=== PATIENT | female | born 2000 | race Caucasian/White ===

== ENCOUNTER 2019-03-31 12:03 | Emergency (ER) | payer OTHER ==
[2019-03-31] MEDS ORDERED: ONDANSETRON ODT 4 MG TABLET TL STA (12:26)
[2019-03-31 12:42] LABS: BASOPHILS # (AUTO) 0.1 10^3/uL (0.0-0.1); BASOPHILS % (AUTO) 0.3 %; EOSINOPHILS # (AUTO) 0.1 10^3/uL (0.0-0.7); EOSINOPHILS % (AUTO) 0.3 %; HGB - HEMOGLOBIN 12.7 g/dL (12.0-16.0); LYMPHOCYTES # (AUTO) 0.6 10^3/uL (1.5-3.5); LYMPHOCYTES % (AUTO) 2.4 %; MEAN CORPUSCULAR HEMOGLOBIN 26.7 pg (27.0-31.0); MEAN CORPUSCULAR HGB CONC 33.2 g/dL (32.0-36.0); MEAN CORPUSCULAR VOLUME 80.3 fL (81.0-99.0); MEAN PLATELET VOLUME 9.7 fL (7.9-10.8); MONOCYTES # (AUTO) 1.3 10^3/uL (0.0-1.0); MONOCYTES % (AUTO) 5.4 %; NEUTROPHILS # (AUTO) 21.5 10^3/uL (1.5-6.6); PLT - PLATELET COUNT 281 10^3/uL (130-450); RED BLOOD COUNT 4.76 10^6/uL (4.20-5.40); RED CELL DISTRIBUTION WIDTH 13.3 % (12.0-15.0); WHITE BLOOD COUNT 23.9 x10^3/uL (4.8-10.8)
[2019-03-31 12:56] LABS: ALBUMIN 3.3 g/dL (3.2-5.5); ALBUMIN/GLOBULIN RATIO 0.9 (1.0-2.2); BILIRUBIN,TOTAL 1.5 mg/dL (0.2-1.0); CALCIUM 8.4 mg/dL (8.5-10.3); CREATININE 0.9 mg/dL (0.4-1.0); TOTAL PROTEIN 6.8 g/dL (6.7-8.2)
[2019-03-31 13:01] LABS: RBC MORPHOLOGY (MULTIPLE) 1+ ANISOCYTOSIS (NORMAL)
[2019-03-31] MEDS ORDERED: SODIUM CHLORIDE 0.9% 1,000 ML IV ONE ×3 (13:25→13:40)
[2019-03-31] MEDS ORDERED: KETOROLAC 30 MG/ML VIAL IVP STA (13:35)
[2019-03-31] MEDS ORDERED: MORPHINE 2 MG/ML CARPUJECT IVP STA (13:35)
--- NOTE | 2019-03-31 13:39 | ED Physician Documentation ---
History of Present Illness - Stated complaint Stated Complaint: VOMITING - Chief complaint Chief Complaint: Abd Pain - History obtained from History obtained from: Patient - History of Present Illness Timing: How many days ago (2) Pain level max: 6 Pain level now: 6 - Additonal information Additional information: 18-year-old female presents to the emergency department with vomiting for the past 2 days. She states she has had fevers as well. Has left lower quadrant abdominal pain. She has a gastric tube that she uses to help flush for bowel movements secondary to anal stenosis. She states she has had constipation as well. Nothing makes it better. Worse with thinning and drinking. Denies any possibility of . Review of Systems Constitutional: reports: Fever. denies: Chills Nose: denies: Rhinorrhea / runny nose, Congestion Throat: denies: Sore throat Cardiac: denies: Chest pain / pressure Respiratory: denies: Cough, Wheezing GI: reports: Vomiting, Constipation. denies: Hematemesis, Bloody / black stool : denies: Dysuria, Frequency, Hesitancy, Now EGA Skin: denies: Rash Musculoskeletal: denies: Neck pain, Back pain PD PAST MEDICAL HISTORY - Past Medical History Past Medical History: Yes Other Past Medical History: anal stenosis - Present Medications Home Medications: Ambulatory Orders Medication Instructions Recorded Confirmed Cefdinir 300 mg PO BID #20 capsule 03/31/19 Ondansetron Odt [Zofran] 4 mg TL Q6H PRN #10 tablet 03/31/19 - Allergies Allergies/Adverse Reactions: Allergies Allergy/AdvReac Type Severity Reaction Status Date / Time Iodinated Contrast Media Allergy Anaphylaxis Verified 03/31/19 13:37 - Living Situation Living Arrangement: reports: At home - Family History Family history: reports: Non contributory PD ED PE NORMAL - Vitals Vital signs reviewed: Yes - General General: Alert and oriented X 3, No acute distress, Well developed/nourished - HEENT HEENT: Moist mucous membranes - Neck Neck: Supple, no meningeal sign - Cardiac Cardiac: RRR, Strong equal pulses - Respiratory Respiratory: No respiratory distress, Clear bilaterally - Abdomen Abdomen: Normal bowel sounds, Soft, Non distended, Other (Mild tenderness to palpation left lower quadrant without peritoneal signs.) - Back Back: No CVA TTP, No spinal TTP - Derm Derm: Warm and dry - Extremities Extremities: No edema - Neuro Neuro: Alert and oriented X 3 - Psych Psych: Normal mood, Normal affect Results - Vitals Vitals: Vital Signs - 24 hr 03/31/19 03/31/19 03/31/19 12:18 15:48 16:55 Temperature 39.4 C H Heart Rate 130 H 119 H 111 H Respiratory 16 16 18 Rate Blood Pressure 101/60 92/55 L 112/78 O2 Saturation 99 99 99 Oxygen O2 Source Room air - Labs Labs: Laboratory Tests 03/31/19 03/31/19 03/31/19 12:36 12:36 13:43 WBC 23.9 H RBC 4.76 Hgb 12.7 Hct 38.2 MCV 80.3 L MCH 26.7 L MCHC 33.2 RDW 13.3 Plt Count 281 MPV 9.7 Neut # (Auto) 21.5 H Lymph # (Auto) 0.6 L [place] # (Auto) 1.3 H Eos # (Auto) 0.1 Baso # (Auto) 0.1 Absolute Nucleated RBC 0.00 Nucleated RBC % 0.0 Manual Slide Review Indicated RBC Morph Micro Appear 1+ ANISOCYTOSIS Sodium 131 L Potassium 3.6 Chloride 98 L Carbon Dioxide 22 Anion Gap 11.0 BUN 9 Creatinine 0.9 Estimated GFR (MDRD) 81 L Glucose 123 H Lactic Acid Calcium 8.4 L Total Bilirubin 1.5 H AST 23 ALT 38 Alkaline Phosphatase 52 Total Protein 6.8 Albumin 3.3 Globulin 3.5 Albumin/Globulin Ratio 0.9 L Lipase 24 Urine Color Urine Clarity Urine pH Ur Specific [place] Urine Protein Urine Glucose (UA) Urine Ketones Urine Occult Blood Urine Nitrite Urine Bilirubin Urine Urobilinogen Ur Leukocyte Esterase Urine RBC Urine WBC Ur Squamous Epith Cells Urine Bacteria Ur Microscopic Review Urine Culture Comments Urine HCG, Qual Influenza A (Rapid) Negative Influenza B (Rapid) Negative 03/31/19 03/31/19 03/31/19 14:54 15:45 15:45 WBC RBC Hgb Hct MCV MCH MCHC RDW Plt Count MPV Neut # (Auto) Lymph # (Auto) [place] # (Auto) Eos # (Auto) Baso # (Auto) Absolute Nucleated RBC Nucleated RBC % Manual Slide Review RBC Morph Micro Appear Sodium Potassium Chloride Carbon Dioxide Anion Gap BUN Creatinine Estimated GFR (MDRD) Glucose Lactic Acid 1.5 Calcium Total Bilirubin AST ALT Alkaline Phosphatase Total Protein Albumin Globulin Albumin/Globulin Ratio Lipase Urine Color YELLOW Urine Clarity HAZY Urine pH 6.0 Ur Specific [place] 1.010 1.010 Urine Protein TRACE Urine Glucose (UA) NEGATIVE Urine Ketones 15 H Urine Occult Blood TRACE-LYSE Urine Nitrite NEGATIVE Urine Bilirubin NEGATIVE Urine Urobilinogen 0.2 (NORMAL) Ur Leukocyte Esterase LARGE H Urine RBC 0-5 Urine WBC >25 H Ur Squamous Epith Cells MANY Squamous H Urine Bacteria Many H Ur Microscopic Review INDICATED Urine Culture Comments NOT INDICATED Urine HCG, Qual NEGATIVE Influenza A (Rapid) Influenza B (Rapid) - Rads (name of study) CT abd/pelvis Radiology: Prelim report reviewed, EMP read contemporaneously, See rad report (A 5 mm obstructive calculus in left UVJ with upstream hydroureteronephrosis. Left renal features are consistent with acute obstructive uropathy. ) PD MEDICAL DECISION MAKING - ED course Complexity details: reviewed results, re-evaluated patient, considered differential, d/w patient ED course: 18-year-old female presents to the emergency department with fever and what appears to be like pyelonephritis. Has a 5 mm obstructive calculus in the left UVJ. Immediately after the CT was taken, she urinated and passed to the 5 mm stone into the urine cup. No other stones are visible on CT scan. Her pain resolved. We will treat her as pyelonephritis at this time. No evidence of infected stone. Tolerating p.o. without difficulty. Will place on antibiotics for home and follow-up closely with her doctor. Patient counseled regarding signs and symptoms for which I believe and urgent re-evaluation would be necessary. Patient with good understanding of and agreement to plan and is comfortable going home at this time This document was made in part using voice recognition software. While efforts are made to proofread this document, sound alike and grammatical errors may occur. Departure - Departure Disposition: Home, Self Care Clinical Impression: Pyelonephritis, Ureteral calculus, left Fever Qualifiers: Fever type: unspecified Qualified Code(s): R50.9 - Fever, unspecified Condition: Good Instructions: ED Kidney Infec Female Follow-Up: Jurgen Laird ARNP [Primary Care Provider] - Within 3 Days Prescriptions: Cefdinir 300 mg PO BID #20 capsule Ondansetron Odt [Zofran] 4 mg TL Q6H PRN #10 tablet PRN Reason: Nausea / Vomiting Comments: Take all antibiotics until gone. Return if you worsen. You appear to have passed the kidney stone today. You should start to feel better soon. Discharge Date/Time: 03/31/19 17:19
--- NOTE | 2019-03-31 14:22 | CT Report ---
Reason: abd pain, fever Procedure Date: 03/31/2019 Accession Number: [id number] / [id number] Procedure: CT - Abdomen/Pelvis WO CPT Code: Final Report FULL RESULT: EXAM: CT ABDOMEN AND PELVIS (CT KUB) EXAM DATE: 03/31/2019 02:09 PM. CLINICAL HISTORY: Abd pain, fever. COMPARISONS: None. TECHNIQUE: Routine axial helical CT imaging was performed through the abdomen and pelvis without IV contrast. Reconstructions: Coronal and sagittal. In accordance with CT protocol optimization, one or more of the following dose reduction techniques were utilized for this exam: automated exposure control, adjustment of mA and/or KV based on patient size, or use of iterative reconstructive technique. FINDINGS: Lung Bases: Unremarkable. Right Kidney/Ureter: No stones, hydronephrosis, or hydroureter. No perinephric fat stranding. Left Kidney/Ureter: A 5 mm calculus in distal UVJ with upstream hydroureteronephrosis. Mild enlargement of left kidney with perinephric fat stranding is consistent with acute obstructive uropathy. No stones, hydronephrosis, or hydroureter. No perinephric fat stranding. Other Solid Organs: Diffuse hepatic steatosis. Noncontrast images of rest of the solid organs are grossly unremarkable. Gallbladder/Bile Ducts: Contracted. Peritoneal Cavity: No free fluid, free air or kunal adenopathy. Bowel is grossly unremarkable. Normal appendix and right lower quadrant. Left-sided percutaneous colostomy in left lower quadrant noted. Pelvic Organs: No bladder stones or wall thickening. Noncontrast images of the visualized pelvic organs are unremarkable. Vasculature: Unremarkable. Other: None. IMPRESSION: A 5 mm obstructive calculus in left UVJ with upstream hydroureteronephrosis. Left renal features are consistent with acute obstructive uropathy. RADIA
[2019-03-31] MEDS ORDERED: cefTRIAXone 1 GM VIAL IVP STA (14:57)
[2019-03-31 16:02] LABS: BILIRUBIN,URINE NEGATIVE (NEGATIVE); GLUCOSE, URINE (UA) NEGATIVE (NEGATIVE); KETONES,URINE (UA) 15 mg/dL (NEGATIVE); LEUKOCYTE ESTERASE, URINE LARGE (NEGATIVE); NITRITE,URINE NEGATIVE (NEGATIVE); OCCULT BLOOD,URINE TRACE-LYSE (NEGATIVE); PROTEIN,URINE TRACE mg/dL (NEGATIVE); UROBILINOGEN,URINE 0.2 (NORMAL) E.U./dL (NORMAL)
[2019-03-31 16:10] LABS: HCG UR QUAL NEGATIVE
[2019-03-31 16:15] LABS: CLARITY,URINE HAZY (CLEAR)
[2019-03-31 16:17] LABS: BACTERIA,URINE Many /HPF (None Seen); RBC,URINE 0-5 /HPF (0-5); SQUAMOUS EPITHELIAL CELL,UR MANY Squamous (<= Few)
[2019-03-31] MEDS ORDERED: ACETAMINOPHEN 325 MG TABLET PO STA (16:44)
[2019-03-31 16:56] VITALS: BP 112/78
[2019-03-31] MEDS ORDERED: BUTALB/ACETAM/CAFF 50/325/40MG TABLET PO STA (17:07)
== END 2019-03-31 17:19 | disposition home or self-care (01) ==
LOC: ED 12:03
DX: N12 Tubulo-interstitial nephritis, not specified as acute or chronic (principal); N20.1 Calculus of ureter
CPT/HCPCS: 36415; 74176; 80053; 81001; 81025; 83605; 83690; 85025; 87040; 87275; 87276; 96361; 96374; 96375; 99284; A9270; Q0162; 81003; 87086

== ENCOUNTER 2019-04-01 12:22 | Observation (INO) | payer OTHER ==
[2019-04-01] MEDS ORDERED: cefTRIAXone 1 GM VIAL IVP STA (12:49)
[2019-04-01] MEDS ORDERED: SODIUM CHLORIDE 0.9% 2,000 ML IV ONE (12:49)
[2019-04-01] MEDS ORDERED: ONDANSETRON 4 MG/2 ML VIAL IVP STA (12:49)
[2019-04-01 12:51] LABS: BASOPHILS # (AUTO) 0.1 10^3/uL (0.0-0.1); BASOPHILS % (AUTO) 0.4 %; EOSINOPHILS # (AUTO) 0.1 10^3/uL (0.0-0.7); EOSINOPHILS % (AUTO) 0.6 %; HGB - HEMOGLOBIN 11.8 g/dL (12.0-16.0); LYMPHOCYTES # (AUTO) 0.7 10^3/uL (1.5-3.5); LYMPHOCYTES % (AUTO) 2.9 %; MEAN CORPUSCULAR HGB CONC 33.1 g/dL (32.0-36.0); MEAN CORPUSCULAR VOLUME 78.4 fL (81.0-99.0); MONOCYTES # (AUTO) 1.3 10^3/uL (0.0-1.0); MONOCYTES % (AUTO) 5.7 %; NEUTROPHILS # (AUTO) 20.5 10^3/uL (1.5-6.6); NEUTROPHILS % (AUTO) 88.2 %; PLT - PLATELET COUNT 242 10^3/uL (130-450); RED BLOOD COUNT 4.54 10^6/uL (4.20-5.40); RED CELL DISTRIBUTION WIDTH 13.3 % (12.0-15.0); WHITE BLOOD COUNT 23.3 x10^3/uL (4.8-10.8)
[2019-04-01 13:04] LABS: ALBUMIN 3.1 g/dL (3.2-5.5); ALBUMIN/GLOBULIN RATIO 0.9 (1.0-2.2); BILIRUBIN,TOTAL 1.3 mg/dL (0.2-1.0); CALCIUM 8.4 mg/dL (8.5-10.3); CREATININE 0.7 mg/dL (0.4-1.0); TOTAL PROTEIN 6.7 g/dL (6.7-8.2)
[2019-04-01] MEDS ORDERED: ACETAMINOPHEN 1,000 MG/100 ML 100 ML IV STA (13:05)
[2019-04-01] MEDS ORDERED: MORPHINE 2 MG/ML CARPUJECT IVP STA (13:06)
[2019-04-01 13:09] LABS: BILIRUBIN,URINE NEGATIVE (NEGATIVE); GLUCOSE, URINE (UA) NEGATIVE (NEGATIVE); KETONES,URINE (UA) 40 mg/dL (NEGATIVE); LEUKOCYTE ESTERASE, URINE TRACE (NEGATIVE); NITRITE,URINE NEGATIVE (NEGATIVE); OCCULT BLOOD,URINE TRACE-INTA (NEGATIVE); PROTEIN,URINE 100 mg/dL (NEGATIVE); UROBILINOGEN,URINE 4 E.U./dL (NORMAL)
--- NOTE | 2019-04-01 13:11 | ED Physician Documentation ---
History of Present Illness - Stated complaint Stated Complaint: N/V - Chief complaint Chief Complaint: Abd Pain - History obtained from History obtained from: Patient - History of Present Illness Timing: How many days ago (3) Pain level max: 8 Pain level now: 8 - Additonal information Additional information: 18-year-old female presents to the emergency department with a headache and fever. Seen here yesterday and diagnosed with pyelonephritis and a ureteral stone. She passed the stone in the emergency department. Did not fill her prescriptions and is having vomiting again today. Came back for evaluation. Review of Systems Ten Systems: 10 systems reviewed and negative Constitutional: reports: Fever, Chills Respiratory: reports: Cough GI: reports: Nausea, Vomiting. denies: Abdominal Pain, Diarrhea Skin: denies: Rash Musculoskeletal: denies: Neck pain, Back pain Neurologic: denies: Headache PD PAST MEDICAL HISTORY - Past Medical History Past Medical History: Yes Musculoskeletal: Fibromyalgia - Past Surgical History Past Surgical History: Yes - Present Medications Home Medications: Ambulatory Orders Medication Instructions Recorded Confirmed Cefdinir 300 mg PO BID #20 capsule 03/31/19 Ondansetron Odt [Zofran] 4 mg TL Q6H PRN #10 tablet 03/31/19 - Allergies Allergies/Adverse Reactions: Allergies Allergy/AdvReac Type Severity Reaction Status Date / Time Iodinated Contrast Media Allergy Anaphylaxis Verified 04/01/19 12:41 - Social History Does the pt smoke?: No Smoking Status: Never smoker PD ED PE NORMAL - Vitals Vital signs reviewed: Yes - General General: Alert and oriented X 3, No acute distress, Well developed/nourished - HEENT HEENT: PERRL, Ears normal, Moist mucous membranes, Pharynx benign - Neck Neck: Supple, no meningeal sign - Cardiac Cardiac: Other (Tachycardic) - Respiratory Respiratory: No respiratory distress, Clear bilaterally - Abdomen Abdomen: Soft, Non tender, Non distended - Back Back: Other (Left CVA tenderness) - Derm Derm: Warm and dry - Extremities Extremities: No edema - Neuro Neuro: Alert and oriented X 3 - Psych Psych: Normal mood, Normal affect Results - Vitals Vitals: Vital Signs - 24 hr 04/01/19 04/01/19 04/01/19 12:40 13:15 14:30 Temperature 37.9 C H 38.5 C H 37.3 C Heart Rate 139 H 116 H 88 Respiratory 18 20 16 Rate Blood Pressure 101/56 L 105/66 100/65 O2 Saturation 99 97 97 04/01/19 15:25 Temperature 36.9 C Heart Rate 92 Respiratory 18 Rate Blood Pressure 105/67 O2 Saturation 97 Oxygen O2 Source Room air - Labs Labs: Laboratory Tests 04/01/19 04/01/19 04/01/19 12:46 12:46 12:57 WBC 23.3 H RBC 4.54 Hgb 11.8 L Hct 35.6 L MCV 78.4 L MCH 26.0 L MCHC 33.1 RDW 13.3 Plt Count 242 MPV 10.0 Neut # (Auto) 20.5 H Lymph # (Auto) 0.7 L [place] # (Auto) 1.3 H Eos # (Auto) 0.1 Baso # (Auto) 0.1 Absolute Nucleated RBC 0.00 Nucleated RBC % 0.0 Manual Slide Review Indicated Sodium 134 L Potassium 3.4 L Chloride 101 Carbon Dioxide 22 Anion Gap 11.0 BUN 9 Creatinine 0.7 Estimated GFR (MDRD) 108 Glucose 107 H Lactic Acid 1.2 Calcium 8.4 L Total Bilirubin 1.3 H AST 25 ALT 39 Alkaline Phosphatase 52 Total Protein 6.7 Albumin 3.1 L Globulin 3.6 Albumin/Globulin Ratio 0.9 L Lipase 35 Urine Color Urine Clarity Urine pH Ur Specific [place] Urine Protein Urine Glucose (UA) Urine Ketones Urine Occult Blood Urine Nitrite Urine Bilirubin Urine Urobilinogen Ur Leukocyte Esterase Urine RBC Urine WBC Ur Squamous Epith Cells Urine Bacteria Ur Microscopic Review Urine Culture Comments 04/01/19 13:00 WBC RBC Hgb Hct MCV MCH MCHC RDW Plt Count MPV Neut # (Auto) Lymph # (Auto) [place] # (Auto) Eos # (Auto) Baso # (Auto) Absolute Nucleated RBC Nucleated RBC % Manual Slide Review Sodium Potassium Chloride Carbon Dioxide Anion Gap BUN Creatinine Estimated GFR (MDRD) Glucose Lactic Acid Calcium Total Bilirubin AST ALT Alkaline Phosphatase Total Protein Albumin Globulin Albumin/Globulin Ratio Lipase Urine Color YELLOW Urine Clarity HAZY Urine pH 6.0 Ur Specific [place] 1.025 Urine Protein 100 H Urine Glucose (UA) NEGATIVE Urine Ketones 40 H Urine Occult Blood TRACE-INTA Urine Nitrite NEGATIVE Urine Bilirubin NEGATIVE Urine Urobilinogen 4 H Ur Leukocyte Esterase TRACE H Urine RBC 0-5 Urine WBC 11-25 H Ur Squamous Epith Cells MANY Squamous H Urine Bacteria Few Ur Microscopic Review INDICATED Urine Culture Comments NOT INDICATED PD MEDICAL DECISION MAKING - ED course Complexity details: reviewed results, re-evaluated patient, considered differential, d/w patient ED course: Patient presents to the emergency department with continued pyelonephritis. S till has a significant leukocytosis and tachycardia upon arrival. Feels better after pain medication, IV fluids and Rocephin. Also given Zofran and Phenergan. Still having significant nausea and not able to tolerate p.o. well. Therefore we will place her in observation. Discussed the case with Dr. Poole, hospitalist who accepts. This document was made in part using voice recognition software. While efforts are made to proofread this document, sound alike and grammatical errors may occur. Departure - Departure Disposition: ED Place in Observation Clinical Impression: Pyelonephritis Vomiting Qualifiers: Vomiting type: unspecified Vomiting Intractability: intractable Nausea presence: with nausea Qualified Code(s): R11.2 - Nausea with vomiting, unspecified Fever Qualifiers: Fever type: unspecified Qualified Code(s): R50.9 - Fever, unspecified Headache Qualifiers: Headache type: unspecified Headache chronicity pattern: acute headache Intractability: not intractable Qualified Code(s): R51 - Headache Leukocytosis Qualifiers: Leukocytosis type: bandemia Qualified Code(s): D72.825 - Bandemia Condition: Stable Discharge Date/Time: 04/01/19 17:40
[2019-04-01 13:15] LABS: BACTERIA,URINE Few /HPF (None Seen); CLARITY,URINE HAZY (CLEAR); RBC,URINE 0-5 /HPF (0-5); SQUAMOUS EPITHELIAL CELL,UR MANY Squamous (<= Few)
[2019-04-01] MEDS ORDERED: KETOROLAC 30 MG/ML VIAL IVP STA (14:39)
[2019-04-01] MEDS ORDERED: HYDROmorphone 1 MG/ML CARPUJECT IVP STA (15:38)
[2019-04-01] MEDS ORDERED: SODIUM CHLORIDE 0.9% 1,000 ML IV ONE ×2 (16:16)
[2019-04-01] MEDS ORDERED: PROMETHAZINE INJ 25 MG in SODIUM CHLORIDE 0.9% 50 ML IV STA (16:17)
[2019-04-01] MEDS ORDERED: ONDANSETRON 4 MG/2 ML VIAL IVP PRN (16:46)
[2019-04-01] MEDS ORDERED: PROCHLORPERAZINE 10 MG/2 ML VIAL IVP PRN (16:46)
--- NOTE | 2019-04-01 17:22 | HISTORY & PHYSICAL EXAMINATION ---
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 She presents today in our ED with a headache, abdominal pain, and fever. She was seen here yesterday and diagnosed with pyelonephritis and a ureteral stone. She passed the stone while still in the emergency department. She admits that she was not able to take her antibio tic prescribed due to her ongoing intractable nausea with vomiting. Imaging from yesterday showed a 5 mm obstructive calculus in left UVJ with upstream hydroureteronephrosis, left renal features are consistent with acute obstructive uropathy. Labs reveal an elevated WBC count of 23.3, Hgb 11.8, Hct 35.6, MCV 78.4, Neut # 20.5, mono # 1.3, sodium 134, potassium 3.4, chloride 101, BUN 9, creatinine 0.7, GFR 108, glucose 107, calcium 8.4, total bilirubin 1.3, normal lactic acid of 1.2 with no other abnormalities. A urinalysis shows acute infection with + urine proteins of 100, + urine ketones of 40, elevated urine WBC of 11-25, and few bacteria. She will be admitted to observation for symptom management and treatment of this acute infection. 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 Thinks one of her brothers has heart disease. Living arrangement: At home Living Situation: With spouse/s.o. 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 She denies ilicit drug use, tobacco use or alcohol use. She wishes to be a FULL code. - Substance History Use: Uses substance without health or social issues: NONE Abuse: Recurrent use of substance despite neg consequences: NONE Dependence: Experiences withdrawal or developed tolerances: NONE - POLST Patient has POLST: No POLST Status: Full Code Meds/Allgy - Home Medications Home Medications: Ambulatory Orders Medication Instructions Recorded Confirmed Cefdinir 300 mg PO BID #20 capsule 03/31/19 Ondansetron Odt [Zofran] 4 mg TL Q6H PRN #10 tablet 03/31/19 - Allergies Allergies/Adverse Reactions: Allergies Allergy/AdvReac Type Severity Reaction Status Date / Time Iodinated Contrast Media Allergy Anaphylaxis Verified 04/01/19 12:41 Review of Systems - Constitutional Constitutional: reports: Fatigue, Fever, Chills, Weakness, Poor appetite, Diaphoresis - Ears, Nose & Throat Ears, Nose & Throat: reports: Vertigo - Cardiovascular Cariovascular: reports: Edema, Lightheadedness - Gastrointestinal Gastrointestinal: reports: Abdominal pain, Abdominal distention, Constipation, Diarrhea, Nausea, Vomiting, Bile emesis, Reflux/heartburn, Bloating, Poor appetite - Genitourinary Genitourinary: reports: Frequency, Flank pain - Musculoskeletal Musculoskeletal: reports: Back pain - Neurological Neurological: reports: General weakness, Dizziness - Hematologic/Lymphatic Hematologic/Lymphatic: reports: Anemia - All Other Systems All Other Systems: reports: Reviewed and negative Prior Level of Functionality: Does not drive a car, 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 No recent falls. Functions independently. Exam - Vital Signs Reviewed Vital Signs: Yes Vital Signs: Vital Signs x48h Temp Pulse Resp BP Pulse Ox 04/01/19 15:25 36.9 C 92 18 105/67 97 04/01/19 14:30 37.3 C 88 16 100/65 97 04/01/19 13:15 38.5 C H 116 H 20 105/66 97 04/01/19 12:40 37.9 C H 139 H 18 101/56 L 99 - Physical Exam General Appearance: positive: Moderate distress, Lethargic Eyes Bilateral: positive: PERRL, No lid inflammation ENT: positive: Pharynx nml, Dry mucous membranes Neck: positive: Thyroid nml, No JVD Respiratory: positive: Chest non-tender, No respiratory distress, Other (scattered crackles to bilateral low bases) Cardiovascular: positive: Regular rate & rhythm, No murmur, No gallop, Tachycardia Peripheral Pulses: positive: 2+ Abdomen: positive: Guarding, Rebound, Hepatomegaly, Abnml bowel sounds, Other (rounded, soft, LLQ Guzman tube) Back: positive: Nml inspection, CVA tenderness (L) Skin: positive: No rash, Warm, Diaphoresis, Pallor Extremities: positive: Non-tender, Full ROM, Nml appearance, Pedal edema Neurologic/Psychiatric: positive: Oriented x3, CN's nml (2-12), Motor nml, Sensation nml, Depressed mood/affect Reflexes: Bicep (R): 3+, Bicep (L): 3+ Sepsis Event Note (H) - Evaluation Current Stage of Sepsis: Ruled out Conclusion/Plan - Problem List (1) Pyelonephritis Conclusion/Plan: -Initially started having symptoms on March 23, which has become progressively worse - Left flank pain has improved since yesterdays ED visit - Attempted to control symptoms by purchasing anti-emetics at [facility] on -Was seen in our ED yesterday, diagnosed with a left kidney stone which was witnessed as passing -No dysuria, no hematuria, no retention or incontinence per patient -IV Rocephin was given, continued again today -Prescribed Cefdinir for home use, but patient did not get any doses due to ongoing N/V -Admit to inpatient for treatment of this illness Ureteral calculus, left: -Noted on CT from yesterday - ED physician reports that it was witnessed to pass while in the ED - Continues to have mild left flank pain, improved - Urinalysis was noted to appear infected - Continue to monitor Intractable nausea and vomiting: -Started shortly after first symptoms as early as March 23 - Primary reason for returning to the ED today, since not tolerating PO intake - Continue anti-emetics, monitor for improvement, continue to treat acute infection Fever: -Low grade, temp max of 37.9 C since arriving in the ED -Diaphoretic on exam -Continue to monitor, give Tylenol as needed Headache: -Likely a result of this acute illness, dehydration - Rates it as a 10 out of 10, on frontal region, wrapping around to her posterior scalp and travels down her spine, unchanged from prior - IV dilaudid seemed to work better than morphine, so continuing IV dilaudid, PO Tylenol -Monitor for improvement Leukocytosis: -WBC count elevated at 23.3, Neut # 20.5, mono # 1.3 -Likely due to acute pyelonephritis, UA + - Continue treatment of acute infection - Routine labs 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, take down, now with a Guzman tube - Takes daily go-lytely when at home - No constipation or diarrhea noted on exam Fibromyalgia: -Previously belonged to a pain clinic to get muscle relaxers - Still has not established a pain clinic [place] - States that her pain is generalized, also with peripheral neuropathy, BLE pain - Continue to treat acute illness Congenital anomaly of GI tract: -Patient states that she was born with 2 sets of bowels - Status post colostomy, colostomy take down, and remains with a Guzman tube device located in the LLQ - Go-lyetly daily at home, can continue Miralax while here Peripheral neuropathy: -Chronic, due to fibromyalgia -Monitor, treat acute illness - Lab Results Lab results reviewed: Yes Fish Bones: 04/01/19 12:46 04/01/19 12:46 - Diagnostic Imaging Results Diagnostic Imaging Results: positive: Final report reviewed Diagnostic Imaging Results Comments: EXAM: CT ABDOMEN AND PELVIS (CT KUB) EXAM DATE: 03/31/2019 02:09 PM IMPRESSION: A 5 mm obstructive calculus in left UVJ with upstream hydroureteronephrosis. Left renal features are consistent with acute obstructive uropathy. Core Measures - Anticipated LOS I expect patient to be DC'd or transferred within 96 hours.: Yes - DVT/VTE - Prophylaxis VTE/DVT Device ordered at admit?: Yes VTE/DVT Prophylaxis med ordered at admit?: Yes - Stroke - Rehab Assessment Rehab services assessment to be ordered?: No Not Ordered - Medical Reason: Contraindicated - AMI - Statin at Admit Aspirin Prescribed on Admit: No Not Ordered - Medical Reason: Contraindicated
[2019-04-01] MEDS: SODIUM CHLORIDE FLUSH 0.9% 10 ML SYRINGE IVP SCH ×2 (17:45→23:48)
[2019-04-01] MEDS: LACTATED RINGERS 1,000 ML IV SCH (18:34)
[2019-04-01] MEDS ORDERED: ACETAMINOPHEN 325 MG TABLET PO PRN (18:53)
[2019-04-01] MEDS: HYDROmorphone 1 MG/ML CARPUJECT IVP PRN ×2 (19:26→23:48)
[2019-04-01] MEDS: polyethylene glycoL 3350 17 GM PACKET PO SCH (21:17)
[2019-04-01] MEDS: KETOROLAC 15 MG/ML VIAL IVP PRN (21:17)
[2019-04-02] MEDS: LACTATED RINGERS 1,000 ML IV SCH (04:16)
[2019-04-02] MEDS: HYDROmorphone 1 MG/ML CARPUJECT IVP PRN ×5 (04:16→19:54)
[2019-04-02] MEDS ORDERED: ACETAMINOPHEN 1,000 MG/100 ML 100 ML IV ONE (04:36)
[2019-04-02 05:11] LABS: BASOPHILS # (AUTO) 0.1 10^3/uL (0.0-0.1); BASOPHILS % (AUTO) 0.3 %; EOSINOPHILS # (AUTO) 0.1 10^3/uL (0.0-0.7); EOSINOPHILS % (AUTO) 0.4 %; LYMPHOCYTES # (AUTO) 0.9 10^3/uL (1.5-3.5); LYMPHOCYTES % (AUTO) 5.4 %; MEAN CORPUSCULAR HEMOGLOBIN 25.9 pg (27.0-31.0); MEAN CORPUSCULAR HGB CONC 32.1 g/dL (32.0-36.0); MEAN CORPUSCULAR VOLUME 80.7 fL (81.0-99.0); MEAN PLATELET VOLUME 10.5 fL (7.9-10.8); MONOCYTES # (AUTO) 1.2 10^3/uL (0.0-1.0); MONOCYTES % (AUTO) 7.2 %; NEUTROPHILS # (AUTO) 14.3 10^3/uL (1.5-6.6); NEUTROPHILS % (AUTO) 85.9 %; PLT - PLATELET COUNT 232 10^3/uL (130-450); RED BLOOD COUNT 4.25 10^6/uL (4.20-5.40); RED CELL DISTRIBUTION WIDTH 13.8 % (12.0-15.0); WHITE BLOOD COUNT 16.6 x10^3/uL (4.8-10.8)
[2019-04-02 05:20] LABS: CALCIUM 7.9 mg/dL (8.5-10.3); CREATININE 0.5 mg/dL (0.4-1.0)
[2019-04-02] MEDS: PANTOPRAZOLE 40 MG VIAL IVP SCH (05:24)
[2019-04-02] MEDS ORDERED: BUTALB/ACETAM/CAFF 50/325/40MG TABLET PO STA (06:53)
[2019-04-02] MEDS: POTASSIUM CHLOR 10 MEQ/100 ML 10 MEQ/100 ML BAG IV SCH ×3 (08:09→14:43)
[2019-04-02] MEDS: polyethylene glycoL 3350 17 GM PACKET PO SCH (08:17)
[2019-04-02] MEDS ORDERED: cefTRIAXone 1 GM in SODIUM CHLORIDE 0.9% MINIBAG 100 ML IV SCH (09:00)
[2019-04-02] MEDS: OXYMETAZOLINE HCL 100 SPRAYS BOTTLE NAS SCH ×2 (10:16→21:28)
--- NOTE | 2019-04-02 10:21 | Discharge Plan ---
Discharge Plan Problem Reviewed?: Yes Disposition: Home, Self Care Condition: Good Prescriptions: Cefdinir 300 mg PO BID #28 capsule Fluticasone [Flonase] 2 sprays KYM DAILY #1 bottle Lactobacillus Acidophilus [Digestive Probiotic] 1 each PO BID #60 capsule Ondansetron Odt [Zofran Odt] 4 mg TL Q6H PRN #10 tablet PRN Reason: Nausea / Vomiting Oxymetazoline HCl [Afrin] 2 sprays KYM BID #1 bottle Diet: Regular Activity Restrictions: No Restrictions Shower Restrictions: No Health Concerns: Resolved kidney stone Headaches most likely caused by sinusitis Fevers Plan of Treatment: Continue the antibiotics previously prescribed by the ED physician for an extended period another 14-days since this is considered a complicated infection involving the kidneys. Continue the Afrin spray for 6 doses (twice daily) not to exceed 3 days, then start Flonase or Nasonex to keep your sinuses clear. If your problems persist, you may need to see a ear, nose and throat specialist. See your primary provider within 1 week for a follow up. Care Goals: Stay well by taking all of your prescribed medication. Treat symptoms. Assessment: You were admitted for one night of stay to treat your kidney infection, fevers, nausea, and headaches. After getting a few more doses of antibiotics, your symptoms improved, but your headache remained. After examination of your ears, it appears that your have clogged eustachian tubes (tubes that lead from your ears to the back of your throat). The treatment for this is Afrin spray for 3 days followed by nasonex or flonase (steroid spray) daily. You may also try sudafed (the type that requires your ID) or ibuprofen as an anti-inflammatory. No Smoking: If you smoke, Please STOP! Call for help. Follow-up with: Jurgen Laird ARNP [Primary Care Provider] -
--- NOTE | 2019-04-02 10:25 | PHARMACY PROGRESS NOTE ---
- Best Possible Medication History Admit Date and Time: 04/01/19 1646 Processed by: Pharmacy Medication History completed: In progress Patient Interview: Completed (PT DOES NOT KNOW MED STRENGTHS; NO SECONDARY SOURCE AVAILABLE 04/02/19) As the person ultimately responsible for medication therapy, providers are able to order a medication from an existing home medication list in [facility] via the "Reconcile Routine" prior to Confirmation of that medication by clinical support tech. Such practice is discouraged except when the physician, in their clinical judgment, deems that a medical need exists for a medication without regard to previous use.
[2019-04-02] MEDS ORDERED: POTASSIUM CHLORIDE 20 MEQ TABLET PO ONE (11:02)
[2019-04-02] MEDS: SODIUM CHLORIDE FLUSH 0.9% 10 ML SYRINGE IVP SCH ×3 (11:14→17:38)
[2019-04-02] MEDS ORDERED: CYCLOBENZAPRINE 10 MG TABLET PO PRN (18:08)
--- NOTE | 2019-04-02 18:09 | PROVIDER PROGRESS NOTE ---
Subjective - Prog Note Date Prog Note Date: 04/02/19 Prog Note Time: 18:09 - Subjective Pt reports feeling: No change Subjective: Vicenta complains of ongoing headache symptoms despite starting the nasal spray and is nauseated, so is still not eating. Current Medications - Current Medications Current Medications: Active Medications: Acetaminophen (Tylenol) 650 mg PO Q4HR PRN PRN Reason: Pain or Fever > 38C (100.4F) Cyclobenzaprine HCl (Flexeril) 10 mg PO BID PRN PRN Reason: Spasms Hydromorphone HCl (Dilaudid Inj Carp) 1 mg IVP Q2HR PRN PRN Reason: PAIN Last Admin: 04/02/19 17:38 Dose: 1 mg Ceftriaxone Sodium 1 gm/ (Sodium Chloride) 100 mls @ 200 mls/hr IV DAILY [facility] Last Infusion: 04/02/19 11:05 Dose: Infused Potassium Chloride/Sodium Chloride (Normal Saline 0.9% W/20 Meq Kcl) 1,000 mls @ 83.333 mls/hr IV .Q12H [facility] Ketorolac Tromethamine (Toradol Inj (15mg)) 15 mg IVP Q6HR PRN PRN Reason: PAIN Stop: 04/06/19 19:33 Last Admin: 04/01/19 21:17 Dose: 15 mg Ondansetron HCl (Zofran Inj) 4 mg IVP Q6HR PRN PRN Reason: Nausea / Vomiting Last Admin: 04/02/19 11:14 Dose: 4 mg Oxymetazoline HCl (Afrin) 2 sprays KYM BID [facility] Stop: 04/04/19 21:01 Last Admin: 04/02/19 10:16 Dose: 2 sprays Pantoprazole Sodium (Protonix) 40 mg IVP QDAC [facility] Last Admin: 04/02/19 05:24 Dose: 40 mg Polyethylene Glycol (Miralax) 17 gm PO DAILY [facility] Last Admin: 04/02/19 08:17 Dose: Not Given Prochlorperazine Edisylate (Compazine Inj) 10 mg IVP Q6HR PRN PRN Reason: Nausea / Vomiting Sodium Chloride (Normal Saline Flush 0.9%) 10 ml IVP PRN PRN PRN Reason: NEEDED PER PROVIDER ORDERS Sodium Chloride (Normal Saline Flush 0.9%) 10 ml IVP 0100,0900,1700 ALEXUS Last Admin: 04/02/19 17:38 Dose: 10 ml Cyclobenzaprine [Flexeril] 10 mg PO BID PRN 04/02/19 Pantoprazole [Protonix] 40 mg PO DAILY 04/02/19 rOPINIRole [Requip] 0.25 mg PO QPM PRN 04/02/19 Objective - Vital Signs/Intake & Output Reviewed Vital Signs: Yes Vital Signs: Vital Signs x48h Temp Pulse Resp BP Pulse Ox 04/02/19 16:53 37.4 C 121 H 16 113/70 96 Intake & Output: Intake & Output 03/30/19 03/31/19 04/01/19 04/02/19 23:59 23:59 23:59 23:59 Intake Total 3542.667 2735.333 Output Total 1850 Balance 3542.667 885.333 - Objective General Appearance: positive: Alert, Severe distress, Anxious Eyes Bilateral: positive: PERRL, No lid inflammation Eyes: OU Conjunctivae pale ENT: positive: Pharynx nml, No signs of dehydration Neck: positive: Thyroid nml, No JVD Respiratory: positive: Chest non-tender, No respiratory distress, Breath sounds nml Cardiovascular: positive: Regular rate & rhythm, No murmur, No gallop Peripheral Pulses: 2+ Radial (R), 2+ Radial (L) Abdomen: positive: Non-tender, Guarding, Hepatomegaly, Abnml bowel sounds Back: positive: Nml inspection Skin: positive: No rash, Warm, Dry Extremities: positive: Non-tender, Full ROM, No pedal edema Neurologic/Psychiatric: positive: Oriented x3, CN's nml (2-12), Motor nml, Sensation nml, Depressed mood/affect Reflexes: Bicep (R): 3+, Bicep (L): 3+ - Lab Results Fish Bones: 04/02/19 04:45 04/02/19 04:45 Other Labs: Lab Results x24hrs 04/02/19 04/02/19 04/02/19 Range/Units 04:45 04:45 04:45 WBC 16.6 H (4.8-10.8) x10^3/uL RBC 4.25 (4.20-5.40) 10^6/uL Hgb 11.0 L (12.0-16.0) g/dL Hct 34.3 L (37.0-47.0) % MCV 80.7 L (81.0-99.0) fL MCH 25.9 L (27.0-31.0) pg MCHC 32.1 (32.0-36.0) g/dL RDW 13.8 (12.0-15.0) % Plt Count 232 (130-450) 10^3/uL MPV 10.5 (7.9-10.8) fL Neut # (Auto) 14.3 H (1.5-6.6) 10^3/uL Lymph # (Auto) 0.9 L (1.5-3.5) 10^3/uL [place] # (Auto) 1.2 H (0.0-1.0) 10^3/uL Eos # (Auto) 0.1 (0.0-0.7) 10^3/uL Baso # (Auto) 0.1 (0.0-0.1) 10^3/uL Absolute Nucleated RBC 0.00 x10^3/uL Nucleated RBC % 0.0 /100WBC Sodium 137 (135-145) mmol/L Potassium 3.2 L (3.5-5.0) mmol/L Chloride 106 (101-111) mmol/L Carbon Dioxide 24 (21-32) mmol/L Anion Gap 7.0 (6-13) BUN 6 (6-20) mg/dL Creatinine 0.5 (0.4-1.0) mg/dL Estimated GFR (MDRD) 159 (>89) Glucose 105 H (70-100) mg/dL Calcium 7.9 L (8.5-10.3) mg/dL Magnesium 1.8 (1.7-2.8) mg/dL ABX Reporting Has patient been on IV antibiotics over the past 48 hours?: Yes Sepsis Event Note (H) - Evaluation Current Stage of Sepsis: Ruled out Assessment/Plan - Problem List (1) Pyelonephritis Impression: -Initially started having symptoms on March 23, which has become pr ogressively worse - Left flank pain has improved since yesterdays ED visit - Attempted to control symptoms by purchasing anti-emetics at [facility] on -Was seen in our ED yesterday, diagnosed with a left kidney stone which was witnessed as passing -No dysuria, no hematuria, no retention or incontinence per patient -IV Rocephin was given, continued here -Prescribed Cefdinir for home use, but patient did not get any doses due to ongoing N/V -Admit to inpatient for treatment of this illness Ureteral calculus, left: -Noted on CT upon admission - ED physician reports that it was witnessed to pass while in the ED - Continues to have mild left flank pain, improved - Urinalysis was noted to appear infected - Continue to monitor Intractable migraines: -Patient states that when she goes to stand up or turn on the light, her headache becomes very intense -This is considered uncontrolled, making another night of stay medically appropriate -Continue IV dilaudid, consider low dose oral lorazepam if still uncontrolled Nausea: -Started shortly after first symptoms as early as March 23 -Poor appetite continues today -Continue anti-emetics, monitor for improvement, continue to treat acute infe ction Fever: -Low grade, temp max of 37.9 C since arriving in the ED -Diaphoretic on exam -Continue to monitor, give Tylenol as needed Leukocytosis: -WBC count elevated at 23.3, Neut # 20.5, mono # 1.3 -WBC now down to 16 -Likely due to acute pyelonephritis, UA + - Continue treatment of acute infection - Routine labs 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, take down, now with a Reji tube - Takes daily go-lytely when at home - No constipation or diarrhea noted on exam Fibromyalgia: -Previously belonged to a pain clinic to get muscle relaxers - [place] States that her pain is generalized, also with peripheral neuropathy, BLE pain - Continue to treat acute illness 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
[2019-04-02] MEDS: NS W/20 MEQ KCL 1,000 ML IV SCH (18:47)
[2019-04-02] MEDS: SODIUM CHLORIDE FLUSH 0.9% 10 ML SYRINGE IVP PRN (18:47)
[2019-04-02] MEDS: KETOROLAC 15 MG/ML VIAL IVP PRN (22:58)
[2019-04-03] MEDS: SODIUM CHLORIDE FLUSH 0.9% 10 ML SYRINGE IVP SCH ×3 (00:46→16:09)
[2019-04-03] MEDS: HYDROmorphone 1 MG/ML CARPUJECT IVP PRN ×5 (00:46→19:31)
[2019-04-03] MEDS: PANTOPRAZOLE 40 MG VIAL IVP SCH (06:33)
[2019-04-03] MEDS: NS W/20 MEQ KCL 1,000 ML IV SCH (06:40)
[2019-04-03] MEDS: polyethylene glycoL 3350 17 GM PACKET PO SCH (08:04)
[2019-04-03 08:33] LABS: ABSOLUTE RETICS # AUTO 0.048 10^6/uL (0.020-0.110); BASOPHILS # (AUTO) 0.1 10^3/uL (0.0-0.1); BASOPHILS % (AUTO) 0.4 %; EOSINOPHILS # (AUTO) 0.2 10^3/uL (0.0-0.7); EOSINOPHILS % (AUTO) 1.4 %; HGB - HEMOGLOBIN 11.7 g/dL (12.0-16.0); LYMPHOCYTES # (AUTO) 1.9 10^3/uL (1.5-3.5); LYMPHOCYTES % (AUTO) 13.6 %; MEAN CORPUSCULAR HEMOGLOBIN 26.7 pg (27.0-31.0); MEAN CORPUSCULAR HGB CONC 32.9 g/dL (32.0-36.0); MEAN CORPUSCULAR VOLUME 81.1 fL (81.0-99.0); MEAN PLATELET VOLUME 10.2 fL (7.9-10.8); MONOCYTES # (AUTO) 0.8 10^3/uL (0.0-1.0); MONOCYTES % (AUTO) 5.6 %; NEUTROPHILS % (AUTO) 77.4 %; PLT - PLATELET COUNT 299 10^3/uL (130-450); RED BLOOD COUNT 4.39 10^6/uL (4.20-5.40); RED BLOOD COUNT 4.44 10^6/uL (4.20-5.40); RED CELL DISTRIBUTION WIDTH 14.1 % (12.0-15.0); WHITE BLOOD COUNT 14.3 x10^3/uL (4.8-10.8)
[2019-04-03 08:43] LABS: ALBUMIN 2.6 g/dL (3.2-5.5); ALBUMIN/GLOBULIN RATIO 0.7 (1.0-2.2); BILIRUBIN,TOTAL 0.7 mg/dL (0.2-1.0); CALCIUM 8.5 mg/dL (8.5-10.3); CREATININE 0.6 mg/dL (0.4-1.0); TOTAL PROTEIN 6.2 g/dL (6.7-8.2)
[2019-04-03 08:56] LABS: % IRON SATURATION 8 % (20-50); IRON 18 ug/dL (28-170); TOTAL IRON BINDING CAPACITY 221 ug/dL (250-450); TRANSFERRIN 158 mg/dL (192-382)
[2019-04-03] MEDS: cefTRIAXone 2 GM in SODIUM CHLORIDE 0.9% MINIBAG 100 ML IV SCH ×2 (09:09→09:13)
[2019-04-03] MEDS: OXYMETAZOLINE HCL 100 SPRAYS BOTTLE NAS SCH ×2 (09:10→22:22)
--- NOTE | 2019-04-03 09:14 | Ultrasound Report ---
Reason: if kidney stone resolved, abdominal pain Procedure Date: 04/03/2019 Accession Number: [id number] / [id number] Procedure: US - Retroperitoneal CPT Code: Final Report FULL RESULT: EXAM: RENAL ULTRASOUND EXAM DATE: 04/03/2019 08:55 AM. CLINICAL HISTORY: Abdominal pain, further evaluation of renal stone. COMPARISON: Abdominal pelvic CT 03/31/2019. TECHNIQUE: Real-time scanning was performed with static images obtained. FINDINGS: Right Kidney: 13.0 x 5.2 x 4.7 cm. Normal echotexture with no stones, contour-deforming masses, or hydronephrosis. Left Kidney: 14.0 x 7.3 x 5.7 cm. Normal echotexture with no stones, contour-deforming masses, or hydronephrosis. Bladder: Bilateral jets seen. The prevoid bladder volume was 806 cc. The postvoid bladder volume was 22 cc. Other: The liver is moderately echogenic diffusely. Small left pleural effusion is visualized. IMPRESSION: 1. Interval resolution of left hydronephrosis. Left UVJ stone not visualized on ultrasound and may have passed. 2. Moderately fatty infiltrated liver. 3. Small left pleural effusion noted new since prior CT. RADIA
[2019-04-03 09:42] LABS: FERRITIN 139.7 ng/mL (11.0-306.8)
[2019-04-03] MEDS ORDERED: NS W/20 MEQ KCL 1,000 ML IV SCH (11:03)
--- NOTE | 2019-04-03 15:42 | PROVIDER PROGRESS NOTE ---
Assessment/Plan - Problem List (1) Pyelonephritis Assessment/Plan: 04/03 pt still has temperature at 37.7/37.6 and elevated WBC at 14, although pt's blood culture is negative. pt still report she feel nausea but no vomiting, feel poor appetite today. pt's rocephine is increased 2 gram daily continue IVF of NS daily lab and vital monitor (2)Ureteral calculus, left: 04/03 order the new US which reveals calculus is resolved, hydronephrosis is resolved now (3)Intractable migraines: -pt report she feel headache when room is lights on. nurse will try reduction of lights and keep quiet for pt continue Tylenol and pain control (4)Nausea: -pt still complain of some nausea but better, continue anti-emsis PRN (5)Fever: temperature is reduced now, continue antibiotics (6)Leukocytosis: -WBC count reduced to 14 now, continue antibiotics, continue lab monitor (7)Fibromyalgia: stable, continue pain control (8)Congenital anomaly of GI tract: stable, Status post colostomy, colostomy take down, and remains with a Reji tube device located in the [facility] continue Miralax while here - Current Meds Current Meds: Current Medications Generic Name Dose Route Start Last Admin Trade Name Freq PRN Reason Stop Dose Admin Hydromorphone HCl 1 mg 04/01/19 18:53 04/03/19 09:18 Dilaudid Inj Carp IVP 1 mg Q2HR PRN Administration PAIN Ceftriaxone Sodium 2 gm/ 100 mls @ 200 mls/hr 04/03/19 08:00 04/03/19 10:29 Sodium Chloride IV Infused DAILY ALEXUS Infusion Potassium Chloride/Sodium Chloride 1,000 mls @ 100 mls/hr 04/03/19 11:03 04/03/19 11:18 Normal Saline 0.9% W/20 Meq Kcl IV 04/03/19 21:02 100 mls/hr .Q10H ALEXUS Administration Ketorolac Tromethamine 15 mg 04/01/19 19:34 04/02/19 22:58 Toradol Inj (15mg) IVP 04/06/19 19:33 15 mg Q6HR PRN Administration PAIN Ondansetron HCl 4 mg 04/01/19 16:46 04/02/19 11:14 Zofran Inj IVP 4 mg Q6HR PRN Administration Nausea / Vomiting Oxymetazoline HCl 2 sprays 04/02/19 10:00 04/03/19 09:10 Afrin KYM 04/04/19 21:01 2 sprays BID ALEXUS Administration Pantoprazole Sodium 40 mg 04/02/19 05:15 04/03/19 06:33 Protonix IVP 40 mg QDAC ALEXUS Administration Polyethylene Glycol 17 gm 04/01/19 19:19 04/03/19 08:04 Miralax PO Not Given DAILY ALEXUS Sodium Chloride 10 ml 04/01/19 16:46 04/02/19 18:47 Normal Saline Flush 0.9% IVP 10 ml PRN PRN Administration NEEDED PER PROVIDER ORDERS Sodium Chloride 10 ml 04/01/19 17:00 04/03/19 08:04 Normal Saline Flush 0.9% IVP Not Given 0100,0900,1700 ALEXUS - Lab Result Fish Bone Diagrams: 04/03/19 08:21 04/03/19 08:21 - Additional Planning My Orders: My Active Orders 04/05/19 05:00 CBC - COMP BLD CT W/AUTO DIFF [HEME] DAILYLAB CMP, RFLX TO IONIZED CA IF [CHEM] DAILYLAB 04/06/19 05:00 CBC - COMP BLD CT W/AUTO DIFF [HEME] DAILYLAB CMP, RFLX TO IONIZED CA IF [CHEM] DAILYLAB 04/07/19 05:00 CBC - COMP BLD CT W/AUTO DIFF [HEME] DAILYLAB CMP, RFLX TO IONIZED CA IF [CHEM] DAILYLAB 04/03/19 08:00 cefTRIAXone [Rocephin] 2 gm Sodium Chloride 0.9% Minibag [Normal Saline 0.9% Minibag] 100 ml IV DAILY 04/03/19 10:16 Orthostatic [Vital Signs - Orthostatic] [RC] DAILY 04/03/19 11:03 Ns W/20 Meq KCl [Normal Saline 0.9% W/20 Meq KCl] 1,000 ml IV 100 mls/hr 04/03/19 17:00 Saccharomyces Boulardii [Florastor] 250 mg PO BIDWM 04/04/19 05:00 CBC - COMP BLD CT W/AUTO DIFF [HEME] DAILYLAB CMP, RFLX TO IONIZED CA IF [CHEM] DAILYLAB Subjective - Subjective Patient Reports: Resting Comfortably (pt report she did not like food, and room lights make her headache.) Objective Vital Signs: Vital Signs - 24 hr 04/02/19 04/02/19 04/02/19 16:53 19:58 20:13 Temperature 37.4 C 37.7 C H Heart Rate [ 121 H 108 H 117 H Brachial] Heart Rate [ Sitting (After 1 Minute)] Heart Rate [ Standing (After 1 Minute)] Heart Rate [ Supine] Respiratory 16 20 Rate Blood Pressure 113/70 117/68 [Left Brachial artery] Blood Pressure [Sitting (After 1 Minute)] Blood Pressure [Standing ( After 1 Minute) ] Blood Pressure [Supine] O2 Saturation 96 95 04/02/19 04/03/19 04/03/19 22:37 00:00 06:18 Temperature 37 C 36.9 C 37.6 C H Heart Rate [ 85 106 H Brachial] Heart Rate [ Sitting (After 1 Minute)] Heart Rate [ Standing (After 1 Minute)] Heart Rate [ Supine] Respiratory 20 18 Rate Blood Pressure 109/71 117/73 [Left Brachial artery] Blood Pressure [Sitting (After 1 Minute)] Blood Pressure [Standing ( After 1 Minute) ] Blood Pressure [Supine] O2 Saturation 97 98 04/03/19 04/03/19 04/03/19 08:00 10:50 12:00 Temperature 37.3 C 37.1 C Heart Rate [ 115 H 100 Brachial] Heart Rate [ 108 H Sitting (After 1 Minute)] Heart Rate [ 120 H Standing (After 1 Minute)] Heart Rate [ 95 Supine] Respiratory 16 18 Rate Blood Pressure 114/73 128/87 H [Left Brachial artery] Blood Pressure 122/77 [Sitting (After 1 Minute)] Blood Pressure 108/77 [Standing ( After 1 Minute) ] Blood Pressure 123/80 [Supine] O2 Saturation 95 98 Oxygen O2 Source Room air I&O (Last 24 Hrs): Intake and Output Totals x24h 04/01/19 04/02/19 04/03/19 23:59 23:59 23:59 Intake Total 3542.667 3985.333 2371.274 Output Total 3250 2975 Balance 3542.667 735.333 -603.726 General: Alert, Oriented x3, No acute distress HEENT: Atraumatic, PERRLA, EOMI Neck: Supple, No JVD Lymphatic: no adenopathy Neuro: Alert, Non Focal, Oriented Times 3 Cardiovascular: Regular rate, Normal S1, Normal S2 Respiratory: Chest non-tender, No respiratory distress, Breath sounds nml Abdomen: Normal bowel sounds, Soft, No tenderness Extremities: No edema, Normal pulses - Results Results: Laboratory Results WBC 14.3 x10^3/uL (4.8-10.8) H 04/03/19 08:21 RBC 4.44 10^6/uL (4.20-5.40) 04/03/19 08:21 Hgb 11.7 g/dL (12.0-16.0) L 04/03/19 08:21 Hct 35.6 % (37.0-47.0) L 04/03/19 08:21 MCV 81.1 fL (81.0-99.0) 04/03/19 08:21 MCH 26.7 pg (27.0-31.0) L 04/03/19 08:21 MCHC 32.9 g/dL (32.0-36.0) 04/03/19 08:21 RDW 14.1 % (12.0-15.0) 04/03/19 08:21 Plt Count 299 10^3/uL (130-450) 04/03/19 08:21 MPV 10.2 fL (7.9-10.8) 04/03/19 08:21 Reticulocyte % (Auto) 1.08 % (0.5-2.3) 04/03/19 08:21 Neut # (Auto) 11.0 10^3/uL (1.5-6.6) H 04/03/19 08:21 Lymph # (Auto) 1.9 10^3/uL (1.5-3.5) 04/03/19 08:21 [place] # (Auto) 0.8 10^3/uL (0.0-1.0) 04/03/19 08:21 Eos # (Auto) 0.2 10^3/uL (0.0-0.7) 04/03/19 08:21 Baso # (Auto) 0.1 10^3/uL (0.0-0.1) 04/03/19 08:21 Absolute Nucleated RBC 0.00 x10^3/uL 04/03/19 08:21 Nucleated RBC % 0.0 /100WBC 04/03/19 08:21 Manual Slide Review Indicated 04/01/19 12:46 Absolute Retic 0.048 10^6/uL (0.020-0.110) 04/03/19 08:21 Sodium 140 mmol/L (135-145) 04/03/19 08:21 Potassium 3.6 mmol/L (3.5-5.0) 04/03/19 08:21 Chloride 105 mmol/L (101-111) 04/03/19 08:21 Carbon Dioxide 25 mmol/L (21-32) 04/03/19 08:21 Anion Gap 10.0 (6-13) 04/03/19 08:21 BUN 6 mg/dL (6-20) 04/03/19 08:21 Creatinine 0.6 mg/dL (0.4-1.0) 04/03/19 08:21 Estimated GFR (MDRD) 129 (>89) 04/03/19 08:21 Glucose 87 mg/dL (70-100) 04/03/19 08:21 Lactic Acid 1.2 mmol/L (0.5-2.2) 04/01/19 12:57 Calcium 8.5 mg/dL (8.5-10.3) 04/03/19 08:21 Magnesium 1.8 mg/dL (1.7-2.8) 04/02/19 04:45 Iron 18 ug/dL (28-170) L 04/03/19 08:21 TIBC 221 ug/dL (250-450) L 04/03/19 08:21 % Saturation 8 % (20-50) L 04/03/19 08:21 Transferrin 158 mg/dL (192-382) L 04/03/19 08:21 Ferritin 139.7 ng/mL (11.0-306.8) 04/03/19 08:21 Total Bilirubin 0.7 mg/dL (0.2-1.0) 04/03/19 08:21 AST 26 IU/L (10-42) 04/03/19 08:21 ALT 36 IU/L (10-60) 04/03/19 08:21 Alkaline Phosphatase 84 IU/L (42-121) 04/03/19 08:21 Lactate Dehydrogenase 208 IU/L (91-225) 04/03/19 08:21 Total Protein 6.2 g/dL (6.7-8.2) L 04/03/19 08:21 Albumin 2.6 g/dL (3.2-5.5) L 04/03/19 08:21 Globulin 3.6 g/dL (2.1-4.2) 04/03/19 08:21 Albumin/Globulin Ratio 0.7 (1.0-2.2) L 04/03/19 08:21 Lipase 35 U/L (22-51) 04/01/19 12:46 Vitamin B12 582 pg/mL (180-914) 04/03/19 08:21 Urine Color YELLOW 04/01/19 13:00 Urine Clarity HAZY (CLEAR) 04/01/19 13:00 Urine pH 6.0 PH (5.0-7.5) 04/01/19 13:00 Ur Specific [place] 1.025 (1.002-1.030) 04/01/19 13:00 Urine Protein 100 mg/dL (NEGATIVE) H 04/01/19 13:00 Urine Glucose (UA) NEGATIVE mg/dL (NEGATIVE) 04/01/19 13:00 Urine Ketones 40 mg/dL (NEGATIVE) H 04/01/19 13:00 Urine Occult Blood TRACE-INTA (NEGATIVE) 04/01/19 13:00 Urine Nitrite NEGATIVE (NEGATIVE) 04/01/19 13:00 Urine Bilirubin NEGATIVE (NEGATIVE) 04/01/19 13:00 Urine Urobilinogen 4 E.U./dL (NORMAL) H 04/01/19 13:00 Ur Leukocyte Esterase TRACE (NEGATIVE) H 04/01/19 13:00 Urine RBC 0-5 /HPF (0-5) 04/01/19 13:00 Urine WBC 11-25 /HPF (0-5) H 04/01/19 13:00 Ur Squamous Epith Cells MANY Squamous (<= Few) H 04/01/19 13:00 Urine Bacteria Few /HPF (None Seen) 04/01/19 13:00 Ur Microscopic Review INDICATED 04/01/19 13:00 Urine Culture Comments NOT INDICATED 04/01/19 13:00 Sepsis Event Note (H) - Evaluation Current Stage of Sepsis: Ruled out ABX Reporting Has patient been on IV antibiotics over the past 48 hours?: Yes Current Medications - Current Medications Current Medications: Active Medications Acetaminophen (Tylenol) 650 mg PO Q4HR PRN PRN Reason: Pain or Fever > 38C (100.4F) Cyclobenzaprine HCl (Flexeril) 10 mg PO BID PRN PRN Reason: Spasms Hydromorphone HCl (Dilaudid Inj Carp) 1 mg IVP Q2HR PRN PRN Reason: PAIN Last Admin: 04/03/19 09:18 Dose: 1 mg Ceftriaxone Sodium 2 gm/ (Sodium Chloride) 100 mls @ 200 mls/hr IV DAILY [facility] Last Infusion: 04/03/19 10:29 Dose: Infused Potassium Chloride/Sodium Chloride (Normal Saline 0.9% W/20 Meq Kcl) 1,000 mls @ 100 mls/hr IV .Q10H [facility] Stop: 04/03/19 21:02 Last Admin: 04/03/19 11:18 Dose: 100 mls/hr Ketorolac Tromethamine (Toradol Inj (15mg)) 15 mg IVP Q6HR PRN PRN Reason: PAIN Stop: 04/06/19 19:33 Last Admin: 04/02/19 22:58 Dose: 15 mg Ondansetron HCl (Zofran Inj) 4 mg IVP Q6HR PRN PRN Reason: Nausea / Vomiting Last Admin: 04/02/19 11:14 Dose: 4 mg Oxymetazoline HCl (Afrin) 2 sprays KYM BID [facility] Stop: 04/04/19 21:01 Last Admin: 04/03/19 09:10 Dose: 2 sprays Pantoprazole Sodium (Protonix) 40 mg IVP QDAC [facility] Last Admin: 04/03/19 06:33 Dose: 40 mg Polyethylene Glycol (Miralax) 17 gm PO DAILY [facility] Last Admin: 04/03/19 08:04 Dose: Not Given Prochlorperazine Edisylate (Compazine Inj) 10 mg IVP Q6HR PRN PRN Reason: Nausea / Vomiting Saccharomyces Boulardii (Florastor) 250 mg PO BIDWM [facility] Sodium Chloride (Normal Saline Flush 0.9%) 10 ml IVP PRN PRN PRN Reason: NEEDED PER PROVIDER ORDERS Last Admin: 04/02/19 18:47 Dose: 10 ml Sodium Chloride (Normal Saline Flush 0.9%) 10 ml IVP 0100,0900,1700 [facility] Last Admin: 04/03/19 08:04 Dose: Not Given Cyclobenzaprine [Flexeril] 10 mg PO BID PRN 04/02/19 Pantoprazole [Protonix] 40 mg PO DAILY 04/02/19 rOPINIRole [Requip] 0.25 mg PO QPM PRN 04/02/19
[2019-04-03] MEDS: SACCHAROMYCES BOULARDII 250 MG CAPSULE PO SCH (19:20)
[2019-04-03] MEDS: FERROUS SULFATE 325 MG TABLET PO SCH (19:20)
[2019-04-03] MEDS: SODIUM CHLORIDE FLUSH 0.9% 10 ML SYRINGE IVP PRN ×2 (19:31→22:23)
[2019-04-03] MEDS: KETOROLAC 15 MG/ML VIAL IVP PRN (22:22)
[2019-04-04] MEDS: HYDROmorphone 1 MG/ML CARPUJECT IVP PRN ×4 (00:12→11:58)
[2019-04-04] MEDS: SODIUM CHLORIDE FLUSH 0.9% 10 ML SYRINGE IVP PRN ×5 (00:12→11:58)
[2019-04-04] MEDS: SODIUM CHLORIDE FLUSH 0.9% 10 ML SYRINGE IVP SCH ×2 (00:12→08:31)
[2019-04-04 05:45] LABS: BASOPHILS # (AUTO) 0.1 10^3/uL (0.0-0.1); BASOPHILS % (AUTO) 0.6 %; EOSINOPHILS # (AUTO) 0.3 10^3/uL (0.0-0.7); EOSINOPHILS % (AUTO) 2.7 %; HGB - HEMOGLOBIN 11.3 g/dL (12.0-16.0); LYMPHOCYTES # (AUTO) 2.1 10^3/uL (1.5-3.5); LYMPHOCYTES % (AUTO) 19.7 %; MEAN CORPUSCULAR HEMOGLOBIN 26.1 pg (27.0-31.0); MEAN CORPUSCULAR HGB CONC 32.4 g/dL (32.0-36.0); MEAN CORPUSCULAR VOLUME 80.6 fL (81.0-99.0); MEAN PLATELET VOLUME 9.9 fL (7.9-10.8); MONOCYTES # (AUTO) 0.8 10^3/uL (0.0-1.0); MONOCYTES % (AUTO) 7.6 %; PLT - PLATELET COUNT 318 10^3/uL (130-450); RED BLOOD COUNT 4.33 10^6/uL (4.20-5.40); WHITE BLOOD COUNT 10.6 x10^3/uL (4.8-10.8)
[2019-04-04 06:03] LABS: ALBUMIN 2.6 g/dL (3.2-5.5); ALBUMIN/GLOBULIN RATIO 0.7 (1.0-2.2); ALKALINE PHOSPHATASE 53 IU/L (42-121); ALT ALANINE AMINOTRANSFERASE 44 IU/L (10-60); AST ASPARTATE AMINOTRANSFERASE 38 IU/L (10-42); BILIRUBIN,TOTAL 0.6 mg/dL (0.2-1.0); BUN - BLOOD UREA NITROGEN 7 mg/dL (6-20); CALCIUM 8.2 mg/dL (8.5-10.3); CARBON DIOXIDE - CO2 25 mmol/L (21-32); CHLORIDE 104 mmol/L (101-111); CREATININE 0.6 mg/dL (0.4-1.0); GFR - MDRD 129 (>89); GLUCOSE 100 mg/dL (70-100); SODIUM 137 mmol/L (135-145); TOTAL PROTEIN 6.2 g/dL (6.7-8.2)
[2019-04-04 06:04] LABS: VBG PH 7.462 (7.31-7.41)
[2019-04-04] MEDS: PANTOPRAZOLE 40 MG VIAL IVP SCH (06:52)
[2019-04-04] MEDS: KETOROLAC 15 MG/ML VIAL IVP PRN (06:59)
[2019-04-04] MEDS: FERROUS SULFATE 325 MG TABLET PO SCH (08:32)
[2019-04-04] MEDS: cefTRIAXone 2 GM in SODIUM CHLORIDE 0.9% MINIBAG 100 ML IV SCH (08:32)
[2019-04-04] MEDS: SACCHAROMYCES BOULARDII 250 MG CAPSULE PO SCH (08:32)
[2019-04-04] MEDS ORDERED: POTASSIUM CHLORIDE 20 MEQ TABLET PO ONE (08:33)
[2019-04-04] MEDS: OXYMETAZOLINE HCL 100 SPRAYS BOTTLE NAS SCH (08:33)
[2019-04-04] MEDS: polyethylene glycoL 3350 17 GM PACKET PO SCH (08:33)
--- NOTE | 2019-04-04 10:51 | Discharge Plan ---
Discharge Plan Problem Reviewed?: Yes Disposition: Home, Self Care Condition: Stable Prescriptions: Cefdinir 300 mg PO BID #28 capsule Fluticasone [Flonase] 2 sprays KYM DAILY #1 bottle Lactobacillus Acidophilus [Digestive Probiotic] 1 each PO BID #60 capsule Ondansetron Odt [Zofran Odt] 4 mg TL Q6H PRN #10 tablet PRN Reason: Nausea / Vomiting oxyCODONE [Roxicodone] 5 mg PO Q4-6H PRN #15 tablet PRN Reason: Pain Oxymetazoline HCl [Afrin] 2 sprays KYM BID #1 bottle Diet: Regular Activity Restrictions: Activity as Tolerated Shower Restrictions: No (fall precaution) Instruction Topics: Fluticasone nasal spray, Oxymetazoline nasal spray, Cefdinir capsules, Oxycodone tablets or capsules, Pyelonephritis Dc Health Concerns: Resolved kidney stone Headaches most likely caused by sinusitis Fever resolved Plan of Treatment: Continue the antibiotics previously prescribed by the ED physician for an extended period another 14-days since this is considered a complicated infection involving the kidneys. Continue the Afrin spray for 6 doses (twice daily) not to exceed 3 days, then start Flonase or Nasonex to keep your sinuses clear. If your problems persist, you may need to see a ear, nose and throat specialist. See your primary provider within 1 week for a follow up. Care Goals: Stay well by taking all of your prescribed medication. Treat symptoms. Assessment: discussed with you about the care plan, you understood the plan Additional Instructions or Follow Up instructions: you may followup your PCP in one week. Should your symptoms return or worsen, you may present ER or call 911 for help. No Smoking: If you smoke, Please STOP! Call for help. Follow-up with: Jurgen Laird ARNP [Primary Care Provider] -
--- NOTE | 2019-04-04 11:28 | DISCHARGE SUMMARY ---
Discharge Summary Admit Date: 04/01/19 Discharge Date: 04/04/19 Discharging Provider: Cesar Cisneros Primary Care Provider: Dr. Laird Condition at Discharge: Stable Discharge Disposition: 01 Home, Self Care Discharge Facility Name: home - DIAGNOSES Admission Diagnoses: (1) Pyelonephritis Ureteral calculus, left: Intractable nausea and vomiting: Fever: Headache: Leukocytosis: Slow transit constipation: Fibromyalgia: Congenital anomaly of GI tract: Peripheral neuropathy: Discharge Diagnoses with Status of Each Condition: (1) Pyelonephritis stable. pt has no fever, nausea or vomiting, pt tolerate the regular diet. blood culture is negative for bacteremia. pt is prescribed antibiotics to finish the treatment course Ureteral calculus, left: resolved. US of abdomen reveals resolved calculus. pt denies kunal or abdominal pain Intractable nausea and vomiting: resolved and stable Fever: resolved. blood culture is negative for bacteremia. Headache: chronic and stable Leukocytosis: resolved Slow transit constipation: resolved Fibromyalgia: stable, pt is prescribed short term of pain meds Congenital anomaly of GI tract: stable Peripheral neuropathy: stable - HPI History of Present Illness: refer from Ms. 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 She presents today in our ED with a headache, abdominal pain, and fever. She was seen here yesterday and diagnosed with pyelonephritis and a ureteral stone. She passed the stone while still in the emergency department. She admits that she was not able to take her antibiotic prescribed due to her ongoing intractable nausea with vomiting. Imaging from yesterday showed a 5 mm obstructive calculus in left UVJ with upstream hydroureteronephrosis, left renal features are consistent with acute obstructive uropathy. Labs reveal an elevated WBC count of 23.3, Hgb 11.8, Hct 35.6, MCV 78.4, Neut # 20.5, mono # 1.3, sodium 134, potassium 3.4, chloride 101, BUN 9, creatinine 0.7, GFR 108, glucose 107, calcium 8.4, total bilirubin 1.3, normal lactic acid of 1.2 with no other abnormalities. A urinalysis shows acute infection with + urine proteins of 100, + urine ketones of 40, elevated urine WBC of 11-25, and few bacteria. She will be admitted to observation for symptom management and treatment of this acute infection. - HOSPITAL COURSE Hospital Course: pt was admitted for fever. pt was found to have pyelonephritis. after treated with antibiotics, pt's fever, nausea, vomiting were resolved. pt tolerated the diet. pt was prescribed antibiotics to finish the treatment course. (1) Pyelonephritis stable. pt has no fever, nausea or vomiting, pt tolerate the regular diet. blood culture is negative for bacteremia. pt is prescribed antibiotics to finish the treatment course Ureteral calculus, left: resolved. US of abdomen reveals resolved calculus. pt denies kunal or abdominal pain Intractable nausea and vomiting: resolved and stable Fever: resolved. blood culture is negative for bacteremia. Headache: chronic and stable Leukocytosis: resolved Slow transit constipation: resolved Fibromyalgia: stable. pt is prescribed short term of pain meds Congenital anomaly of GI tract: stable Peripheral neuropathy: stable - ALLERGIES Allergies/Adverse Reactions: Allergies Allergy/AdvReac Type Severity Reaction Status Date / Time Iodinated Contrast Media Allergy Anaphylaxis Verified 04/01/19 12:41 - MEDICATIONS Home Medications: Ambulatory Orders Medication Instructions Recorded Confirmed Acetaminophen [Tylenol] 650 mg PO Q4HR PRN tablet 04/02/19 Cefdinir 300 mg PO BID #28 capsule 04/02/19 Cyclobenzaprine [Flexeril] 10 mg PO BID PRN 04/02/19 04/02/19 Fluticasone [Flonase] 2 sprays KYM DAILY #1 bottle 04/02/19 Lactobacillus Acidophilus 1 each PO BID #60 capsule 04/02/19 [Digestive Probiotic] Ondansetron Odt [Zofran Odt] 4 mg TL Q6H PRN #10 tablet 04/02/19 Oxymetazoline HCl [Afrin] 2 sprays KYM BID #1 bottle 04/02/19 Pantoprazole [Protonix] 40 mg PO DAILY 04/02/19 rOPINIRole [Requip] 0.25 mg PO QPM PRN 04/02/19 oxyCODONE [Roxicodone] 5 mg PO Q4-6H PRN #15 tablet 04/04/19 - PHYSICAL EXAM AT DISCHARGE General Appearance: positive: No acute distress, Alert. negative: Lethargic Eyes Bilateral: positive: Normal inspection, PERRL, EOMI, No lid inflammation ENT: positive: ENT inspection nml, Pharynx nml, No signs of dehydration. negative: Purulent nasal drainage Neck: positive: Nml inspection, Thyroid nml, No JVD, Trachea midline. negative: Thyromegaly, Lymphadenopathy (R), Lymphadenopathy (L), Stiff neck, Tracheal deviation Respiratory: positive: Chest non-tender, No respiratory distress, Breath sounds nml. negative: Wheezes, Rales, Rhonchi Cardiovascular: positive: Regular rate & rhythm, No murmur, No gallop. negative: Irregularly irregular, Extrasystoles, Tachycardia, Bradycardia, JVD present, Systolic murmur, Diastolic murmur Peripheral Pulses: positive: 2+ Abdomen: positive: Non-tender, No organomegaly, Nml bowel sounds, No distention. negative: Tenderness, Guarding, Rebound Back: positive: Nml inspection. negative: CVA tenderness (R), CVA tenderness (L) Skin: positive: Color nml, No rash, Warm, Dry. negative: Cyanosis, Diaphoresis, Pallor Extremities: positive: Non-tender, Full ROM, Nml appearance. negative: Calf tenderness, Rolando's sign/cords Neurologic/Psychiatric: positive: Oriented x3, Motor nml, Sensation nml, Mood/affect nml. negative: Weakness, Sensory loss, Facial droop, Slurred/abnml speech, Depressed mood/affect - LABS Result Diagrams: 04/04/19 05:35 04/04/19 05:35 - SEPSIS Current Stage of Sepsis: Ruled out - FOLLOW UP Follow Up: Continue the antibiotics previously prescribed by the ED physician for an extended period another 14-days since this is considered a complicated infection involving the kidneys. Continue the Afrin spray for 6 doses (twice daily) not to exceed 3 days, then start Flonase or Nasonex to keep your sinuses clear. If your problems persist, you may need to see a ear, nose and throat specialist. See your primary provider within 1 week for a follow up. - TIME SPENT Time Spent in Discharge (Minutes): 40
[2019-04-04 12:21] VITALS: BP 105/70
== END 2019-04-04 14:15 | disposition home or self-care (01) ==
LOC: ED 12:22 → MS2 16:46
PROVIDERS: ADMIT Nurse Practitioner; ATTEND Nurse Practitioner Gerontology
DX: N10 Acute pyelonephritis (principal); R11.2 Nausea with vomiting, unspecified; G43.919 Migraine, unspecified, intractable, without status migrainosus; K59.01 Slow transit constipation; G89.4 Chronic pain syndrome; M79.7 Fibromyalgia; Q45.9 Congenital malformation of digestive system, unspecified; G62.9 Polyneuropathy, unspecified; K21.9 Gastro-esophageal reflux disease without esophagitis; Z93.1 Gastrostomy status; Z87.442 Personal history of urinary calculi; Z87.01 Personal history of pneumonia (recurrent)
CPT/HCPCS: 36415; 76770; 80048; 80053; 81001; 82330; 82607; 82728; 83540; 83605; 83615; 83690; 83735; 84466; 85025; 85045; 87040; 96361; 96365; 96366; 96367; 96368; 96375; 96376; 99285; A9270; G0378; J0131; J1170; J7040; J7120; 81003; 87086

== ENCOUNTER 2019-06-09 12:21 | Emergency (ER) | payer OTHER ==
--- NOTE | 2019-06-09 12:50 | ED Physician Documentation ---
PD HPI ABD PAIN - Stated complaint Stated Complaint: ABDOMIN PAIN - Chief complaint Chief Complaint: Abd Pain - History obtained from History obtained from: Patient - History of Present Illness Timing - onset: How many days ago (2-3 days currently), How many months ago (few months intermittently) Timing - duration: Days Timing - details: Abrupt onset, Still present, Intermittant Quality: Cramping, Aching, Pain Location: RUQ, Epigastric Radiation: No: Lower back, Right flank Improved by: No: Eating, Position Worsened by: Eating, Palpation. No: Breathing Associated symptoms: Nausea, Vomiting (few times). No: Fever, Diarrhea, Constipation, Dysuria Similar symptoms before: Diagnosis (states had been seen for this in another [place] prior to [place] here couple months ago and told it was her gallbladder and needed to have her gallbladder removed. Has tried to eat low fat foods. Moved here about 1 1/2 months ago.) Recently seen: Not recently seen Review of Systems Constitutional: denies: Fever, Chills Nose: denies: Rhinorrhea / runny nose, Congestion Throat: denies: Sore throat Respiratory: denies: Cough GI: reports: Abdominal Pain, Nausea. denies: Constipation, Diarrhea : denies: Dysuria, Frequency Skin: denies: Rash, Lesions PD PAST MEDICAL HISTORY - Past Medical History Cardiovascular: None Respiratory: Pneumonia Neuro: Migraines, Peripheral neuropathy, Tremors Endocrine/Autoimmune: None GI: GERD, Other (congenital anomaly of the GI tract, status post colostomy, Reji tube) SHEAR SCRAPMAN: None : Kidney stones (left, now has passed per ED reports) HEENT: None Psych: None Musculoskeletal: Fibromyalgia, Other (chronic pain syndrome) Derm: None - Past Surgical History Past Surgical History: Yes General: Bowel surgery, Gastric surgery /SHEAR SCRAPMAN: section - Present Medications Home Medications: Ambulatory Orders Medication Instructions Recorded Confirmed Acetaminophen [Tylenol] 650 mg PO Q4HR PRN tablet 04/02/19 Cefdinir 300 mg PO BID #28 capsule 04/02/19 Cyclobenzaprine [Flexeril] 10 mg PO BID PRN 04/02/19 04/02/19 Fluticasone [Flonase] 2 sprays KYM DAILY #1 bottle 04/02/19 Lactobacillus Acidophilus 1 each PO BID #60 capsule 04/02/19 [Digestive Probiotic] Ondansetron Odt [Zofran Odt] 4 mg TL Q6H PRN #10 tablet 04/02/19 Oxymetazoline HCl [Afrin] 2 sprays KYM BID #1 bottle 04/02/19 Pantoprazole [Protonix] 40 mg PO DAILY 04/02/19 rOPINIRole [Requip] 0.25 mg PO QPM PRN 04/02/19 oxyCODONE [Roxicodone] 5 mg PO Q4-6H PRN #15 tablet 04/04/19 Famotidine 20 mg PO DAILY #30 tablet 06/09/19 Hydrocodone/Acetaminophen [[place] 1 each PO Q6H PRN #15 tablet 06/09/19 5-325 Tablet] Lidocaine Viscous 2% [Xylocaine 5 ml PO Q4H PRN #100 ml 06/09/19 Viscous 2%] Ondansetron Odt [Zofran] 4 mg TL Q6H PRN #20 tablet 06/09/19 Sucralfate [Carafate] 1 gm PO ACHS #40 tablet 06/09/19 - Allergies Allergies/Adverse Reactions: Allergies Allergy/AdvReac Type Severity Reaction Status Date / Time Iodinated Contrast Media Allergy Anaphylaxis Verified 06/09/19 12:31 - Social History Does the pt smoke?: No Smoking Status: Never smoker Does the pt drink ETOH?: No Does the pt have substance abuse?: No - Immunizations Immunizations are current?: No - POLST Patient has POLST: No POLST Status: Full Code PD ED PE NORMAL - Vitals Vital signs reviewed: Yes - General General: Alert and oriented X 3, No acute distress - HEENT HEENT: Pharynx benign - Neck Neck: Supple, no meningeal sign, No adenopathy - Cardiac Cardiac: RRR, No murmur - Respiratory Respiratory: Clear bilaterally - Abdomen Abdomen: Normal bowel sounds, Soft, Non distended, No organomegaly, Other (tender in epigastric and RUQ area without percussion nor rebound tenderness. Some local guarding. ) - Female Female : Deferred - Rectal Rectal: Deferred - Back Back: No CVA TTP - Derm Derm: Normal color, Warm and dry Results - Vitals Vitals: Vital Signs - 24 hr 06/09/19 06/09/19 06/09/19 12:26 14:44 15:54 Temperature 36.8 C 36.8 C Heart Rate 104 H 99 93 Respiratory 16 19 12 Rate Blood Pressure 124/91 H 112/86 H O2 Saturation 100 100 100 06/09/19 16:42 Temperature Heart Rate 82 Respiratory 16 Rate Blood Pressure 108/63 O2 Saturation 100 Oxygen O2 Source Room air - Labs Labs: Laboratory Tests 06/09/19 06/09/19 06/09/19 12:39 12:39 12:57 WBC 11.7 H RBC 5.34 Hgb 14.4 Hct 43.4 MCV 81.3 MCH 27.0 MCHC 33.2 RDW 13.9 Plt Count 354 MPV 10.3 Neut # (Auto) 8.1 H Lymph # (Auto) 2.6 Miffl[place] # (Auto) 0.6 Eos # (Auto) 0.3 Baso # (Auto) 0.1 Absolute Nucleated RBC 0.00 Nucleated RBC % 0.0 Sodium Potassium Chloride Carbon Dioxide Anion Gap BUN Creatinine Estimated GFR (MDRD) Glucose Calcium Total Bilirubin AST ALT Alkaline Phosphatase Total Protein Albumin Globulin Albumin/Globulin Ratio Lipase Urine Color YELLOW Urine Clarity HAZY Urine pH 5.5 Ur Specific [place] 1.025 1.025 Urine Protein NEGATIVE Urine Glucose (UA) NEGATIVE Urine Ketones NEGATIVE Urine Occult Blood NEGATIVE Urine Nitrite NEGATIVE Urine Bilirubin NEGATIVE Urine Urobilinogen 0.2 (NORMAL) Ur Leukocyte Esterase NEGATIVE Urine RBC 0-5 Urine WBC 0-3 Ur Squamous Epith Cells MANY Squamous H Urine Bacteria Rare Ur Microscopic Review INDICATED Urine Culture Comments NOT INDICATED Urine HCG, Qual NEGATIVE 06/09/19 12:57 WBC RBC Hgb Hct MCV MCH MCHC RDW Plt Count MPV Neut # (Auto) Lymph # (Auto) [place]fl[place] # (Auto) Eos # (Auto) Baso # (Auto) Absolute Nucleated RBC Nucleated RBC % Sodium 137 Potassium 3.8 Chloride 103 Carbon Dioxide 24 Anion Gap 10.0 BUN 10 Creatinine 0.7 Estimated GFR (MDRD) 108 Glucose 94 Calcium 10.0 Total Bilirubin 0.5 AST 44 H ALT 83 H Alkaline Phosphatase 81 Total Protein 8.7 H Albumin 5.0 Globulin 3.7 Albumin/Globulin Ratio 1.4 Lipase 41 Urine Color Urine Clarity Urine pH Ur Specific [place] Urine Protein Urine Glucose (UA) Urine Ketones Urine Occult Blood Urine Nitrite Urine Bilirubin Urine Urobilinogen Ur Leukocyte Esterase Urine RBC Urine WBC Ur Squamous Epith Cells Urine Bacteria Ur Microscopic Review Urine Culture Comments Urine HCG, Qual - Rads (name of study) RUQ abd U/S Radiology: Prelim report reviewed (gallstone in wall, nonmobile. No wall thickness nor surrounding edema. 2 right liver lobe masses, suggest CT in followup. ), See rad report PD MEDICAL DECISION MAKING - ED course Complexity details: reviewed results (not appearing to be gallbladder process right now. Consider gastritis instead. Could have PCP order HIDA. ), re- evaluated patient (feeling better with meds, and did have improvement with GI cocktail. ), considered differential, d/w patient Departure - Departure Disposition: 01 Home, Self Care Clinical Impression: Upper abdominal pain Condition: Stable Record reviewed to determine appropriate education?: Yes Instructions: ED Abdominal Pain Unkn Cause, ED PUD Vs Gastritis Follow-Up: Jurgen Laird ARNP [Primary Care Provider] - Prescriptions: Famotidine 20 mg PO DAILY #30 tablet Hydrocodone/Acetaminophen [[place] 5-325 Tablet] 1 each PO Q6H PRN #15 tablet PRN Reason: Pain Lidocaine Viscous 2% [Xylocaine Viscous 2%] 5 ml PO Q4H PRN #100 ml PRN Reason: Pain Ondansetron Odt [Zofran] 4 mg TL Q6H PRN #20 tablet PRN Reason: Nausea / Vomiting Sucralfate [Carafate] 1 gm PO ACHS #40 tablet Comments: There is a possible small gallstone in the gallbladder but no signs of it being mobile or any inflammation of the wall or swelling of the gallbladder. Your pain may be coming instead from gastritis or ulcer of the stomach or the first part of the intestine. I would have you take acid reducing medicine famotidine daily. Also coating the stomach with sacral fate 4 times a day. To that add the antacids such as Maalox or Mylanta with some lidocaine if needed for discomfort. Ondansetron if needed for nausea. Pain medicine as needed. Follow-up with your primary care regarding any further potential testing of the gallbladder as if still could be some pain coming from that. They may need to do an outpatient study called a HIDA scan to better evaluate if there is spasming of that. Discharge Date/Time: 06/09/19 16:50
[2019-06-09 13:02] LABS: BASOPHILS # (AUTO) 0.1 10^3/uL (0.0-0.1); BASOPHILS % (AUTO) 0.5 %; EOSINOPHILS # (AUTO) 0.3 10^3/uL (0.0-0.7); EOSINOPHILS % (AUTO) 2.8 %; HGB - HEMOGLOBIN 14.4 g/dL (12.0-16.0); LYMPHOCYTES # (AUTO) 2.6 10^3/uL (1.5-3.5); LYMPHOCYTES % (AUTO) 22.2 %; MEAN CORPUSCULAR HGB CONC 33.2 g/dL (32.0-36.0); MEAN CORPUSCULAR VOLUME 81.3 fL (81.0-99.0); MEAN PLATELET VOLUME 10.3 fL (7.9-10.8); MONOCYTES # (AUTO) 0.6 10^3/uL (0.0-1.0); NEUTROPHILS # (AUTO) 8.1 10^3/uL (1.5-6.6); PLT - PLATELET COUNT 354 10^3/uL (130-450); RED BLOOD COUNT 5.34 10^6/uL (4.20-5.40); RED CELL DISTRIBUTION WIDTH 13.9 % (12.0-15.0); WHITE BLOOD COUNT 11.7 x10^3/uL (4.8-10.8)
[2019-06-09 13:06] LABS: BILIRUBIN,URINE NEGATIVE (NEGATIVE); CLARITY,URINE HAZY (CLEAR); GLUCOSE, URINE (UA) NEGATIVE (NEGATIVE); KETONES,URINE (UA) NEGATIVE (NEGATIVE); LEUKOCYTE ESTERASE, URINE NEGATIVE (NEGATIVE); NITRITE,URINE NEGATIVE (NEGATIVE); OCCULT BLOOD,URINE NEGATIVE (NEGATIVE); PH,URINE 5.5 PH (5.0-7.5); PROTEIN,URINE NEGATIVE (NEGATIVE); UROBILINOGEN,URINE 0.2 (NORMAL) E.U./dL (NORMAL)
[2019-06-09 13:11] LABS: BACTERIA,URINE Rare /HPF (None Seen); RBC,URINE 0-5 /HPF (0-5); SQUAMOUS EPITHELIAL CELL,UR MANY Squamous (<= Few)
[2019-06-09 13:12] LABS: HCG UR QUAL NEGATIVE
[2019-06-09 13:15] LABS: ALBUMIN/GLOBULIN RATIO 1.4 (1.0-2.2); BILIRUBIN,TOTAL 0.5 mg/dL (0.2-1.0); CREATININE 0.7 mg/dL (0.4-1.0); TOTAL PROTEIN 8.7 g/dL (6.7-8.2)
[2019-06-09] MEDS ORDERED: HYDROmorphone 1 MG/ML SYRINGE IVP STA ×2 (13:24→15:40)
[2019-06-09] MEDS ORDERED: ONDANSETRON 4 MG/2 ML VIAL IVP STA (13:24)
[2019-06-09] MEDS ORDERED: SODIUM CHLORIDE 0.9% 1,000 ML IV ONE ×2 (13:24→15:44)
[2019-06-09] MEDS ORDERED: FAMOTIDINE 20 MG/2 ML VIAL IVP STA (13:27)
[2019-06-09] MEDS ORDERED: LIDOCAINE VISCOUS 2% 15 ML UDC MM STA (13:27)
[2019-06-09] MEDS ORDERED: MAG HYDROX/AL HYDROX/SIMETH 30 ML UDC PO STA (13:27)
--- NOTE | 2019-06-09 15:19 | Ultrasound Report ---
Reason: upper abd pain intermittent; worse past couple day Procedure Date: 06/09/2019 Accession Number: [id number] / [id number] Procedure: US - Abdomen Limited CPT Code: Final Report FULL RESULT: EXAM: ABDOMEN ULTRASOUND LIMITED, RUQ EXAM DATE: 06/09/2019 01:49 PM. CLINICAL HISTORY: Upper abd pain intermittent; worse past couple day. COMPARISON: ABDOMEN/PELVIS W/O 03/31/2019 2:04 PM. TECHNIQUE: Real-time scanning was performed with static images obtained. FINDINGS: Liver: Normal in size and echotexture. 13.6 cm. 2 right lobe liver indeterminate adjacent hypoechoic masses inferior 2.0 X1.9 x 2.2 cm and inferior lateral 2.1 x 2.2 x 2.7 cm 0 Main portal vein flow: Hepatopetal. Gallbladder: Gallbladder wall adenomyomatosis. Possible 1.3 cm non-mobile gallstone in the gallbladder neck. No ultrasonographic Donovan sign the patient is on pain medications. No gallbladder wall thickening Biliary System: CBD measures 4.6 mm. No ductal dilatation Pancreas: Not well seen. Right kidney: There was renal pelviectasis that resolved postvoid IMPRESSION: 1. 2 indeterminate right lobe liver masses. Further evaluation could be with liver CT or MRI. 2. Possible gallstone. Gallbladder wall adenomyomatosis. RADIA
[2019-06-09] MEDS ORDERED: SUCRALFATE 1 GM/10 ML UDC PO STA (15:40)
[2019-06-09 16:43] VITALS: BP 108/63
== END 2019-06-09 16:50 | disposition home or self-care (01) ==
LOC: ED 12:21
DX: R10.11 Right upper quadrant pain (principal); R10.13 Epigastric pain; R11.2 Nausea with vomiting, unspecified; D13.5 Benign neoplasm of extrahepatic bile ducts; R16.0 Hepatomegaly, not elsewhere classified; K21.9 Gastro-esophageal reflux disease without esophagitis
CPT/HCPCS: 36415; 76705; 80053; 81001; 81025; 83690; 85025; 96361; 96374; 96376; 99284; A9270; J1170; 81003; 87086

== ENCOUNTER 2019-06-10 19:52 | Emergency (ER) | payer OTHER ==
--- NOTE | 2019-06-10 20:19 | ED Physician Documentation ---
PD HPI NVD - Stated complaint Stated Complaint: VOMITING - Chief complaint Chief Complaint: Abd Pain - History obtained from History obtained from: Patient - History of Present Illness Timing - onset: How many days ago (2) Timing - details: Gradual onset, Waxing and waning Pain level now: 8 Associated symptoms: Loss of appetite. No: Fever Improved by: Other (no ameliorating factors) Worsened by: Eating, Palpation Similar symptoms before: No diagnosis Recently seen: Emergency Dept - Additonal information Additional information: T+R from this ED yesterday for nausea, vomiting, and abdominal pain. She felt better at time of discharge but says that "as soon as they took out the IV", she resumed vomiting. She says since discharge, and all day today, she has had nausea, vomiting, and abdominal pain and not able to tolerate any PO intake including sips of fluids and including the TL zofran that was prescribed. She c/o epigastric pain and a generalized headache, as well. Review of Systems Constitutional: denies: Fever, Chills, Sweats Cardiac: reports: Reviewed and negative Respiratory: reports: Reviewed and negative GI: reports: Abdominal Pain, Nausea, Vomiting. denies: Abdominal Swelling, Constipation, Diarrhea : denies: Dysuria, Frequency, Now EGA Skin: reports: Reviewed and negative Musculoskeletal: reports: Reviewed and negative Neurologic: reports: Generalized weakness, Headache. denies: Focal weakness, Numbness PD PAST MEDICAL HISTORY - Past Medical History Cardiovascular: None Respiratory: Pneumonia Neuro: Migraines, Peripheral neuropathy, Tremors Endocrine/Autoimmune: None GI: GERD, Other (congenital anomaly of the GI tract, status post colostomy, Erji tube) PELT DROPPER: None : Kidney stones (left, now has passed per ED reports) HEENT: None Psych: None Musculoskeletal: Fibromyalgia, Other (chronic pain syndrome) Derm: None - Past Surgical History Past Surgical History: Yes General: Bowel surgery, Gastric surgery /PELT DROPPER: section - Present Medications Home Medications: Ambulatory Orders Medication Instructions Recorded Confirmed Acetaminophen [Tylenol] 650 mg PO Q4HR PRN tablet 04/02/19 Cefdinir 300 mg PO BID #28 capsule 04/02/19 Cyclobenzaprine [Flexeril] 10 mg PO BID PRN 04/02/19 04/02/19 Fluticasone [Flonase] 2 sprays KYM DAILY #1 bottle 04/02/19 Lactobacillus Acidophilus 1 each PO BID #60 capsule 04/02/19 [Digestive Probiotic] Ondansetron Odt [Zofran Odt] 4 mg TL Q6H PRN #10 tablet 04/02/19 Oxymetazoline HCl [Afrin] 2 sprays KYM BID #1 bottle 04/02/19 Pantoprazole [Protonix] 40 mg PO DAILY 04/02/19 rOPINIRole [Requip] 0.25 mg PO QPM PRN 04/02/19 oxyCODONE [Roxicodone] 5 mg PO Q4-6H PRN #15 tablet 04/04/19 Famotidine 20 mg PO DAILY #30 tablet 06/09/19 Hydrocodone/Acetaminophen [[place] 1 each PO Q6H PRN #15 tablet 06/09/19 5-325 Tablet] Lidocaine Viscous 2% [Xylocaine 5 ml PO Q4H PRN #100 ml 06/09/19 Viscous 2%] Ondansetron Odt [Zofran] 4 mg TL Q6H PRN #20 tablet 06/09/19 Sucralfate [Carafate] 1 gm PO ACHS #40 tablet 06/09/19 Oxycodone HCl/Acetaminophen 1 - 2 each PO Q6H PRN #14 tablet 06/11/19 [Percocet 5-325 mg Tablet] Promethazine [Phenergan] 25 mg PO Q6H PRN #10 tab 06/11/19 - Allergies Allergies/Adverse Reactions: Allergies Allergy/AdvReac Type Severity Reaction Status Date / Time Iodinated Contrast Media Allergy Anaphylaxis Verified 06/09/19 12:31 - Social History Does the pt smoke?: No Smoking Status: Never smoker Does the pt drink ETOH?: No Does the pt have substance abuse?: No - Immunizations Immunizations are current?: No - POLST Patient has POLST: No POLST Status: Full Code PD ED PE NORMAL - Vitals Vital signs reviewed: Yes - General General: Alert and oriented X 3, No acute distress, Well developed/nourished - HEENT HEENT: Other (dry mucous membranes) - Neck Neck: Supple, no meningeal sign - Cardiac Cardiac: RRR, No murmur - Respiratory Respiratory: No respiratory distress, Clear bilaterally - Abdomen Abdomen: Soft, Non distended, Other (TTP across upper abdomen, predominantly epigastrium; LLQ Reji tube in place) - Back Back: No CVA TTP - Derm Derm: Normal color, Warm and dry, No rash - Extremities Extremities: No edema Results - Vitals Vitals: Vital Signs - 24 hr 06/10/19 06/10/19 06/11/19 19:56 23:06 01:15 Temperature 36.3 C L 36.7 C 36.9 C Heart Rate 95 99 88 Respiratory 16 18 16 Rate Blood Pressure 126/91 H 123/88 H 133/76 H O2 Saturation 100 100 100 Oxygen O2 Source Room air - Labs Labs: Laboratory Tests 06/10/19 06/10/19 06/10/19 20:40 20:40 21:55 WBC 9.4 RBC 4.83 Hgb 12.9 Hct 40.2 MCV 83.2 MCH 26.7 L MCHC 32.1 RDW 14.1 Plt Count 323 MPV 10.7 Neut # (Auto) 6.0 Lymph # (Auto) 2.7 [place] # (Auto) 0.5 Eos # (Auto) 0.2 Baso # (Auto) 0.1 Absolute Nucleated RBC 0.00 Nucleated RBC % 0.0 Sodium Potassium Chloride Carbon Dioxide Anion Gap BUN Creatinine Estimated GFR (MDRD) Glucose Calcium Total Bilirubin AST ALT Alkaline Phosphatase Total Protein Albumin Globulin Albumin/Globulin Ratio Lipase Urine Color YELLOW Urine Clarity CLEAR Urine pH 6.0 Ur Specific [place] 1.020 Urine Protein NEGATIVE Urine Glucose (UA) NEGATIVE Urine Ketones NEGATIVE Urine Occult Blood NEGATIVE Urine Nitrite NEGATIVE Urine Bilirubin NEGATIVE Urine Urobilinogen 0.2 (NORMAL) Ur Leukocyte Esterase NEGATIVE Ur Microscopic Review NOT INDICATED Urine Culture Comments NOT INDICATED Urine HCG, Qual NEGATIVE Urine Opiates Screen POSITIVE H Ur Oxycodone Screen NEGATIVE Urine Methadone Screen NEGATIVE Ur Propoxyphene Screen NEGATIVE Ur Barbiturates Screen NEGATIVE Ur Tricyclics Screen NEGATIVE Ur Phencyclidine Scrn NEGATIVE Ur Amphetamine Screen NEGATIVE U Methamphetamines Scrn NEGATIVE U Benzodiazepines Scrn NEGATIVE Urine Cocaine Screen NEGATIVE U Cannabinoids Screen POSITIVE H 06/10/19 21:55 WBC RBC Hgb Hct MCV MCH MCHC RDW Plt Count MPV Neut # (Auto) Lymph # (Auto) [place] # (Auto) Eos # (Auto) Baso # (Auto) Absolute Nucleated RBC Nucleated RBC % Sodium 138 Potassium 3.5 Chloride 105 Carbon Dioxide 24 Anion Gap 9.0 BUN 6 Creatinine 0.6 Estimated GFR (MDRD) 129 Glucose 87 Calcium 9.0 Total Bilirubin 0.8 AST 40 ALT 66 H Alkaline Phosphatase 65 Total Protein 7.6 Albumin 4.4 Globulin 3.2 Albumin/Globulin Ratio 1.4 Lipase 31 Urine Color Urine Clarity Urine pH Ur Specific [place] Urine Protein Urine Glucose (UA) Urine Ketones Urine Occult Blood Urine Nitrite Urine Bilirubin Urine Urobilinogen Ur Leukocyte Esterase Ur Microscopic Review Urine Culture Comments Urine HCG, Qual Urine Opiates Screen Ur Oxycodone Screen Urine Methadone Screen Ur Propoxyphene Screen Ur Barbiturates Screen Ur Tricyclics Screen Ur Phencyclidine Scrn Ur Amphetamine Screen U Methamphetamines Scrn U Benzodiazepines Scrn Urine Cocaine Screen U Cannabinoids Screen - Rads (name of study) CT A/P Radiology: Prelim report reviewed, See rad report PD MEDICAL DECISION MAKING - ED course Complexity details: reviewed old records, reviewed results, re-evaluated patient, considered differential, d/w patient ED course: On multiple reevaluations, patient was not in any obvious or apparent distress. She reported ongoing nausea without vomiting, and recurrent abdominal pain. Given second liter IV fluid, IV dilaudid, IV zofran (initial treatment was IV NS, IV morphine, IV phenergan). CT A/P does not reveal etiology of her symptoms nor emergently concerning findings. She was reluctant to be discharged due to concern that symptoms would return but also expressed frustration that she was not given food to eat (specifically wants a sandwich). She was also asking for rx for her nausea and pain, says the hydrocodone provided yesterday was ineffective in treating her pain. Will d/c with rx phenergan and percocet Departure - Departure Disposition: 01 Home, Self Care Clinical Impression: Abdominal pain Qualifiers: Abdominal location: upper abdomen, unspecified Qualified Code(s): R10.10 - Upper abdominal pain, unspecified Vomiting Qualifiers: Vomiting type: unspecified Vomiting Intractability: non-intractable Nausea presence: with nausea Qualified Code(s): R11.2 - Nausea with vomiting, unspecified Condition: Good Instructions: ED Abdominal Pain Unkn Cause, ED Nausea Vomiting Follow-Up: Jurgen Laird ARNP [Primary Care Provider] - (Next available appointment) Prescriptions: Oxycodone HCl/Acetaminophen [Percocet 5-325 mg Tablet] 1 - 2 each PO Q6H PRN #14 tablet PRN Reason: pain Promethazine [Phenergan] 25 mg PO Q6H PRN #10 tab PRN Reason: Nausea / Vomiting Discharge Date/Time: 06/11/19 01:17
[2019-06-10 20:45] LABS: MUDS CUTOFF CONCENTRATIONS CUTOFF CONC BELOW:
[2019-06-10 20:48] LABS: BILIRUBIN,URINE NEGATIVE (NEGATIVE); GLUCOSE, URINE (UA) NEGATIVE (NEGATIVE); KETONES,URINE (UA) NEGATIVE (NEGATIVE); LEUKOCYTE ESTERASE, URINE NEGATIVE (NEGATIVE); NITRITE,URINE NEGATIVE (NEGATIVE); OCCULT BLOOD,URINE NEGATIVE (NEGATIVE); PROTEIN,URINE NEGATIVE (NEGATIVE); UROBILINOGEN,URINE 0.2 (NORMAL) E.U./dL (NORMAL)
[2019-06-10 20:52] LABS: CLARITY,URINE CLEAR (CLEAR); HCG UR QUAL NEGATIVE
[2019-06-10 20:58] LABS: AMPHETAMINE SCREEN,URINE NEGATIVE (NEGATIVE); BENZODIAZEPINES SCREEN, URINE NEGATIVE (NEGATIVE); COCAINE SCREEN URINE NEGATIVE (NEGATIVE); METHADONE SCREEN, URINE NEGATIVE (NEGATIVE); METHAMPHETAMINES SCREEN, URINE NEGATIVE (NEGATIVE); OPIATE SCREEN, URINE POSITIVE (NEGATIVE); OXYCODONE SCREEN, URINE NEGATIVE (NEGATIVE); PROPOXYPHENE SCREEN, URINE NEGATIVE (NEGATIVE); TRICYCLIC ANTIDEPRESSANT,URINE NEGATIVE (NEGATIVE)
[2019-06-10] MEDS ORDERED: SODIUM CHLORIDE 0.9% 1,000 ML IV STA ×2 (21:08→23:51)
[2019-06-10] MEDS ORDERED: PROMETHAZINE INJ 25 MG in SODIUM CHLORIDE 0.9% 50 ML IV STA (21:08)
[2019-06-10] MEDS ORDERED: MORPHINE 2 MG/ML CARPUJECT IVP STA (21:09)
[2019-06-10 22:02] LABS: BASOPHILS # (AUTO) 0.1 10^3/uL (0.0-0.1); BASOPHILS % (AUTO) 0.5 %; EOSINOPHILS # (AUTO) 0.2 10^3/uL (0.0-0.7); EOSINOPHILS % (AUTO) 2.4 %; HGB - HEMOGLOBIN 12.9 g/dL (12.0-16.0); LYMPHOCYTES # (AUTO) 2.7 10^3/uL (1.5-3.5); LYMPHOCYTES % (AUTO) 28.2 %; MEAN CORPUSCULAR HEMOGLOBIN 26.7 pg (27.0-31.0); MEAN CORPUSCULAR HGB CONC 32.1 g/dL (32.0-36.0); MEAN CORPUSCULAR VOLUME 83.2 fL (81.0-99.0); MEAN PLATELET VOLUME 10.7 fL (7.9-10.8); MONOCYTES # (AUTO) 0.5 10^3/uL (0.0-1.0); MONOCYTES % (AUTO) 5.3 %; NEUTROPHILS % (AUTO) 63.3 %; PLT - PLATELET COUNT 323 10^3/uL (130-450); RED BLOOD COUNT 4.83 10^6/uL (4.20-5.40); RED CELL DISTRIBUTION WIDTH 14.1 % (12.0-15.0); WHITE BLOOD COUNT 9.4 x10^3/uL (4.8-10.8)
[2019-06-10 22:16] LABS: ALBUMIN 4.4 g/dL (3.2-5.5); ALBUMIN/GLOBULIN RATIO 1.4 (1.0-2.2); BILIRUBIN,TOTAL 0.8 mg/dL (0.2-1.0); CREATININE 0.6 mg/dL (0.4-1.0); TOTAL PROTEIN 7.6 g/dL (6.7-8.2)
[2019-06-10] MEDS ORDERED: MORPHINE 10 MG/ML VIAL IVP STA (22:39)
--- NOTE | 2019-06-10 22:51 | CT Report ---
Reason: abd. pain Procedure Date: 06/10/2019 Accession Number: [id number] / [id number] Procedure: CT - Abdomen/Pelvis WO CPT Code: Final Report FULL RESULT: EXAM: CT ABDOMEN AND PELVIS (CT KUB) EXAM DATE: 06/10/2019 10:36 PM. CLINICAL HISTORY: Abd. pain. COMPARISONS: ABDOMEN/PELVIS W/O 03/31/2019 2:04 PM. TECHNIQUE: Routine axial helical CT imaging was performed through the abdomen and pelvis without IV contrast. Reconstructions: Coronal and sagittal. In accordance with CT protocol optimization, one or more of the following dose reduction techniques were utilized for this exam: automated exposure control, adjustment of mA and/or KV based on patient size, or use of iterative reconstructive technique. FINDINGS: Lung Bases: Unremarkable. Right Kidney/Ureter: No stones, hydronephrosis, or hydroureter. No perinephric fat stranding. Left Kidney/Ureter: No stones, hydronephrosis, or hydroureter. No perinephric fat stranding. Other Solid Organs: Fatty liver. Spleen, pancreas, and adrenal glands are normal. Gallbladder/Bile Ducts: Unremarkable. Peritoneal Cavity: Anastomosis at the distal rectum, with outpouching in the left pelvis measuring 14.5 x 7.8 cm. Similar appearance as on the prior exam. A left lower quadrant colostomy tube is present, balloon is inflated. No bowel dilatation that would suggest obstruction. No free air or free fluid. Appendix is normal. Pelvic Organs: Urinary bladder is mild to moderately distended. Uterus and adnexa are unremarkable. Vasculature: Unremarkable. Other: None. IMPRESSION: 1. No CT evidence of urolithiasis. 2. Fatty liver. 3. Otherwise no change compared to the prior exam. RADIA
[2019-06-10] MEDS ORDERED: HYDROmorphone 1 MG/ML SYRINGE IVP STA (23:52)
[2019-06-10] MEDS ORDERED: ONDANSETRON 4 MG/2 ML VIAL IVP STA (23:52)
[2019-06-11 01:17] VITALS: BP 133/76
== END 2019-06-11 01:17 | disposition home or self-care (01) ==
LOC: ED 19:52
DX: R10.10 Upper abdominal pain, unspecified (principal); R11.2 Nausea with vomiting, unspecified
CPT/HCPCS: 36415; 74176; 80053; 81003; 81025; 83690; 85025; 96361; 96365; 96375; 96376; 99284; J1170; J7040; 80306; 81001; 87086

== ENCOUNTER 2019-06-28 18:32 | Emergency (ER) | payer OTHER ==
--- NOTE | 2019-06-28 19:00 | ED Physician Documentation ---
History of Present Illness - Stated complaint Stated Complaint: ABD PX - Chief complaint Chief Complaint: Abd Pain - Additonal information Additional information: This is a 18-year-old female with complicated surgical history who presents with bleeding from here colostomy tube and abdominal discomfort. 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 These surgeries were performed at [facility] in [place]. She then had a reanastomosis, reportedly at [facility], reportedly with a Dr. Lopez. She has had a total of 17 surgeries. She recently moved to [place] and established with a transfer driver Dr. Sosa at [facility], it sounds like she has not established with a surgeon. She has been seen here several times with abdominal pain, has had CT scans and work-ups which have been largely unremarkable. Today she has had discomfort in her left lower abdomen as well as her right abdomen. She also feels nauseated. She denies fever. No vomiting. Review of Systems Constitutional: denies: Fever Nose: denies: Rhinorrhea / runny nose Cardiac: denies: Chest pain / pressure Respiratory: denies: Dyspnea GI: reports: Abdominal Pain, Nausea : denies: Frequency Skin: denies: Rash Musculoskeletal: denies: Extremity pain Neurologic: denies: Generalized weakness Immunocompromised: denies: Immunocompromised PD PAST MEDICAL HISTORY - Past Medical History Past Medical History: Yes Cardiovascular: None Respiratory: Pneumonia Neuro: Migraines, Peripheral neuropathy, Tremors Endocrine/Autoimmune: None GI: GERD, Other ADJUNCT PSYCHOLOGY PROFESSOR: None : Kidney stones HEENT: None Psych: None Musculoskeletal: Fibromyalgia, Other Derm: None - Past Surgical History Past Surgical History: Yes General: Bowel surgery, Gastric surgery /ADJUNCT PSYCHOLOGY PROFESSOR: section - Present Medications Home Medications: Ambulatory Orders Medication Instructions Recorded Confirmed Acetaminophen [Tylenol] 650 mg PO Q4HR PRN tablet 04/02/19 Cefdinir 300 mg PO BID #28 capsule 04/02/19 Cyclobenzaprine [Flexeril] 10 mg PO BID PRN 04/02/19 04/02/19 Fluticasone [Flonase] 2 sprays KYM DAILY #1 bottle 04/02/19 Lactobacillus Acidophilus 1 each PO BID #60 capsule 04/02/19 [Digestive Probiotic] Ondansetron Odt [Zofran Odt] 4 mg TL Q6H PRN #10 tablet 04/02/19 Oxymetazoline HCl [Afrin] 2 sprays KYM BID #1 bottle 04/02/19 Pantoprazole [Protonix] 40 mg PO DAILY 04/02/19 rOPINIRole [Requip] 0.25 mg PO QPM PRN 04/02/19 oxyCODONE [Roxicodone] 5 mg PO Q4-6H PRN #15 tablet 04/04/19 Famotidine 20 mg PO DAILY #30 tablet 06/09/19 Hydrocodone/Acetaminophen [[place] 1 each PO Q6H PRN #15 tablet 06/09/19 5-325 Tablet] Lidocaine Viscous 2% [Xylocaine 5 ml PO Q4H PRN #100 ml 06/09/19 Viscous 2%] Ondansetron Odt [Zofran] 4 mg TL Q6H PRN #20 tablet 06/09/19 Sucralfate [Carafate] 1 gm PO ACHS #40 tablet 06/09/19 Oxycodone HCl/Acetaminophen 1 - 2 each PO Q6H PRN #14 tablet 06/11/19 [Percocet 5-325 mg Tablet] Promethazine [Phenergan] 25 mg PO Q6H PRN #10 tab 06/11/19 Nitrofurantoin Monohyd/M-Cryst 100 mg PO BID #10 capsule 06/28/19 [Macrobid 100 mg Capsule] Ondansetron Odt [Zofran] 4 mg TL Q6H PRN #10 tablet 06/28/19 - Allergies Allergies/Adverse Reactions: Allergies Allergy/AdvReac Type Severity Reaction Status Date / Time Iodinated Contrast Media Allergy Anaphylaxis Verified 06/28/19 18:39 - Social History Does the pt smoke?: No Smoking Status: Never smoker Does the pt drink ETOH?: No Does the pt have substance abuse?: No - Immunizations Immunizations are current?: No - POLST Patient has POLST: No POLST Status: Full Code PD ED PE NORMAL - Vitals Vital signs reviewed: Yes - General General: Alert and oriented X 3, No acute distress - HEENT HEENT: PERRL - Neck Neck: Supple, no meningeal sign - Cardiac Cardiac: RRR, No murmur - Respiratory Respiratory: Clear bilaterally - Abdomen Abdomen: Other (Soft, nondistended, rotund. There is a G-tube present in her left lower quadrant, there is a very small amount of dried blood around the insertion site of the G-tube. On deep palpation patient does have tenderness in the left lower quadrant, remainder of her abdomen is non-tender.) - Derm Derm: Warm and dry - Extremities Extremities: No deformity - Neuro Neuro: Alert and oriented X 3 Results - Vitals Vitals: Vital Signs - 24 hr 06/28/19 06/28/19 06/28/19 18:39 19:46 20:40 Temperature 36.7 C Heart Rate 107 H 103 H 99 Respiratory 18 16 16 Rate Blood Pressure 120/72 125/83 H 129/89 H O2 Saturation 98 99 99 06/28/19 21:30 Temperature Heart Rate 93 Respiratory 16 Rate Blood Pressure 137/84 H O2 Saturation 98 Oxygen O2 Source Room air - Labs Labs: Laboratory Tests 06/28/19 06/28/19 06/28/19 19:10 19:27 19:27 WBC 10.8 RBC 5.14 Hgb 13.7 Hct 41.6 MCV 80.9 L MCH 26.7 L MCHC 32.9 RDW 13.6 Plt Count 364 MPV 10.9 H Neut # (Auto) 7.6 H Lymph # (Auto) 2.5 [place] # (Auto) 0.5 Eos # (Auto) 0.2 Baso # (Auto) 0.1 Absolute Nucleated RBC 0.00 Nucleated RBC % 0.0 PT 12.6 INR 1.1 Sodium 135 Potassium 3.3 L Chloride 104 Carbon Dioxide 22 Anion Gap 9.0 BUN 7 Creatinine 0.5 Estimated GFR (MDRD) 159 Glucose 107 H Calcium 9.0 Total Bilirubin 0.9 AST 50 H ALT 79 H Alkaline Phosphatase 69 Total Protein 7.5 Albumin 4.3 Globulin 3.2 Albumin/Globulin Ratio 1.3 Lipase 24 Serum HCG, Qual Urine Color Urine Clarity Urine pH Ur Specific [place] Urine Protein Urine Glucose (UA) Urine Ketones Urine Occult Blood Urine Nitrite Urine Bilirubin Urine Urobilinogen Ur Leukocyte Esterase Urine RBC Urine WBC Ur Squamous Epith Cells Urine Bacteria Ur Microscopic Review Urine Culture Comments Urine HCG, Qual 06/28/19 06/28/19 19:30 20:00 WBC RBC Hgb Hct MCV MCH MCHC RDW Plt Count MPV Neut # (Auto) Lymph # (Auto) [place] # (Auto) Eos # (Auto) Baso # (Auto) Absolute Nucleated RBC Nucleated RBC % PT INR Sodium Potassium Chloride Carbon Dioxide Anion Gap BUN Creatinine Estimated GFR (MDRD) Glucose Calcium Total Bilirubin AST ALT Alkaline Phosphatase Total Protein Albumin Globulin Albumin/Globulin Ratio Lipase Serum HCG, Qual NEGATIVE Urine Color YELLOW Urine Clarity CLEAR Urine pH 6.0 Ur Specific [place] 1.010 Urine Protein NEGATIVE Urine Glucose (UA) NEGATIVE Urine Ketones NEGATIVE Urine Occult Blood NEGATIVE Urine Nitrite POSITIVE H Urine Bilirubin NEGATIVE Urine Urobilinogen 0.2 (NORMAL) Ur Leukocyte Esterase NEGATIVE Urine RBC None Seen Urine WBC 0-3 Ur Squamous Epith Cells MANY Squamous H Urine Bacteria Moderate H Ur Microscopic Review INDICATED Urine Culture Comments NOT INDICATED Urine HCG, Qual NEGATIVE - Rads (name of study) CT abd/pelvis W Radiology: Other (Normal appendix, she has a colostomy tube in the descending colon and sigmoid colon junction, there is no free fluid or free air, no acute bowel findings. Fatty liver seen) PD MEDICAL DECISION MAKING - ED course Complexity details: considered differential (Enteritis/colitis, colostomy tube complication, bowel obstruction, anastomotic leak, ulceration,Diverticulitis, appendicitis, urinary tract infection) ED course: On arrival patient is overall well-appearing, she does have some tenderness in her left lower quadrant, and she is mildly tachycardic. She is afebrile. IV was inserted, labs are drawn, and patient was given morphine and Zofran for her symptoms as well as a liter of fluids. Labs showed no leukocytosis, no anemia, her CMP is notable for some very mild AST andALT elevations, similar to past values and likely due to fatty liver. She has no right upper quadrant tenderness and I have a very low suspicion for gallbladder or other biliary pathology. Her hCG is negative. Her urinalysis is positive for nitrites and bacteria, consistent with a UTI. She was treated with nitrofurantoin here and a prescription for nitrofurantoin written. Patient states that she has a history of an allergic reaction to iodinated contrast, but states she doesn't get the allergic reaction if "I am asleep." It sounds like it was a mild reaction so she was pretreated with Benadryl and Solu-Medrol here and actually got the contrasted CT without any issues whatsoever. CT of her abdomen and pelvis showed no acute bowel findings, did show chronic changes to her gastrointestinal tract secondary to the surgery. She does not have any signs of active bleeding, and I have a high suspicion that the small amount of dried blood around the insertion point of her colostomy tube is from irritation of the tube itself. I did speak with her gastroenterology group (Dr. Caba) at [facility], It sounds like she was seen in clinic with them one time and they are not highly familiar with her, they feel that she probably needs to establish with colorectal surgery for outpatient follow- up. On repeat examination patient is sleeping, resting comfortably, her abdomen is benign, and she is well-appearing. I discussed the results of our studies, and the fact that I do not see signs of an acute abdominal emergency but I think is very important that she establish with a colorectal surgeon as soon as possible. I also reviewed return precautions with the patient, and prescribed nausea medication. Patient's questions were answered and she was discharged home in Departure - Departure Disposition: 01 Home, Self Care Clinical Impression: UTI (urinary tract infection) Qualifiers: Urinary tract infection type: acute cystitis Hematuria presence: without hematuria Qualified Code(s): N30.00 - Acute cystitis without hematuria Abdominal pain Qualifiers: Abdominal location: unspecified location Qualified Code(s): R10.9 - Unspecified abdominal pain Condition: Good Instructions: ED Abdominal Pain Unkn Cause Follow-Up: Jurgen Laird ARNP [Primary Care Provider] - Within 1 week (Make an appt to discuss symptoms and referral to colorectal surgery (probably at )) Prescriptions: Nitrofurantoin Monohyd/M-Cryst [Macrobid 100 mg Capsule] 100 mg PO BID #10 capsule Ondansetron Odt [Zofran] 4 mg TL Q6H PRN #10 tablet PRN Reason: Nausea / Vomiting Comments: Your CT scan and labs did not show an obvious cause of your discomfort other than you do have a urinary tract infection. I think it is very important that you establish care with a colorectal surgeon given the complexity of your medical history. If you have any worsening symptoms such as repeated episodes of vomiting, increasing pain, fever, return to the emergency department. Discharge Date/Time: 06/28/19 22:09
[2019-06-28] MEDS ORDERED: MORPHINE 2 MG/ML CARPUJECT IVP STA ×2 (19:17→21:56)
[2019-06-28] MEDS ORDERED: ONDANSETRON 4 MG/2 ML VIAL IVP STA ×2 (19:17→21:56)
[2019-06-28] MEDS ORDERED: SODIUM CHLORIDE 0.9% 1,000 ML IV ONE (19:18)
[2019-06-28] MEDS ORDERED: diphenhydrAMINE INJ 50 MG/ML VIAL IVP STA ×2 (19:19→19:35)
[2019-06-28 19:20] LABS: BASOPHILS # (AUTO) 0.1 10^3/uL (0.0-0.1); BASOPHILS % (AUTO) 0.6 %; EOSINOPHILS # (AUTO) 0.2 10^3/uL (0.0-0.7); EOSINOPHILS % (AUTO) 1.5 %; HGB - HEMOGLOBIN 13.7 g/dL (12.0-16.0); LYMPHOCYTES # (AUTO) 2.5 10^3/uL (1.5-3.5); LYMPHOCYTES % (AUTO) 22.7 %; MEAN CORPUSCULAR HEMOGLOBIN 26.7 pg (27.0-31.0); MEAN CORPUSCULAR HGB CONC 32.9 g/dL (32.0-36.0); MEAN CORPUSCULAR VOLUME 80.9 fL (81.0-99.0); MEAN PLATELET VOLUME 10.9 fL (7.9-10.8); MONOCYTES # (AUTO) 0.5 10^3/uL (0.0-1.0); MONOCYTES % (AUTO) 4.6 %; NEUTROPHILS # (AUTO) 7.6 10^3/uL (1.5-6.6); NEUTROPHILS % (AUTO) 70.1 %; PLT - PLATELET COUNT 364 10^3/uL (130-450); RED BLOOD COUNT 5.14 10^6/uL (4.20-5.40); RED CELL DISTRIBUTION WIDTH 13.6 % (12.0-15.0); WHITE BLOOD COUNT 10.8 x10^3/uL (4.8-10.8)
[2019-06-28] MEDS ORDERED: methylPREDNISolone SUCCINATE 125 MG/2 ML VIAL IVP STA (19:35)
[2019-06-28 19:39] LABS: INR 1.1 (0.8-1.2); PT - PROTHROMBIN TIME 12.6 secs (9.9-12.6)
[2019-06-28] MEDS ORDERED: IOVERSOL 320 100 ML VIAL IVP ONE ×2 (19:43→20:44)
[2019-06-28 19:45] LABS: ALBUMIN 4.3 g/dL (3.2-5.5); ALBUMIN/GLOBULIN RATIO 1.3 (1.0-2.2); BILIRUBIN,TOTAL 0.9 mg/dL (0.2-1.0); CREATININE 0.5 mg/dL (0.4-1.0); TOTAL PROTEIN 7.5 g/dL (6.7-8.2)
[2019-06-28] MEDS ORDERED: METOCLOPRAMIDE 10 MG/2 ML VIAL IVP STA (20:11)
[2019-06-28 20:12] LABS: BILIRUBIN,URINE NEGATIVE (NEGATIVE); GLUCOSE, URINE (UA) NEGATIVE (NEGATIVE); KETONES,URINE (UA) NEGATIVE (NEGATIVE); LEUKOCYTE ESTERASE, URINE NEGATIVE (NEGATIVE); NITRITE,URINE POSITIVE (NEGATIVE); OCCULT BLOOD,URINE NEGATIVE (NEGATIVE); PROTEIN,URINE NEGATIVE (NEGATIVE); UROBILINOGEN,URINE 0.2 (NORMAL) E.U./dL (NORMAL)
[2019-06-28 20:14] LABS: CLARITY,URINE CLEAR (CLEAR); HCG UR QUAL NEGATIVE
[2019-06-28] MEDS ORDERED: EPINEPHrine 1 MG/ML AMP ONE (20:21)
[2019-06-28 20:28] LABS: BACTERIA,URINE Moderate /HPF (None Seen); RBC,URINE None Seen /HPF (0-5); SQUAMOUS EPITHELIAL CELL,UR MANY Squamous (<= Few)
[2019-06-28 20:57] LABS: HCG,QUALITATIVE BLOOD NEGATIVE
--- NOTE | 2019-06-28 21:28 | CT Report ---
Reason: Abd pain, blood from colostomy tube Procedure Date: 06/28/2019 Accession Number: [id number] / [id number] Procedure: CT - Abdomen/Pelvis W CPT Code: Final Report FULL RESULT: EXAM: CT ABDOMEN AND PELVIS EXAM DATE: 06/28/2019 08:39 PM. CLINICAL HISTORY: Abdomen pain, blood from colostomy tube. COMPARISONS: ABDOMEN/PELVIS W/O 06/10/2019 10:29 PM ABDOMEN/PELVIS W/O 03/31/2019 2:04 PM. TECHNIQUE: Routine helical CT imaging was performed through the abdomen and pelvis. IV contrast: Optiray 320. Enteric contrast: No. Reconstructions: Coronal and sagittal. In accordance with CT protocol optimization, one or more of the following dose reduction techniques were utilized for this exam: automated exposure control, adjustment of mA and/or KV based on patient size, or use of iterative reconstructive technique. FINDINGS: Lung bases: No acute findings are seen. Liver: Superior aspect of the liver dome is not imaged. Diffuse fatty liver. Gallbladder: Contracted. Bile ducts: Unremarkable. Pancreas: Unremarkable. Spleen: Unremarkable. Adrenals: Unremarkable. Kidneys: Unremarkable. Bowel: Normal appendix. The left lower quadrant percutaneous small colostomy tube with inflated balloon at the tip in the descending colon and sigmoid colon junction is again noted. Distal rectum anastomosis is again noted with large left-sided rectal outpouching measuring 12.5 cm containing a calcification is again noted. No free fluid or free air. No acute bowel findings are seen. Pelvis: Elongated distended bladder again noted. Uterus appears unremarkable. Vasculature: No acute findings. Bones: No acute bone findings. IMPRESSION: 1. Normal appendix. The left lower quadrant percutaneous small colostomy tube with inflated balloon at the tip in the descending colon and sigmoid colon junction is again noted. Distal rectum anastomosis is again noted with large left-sided rectal outpouching measuring 12.5 cm containing a calcification is again noted. No free fluid or free air. No acute bowel findings are seen. 2. Fatty liver. 3. See above. RADIA The call report notification system was initiated by Dr. Sheila Samuels at 09:20 PM on 06/28/2019. The above call report findings were discussed with Hussein Rizzo by Dr. Sheila Samuels at 09:22 PM on 06/28/2019.
[2019-06-28 21:43] VITALS: BP 137/84
[2019-06-28] MEDS ORDERED: NITROFURANTOIN MACRO 100 MG CAPSULE PO STA (21:56)
== END 2019-06-28 22:09 | disposition home or self-care (01) ==
LOC: ED 18:32
DX: N30.00 Acute cystitis without hematuria (principal); R10.32 Left lower quadrant pain; R11.0 Nausea
CPT/HCPCS: 36415; 74177; 80053; 81001; 81025; 83690; 84703; 85025; 85610; 96361; 96374; 96375; 96376; 99284; 99285; A9270; J1200; J2765; Q9967; 81003; 87086

== ENCOUNTER 2019-06-29 19:20 | Emergency (ER) | payer OTHER ==
--- NOTE | 2019-06-29 19:44 | ED Physician Documentation ---
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 Patient states she was walking downstairs and tripped, she feels like she twisted her ankle. She denies hitting her head, she denies head or neck pain. No weakness, she does have some tingling over her right foot. She states she been unable to bear weight on her foot. Her reportedly had to held her into the car because she could not bear weight on it. She also has mild discomfort in her right knee but is much less than her foot and ankle. 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: section - Present Medications Home Medications: Ambulatory Orders Medication Instructions Recorded Confirmed Acetaminophen [Tylenol] 650 mg PO Q4HR PRN tablet 04/02/19 Cefdinir 300 mg PO BID #28 capsule 04/02/19 Cyclobenzaprine [Flexeril] 10 mg PO BID PRN 04/02/19 04/02/19 Fluticasone [Flonase] 2 sprays KYM DAILY #1 bottle 04/02/19 Lactobacillus Acidophilus 1 each PO BID #60 capsule 04/02/19 [Digestive Probiotic] Ondansetron Odt [Zofran Odt] 4 mg TL Q6H PRN #10 tablet 04/02/19 Oxymetazoline HCl [Afrin] 2 sprays KYM BID #1 bottle 04/02/19 Pantoprazole [Protonix] 40 mg PO DAILY 04/02/19 rOPINIRole [Requip] 0.25 mg PO QPM PRN 04/02/19 oxyCODONE [Roxicodone] 5 mg PO Q4-6H PRN #15 tablet 04/04/19 Famotidine 20 mg PO DAILY #30 tablet 06/09/19 Hydrocodone/Acetaminophen [[place] 1 each PO Q6H PRN #15 tablet 06/09/19 5-325 Tablet] Lidocaine Viscous 2% [Xylocaine 5 ml PO Q4H PRN #100 ml 06/09/19 Viscous 2%] Ondansetron Odt [Zofran] 4 mg TL Q6H PRN #20 tablet 06/09/19 Sucralfate [Carafate] 1 gm PO ACHS #40 tablet 06/09/19 Oxycodone HCl/Acetaminophen 1 - 2 each PO Q6H PRN #14 tablet 06/11/19 [Percocet 5-325 mg Tablet] Promethazine [Phenergan] 25 mg PO Q6H PRN #10 tab 06/11/19 Nitrofurantoin Monohyd/M-Cryst 100 mg PO BID #10 capsule 06/28/19 [Macrobid 100 mg Capsule] Ondansetron Odt [Zofran] 4 mg TL Q6H PRN #10 tablet 06/28/19 - Allergies Allergies/Adverse Reactions: Allergies Allergy/AdvReac Type Severity Reaction Status Date / Time Iodinated Contrast Media Allergy Anaphylaxis Verified 06/29/19 19:27 - Social History Does the pt smoke?: No Smoking Status: Never smoker Does the pt drink ETOH?: No Does the pt have substance abuse?: No - Immunizations Immunizations are current?: No - POLST Patient has POLST: No POLST Status: Full Code PD ED PE NORMAL - Vitals Vital signs reviewed: Yes - General General: Alert and oriented X 3 - HEENT HEENT: Atraumatic, PERRL - Neck Neck: Supple, no meningeal sign - Cardiac Cardiac: RRR, No murmur - Respiratory Respiratory: No respiratory distress, Clear bilaterally - Abdomen Abdomen: Normal bowel sounds, Soft, Non distended, Other (Colostomy to present the left lower quadrant. No significant tenderness or guarding with palpation.) - Derm Derm: Warm and dry - Extremities Extremities: Other (No deformity, feet and ankles appear symmetric. Patient has tenderness with palpation of the medial and lateral malleolus and the forefoot. She does not have any tenderness palpation of the proximal or mid tibia or fibula. She has no deformity of her right knee, no swelling or skin changes. She is able to flex the hip, has good range of motion of her knee. 2+ DP and PT pulses. Sensation intact over the entire foot. Able to wiggle all toes.) - Neuro Neuro: Alert and oriented X 3 - Psych Psych: Normal mood, Normal affect Results - Vitals Vitals: Vital Signs - 24 hr 06/29/19 06/29/19 19:24 20:58 Temperature 36.7 C 36.7 C Heart Rate 94 99 Respiratory 16 18 Rate Blood Pressure 129/76 122/72 O2 Saturation 98 100 Oxygen O2 Source Room air - Rads (name of study) XR ankle Radiology: Other (No acute osseous abnormality) XR foot R Radiology: Other (No acute osseous abnormality) PD MEDICAL DECISION MAKING - ED course Complexity details: considered differential (Fracture, dislocation, strain, sprain) ED course: Patient presents with ankle pain after what sounds like an inversion injury. Her ankle actually appears normal, she does have tenderness but there is no ecchymosis or edema/asymmetric swelling. She is neurovascularly intact. No signs of trauma to her head, she has a normal neurologic exam She had a sensation of mild tingling of her foot however she is able to localize touch and her motor function is intact. X-ray of the ankle and foot are unremarkable with no acute osseous abnormalities. She is able to range her knee and I do not see any deformity, swelling, ecchymosis, and she does not have specific point tenderness in the knee, do not see indication for imaging of the knee at this time. I do have concern that patient may over endorse some symptoms, for example when I lightly brushed against her dorsal forefoot with my hand during exam she endorsed severe pain, however she tolerated an Seth wrap being placed around her foot immediately afterwards with more pressure and this did not seem to cause any discomfort. We provided her with an Seth wrap, and I discussed supportive care with rest, ice, compression, elevation for what appears to be a mild ankle sprain. I also discussed pain control with Tylenol and ibuprofen. She states she cannot take Tylenol or ibuprofen because her chronic pain specialist and [facility] in [place] prescribed these medications for her for a long time and now she feels nauseated when she takes them. She states that she can take these medications if they are combined with something else. She was given 1 dose of Fioricet here. After reviewing return precautions and PCP follow-up patient was discharged, at discharge she requested crutches, which we provided to her. Departure - Departure Disposition: 01 Home, Self Care Clinical Impression: Ankle pain, right Qualifiers: Chronicity: acute Qualified Code(s): M25.571 - Pain in right ankle and joints of right foot Condition: Good Instructions: ED Sprain Ankle Follow-Up: Jurgen Laird ARNP [Primary Care Provider] - Comments: Follow-up with your primary care provider if you are not having improvement in your ankle pain within 1 week. Rest, ice, elevate the extremity. I recommend Tylenol and ibuprofen for mild pain. Discharge Date/Time: 06/29/19 21:10
--- NOTE | 2019-06-29 20:43 | XRAY Report ---
Reason: foot pain Procedure Date: 06/29/2019 Accession Number: [id number] / [id number] Procedure: XR - Foot 3 View RT CPT Code: Final Report FULL RESULT: EXAM: RIGHT FOOT RADIOGRAPHY EXAM DATE: 06/29/2019 08:07 PM. CLINICAL HISTORY: Foot pain. COMPARISON: None. TECHNIQUE: 3 views. FINDINGS: Bones: No acute fractures. Joints: No subluxations. Soft Tissues: Unremarkable. IMPRESSION: No acute radiographic abnormalities. RADIA
--- NOTE | 2019-06-29 20:47 | XRAY Report ---
Reason: Pain on R ankle Procedure Date: 06/29/2019 Accession Number: [id number] / [id number] Procedure: XR - Ankle 3 View RT CPT Code: Final Report FULL RESULT: EXAM: RIGHT ANKLE RADIOGRAPHY EXAM DATE: 06/29/2019 08:09 PM. CLINICAL HISTORY: Pain on R ankle. COMPARISON: None. TECHNIQUE: 3 views. FINDINGS: Bones: Acute fractures. Corticated ossicle inferior to the lateral malleolus is likely an old avulsion fracture versus accessory ossicle. Joints: No subluxations. Ankle mortise is preserved. Soft Tissues: Lateral soft tissue swelling. IMPRESSION: Lateral soft tissue swelling. No acute fractures. RADIA
[2019-06-29] MEDS ORDERED: BUTALB/ACETAM/CAFF 50/325/40MG TABLET PO STA (20:55)
[2019-06-29 20:59] VITALS: BP 122/72
== END 2019-06-29 21:10 | disposition home or self-care (01) ==
LOC: ED 19:20
DX: M25.571 Pain in right ankle and joints of right foot (principal)
CPT/HCPCS: 73610; 73630; 99283; 99284; A9270

== ENCOUNTER 2019-07-24 20:09 | Outpatient (CLI) | payer OTHER | END 2019-07-24 20:10 | disposition critical access hospital (66) | LOC: EMS 20:09 | PROVIDERS: ATTEND Surgery | DX: O99.89 Other specified diseases and conditions complicating pregnancy, childbirth and the puerperium (principal); N93.9 Abnormal uterine and vaginal bleeding, unspecified | CPT/HCPCS: A0425; A0429 ==

== ENCOUNTER 2019-07-24 20:35 | Emergency (ER) | payer OTHER ==
[2019-07-24] MEDS ORDERED: cefTRIAXone 1 GM in SODIUM CHLORIDE 0.9% MINIBAG 100 ML IV STA (20:50)
--- NOTE | 2019-07-24 20:50 | ED Physician Documentation ---
PD HPI ABD PAIN - Stated complaint Stated Complaint: FEM - Chief complaint Chief Complaint: Abd Pain - History obtained from History obtained from: Patient - History of Present Illness Timing - onset: Today (This is a G3, P1 with 1 history of miscarriage who is at 5 weeks 1 day gestation. She went to [facility] last night per her complaining of upper abdominal pain and everything was okay with the fetus, she was diagnosed with UTI but has not filled the antibiotics. Today at 735 now has profuse vaginal bleeding and lower abdominal cramping. Bleeding is much heavier than a menses. Blood type is unknown.) Review of Systems Ten Systems: 10 systems reviewed and negative Constitutional: denies: Fever, Chills GI: reports: Abdominal Pain. 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 - Present Medications Home Medications: Ambulatory Orders Medication Instructions Recorded Confirmed Acetaminophen [Tylenol] 650 mg PO Q4HR PRN tablet 04/02/19 Cefdinir 300 mg PO BID #28 capsule 04/02/19 Cyclobenzaprine [Flexeril] 10 mg PO BID PRN 04/02/19 04/02/19 Fluticasone [Flonase] 2 sprays KYM DAILY #1 bottle 04/02/19 Lactobacillus Acidophilus 1 each PO BID #60 capsule 04/02/19 [Digestive Probiotic] Ondansetron Odt [Zofran Odt] 4 mg TL Q6H PRN #10 tablet 04/02/19 Oxymetazoline HCl [Afrin] 2 sprays KYM BID #1 bottle 04/02/19 Pantoprazole [Protonix] 40 mg PO DAILY 04/02/19 rOPINIRole [Requip] 0.25 mg PO QPM PRN 04/02/19 oxyCODONE [Roxicodone] 5 mg PO Q4-6H PRN #15 tablet 04/04/19 Famotidine 20 mg PO DAILY #30 tablet 06/09/19 Hydrocodone/Acetaminophen [[place] 1 each PO Q6H PRN #15 tablet 06/09/19 5-325 Tablet] Lidocaine Viscous 2% [Xylocaine 5 ml PO Q4H PRN #100 ml 06/09/19 Viscous 2%] Ondansetron Odt [Zofran] 4 mg TL Q6H PRN #20 tablet 06/09/19 Sucralfate [Carafate] 1 gm PO ACHS #40 tablet 06/09/19 Oxycodone HCl/Acetaminophen 1 - 2 each PO Q6H PRN #14 tablet 06/11/19 [Percocet 5-325 mg Tablet] Promethazine [Phenergan] 25 mg PO Q6H PRN #10 tab 06/11/19 Nitrofurantoin Monohyd/M-Cryst 100 mg PO BID #10 capsule 06/28/19 [Macrobid 100 mg Capsule] Ondansetron Odt [Zofran] 4 mg TL Q6H PRN #10 tablet 06/28/19 - Allergies Allergies/Adverse Reactions: Allergies Allergy/AdvReac Type Severity Reaction Status Date / Time Iodinated Contrast Media Allergy Anaphylaxis Verified 07/24/19 20:41 - Social History Does the pt smoke?: No Smoking Status: Never smoker Does the pt drink ETOH?: No Does the pt have substance abuse?: No - Immunizations Immunizations are current?: No - POLST Patient has POLST: No POLST Status: Full Code PD ED PE NORMAL - Vitals Vital signs reviewed: Yes - General General: Alert and oriented X 3, Other (Tearful and anxious) - Abdomen Abdomen: Soft, Non tender - Back Back: No CVA TTP - Derm Derm: Normal color, Warm and dry - Extremities Extremities: No edema, No calf tenderness / cord - Neuro Neuro: Alert and oriented X 3, Normal speech Results - Vitals Vitals: Vital Signs - 24 hr 07/24/19 07/24/19 07/24/19 20:41 20:45 21:39 Temperature 36.7 C Heart Rate 92 90 85 Respiratory 16 16 16 Rate Blood Pressure 133/85 H 128/78 132/75 H O2 Saturation 100 100 100 Oxygen O2 Source Room air - Labs Labs: Laboratory Tests 07/24/19 07/24/19 07/24/19 20:45 20:45 20:45 WBC 10.2 RBC 4.91 Hgb 12.7 Hct 39.5 MCV 80.4 L MCH 25.9 L MCHC 32.2 RDW 14.1 Plt Count 326 MPV 9.9 Neut # (Auto) 7.0 H Lymph # (Auto) 2.3 [place] # (Auto) 0.5 Eos # (Auto) 0.3 Baso # (Auto) 0.0 Absolute Nucleated RBC 0.00 Nucleated RBC % 0.0 Sodium 135 Potassium 3.5 Chloride 104 Carbon Dioxide 23 Anion Gap 8.0 BUN 5 L Creatinine 0.5 Estimated GFR (MDRD) 159 Glucose 94 Calcium 9.5 HCG, Quant 49079.00 Blood Type Antibody Screen 07/24/19 21:30 WBC RBC Hgb Hct MCV MCH MCHC RDW Plt Count MPV Neut # (Auto) Lymph # (Auto) [place] # (Auto) Eos # (Auto) Baso # (Auto) Absolute Nucleated RBC Nucleated RBC % Sodium Potassium Chloride Carbon Dioxide Anion Gap BUN Creatinine Estimated GFR (MDRD) Glucose Calcium HCG, Quant Blood Type B POSITIVE Antibody Screen NEGATIVE - Rads (name of study) OB ultrasound Radiology: EMP read contemporaneously (Intrauterine gestational sac, 5 weeks and 5 days based on size, yolk sac is present but pole are not identified. Bicornuate uterus.) PD MEDICAL DECISION MAKING - ED course ED course: 18-year-old woman, G3, P1 presents with threatened with bleeding. No evidence of ectopic. Blood counts and vital signs are reassuring. Close watchful waiting and follow-up ultrasonography was advised. Departure - Departure Disposition: 01 Home, Self Care Clinical Impression: Threatened Condition: Good Record reviewed to determine appropriate education?: Yes Instructions: ED Miscarriage Poss Comments: Your ultrasound is reassuring tonight. There is no evidence of an ectopic . Your blood type is B+. You do need a repeat ultrasound [place] . Return if worsening.
[2019-07-24] MEDS ORDERED: HYDROmorphone 1 MG/ML CARPUJECT IVP STA (20:51)
[2019-07-24 20:52] LABS: BASOPHILS % (AUTO) 0.4 %; EOSINOPHILS # (AUTO) 0.3 10^3/uL (0.0-0.7); HGB - HEMOGLOBIN 12.7 g/dL (12.0-16.0); LYMPHOCYTES # (AUTO) 2.3 10^3/uL (1.5-3.5); LYMPHOCYTES % (AUTO) 22.3 %; MEAN CORPUSCULAR HEMOGLOBIN 25.9 pg (27.0-31.0); MEAN CORPUSCULAR HGB CONC 32.2 g/dL (32.0-36.0); MEAN CORPUSCULAR VOLUME 80.4 fL (81.0-99.0); MEAN PLATELET VOLUME 9.9 fL (7.9-10.8); MONOCYTES # (AUTO) 0.5 10^3/uL (0.0-1.0); MONOCYTES % (AUTO) 4.9 %; NEUTROPHILS % (AUTO) 68.9 %; PLT - PLATELET COUNT 326 10^3/uL (130-450); RED BLOOD COUNT 4.91 10^6/uL (4.20-5.40); RED CELL DISTRIBUTION WIDTH 14.1 % (12.0-15.0); WHITE BLOOD COUNT 10.2 x10^3/uL (4.8-10.8)
[2019-07-24 21:02] LABS: CALCIUM 9.5 mg/dL (8.5-10.3); CREATININE 0.5 mg/dL (0.4-1.0)
[2019-07-24] MEDS ORDERED: MORPHINE 2 MG/ML CARPUJECT IVP STA (22:21)
[2019-07-24] MEDS ORDERED: METOCLOPRAMIDE 10 MG/2 ML VIAL IVP STA (22:21)
--- NOTE | 2019-07-24 22:30 | Ultrasound Report ---
Reason: vb 5w Procedure Date: 07/24/2019 Accession Number: [id number] / [id number] Procedure: US - OB First Trimester CPT Code: Final Report FULL RESULT: EXAM: FIRST TRIMESTER OBSTETRIC ULTRASOUND (Less than 11 weeks) EXAM DATE: 07/24/2019 09:08 PM. CLINICAL HISTORY: Vaginal bleeding. LMP: 06/17/2019. COMPARISONS: CT ABDOMEN/PELVIS W/ 06/28/2019 8:30 PM. TECHNIQUE: Transabdominal and transvaginal ultrasound examination with static image documentation. CLINICAL DATES: EGA 5 weeks 2 days with TESFAYE 03/23/2020 based on LMP. ASSESSMENT: Gestational Sac: Single intrauterine, in the lower uterine segment. Mean gestational sac diameter: 9.6 mm = 5 weeks 5 days. Embryo: Not seen. Cardiac activity: Not applicable. Yolk sac: 3 mm. Amniotic fluid: Not accurately assessed at this gestational age. Early placenta: Not visible at this gestational age. Other: No perigestational fluid collection demonstrated. MATERNAL STRUCTURES: Uterus: Anteverted/Retroverted. Bicornuate uterus. Normal echogenicity. Cervix: Closed. Right Ovary/Adnexa: The ovary measures 1.8 x 1.8 x 3.3 cm, volume 5.9 cc. Unremarkable. Left Ovary/Adnexa: Not seen. Free Fluid: None. Other: None. IMPRESSION: 1. Single intrauterine gestational sac at the junction of the upper and lower uterine segments at EGA 5 weeks 5 days with TESFAYE 03/20/2020 based on mean gestational sac diameter. 2. Yolk sac is present, but a pole is not identified. Close interval imaging follow-up is recommended. 3. Assigned dating is TESFAYE 03/23/2020 based on LMP. 4. Bicornuate uterus. 5. The left ovary is obscured secondary to overlying bowel gas. RADIA
[2019-07-24 23:11] VITALS: BP 116/78
== END 2019-07-24 23:30 | disposition home or self-care (01) ==
LOC: EDBD → EDUNIT# → ED 20:35
DX: O20.0 Threatened abortion (principal); Z3A.01 Less than 8 weeks gestation of pregnancy
CPT/HCPCS: 36415; 76801; 76817; 80048; 84702; 85025; 86850; 86900; 86901; 96365; 96366; 96375; 99284; J1170; J2765

== ENCOUNTER 2019-07-25 21:37 | Emergency (ER) | payer OTHER ==
[2019-07-25] MEDS ORDERED: ONDANSETRON 4 MG/2 ML VIAL IVP STA (22:02)
--- NOTE | 2019-07-25 22:03 | ED Physician Documentation ---
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 She was seen at [facility] 2 nights ago and had a ultrasound which reportedly showed a viable IUP, she began having vaginal bleeding last night, was seen here and had a ultrasound which showed a yolk sac and gestational sac, but no pole. Her blood type is B+. She was discharged home with supportive care/expectant management, and reports that she has had continued bleeding today, though has slowed down somewhat. She is having abdominal cramping and feels achey all over her body. She states that she has been nauseated and vomited multiple times. She denies fever, dysuria. Review of Systems Constitutional: denies: Fever Cardiac: denies: Chest pain / pressure Respiratory: denies: Dyspnea GI: reports: Abdominal Pain, Nausea, Vomiting : denies: Dysuria Skin: denies: Rash Neurologic: denies: Generalized weakness Immunocompromised: denies: Immunocompromised PD PAST MEDICAL HISTORY - Past Medical History Cardiovascular: None Respiratory: Pneumonia Neuro: Migraines, Peripheral neuropathy, Tremors Endocrine/Autoimmune: None GI: GERD, Other CHEMICAL INSTRUMENTATION OFFICER: None : Kidney stones HEENT: None Psych: None Musculoskeletal: Fibromyalgia, Other Derm: None - Past Surgical History Past Surgical History: Yes General: Bowel surgery, Gastric surgery /CHEMICAL INSTRUMENTATION OFFICER: section - Present Medications Home Medications: Ambulatory Orders Medication Instructions Recorded Confirmed Acetaminophen [Tylenol] 650 mg PO Q4HR PRN tablet 04/02/19 Cefdinir 300 mg PO BID #28 capsule 04/02/19 Cyclobenzaprine [Flexeril] 10 mg PO BID PRN 04/02/19 04/02/19 Fluticasone [Flonase] 2 sprays KYM DAILY #1 bottle 04/02/19 Lactobacillus Acidophilus 1 each PO BID #60 capsule 04/02/19 [Digestive Probiotic] Ondansetron Odt [Zofran Odt] 4 mg TL Q6H PRN #10 tablet 04/02/19 Oxymetazoline HCl [Afrin] 2 sprays KYM BID #1 bottle 04/02/19 Pantoprazole [Protonix] 40 mg PO DAILY 04/02/19 rOPINIRole [Requip] 0.25 mg PO QPM PRN 04/02/19 oxyCODONE [Roxicodone] 5 mg PO Q4-6H PRN #15 tablet 04/04/19 Famotidine 20 mg PO DAILY #30 tablet 06/09/19 Hydrocodone/Acetaminophen [[place] 1 each PO Q6H PRN #15 tablet 06/09/19 5-325 Tablet] Lidocaine Viscous 2% [Xylocaine 5 ml PO Q4H PRN #100 ml 06/09/19 Viscous 2%] Ondansetron Odt [Zofran] 4 mg TL Q6H PRN #20 tablet 06/09/19 Sucralfate [Carafate] 1 gm PO ACHS #40 tablet 06/09/19 Oxycodone HCl/Acetaminophen 1 - 2 each PO Q6H PRN #14 tablet 06/11/19 [Percocet 5-325 mg Tablet] Promethazine [Phenergan] 25 mg PO Q6H PRN #10 tab 06/11/19 Nitrofurantoin Monohyd/M-Cryst 100 mg PO BID #10 capsule 06/28/19 [Macrobid 100 mg Capsule] Ondansetron Odt [Zofran] 4 mg TL Q6H PRN #10 tablet 06/28/19 Cefdinir 300 mg PO BID #14 capsule 07/26/19 - Allergies Allergies/Adverse Reactions: Allergies Allergy/AdvReac Type Severity Reaction Status Date / Time Iodinated Contrast Media Allergy Anaphylaxis Verified 07/25/19 21:53 - Social History Does the pt smoke?: No Smoking Status: Never smoker Does the pt drink ETOH?: No Does the pt have substance abuse?: No - Immunizations Immunizations are current?: No - POLST Patient has POLST: No POLST Status: Full Code PD ED PE NORMAL - Vitals Vital signs reviewed: Yes - General General: Alert and oriented X 3, No acute distress - HEENT HEENT: PERRL - Neck Neck: Supple, no meningeal sign - Cardiac Cardiac: Other (Tachycardic, regular rhythm.) - Respiratory Respiratory: No respiratory distress, Clear bilaterally - Abdomen Abdomen: Other (Multiple well-healed incisional scars, G-tube in place, diffuse mild abdominal tenderness, no guarding.) - Derm Derm: Warm and dry - Extremities Extremities: No deformity - Neuro Neuro: Alert and oriented X 3 Results - Vitals Vitals: Vital Signs - 24 hr 07/25/19 07/26/19 07/26/19 21:48 00:40 01:06 Temperature 36.7 C 37.1 C Heart Rate 134 H 115 H 111 H Respiratory 16 18 22 Rate Blood Pressure 134/85 H 120/87 H 113/78 O2 Saturation 100 99 100 07/26/19 01:18 Temperature Heart Rate 116 H Respiratory Rate Blood Pressure O2 Saturation Oxygen O2 Source Room air - Labs Labs: Laboratory Tests 07/25/19 07/25/19 07/25/19 22:10 22:10 22:10 WBC 14.3 H RBC 4.77 Hgb 12.2 Hct 38.5 MCV 80.7 L MCH 25.6 L MCHC 31.7 L RDW 14.1 Plt Count 303 MPV 10.1 Neut # (Auto) 12.1 H Lymph # (Auto) 1.1 L [place] # (Auto) 0.8 Eos # (Auto) 0.2 Baso # (Auto) 0.0 Absolute Nucleated RBC 0.00 Nucleated RBC % 0.0 Sodium 135 Potassium 3.1 L Chloride 103 Carbon Dioxide 24 Anion Gap 8.0 BUN 5 L Creatinine 0.6 Estimated GFR (MDRD) 129 Glucose 110 H Calcium 8.6 Total Bilirubin 1.4 H AST 33 ALT 65 H Alkaline Phosphatase 74 Total Protein 7.3 Albumin 4.0 Globulin 3.3 Albumin/Globulin Ratio 1.2 Lipase 26 HCG, Quant 58347.00 Urine Color Urine Clarity Urine pH Ur Specific [place] Urine Protein Urine Glucose (UA) Urine Ketones Urine Occult Blood Urine Nitrite Urine Bilirubin Urine Urobilinogen Ur Leukocyte Esterase Urine RBC Urine WBC Ur Squamous Epith Cells Urine Bacteria Ur Microscopic Review Urine Culture Comments 07/26/19 00:32 WBC RBC Hgb Hct MCV MCH MCHC RDW Plt Count MPV Neut # (Auto) Lymph # (Auto) [place] # (Auto) Eos # (Auto) Baso # (Auto) Absolute Nucleated RBC Nucleated RBC % Sodium Potassium Chloride Carbon Dioxide Anion Gap BUN Creatinine Estimated GFR (MDRD) Glucose Calcium Total Bilirubin AST ALT Alkaline Phosphatase Total Protein Albumin Globulin Albumin/Globulin Ratio Lipase HCG, Quant Urine Color YELLOW Urine Clarity HAZY Urine pH 6.0 Ur Specific [place] 1.015 Urine Protein NEGATIVE Urine Glucose (UA) NEGATIVE Urine Ketones >=80 H Urine Occult Blood LARGE H Urine Nitrite NEGATIVE Urine Bilirubin NEGATIVE Urine Urobilinogen 0.2 (NORMAL) Ur Leukocyte Esterase LARGE H Urine RBC 6-10 H Urine WBC >25 H Ur Squamous Epith Cells FEW Squamous Urine Bacteria Few Ur Microscopic Review INDICATED Urine Culture Comments INDICATED PD MEDICAL DECISION MAKING - ED course Complexity details: considered differential (Threatened miscarriage, inevitable miscarriage, Colitis, bowel obstruction, UTI, pyelonephritis,Dehydration, electrolyte abnormality) ED course: On initial examination patient is tachycardic, nontoxic-appearing. She has a benign abdominal examination. Patient was given IV fluids, as well as Reglan for her nausea. Labs are notable for leukocytosis of 14.3, normal hemoglobin. Her potassium is slightly low at 3.1. ALT is slightly elevated 65, though this is in line with past values. Her bilirubin is also slightly elevated at 1.4, consistent with a possible starvation hyperbilirubinemia. Her hCG is up trending from 14,000 yesterday to 19,000 today, though this is a bit less than expected in a normal . On repeat evaluation patient states that she wants to go home. She declines a pelvic exam, states that she wants pain medications. She has a confirmed intrauterine , and sounds like her right of bleeding has been decreasing, and her hemoglobin is normal today. I did offer her pain medications while we perform further work up, but she states that she just wants to leave. I explained that we have not completed work-up, would like to perform a pelvic exam to assess the amount of bleeding she was having and to assess for pelvic pathology. The pelvic exam was delayed as the pelvic cart was being used in another room for an urgent D&C procedure. I explained this to the patient and apologized for the delay, but she is not willing to wait for the pelvic exam and she wants to leave immediately. We did receive her urinalysis which showed greater than 25 white blood cells concerning for UTI and potentially pyelonephritis given her achiness. I was able to convince her to stay for ceftriaxone, but she did not want to stay for further fluids and monitoring. She did remain tachycardic and technically meets sepsis criteria, though she is nontoxic-appearing and her blood pressure looks good at this time, she is afebrile. She understands that I would like to monitor her longer and perform further work-up, but she refuses this. I explained the risks of worsening infection, sepsis, and other complications, she understands but continued to decline further care and left AGAINST MEDICAL ADVICE after receiving the ceftriaxone. She does have capacity to make this decision. I did prescribe her a course of cefdinir and reviewed return precautions and let her know that she is welcome back in the emergency department for re-evaluation anytime. Pt verbalized understanding prior to leaving. Departure - Departure Disposition: Against Medical Advice Clinical Impression: Pyelonephritis, Threatened miscarriage Instructions: Pyelonephritis Dc Follow-Up: Jurgen Laird ARNP [Primary Care Provider] - Prescriptions: Cefdinir 300 mg PO BID #14 capsule Comments: You appear to have a urinary tract infection, which may be a kidney infection given your body aches. You also have a threatened/possible miscarriage. You have declined a pelvic exam and further workup today, but know that you are welcome back to the emergency department for further evaluation anytime. I highly recommend you return to the emergency department if you are having increasing pain, heavy bleeding, fever, persistent vomiting, or any other non- improving or worsening symptoms. Take the entire course of antibiotics as prescribed. It is safe to take Tylenol during for pain/discomfort. Discharge Date/Time: 07/26/19 01:48
[2019-07-25 22:18] LABS: BASOPHILS % (AUTO) 0.2 %; EOSINOPHILS # (AUTO) 0.2 10^3/uL (0.0-0.7); EOSINOPHILS % (AUTO) 1.3 %; HGB - HEMOGLOBIN 12.2 g/dL (12.0-16.0); LYMPHOCYTES # (AUTO) 1.1 10^3/uL (1.5-3.5); LYMPHOCYTES % (AUTO) 7.8 %; MEAN CORPUSCULAR HEMOGLOBIN 25.6 pg (27.0-31.0); MEAN CORPUSCULAR HGB CONC 31.7 g/dL (32.0-36.0); MEAN CORPUSCULAR VOLUME 80.7 fL (81.0-99.0); MEAN PLATELET VOLUME 10.1 fL (7.9-10.8); MONOCYTES # (AUTO) 0.8 10^3/uL (0.0-1.0); MONOCYTES % (AUTO) 5.3 %; NEUTROPHILS # (AUTO) 12.1 10^3/uL (1.5-6.6); NEUTROPHILS % (AUTO) 84.9 %; PLT - PLATELET COUNT 303 10^3/uL (130-450); RED BLOOD COUNT 4.77 10^6/uL (4.20-5.40); RED CELL DISTRIBUTION WIDTH 14.1 % (12.0-15.0); WHITE BLOOD COUNT 14.3 x10^3/uL (4.8-10.8)
[2019-07-25 22:36] LABS: ALBUMIN/GLOBULIN RATIO 1.2 (1.0-2.2); BILIRUBIN,TOTAL 1.4 mg/dL (0.2-1.0); CALCIUM 8.6 mg/dL (8.5-10.3); CREATININE 0.6 mg/dL (0.4-1.0); TOTAL PROTEIN 7.3 g/dL (6.7-8.2)
[2019-07-26] MEDS ORDERED: METOCLOPRAMIDE 10 MG/2 ML VIAL IVP STA (00:10)
[2019-07-26] MEDS ORDERED: LACTATED RINGERS 1,000 ML IV STA (00:10)
[2019-07-26 00:48] LABS: BILIRUBIN,URINE NEGATIVE (NEGATIVE); GLUCOSE, URINE (UA) NEGATIVE (NEGATIVE); KETONES,URINE (UA) >=80 mg/dL (NEGATIVE); LEUKOCYTE ESTERASE, URINE LARGE (NEGATIVE); NITRITE,URINE NEGATIVE (NEGATIVE); OCCULT BLOOD,URINE LARGE (NEGATIVE); PROTEIN,URINE NEGATIVE (NEGATIVE); UROBILINOGEN,URINE 0.2 (NORMAL) E.U./dL (NORMAL)
[2019-07-26 00:49] LABS: CLARITY,URINE HAZY (CLEAR)
[2019-07-26 00:54] LABS: BACTERIA,URINE Few /HPF (None Seen); SQUAMOUS EPITHELIAL CELL,UR FEW Squamous (<= Few)
[2019-07-26] MEDS ORDERED: cefTRIAXone 1 GM VIAL IVP STA (01:05)
[2019-07-26 01:06] VITALS: BP 113/78
== END 2019-07-26 01:48 | disposition left against medical advice (07) ==
LOC: ED 21:37
DX: O23.01 Infections of kidney in pregnancy, first trimester (principal); O20.0 Threatened abortion; O21.9 Vomiting of pregnancy, unspecified; Z3A.01 Less than 8 weeks gestation of pregnancy; Z93.1 Gastrostomy status; Z53.20 Procedure and treatment not carried out because of patient's decision for unspecified reasons
CPT/HCPCS: 36415; 80053; 81001; 83690; 84702; 85025; 87086; 96361; 96374; 96375; 99283; 99284; J2765; J7120; 81003; 84703

== ENCOUNTER 2019-07-26 19:11 | Inpatient (IN) | payer OTHER ==
[2019-07-26] MEDS ORDERED: ONDANSETRON 4 MG/2 ML VIAL IVP STA (19:29)
[2019-07-26] MEDS ORDERED: SODIUM CHLORIDE 0.9% 1,000 ML IV STA (19:29)
[2019-07-26] MEDS ORDERED: MORPHINE 10 MG/ML VIAL IVP STA (19:29)
--- NOTE | 2019-07-26 19:29 | ED Physician Documentation ---
History of Present Illness - Stated complaint Stated Complaint: ABD PX/SOA - Chief complaint Chief Complaint: Abd Pain - Additonal information Additional information: This is a 18-year-old female with a medical history including anal atresia status post multiple abdominal surgeries, she is a A1 currently at 5 weeks and 3 days who was recently diagnosed with a threatened miscarriage with a confirmed intrauterine , and presents to the emergency department with flank pain, achiness, malaise. She was seen here yesterday, and was found to have likely pyelonephritis as she had greater than 25 white blood cells in her urine and she had some flank discomfort and a leukocytosis. She left AGAINST MEDICAL ADVICE after receiving ceftriaxone, she states that her bilateral flank pain is worsened since yesterday. She has had nausea and vomiting as well. She continues to have some light vaginal bleeding, states that she passed some clots yesterday, but overall this has lessened and improved. She denies anterior abdominal discomfort other than some mild suprapubic discomfort. She has not had a measured fever. She was not able to take her cefdinir antibiotic as she vomited after trying to take it. She denies chest pain or shortness of breath. She endorses dysuria. Review of Systems Constitutional: denies: Fever Nose: denies: Rhinorrhea / runny nose Cardiac: denies: Chest pain / pressure GI: reports: Nausea : reports: Dysuria Skin: denies: Rash Neurologic: denies: Confused Immunocompromised: denies: Immunocompromised PD PAST MEDICAL HISTORY - Past Medical History Past Medical History: Yes Cardiovascular: None Respiratory: Pneumonia Neuro: Migraines, Peripheral neuropathy, Tremors Endocrine/Autoimmune: None GI: GERD, Other GROUP INSURANCE SPECIAL AGENT: None : Kidney stones HEENT: None Psych: None Musculoskeletal: Fibromyalgia, Other Derm: None - Past Surgical History Past Surgical History: Yes General: Bowel surgery, Gastric surgery /GROUP INSURANCE SPECIAL AGENT: section - Present Medications Home Medications: Ambulatory Orders Medication Instructions Recorded Confirmed Acetaminophen [Tylenol] 650 mg PO Q4HR PRN tablet 04/02/19 Cefdinir 300 mg PO BID #28 capsule 04/02/19 Cyclobenzaprine [Flexeril] 10 mg PO BID PRN 04/02/19 04/02/19 Fluticasone [Flonase] 2 sprays KYM DAILY #1 bottle 04/02/19 Lactobacillus Acidophilus 1 each PO BID #60 capsule 04/02/19 [Digestive Probiotic] Ondansetron Odt [Zofran Odt] 4 mg TL Q6H PRN #10 tablet 04/02/19 Oxymetazoline HCl [Afrin] 2 sprays KYM BID #1 bottle 04/02/19 Pantoprazole [Protonix] 40 mg PO DAILY 04/02/19 rOPINIRole [Requip] 0.25 mg PO QPM PRN 04/02/19 oxyCODONE [Roxicodone] 5 mg PO Q4-6H PRN #15 tablet 04/04/19 Famotidine 20 mg PO DAILY #30 tablet 06/09/19 Hydrocodone/Acetaminophen [[place] 1 each PO Q6H PRN #15 tablet 06/09/19 5-325 Tablet] Lidocaine Viscous 2% [Xylocaine 5 ml PO Q4H PRN #100 ml 06/09/19 Viscous 2%] Ondansetron Odt [Zofran] 4 mg TL Q6H PRN #20 tablet 06/09/19 Sucralfate [Carafate] 1 gm PO ACHS #40 tablet 06/09/19 Oxycodone HCl/Acetaminophen 1 - 2 each PO Q6H PRN #14 tablet 06/11/19 [Percocet 5-325 mg Tablet] Promethazine [Phenergan] 25 mg PO Q6H PRN #10 tab 06/11/19 Nitrofurantoin Monohyd/M-Cryst 100 mg PO BID #10 capsule 06/28/19 [Macrobid 100 mg Capsule] Ondansetron Odt [Zofran] 4 mg TL Q6H PRN #10 tablet 06/28/19 Cefdinir 300 mg PO BID #14 capsule 07/26/19 - Allergies Allergies/Adverse Reactions: Allergies Allergy/AdvReac Type Severity Reaction Status Date / Time Iodinated Contrast Media Allergy Anaphylaxis Verified 07/26/19 19:26 - Social History Does the pt smoke?: No Smoking Status: Never smoker Does the pt drink ETOH?: No Does the pt have substance abuse?: No - Immunizations Immunizations are current?: No - POLST Patient has POLST: No POLST Status: Full Code PD ED PE NORMAL - Vitals Vital signs reviewed: Yes - General General: Alert and oriented X 3 - HEENT HEENT: PERRL - Neck Neck: Supple, no meningeal sign - Cardiac Cardiac: No murmur, Other (Tachycardic, regular rhythm) - Respiratory Respiratory: No respiratory distress, Clear bilaterally - Abdomen Abdomen: Normal bowel sounds, Soft, Non distended, Other (Slight suprapubic discomfort with deep palpation. Colostomy tube is present in the left lower quadrant.) - Female Female : Other (Small amount of blood in the vaginal vault, no brisk bleeding, no products in the os. No cervical motion tenderness.) - Derm Derm: Warm and dry - Extremities Extremities: No deformity - Neuro Neuro: Alert and oriented X 3 - Psych Psych: Normal mood, Normal affect Results - Vitals Vitals: Vital Signs - 24 hr 07/26/19 07/26/19 19:22 21:52 Temperature 37.2 C Heart Rate 130 H 116 H Respiratory 18 20 Rate Blood Pressure 131/83 H 121/69 O2 Saturation 100 97 Oxygen O2 Source Room air - Labs Labs: Laboratory Tests 07/26/19 07/26/19 07/26/19 20:00 20:00 20:00 WBC 17.4 H RBC 4.07 L Hgb 10.9 L Hct 33.0 L MCV 81.1 MCH 26.8 L MCHC 33.0 RDW 14.1 Plt Count 271 MPV 10.4 Neut # (Auto) 14.8 H Lymph # (Auto) 1.1 L [place] # (Auto) 1.1 H Eos # (Auto) 0.3 Baso # (Auto) 0.1 Absolute Nucleated RBC 0.00 Nucleated RBC % 0.0 Sodium 136 Potassium 2.9 L Chloride 103 Carbon Dioxide 23 Anion Gap 10.0 BUN 6 Creatinine 0.8 Estimated GFR (MDRD) 92 Glucose 114 H Lactic Acid Calcium 8.9 Total Bilirubin 1.1 H AST 20 ALT 51 Alkaline Phosphatase 85 Total Protein 7.5 Albumin 3.8 Globulin 3.7 Albumin/Globulin Ratio 1.0 Lipase 25 HCG, Quant 32868.00 Urine Color Urine Clarity Urine pH Ur Specific [place] Urine Protein Urine Glucose (UA) Urine Ketones Urine Occult Blood Urine Nitrite Urine Bilirubin Urine Urobilinogen Ur Leukocyte Esterase Urine RBC Urine WBC Ur Squamous Epith Cells Urine Bacteria Ur Microscopic Review Urine Culture Comments 07/26/19 07/27/19 20:18 00:09 WBC RBC Hgb Hct MCV MCH MCHC RDW Plt Count MPV Neut # (Auto) Lymph # (Auto) [place] # (Auto) Eos # (Auto) Baso # (Auto) Absolute Nucleated RBC Nucleated RBC % Sodium Potassium Chloride Carbon Dioxide Anion Gap BUN Creatinine Estimated GFR (MDRD) Glucose Lactic Acid 0.8 Calcium Total Bilirubin AST ALT Alkaline Phosphatase Total Protein Albumin Globulin Albumin/Globulin Ratio Lipase HCG, Quant Urine Color YELLOW Urine Clarity HAZY Urine pH 7.0 Ur Specific [place] 1.010 Urine Protein NEGATIVE Urine Glucose (UA) NEGATIVE Urine Ketones 15 H Urine Occult Blood LARGE H Urine Nitrite NEGATIVE Urine Bilirubin NEGATIVE Urine Urobilinogen 0.2 (NORMAL) Ur Leukocyte Esterase MODERATE H Urine RBC 6-10 H Urine WBC 6-10 H Ur Squamous Epith Cells MANY Squamous H Urine Bacteria Few Ur Microscopic Review INDICATED Urine Culture Comments NOT INDICATED - Rads (name of study) Retroperitoneal US Radiology: Other (Mild left Pelviectasis, otherwise no acute abnormality) US OB Radiology: Other (Bicornate uterus, gestational sac and yolk sac are present, potential small pole with no detectable cardiac activity. There Heterogeneous contents within the uterus likely of resenting hemorrhage) PD MEDICAL DECISION MAKING - ED course Complexity details: considered differential (Pyelonephritis, UTI, sepsis, PID, carriage, incomplete miscarriage) ED course: On arrival patient is tachycardic, her abdomen is benign, she does have some very mild suprapubic tenderness, and she has CVA tenderness to percussion. IV was inserted she was given nausea medications, pain medications, and IV fluids. She required further doses of antiemetics and pain medications for her symptoms. On pelvic exam she had just a very small amount of dark red blood in the vaginal vault, no active bleeding. There were no products in the cervical os. Her labs are notable for a leukocytosis, hypokalemia. Her urine today is somewhat improved from yesterday, continues to show white blood cells, but less than seen yesterday. Her hCG is essentially stable over the last 24 hours, it is not rising appropriately, raising concern for miscarriage. Ultrasound was obtained and showed hemorrhage within her uterus, however there is a yolk sac and potentially a small pole as well. Retroperitoneal ultrasound shows mild pelviectasis on the left, no abscess or other acute abnormalities. She has a benign anterior abdomen I have low suspicion for acute abdominal pathology. Overall she appears to have pyelonephritis with sepsis, as well as a threatened miscarriage. She was given 2 g of ceftriaxone IV. I do not see any signs of pelvic inflammatory disease, she is not having heavy bleeding or indication for gynecologic intervention at this time. She does appear to have sepsis from UTI, But no signs of septic shock, her lactic acid is normal. We will admit her to the hospitalist service, though she is she is only around 5 weeks , and does not appear to need any active OB or gynecologic management. I did speak with Dr. Sampson of [facility] about the patient, and she is happy to see the patient or consult if any issues or management questions arise. Departure - Departure Disposition: ED Place in Observation Clinical Impression: Pyelonephritis, Threatened miscarriage Sepsis Qualifiers: Sepsis type: sepsis due to unspecified organism Sepsis acute organ dysfunction status: unspecified Qualified Code(s): A41.9 - Sepsis, unspecified organism Discharge Date/Time: 07/27/19 02:01
[2019-07-26 20:12] LABS: BASOPHILS # (AUTO) 0.1 10^3/uL (0.0-0.1); BASOPHILS % (AUTO) 0.3 %; EOSINOPHILS # (AUTO) 0.3 10^3/uL (0.0-0.7); EOSINOPHILS % (AUTO) 1.5 %; HGB - HEMOGLOBIN 10.9 g/dL (12.0-16.0); LYMPHOCYTES # (AUTO) 1.1 10^3/uL (1.5-3.5); MEAN CORPUSCULAR HEMOGLOBIN 26.8 pg (27.0-31.0); MEAN CORPUSCULAR VOLUME 81.1 fL (81.0-99.0); MEAN PLATELET VOLUME 10.4 fL (7.9-10.8); MONOCYTES # (AUTO) 1.1 10^3/uL (0.0-1.0); NEUTROPHILS # (AUTO) 14.8 10^3/uL (1.5-6.6); NEUTROPHILS % (AUTO) 85.3 %; PLT - PLATELET COUNT 271 10^3/uL (130-450); RED BLOOD COUNT 4.07 10^6/uL (4.20-5.40); RED CELL DISTRIBUTION WIDTH 14.1 % (12.0-15.0); WHITE BLOOD COUNT 17.4 x10^3/uL (4.8-10.8)
[2019-07-26 20:25] LABS: ALBUMIN 3.8 g/dL (3.2-5.5); BILIRUBIN,TOTAL 1.1 mg/dL (0.2-1.0); CALCIUM 8.9 mg/dL (8.5-10.3); CREATININE 0.8 mg/dL (0.4-1.0); TOTAL PROTEIN 7.5 g/dL (6.7-8.2)
[2019-07-26] MEDS ORDERED: HYDROmorphone 2 MG/ML VIAL IVP STA ×3 (21:01→23:31)
[2019-07-26] MEDS ORDERED: cefTRIAXone 2 GM in SODIUM CHLORIDE 0.9% MINIBAG 100 ML IV STA (21:01)
[2019-07-26] MEDS ORDERED: LACTATED RINGERS 1,000 ML IV STA (21:48)
[2019-07-26] MEDS ORDERED: PROMETHAZINE INJ 25 MG in SODIUM CHLORIDE 0.9% 50 ML IV STA (22:16)
[2019-07-27] MEDS ORDERED: FAMOTIDINE 20 MG TABLET PO STA (00:05)
[2019-07-27 00:18] LABS: BILIRUBIN,URINE NEGATIVE (NEGATIVE); GLUCOSE, URINE (UA) NEGATIVE (NEGATIVE); KETONES,URINE (UA) 15 mg/dL (NEGATIVE); LEUKOCYTE ESTERASE, URINE MODERATE (NEGATIVE); NITRITE,URINE NEGATIVE (NEGATIVE); OCCULT BLOOD,URINE LARGE (NEGATIVE); PROTEIN,URINE NEGATIVE (NEGATIVE); UROBILINOGEN,URINE 0.2 (NORMAL) E.U./dL (NORMAL)
[2019-07-27 00:19] LABS: CLARITY,URINE HAZY (CLEAR)
[2019-07-27 00:24] LABS: BACTERIA,URINE Few /HPF (None Seen); SQUAMOUS EPITHELIAL CELL,UR MANY Squamous (<= Few)
[2019-07-27] MEDS ORDERED: LACTATED RINGERS 1,000 ML IV STA (00:26)
--- NOTE | 2019-07-27 01:04 | Ultrasound Report ---
Reason: Bilateral flank pain, sepsis, Procedure Date: 07/26/2019 Accession Number: [id number] / [id number] Procedure: US - Retroperitoneal CPT Code: Final Report FULL RESULT: EXAM: RENAL ULTRASOUND EXAM DATE: 07/26/2019 11:00 PM. CLINICAL HISTORY: Bilateral flank pain, sepsis, . COMPARISON: RETROPERITONEAL 04/03/2019 8:19 AM. TECHNIQUE: Real-time scanning was performed with static images obtained. FINDINGS: Right Kidney: 13.7 x 4.4 x 4.6 cm. Normal echotexture with no stones, contour-deforming masses, or hydronephrosis. There is an extrarenal pelvis. Left Kidney: 14.6 x 5.9 x 5.7 cm. Normal echotexture with no stones were contour-deforming masses. There is mild pelviectasis in the lower pole of the left kidney. A prominent column of [place] is seen in the interpolar region. Bladder: Bilateral jets seen. The prevoid bladder volume was 631 cc. The postvoid bladder volume was 37 cc. Other: The liver appears echogenic. IMPRESSION: Mild pelviectasis in the lower pole of the left kidney. Otherwise, normal kidneys. Hepatic steatosis. RADIA
--- NOTE | 2019-07-27 01:11 | Ultrasound Report ---
Reason: Vaginal bleeding, possible miscarriage Procedure Date: 07/26/2019 Accession Number: [id number] / [id number] Procedure: US - OB First Trimester CPT Code: Final Report FULL RESULT: EXAM: FIRST TRIMESTER OBSTETRIC ULTRASOUND (Less than 11 weeks) EXAM DATE: 07/26/2019 11:50 PM. CLINICAL HISTORY: Vaginal bleeding, possible miscarriage. LMP: 06/17/2019. COMPARISONS: OB FIRST TRIMESTER 07/24/2019 9:08 PM. TECHNIQUE: Transabdominal and transvaginal ultrasound examination with static image documentation. CLINICAL DATES: EGA 5 weeks 4 days with TESFAYE 03/23/2020 based on LMP. ASSESSMENT: Gestational Sac: Single intrauterine. The gestational sac is in the lower uterine segment possibly in the area of section scar. Mean gestational sac diameter: 9.3 mm = 5 weeks 5 days. Embryo: Uncertain. Possible CRL (crown-rump length) 2.6 mm. Cardiac activity: Not seen. Yolk sac: 2.9 mm. Amniotic fluid: Not accurately assessed at this gestational age. Early placenta: Not visible at this gestational age. 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 There is complex material in the endometrial cavity of both cornua superior to the gestational sac suspected to represent hemorrhage.. MATERNAL STRUCTURES: Uterus: Retroflexed. Bicornuate. Cervix: Closed. Right Ovary/Adnexa: The ovary measures 3.5 x 2.1 x 1.6 cm, volume 6.2 cc. Small cystic area measuring 1.6 x 1.4 x 1.2 cm. Left Ovary/Adnexa: The ovary measures 2.4 x 2.1 x 1.4 cm, volume 3.7 cc. Echogenic areas measuring up to 0.9 x 0.8 cm. Free Fluid: None. Other: None. IMPRESSION: 1. Intrauterine gestational sac in the lower uterine segment measuring 5 weeks 5 days with yolk sac measuring 2.9 mm. This is essentially unchanged compared with the prior ultrasound. The sac appears to be in the area of section scar. 2. Equivocal for 2.6 mm embryonic pole. No cardiac activity seen. 3. Bicornuate uterus. The endometrial cavity of both cornua contains complex heterogeneous material probably representing hemorrhage. RADIA
--- NOTE | 2019-07-27 01:11 | Ultrasound Report ---
Reason: 5 w 3 d preg, vaginal bleeding Procedure Date: 07/26/2019 Accession Number: [id number] / [id number] Procedure: US - OB Transvaginal CPT Code: Final Report FULL RESULT: EXAM: FIRST TRIMESTER OBSTETRIC ULTRASOUND (Less than 11 weeks) EXAM DATE: 07/26/2019 11:50 PM. CLINICAL HISTORY: Vaginal bleeding, possible miscarriage. LMP: 06/17/2019. COMPARISONS: OB FIRST TRIMESTER 07/24/2019 9:08 PM. TECHNIQUE: Transabdominal and transvaginal ultrasound examination with static image documentation. CLINICAL DATES: EGA 5 weeks 4 days with TESFAYE 03/23/2020 based on LMP. ASSESSMENT: Gestational Sac: Single intrauterine. The gestational sac is in the lower uterine segment possibly in the area of section scar. Mean gestational sac diameter: 9.3 mm = 5 weeks 5 days. Embryo: Uncertain. Possible CRL (crown-rump length) 2.6 mm. Cardiac activity: Not seen. Yolk sac: 2.9 mm. Amniotic fluid: Not accurately assessed at this gestational age. Early placenta: Not visible at this gestational age. 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 There is complex material in the endometrial cavity of both cornua superior to the gestational sac suspected to represent hemorrhage.. MATERNAL STRUCTURES: Uterus: Retroflexed. Bicornuate. Cervix: Closed. Right Ovary/Adnexa: The ovary measures 3.5 x 2.1 x 1.6 cm, volume 6.2 cc. Small cystic area measuring 1.6 x 1.4 x 1.2 cm. Left Ovary/Adnexa: The ovary measures 2.4 x 2.1 x 1.4 cm, volume 3.7 cc. Echogenic areas measuring up to 0.9 x 0.8 cm. Free Fluid: None. Other: None. IMPRESSION: 1. Intrauterine gestational sac in the lower uterine segment measuring 5 weeks 5 days with yolk sac measuring 2.9 mm. This is essentially unchanged compared with the prior ultrasound. The sac appears to be in the area of section scar. 2. Equivocal for 2.6 mm embryonic pole. No cardiac activity seen. 3. Bicornuate uterus. The endometrial cavity of both cornua contains complex heterogeneous material probably representing hemorrhage. RADIA
[2019-07-27] MEDS ORDERED: POTASSIUM CHLOR 10 MEQ/100 ML 10 MEQ/100 ML BAG IV ONE ×2 (01:22→01:56)
[2019-07-27] MEDS ORDERED: PROMETHAZINE INJ 12.5 MG in SODIUM CHLORIDE 0.9% 50 ML IV STA (01:29)
--- NOTE | 2019-07-27 01:47 | HISTORY & PHYSICAL EXAMINATION ---
Chief Complaint - Chief Complaint Chief Complaint: Abdominal pain, bilateral flank pain Abdominal Pain HPI - Admitted From Admitted from: ED - History Obtained From Records Reviewed: RN notes reviewed, Old records reviewed History obtained from: Patient Exam limitations: Other (Patient refused much of the history, complaining of nausea, did not want to talk very much. 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 She presents to the emergency room with chief complaint of abdominal pain in the periumbilical region, as well as bilateral flank pain. She was in the emergency room yesterday with the same complaints and diagnosed with UTI, and was also diagnosed with a spontaneous along with a elevated leukocytosis and patient left AMA prior to further investigative work-up and treatment.He was given a dose of IV Rocephin in emergency department yesterday before going home. She returns today because she has been unable to tolerate p.o. and pain is getting worse.She is also had some vaginal bleeding since this time, but has been relatively light. In the emergency department, another pelvic exam was performed demonstrating scant vaginal vault blood, but otherwise no significant abnormalities. Because of the concern for the intrauterine , conversation was had with Dr. Moreno regarding the risk and benefit of a CT scan to evaluate for further urological pathology. After consultation with WARDROBE CUSTODIAN on-call, decision was made to proceed with ultrasound of retroperitoneum as well as OB ultrasound to confirm or rule out before proceeding with a CT scan. Results of the ultrasound demonstrate persistence of a intrauterine without heart tones, suggestive of a probable imminent spontaneous . Because of the persistent nausea vomiting, leukocytosis, along with tachycardia associated with her presenting pyelonephritis, hospital admission was requested. PMH/PSH - Past Medical History Cardiovascular: positive: None Respiratory: positive: Pneumonia Neuro: positive: Migraines, Peripheral neuropathy, Tremors Endocrine/Autoimmune: positive: None GI: positive: GERD, Other DIRECTOR OF RETAIL ANALYTICS: positive: None : positive: Kidney stones HEENT: positive: None Psych: positive: None Musculoskeletal: positive: Fibromyalgia, Other Derm: positive: None MRSA Hx?: No - Past Surgical History General: positive: Bowel surgery, Gastric surgery /DIRECTOR OF RETAIL ANALYTICS: positive: section Social & Family Hx - Social History Does the pt smoke?: No Smoking Status: Never smoker Does the pt drink ETOH?: No Does the pt have substance abuse?: No - POLST Patient has POLST: No POLST Status: Full Code Meds/Allgy - Home Medications Home Medications: Ambulatory Orders Medication Instructions Recorded Confirmed Acetaminophen [Tylenol] 650 mg PO Q4HR PRN tablet 04/02/19 Cefdinir 300 mg PO BID #28 capsule 04/02/19 Cyclobenzaprine [Flexeril] 10 mg PO BID PRN 04/02/19 04/02/19 Fluticasone [Flonase] 2 sprays KYM DAILY #1 bottle 04/02/19 Lactobacillus Acidophilus 1 each PO BID #60 capsule 04/02/19 [Digestive Probiotic] Ondansetron Odt [Zofran Odt] 4 mg TL Q6H PRN #10 tablet 04/02/19 Oxymetazoline HCl [Afrin] 2 sprays KYM BID #1 bottle 04/02/19 Pantoprazole [Protonix] 40 mg PO DAILY 04/02/19 rOPINIRole [Requip] 0.25 mg PO QPM PRN 04/02/19 oxyCODONE [Roxicodone] 5 mg PO Q4-6H PRN #15 tablet 04/04/19 Famotidine 20 mg PO DAILY #30 tablet 06/09/19 Hydrocodone/Acetaminophen [[place] 1 each PO Q6H PRN #15 tablet 06/09/19 5-325 Tablet] Lidocaine Viscous 2% [Xylocaine 5 ml PO Q4H PRN #100 ml 06/09/19 Viscous 2%] Ondansetron Odt [Zofran] 4 mg TL Q6H PRN #20 tablet 06/09/19 Sucralfate [Carafate] 1 gm PO ACHS #40 tablet 06/09/19 Oxycodone HCl/Acetaminophen 1 - 2 each PO Q6H PRN #14 tablet 06/11/19 [Percocet 5-325 mg Tablet] Promethazine [Phenergan] 25 mg PO Q6H PRN #10 tab 06/11/19 Nitrofurantoin Monohyd/M-Cryst 100 mg PO BID #10 capsule 06/28/19 [Macrobid 100 mg Capsule] Ondansetron Odt [Zofran] 4 mg TL Q6H PRN #10 tablet 06/28/19 Cefdinir 300 mg PO BID #14 capsule 07/26/19 - Allergies Allergies/Adverse Reactions: Allergies Allergy/AdvReac Type Severity Reaction Status Date / Time Iodinated Contrast Media Allergy Anaphylaxis Verified 07/26/19 19:26 Review of Systems - Constitutional Constitutional: reports: Fatigue, Malaise - Cardiovascular Cariovascular: denies: Chest pain - Respiratory Respiratory: reports: SOB with exertion. denies: SOB at rest - Gastrointestinal Gastrointestinal: reports: Abdominal pain, Nausea, Vomiting - Genitourinary Genitourinary: reports: Dysuria, Other (Vaginal bleeding) Prior Level of Functionality: Ambulates without assistance and is independent Exam - Vital Signs Vital Signs: Vital Signs x48h Temp Pulse Resp BP Pulse Ox 07/26/19 21:52 116 H 20 121/69 97 07/26/19 19:22 37.2 C 130 H 18 131/83 H 100 - Physical Exam General Appearance: positive: No acute distress, Lethargic Eyes Bilateral: positive: Normal inspection ENT: positive: ENT inspection nml Neck: positive: Nml inspection, Thyroid nml Respiratory: positive: Chest non-tender, No respiratory distress, Breath sounds nml Cardiovascular: positive: Regular rate & rhythm, No murmur, No gallop Abdomen: positive: No distention, Other (Significant tenderness even with very light palpation on exam, inconsistent with other aspects of clinical picture. Bilateral flank pain with same descriptive features.) Back: positive: Nml inspection Skin: positive: Color nml, No rash Extremities: positive: Non-tender, Full ROM, Nml appearance. negative: Pedal edema Neurologic/Psychiatric: positive: Oriented x3, CN's nml (2-12), Motor nml Results - Lab Results Fish Bones: 07/26/19 20:00 07/26/19 20:00 Other Lab Results: Lab Results x24hrs 07/27/19 07/26/19 07/26/19 Range/Units 00:09 20:18 20:00 WBC (4.8-10.8) x10^3/uL RBC (4.20-5.40) 10^6/uL Hgb (12.0-16.0) g/dL Hct (37.0-47.0) % MCV (81.0-99.0) fL MCH (27.0-31.0) pg MCHC (32.0-36.0) g/dL RDW (12.0-15.0) % Plt Count (130-450) 10^3/uL MPV (7.9-10.8) fL Neut # (Auto) (1.5-6.6) 10^3/uL Lymph # (Auto) (1.5-3.5) 10^3/uL [place] # (Auto) (0.0-1.0) 10^3/uL Eos # (Auto) (0.0-0.7) 10^3/uL Baso # (Auto) (0.0-0.1) 10^3/uL Absolute Nucleated RBC x10^3/uL Nucleated RBC % /100WBC Sodium (135-145) mmol/L Potassium (3.5-5.0) mmol/L Chloride (101-111) mmol/L Carbon Dioxide (21-32) mmol/L Anion Gap (6-13) BUN (6-20) mg/dL Creatinine (0.4-1.0) mg/dL Estimated GFR (MDRD) (>89) Glucose (70-100) mg/dL Lactic Acid 0.8 (0.5-2.2) mmol/L Calcium (8.5-10.3) mg/dL Total Bilirubin (0.2-1.0) mg/dL AST (10-42) IU/L ALT (10-60) IU/L Alkaline Phosphatase (42-121) IU/L Total Protein (6.7-8.2) g/dL Albumin (3.2-5.5) g/dL Globulin (2.1-4.2) g/dL Albumin/Globulin Ratio (1.0-2.2) Lipase (22-51) U/L HCG, Quant 90212.00 mIU/mL Urine Color YELLOW Urine Clarity HAZY (CLEAR) Urine pH 7.0 (5.0-7.5) PH Ur Specific [place] 1.010 (1.002-1.030) Urine Protein NEGATIVE (NEGATIVE) mg/dL Urine Glucose (UA) NEGATIVE (NEGATIVE) mg/dL Urine Ketones 15 H (NEGATIVE) mg/dL Urine Occult Blood LARGE H (NEGATIVE) Urine Nitrite NEGATIVE (NEGATIVE) Urine Bilirubin NEGATIVE (NEGATIVE) Urine Urobilinogen 0.2 (NORMAL) (NORMAL) E.U./dL Ur Leukocyte Esterase MODERATE H (NEGATIVE) Urine RBC 6-10 H (0-5) /HPF Urine WBC 6-10 H (0-5) /HPF Ur Squamous Epith Cells MANY Squamous H (<= Few) Urine Bacteria Few (None Seen) /HPF Ur Microscopic Review INDICATED Urine Culture Comments NOT INDICATED 07/26/19 07/26/19 Range/Units 20:00 20:00 WBC 17.4 H (4.8-10.8) x10^3/uL RBC 4.07 L (4.20-5.40) 10^6/uL Hgb 10.9 L (12.0-16.0) g/dL Hct 33.0 L (37.0-47.0) % MCV 81.1 (81.0-99.0) fL MCH 26.8 L (27.0-31.0) pg MCHC 33.0 (32.0-36.0) g/dL RDW 14.1 (12.0-15.0) % Plt Count 271 (130-450) 10^3/uL MPV 10.4 (7.9-10.8) fL Neut # (Auto) 14.8 H (1.5-6.6) 10^3/uL Lymph # (Auto) 1.1 L (1.5-3.5) 10^3/uL [place] # (Auto) 1.1 H (0.0-1.0) 10^3/uL Eos # (Auto) 0.3 (0.0-0.7) 10^3/uL Baso # (Auto) 0.1 (0.0-0.1) 10^3/uL Absolute Nucleated RBC 0.00 x10^3/uL Nucleated RBC % 0.0 /100WBC Sodium 136 (135-145) mmol/L Potassium 2.9 L (3.5-5.0) mmol/L Chloride 103 (101-111) mmol/L Carbon Dioxide 23 (21-32) mmol/L Anion Gap 10.0 (6-13) BUN 6 (6-20) mg/dL Creatinine 0.8 (0.4-1.0) mg/dL Estimated GFR (MDRD) 92 (>89) Glucose 114 H (70-100) mg/dL Lactic Acid (0.5-2.2) mmol/L Calcium 8.9 (8.5-10.3) mg/dL Total Bilirubin 1.1 H (0.2-1.0) mg/dL AST 20 (10-42) IU/L ALT 51 (10-60) IU/L Alkaline Phosphatase 85 (42-121) IU/L Total Protein 7.5 (6.7-8.2) g/dL Albumin 3.8 (3.2-5.5) g/dL Globulin 3.7 (2.1-4.2) g/dL Albumin/Globulin Ratio 1.0 (1.0-2.2) Lipase 25 (22-51) U/L HCG, Quant mIU/mL Urine Color Urine Clarity (CLEAR) Urine pH (5.0-7.5) PH Ur Specific [place] (1.002-1.030) Urine Protein (NEGATIVE) mg/dL Urine Glucose (UA) (NEGATIVE) mg/dL Urine Ketones (NEGATIVE) mg/dL Urine Occult Blood (NEGATIVE) Urine Nitrite (NEGATIVE) Urine Bilirubin (NEGATIVE) Urine Urobilinogen (NORMAL) E.U./dL Ur Leukocyte Esterase (NEGATIVE) Urine RBC (0-5) /HPF Urine WBC (0-5) /HPF Ur Squamous Epith Cells (<= Few) Urine Bacteria (None Seen) /HPF Ur Microscopic Review Urine Culture Comments - Diagnostic Imaging Results Diagnostic Imaging Results: positive: Final report reviewed (Reviewed results of OB ultrasound and retroperitoneal ultrasound) Sepsis Event Note (H) - Evaluation Current Stage of Sepsis: Sepsis Possible source of Sepsis: positive: Genitourinary Sepsis Associated Organ Dysfunction: Probable acute pyelonephritis - Sepsis Criteria Sepsis Criteria: Recorded Heart Rate greater than 90 bpm, WBC count greater than 12,000 or less than 4000 Impression/Plan - Problem List Problem List: 1. Acute pyelonephritis Unclear if this is related to the impending or threatened spontaneous , but is suggested on retroperitoneal ultrasound Associated with sepsis without septic shock given tachycardia and leukocytosis Patient failed outpatient management, will place on observation initially starting with IV ceftriaxone and following blood cultures and urine culture microbiology, narrow antibiotics when available 2. Threatened Consider DIRECTOR OF RETAIL ANALYTICS consult in the a.m., at this point based on phone conversation between ED physician and DIRECTOR OF RETAIL ANALYTICS consult no active management needed at this time. Unlikely to require a D&C However, given uncertainty of viability of the intrauterine , will continue to proceed withmedications and interventions, such as CT scan, which would otherwise be contraindicated in until either strongly indicated or until viability is no longer a concern 3. Tachycardia Likely secondary to acute pyelonephritis, sepsis Continue IV fluid resuscitation, initiated in the ED 4. Hyponatremia Likely secondary to persistent emesis prior to admission, GI loss Continue IV potassium replacement until can tolerate p.o. 5. 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 Anemia Hemoglobin and hematocrit only slightly below patient's baseline at 10.9 and 33.0, likely delusional, continue to monitor 7. Fibromyalgia Stable Continue continue current home medications Core Measures - Anticipated LOS I expect patient to be DC'd or transferred within 96 hours.: Yes - DVT/VTE - Prophylaxis VTE/DVT Device ordered at admit?: Yes
[2019-07-27] MEDS ORDERED: LIDOCAINE VISCOUS 2% 100 ML BOTTLE MM PRN (01:56)
[2019-07-27] MEDS ORDERED: CYCLOBENZAPRINE 10 MG TABLET PO PRN (01:56)
[2019-07-27] MEDS ORDERED: rOPINIRole 0.25 MG TABLET PO PRN (01:56)
[2019-07-27] MEDS ORDERED: SODIUM CHLORIDE 0.9% 1,000 ML IV SCH (02:00)
[2019-07-27] MEDS: HYDROmorphone 0.5 MG/0.5 ML SYRINGE IVP PRN ×3 (02:50→08:13)
[2019-07-27 05:57] LABS: HGB - HEMOGLOBIN 10.5 g/dL (12.0-16.0); MEAN CORPUSCULAR HEMOGLOBIN 27.1 pg (27.0-31.0); MEAN CORPUSCULAR HGB CONC 32.8 g/dL (32.0-36.0); MEAN CORPUSCULAR VOLUME 82.5 fL (81.0-99.0); MEAN PLATELET VOLUME 10.2 fL (7.9-10.8); RED BLOOD COUNT 3.88 10^6/uL (4.20-5.40); RED CELL DISTRIBUTION WIDTH 14.3 % (12.0-15.0); WHITE BLOOD COUNT 16.3 x10^3/uL (4.8-10.8)
[2019-07-27 06:03] LABS: CALCIUM 8.3 mg/dL (8.5-10.3); CREATININE 0.8 mg/dL (0.4-1.0)
[2019-07-27] MEDS: SUCRALFATE 1 GM/10 ML UDC PO SCH ×4 (07:33→21:11)
[2019-07-27] MEDS: LACTOBACILLUS RHAMNOSUS GG CAPSULE PO SCH ×2 (08:04→17:56)
[2019-07-27] MEDS: SODIUM CHLORIDE FLUSH 0.9% 10 ML SYRINGE IVP SCH ×2 (08:15→17:09)
--- NOTE | 2019-07-27 08:16 | PHARMACY PROGRESS NOTE ---
- Best Possible Medication History Admit Date and Time: 07/27/19 0131 Processed by: Pharmacy Medication History completed: Yes Patient Interview: Completed Secondary Source(s): Pharmacy records, Insurance records As the person ultimately responsible for medication therapy, providers are able to order a medication from an existing home medication list in [facility] via the "Reconcile Routine" prior to Confirmation of that medication by academic support specialist. Such practice is discouraged except when the physician, in their clinical judgment, deems that a medical need exists for a medication without regard to previous use.
[2019-07-27] MEDS ORDERED: POTASSIUM CHLORIDE 20 MEQ TABLET PO SCH (08:34)
[2019-07-27] MEDS ORDERED: FAMOTIDINE 20 MG TABLET PO SCH (09:00)
[2019-07-27] MEDS ORDERED: PANTOPRAZOLE 40 MG TABLET PO SCH (09:00)
[2019-07-27] MEDS ORDERED: cefTRIAXone 1 GM in SODIUM CHLORIDE 0.9% MINIBAG 100 ML IV SCH (09:00)
[2019-07-27] MEDS ORDERED: DIPHENOX/ATROPINE 2.5/0.025 MG TABLET PO PRN (09:59)
[2019-07-27] MEDS ORDERED: NS W/40 MEQ KCL 1,000 ML IV SCH (10:00)
[2019-07-27] MEDS: FAMOTIDINE 20 MG TABLET PO SCH ×2 (10:16→21:10)
[2019-07-27] MEDS: cefTRIAXone 2 GM in SODIUM CHLORIDE 0.9% MINIBAG 100 ML IV SCH (10:17)
[2019-07-27] MEDS: PANTOPRAZOLE 40 MG VIAL IVP SCH (10:17)
--- NOTE | 2019-07-27 10:25 | HISTORY & PHYSICAL EXAMINATION ---
Chief Complaint - Chief Complaint Chief Complaint: 18yo at 5 3/7 weeks by stated LMP and US w inevitable SAB History of Present Illness - History of Present Illness HPI Comment/Other: 18yo at 5 3/7 weeks by LMP and US admitted w urosepsis and threatened SAB. Was asked to see this patient as her vaginal bleeding has increased overnight. Pt has been seen with suspected non-viable , UTI, pyelo twice prior to this admission at [facility] and here on the night prior to admission when she left AMA. She has noted intermittent abdominal cramping w vaginal bleeding and clots but no tissue. Pt is notably hostile and a poor hi storian. She appears generally well and has a very angry affect. She reports nausea/vomiting for which she is frequently seen. Also notes bilateral flank pain and dysuria for several days. States she left the ED despite this because she wasn't seen fast enough. Quants not rising appropriately. US shows sac in lower uterine segment with no FH, no clear pole. It also shows bicornuate uterus and abnormal right renal pelvis. She was admitted w pyelo and a stone 03/2019. History - Past Medical History Cardiovascular: reports: None Respiratory: reports: Pneumonia, Other (Denies) Neuro: reports: Migraines, Peripheral neuropathy, Tremors, Other (Neuropathies, fibromyalgia) Endocrine/Autoimmune: reports: None, Other (Currently hyperglycemic; neg h/o DM) GI: reports: GERD, Other. denies: Esophageal varices (Recurrent nausea/ vomiting. H/O anal atresia) ATMOSPHERIC SCIENCES PROFESSOR: reports: None, Miscarriage(s), Other (H/O 2016, SAB 6 mo ago. 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 Thinks one of her brothers has heart disease. 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 [place] She denies ilicit drug use, tobacco use or alcohol use. She wishes to be a FULL code. - Substance History Use: Uses substance without health or social issues: NONE Abuse: Recurrent use of substance despite neg consequences: Opioid (Frequent ED visits at multiple hospitals w rx for opioids) - POLST Patient has POLST: No POLST Status: Full Code Meds/Allgy - Home Medications Home Medications: Ambulatory Orders Medication Instructions Recorded Confirmed Famotidine 20 mg PO BID 07/27/19 07/27/19 Lidocaine [Lidoderm] 1 patch TOP PRN PRN 07/27/19 07/27/19 Pantoprazole Sodium 40 mg PO BID 07/27/19 07/27/19 No.137/Iron/Folic Acd 1 tab PO DAILY 07/27/19 07/27/19 [ Vitamin Tablet] - Allergies Allergies/Adverse Reactions: Allergies Allergy/AdvReac Type Severity Reaction Status Date / Time Iodinated Contrast Media Allergy Anaphylaxis Verified 07/26/19 19:26 cyclobenzaprine AdvReac Emesis Verified 07/27/19 02:29 Review of Systems - Constitutional Constitutional: reports: Fever, Chills - Cardiovascular Cariovascular: reports: Exertional dyspnea. denies: Palpitations, Chest pain - Respiratory Respiratory: reports: SOB with exertion. denies: Cough, Wheezing - Gastrointestinal Gastrointestinal: reports: Abdominal pain, Nausea, Vomiting, Reflux/heartburn - Genitourinary Genitourinary: reports: Dysuria, Frequency, Flank pain - Musculoskeletal Musculoskeletal: reports: Muscle pain (Chronic secondary to fibromyalgia) - Neurological Neurological: denies: Headache, Dizziness - Psychiatric Psychiatric: reports: Other (Hostile affect, aggressive demeanor) Exam - Vital Signs Vital Signs: Vital Signs x48h Temp Pulse Pulse Resp BP Pulse Ox 07/27/19 07:15 98.8 F 112 H 16 103/71 100 07/27/19 05:39 98.6 F 137 H 18 100 07/27/19 02:29 98.6 F 137 H 18 130/84 H 100 - Physical Exam General Appearance: positive: No acute distress, Alert Respiratory: positive: Chest non-tender, No respiratory distress, Wheezes (Basilar wheezes on left, otherwise clear. Poor effort, non-cooperative) Cardiovascular: positive: Regular rate & rhythm, Tachycardia (3/6 systolic murmur along sternal border. No radiation to apex) Abdomen: positive: Other (Mildly distended, diffusely tender to palpation although, pt does not respond when stethoscope used to press. Very active, normal bowel sounds. Bilateral flank tenderness. Vag exam declined however pad completely clean (on for several hours)) Skin: positive: Color nml, No rash, Warm, Dry Neurologic/Psychiatric: positive: Oriented x3, Motor nml Sepsis Event Note (H) - Evaluation Current Stage of Sepsis: Sepsis Possible source of Sepsis: positive: Genitourinary - Sepsis Criteria Sepsis Criteria: Recorded Heart Rate greater than 90 bpm, WBC count greater than 12,000 or less than 4000 Conclusion/Plan - Lab Results Fish Bones: 07/27/19 05:50 07/27/19 05:50 - Other Other Results/Comments: 18yo at 5 3/7 weeks with inevitable SAB, pyelonehritis, hyperglygemia, wheezing. -Recommend misoprostol to complete SAB; would avoid instrumenting uterus if at all possible. Blood type B+, rhogam not indicated. Bicornuate uterus noted; recurrent pyelo and stones may be related to renal anomaly nearly always present when there is a uterine anomaly. Pt declines contraceptive at this time. Once SAB complete would recommend continuation of her PN vits. Consider suppression such as macrobid 100mg daily to prevent another UTI/pyelo -Recurrent pyelo; see above. Consider more detailed imaging not in the setting of infection to determine structural anomalies. Consider referral to urology for further care. Additionally, consider suppression as noted above. -Hyperglycemia may be secondary to urosepsis, however, her FBS today was 148 and she has a +FH of Type 2 DM. Consider further testing. Recommend treating the hypoglycemia now in an acute setting as it impairs immune function. UA w +ketones not likely career services representative of significant ketosis, however, dehydration secondary to vomiting and uro sepsis will contribute to continued nausea/vomiting. Repeat UA ordered; will continue aggressive hydration until this is cleared and tachycardia resolved. -Wheezing noted; would recommend albuterol nebs/inhaler for now. Consider formal evaluation on outpatient basis. -Tachycardia continues likely secondary to inadequate initial rescucitation. Additional fluid to correct this and electrolyte derangements ordered. Mild a nemia noted. Will order IV iron once she is otherwise stable to compensate for her blood loss secondary to the SAB.
[2019-07-27] MEDS: HYDROmorphone 1 MG/ML CARPUJECT IVP PRN ×4 (10:29→22:50)
[2019-07-27] MEDS: SODIUM CHLORIDE 0.9% 1,000 ML IV SCH ×2 (11:07→14:08)
[2019-07-27] MEDS: miSOPROStoL 200 MCG TABLET BC SCH ×2 (11:14→21:12)
[2019-07-27] MEDS ORDERED: IRON DEXTRAN 1,000 MG in SODIUM CHLORIDE 0.9% 250 ML IV ONE (12:00)
[2019-07-27 12:03] LABS: BILIRUBIN,URINE NEGATIVE (NEGATIVE); GLUCOSE, URINE (UA) NEGATIVE (NEGATIVE); KETONES,URINE (UA) NEGATIVE (NEGATIVE); LEUKOCYTE ESTERASE, URINE MODERATE (NEGATIVE); NITRITE,URINE NEGATIVE (NEGATIVE); OCCULT BLOOD,URINE MODERATE (NEGATIVE); PROTEIN,URINE NEGATIVE (NEGATIVE); UROBILINOGEN,URINE 0.2 (NORMAL) E.U./dL (NORMAL)
[2019-07-27 12:05] LABS: CLARITY,URINE HAZY (CLEAR)
[2019-07-27 12:59] LABS: CALCIUM 8.4 mg/dL (8.5-10.3); CREATININE 0.9 mg/dL (0.4-1.0)
[2019-07-27] MEDS: ONDANSETRON 4 MG/2 ML VIAL IVP PRN (14:48)
[2019-07-27] MEDS: oxyCODONE 5 MG TABLET PO PRN (15:37)
[2019-07-27] MEDS ORDERED: oxyCODONE 5 MG TABLET PO ONE (16:00)
[2019-07-27] MEDS: LORazepam 2 MG/ML VIAL IVP PRN (16:32)
--- NOTE | 2019-07-27 17:44 | PROVIDER PROGRESS NOTE ---
Subjective - Prog Note Date Prog Note Date: 07/27/19 Prog Note Time: 17:43 - Subjective Subjective: Continues to be angry, combative and abusive of staff. Having a little cramping, vag bleeding after first dose miso. Continues w mild tachycardia 110's Temp 100.2 Exam deferred. Labs improved; UA neg, lytes normalizing. BG decreased still elevated. A/P Continue present plan w regard to SAB and treatment of pyelo. Continue increased fluids. Pain meds as necessary; will add toredol. Objective - Vital Signs/Intake & Output Vital Signs: Vital Signs x48h Temp Pulse Resp BP Pulse Ox 07/27/19 16:00 100.2 F H 116 H 14 125/81 H 98 07/27/19 11:33 98.3 F 124 H 18 127/86 H 100 Intake & Output: Intake & Output 07/24/19 07/25/19 07/26/19 07/27/19 23:59 23:59 23:59 23:59 Intake Total 2151 3343.833 Output Total 2100 Balance 2151 1243.833 - Lab Results Fish Bones: 07/27/19 05:50 07/27/19 12:44 Other Labs: Lab Results x24hrs 07/27/19 07/27/19 07/27/19 Range/Units 12:44 11:09 05:50 WBC (4.8-10.8) x10^3/uL RBC (4.20-5.40) 10^6/uL Hgb (12.0-16.0) g/dL Hct (37.0-47.0) % MCV (81.0-99.0) fL MCH (27.0-31.0) pg MCHC (32.0-36.0) g/dL RDW (12.0-15.0) % Plt Count (130-450) 10^3/uL MPV (7.9-10.8) fL Neut # (Auto) (1.5-6.6) 10^3/uL Lymph # (Auto) (1.5-3.5) 10^3/uL [place] # (Auto) (0.0-1.0) 10^3/uL Eos # (Auto) (0.0-0.7) 10^3/uL Baso # (Auto) (0.0-0.1) 10^3/uL Absolute Nucleated RBC x10^3/uL Nucleated RBC % /100WBC Sodium 134 L 135 (135-145) mmol/L Potassium 3.9 3.4 L (3.5-5.0) mmol/L Chloride 106 105 (101-111) mmol/L Carbon Dioxide 21 23 (21-32) mmol/L Anion Gap 7.0 7.0 (6-13) BUN 6 5 L (6-20) mg/dL Creatinine 0.9 0.8 (0.4-1.0) mg/dL Estimated GFR (MDRD) 81 L 92 (>89) Glucose 116 H 148 H (70-100) mg/dL Lactic Acid (0.5-2.2) mmol/L Calcium 8.4 L 8.3 L (8.5-10.3) mg/dL Total Bilirubin (0.2-1.0) mg/dL AST (10-42) IU/L ALT (10-60) IU/L Alkaline Phosphatase (42-121) IU/L Total Protein (6.7-8.2) g/dL Albumin (3.2-5.5) g/dL Globulin (2.1-4.2) g/dL Albumin/Globulin Ratio (1.0-2.2) Lipase (22-51) U/L HCG, Quant mIU/mL Urine Color YELLOW Urine Clarity HAZY (CLEAR) Urine pH 7.0 (5.0-7.5) PH Ur Specific [place] <=1.005 (1.002-1.030) Urine Protein NEGATIVE (NEGATIVE) mg/dL Urine Glucose (UA) NEGATIVE (NEGATIVE) mg/dL Urine Ketones NEGATIVE (NEGATIVE) mg/dL Urine Occult Blood MODERATE H (NEGATIVE) Urine Nitrite NEGATIVE (NEGATIVE) Urine Bilirubin NEGATIVE (NEGATIVE) Urine Urobilinogen 0.2 (NORMAL) (NORMAL) E.U./dL Ur Leukocyte Esterase MODERATE H (NEGATIVE) Urine RBC (0-5) /HPF Urine WBC (0-5) /HPF Ur Squamous Epith Cells (<= Few) Urine Bacteria (None Seen) /HPF Ur Microscopic Review Urine Culture Comments 07/27/19 07/27/19 07/26/19 Range/Units 05:50 00:09 20:18 WBC 16.3 H (4.8-10.8) x10^3/uL RBC 3.88 L (4.20-5.40) 10^6/uL Hgb 10.5 L (12.0-16.0) g/dL Hct 32.0 L (37.0-47.0) % MCV 82.5 (81.0-99.0) fL MCH 27.1 (27.0-31.0) pg MCHC 32.8 (32.0-36.0) g/dL RDW 14.3 (12.0-15.0) % Plt Count 255 (130-450) 10^3/uL MPV 10.2 (7.9-10.8) fL Neut # (Auto) (1.5-6.6) 10^3/uL Lymph # (Auto) (1.5-3.5) 10^3/uL [place] # (Auto) (0.0-1.0) 10^3/uL Eos # (Auto) (0.0-0.7) 10^3/uL Baso # (Auto) (0.0-0.1) 10^3/uL Absolute Nucleated RBC x10^3/uL Nucleated RBC % /100WBC Sodium (135-145) mmol/L Potassium (3.5-5.0) mmol/L Chloride (101-111) mmol/L Carbon Dioxide (21-32) mmol/L Anion Gap (6-13) BUN (6-20) mg/dL Creatinine (0.4-1.0) mg/dL Estimated GFR (MDRD) (>89) Glucose (70-100) mg/dL Lactic Acid 0.8 (0.5-2.2) mmol/L Calcium (8.5-10.3) mg/dL Total Bilirubin (0.2-1.0) mg/dL AST (10-42) IU/L ALT (10-60) IU/L Alkaline Phosphatase (42-121) IU/L Total Protein (6.7-8.2) g/dL Albumin (3.2-5.5) g/dL Globulin (2.1-4.2) g/dL Albumin/Globulin Ratio (1.0-2.2) Lipase (22-51) U/L HCG, Quant mIU/mL Urine Color YELLOW Urine Clarity HAZY (CLEAR) Urine pH 7.0 (5.0-7.5) PH Ur Specific [place] 1.010 (1.002-1.030) Urine Protein NEGATIVE (NEGATIVE) mg/dL Urine Glucose (UA) NEGATIVE (NEGATIVE) mg/dL Urine Ketones 15 H (NEGATIVE) mg/dL Urine Occult Blood LARGE H (NEGATIVE) Urine Nitrite NEGATIVE (NEGATIVE) Urine Bilirubin NEGATIVE (NEGATIVE) Urine Urobilinogen 0.2 (NORMAL) (NORMAL) E.U./dL Ur Leukocyte Esterase MODERATE H (NEGATIVE) Urine RBC 6-10 H (0-5) /HPF Urine WBC 6-10 H (0-5) /HPF Ur Squamous Epith Cells MANY Squamous H (<= Few) Urine Bacteria Few (None Seen) /HPF Ur Microscopic Review INDICATED Urine Culture Comments NOT INDICATED 07/26/19 07/26/19 07/26/19 Range/Units 20:00 20:00 20:00 WBC 17.4 H (4.8-10.8) x10^3/uL RBC 4.07 L (4.20-5.40) 10^6/uL Hgb 10.9 L (12.0-16.0) g/dL Hct 33.0 L (37.0-47.0) % MCV 81.1 (81.0-99.0) fL MCH 26.8 L (27.0-31.0) pg MCHC 33.0 (32.0-36.0) g/dL RDW 14.1 (12.0-15.0) % Plt Count 271 (130-450) 10^3/uL MPV 10.4 (7.9-10.8) fL Neut # (Auto) 14.8 H (1.5-6.6) 10^3/uL Lymph # (Auto) 1.1 L (1.5-3.5) 10^3/uL [place] # (Auto) 1.1 H (0.0-1.0) 10^3/uL Eos # (Auto) 0.3 (0.0-0.7) 10^3/uL Baso # (Auto) 0.1 (0.0-0.1) 10^3/uL Absolute Nucleated RBC 0.00 x10^3/uL Nucleated RBC % 0.0 /100WBC Sodium 136 (135-145) mmol/L Potassium 2.9 L (3.5-5.0) mmol/L Chloride 103 (101-111) mmol/L Carbon Dioxide 23 (21-32) mmol/L Anion Gap 10.0 (6-13) BUN 6 (6-20) mg/dL Creatinine 0.8 (0.4-1.0) mg/dL Estimated GFR (MDRD) 92 (>89) Glucose 114 H (70-100) mg/dL Lactic Acid (0.5-2.2) mmol/L Calcium 8.9 (8.5-10.3) mg/dL Total Bilirubin 1.1 H (0.2-1.0) mg/dL AST 20 (10-42) IU/L ALT 51 (10-60) IU/L Alkaline Phosphatase 85 (42-121) IU/L Total Protein 7.5 (6.7-8.2) g/dL Albumin 3.8 (3.2-5.5) g/dL Globulin 3.7 (2.1-4.2) g/dL Albumin/Globulin Ratio 1.0 (1.0-2.2) Lipase 25 (22-51) U/L HCG, Quant 16484.00 mIU/mL Urine Color Urine Clarity (CLEAR) Urine pH (5.0-7.5) PH Ur Specific [place] (1.002-1.030) Urine Protein (NEGATIVE) mg/dL Urine Glucose (UA) (NEGATIVE) mg/dL Urine Ketones (NEGATIVE) mg/dL Urine Occult Blood (NEGATIVE) Urine Nitrite (NEGATIVE) Urine Bilirubin (NEGATIVE) Urine Urobilinogen (NORMAL) E.U./dL Ur Leukocyte Esterase (NEGATIVE) Urine RBC (0-5) /HPF Urine WBC (0-5) /HPF Ur Squamous Epith Cells (<= Few) Urine Bacteria (None Seen) /HPF Ur Microscopic Review Urine Culture Comments Sepsis Event Note (H) - Evaluation Current Stage of Sepsis: Sepsis Possible source of Sepsis: positive: Genitourinary - Sepsis Criteria Sepsis Criteria: Recorded Heart Rate greater than 90 bpm, WBC count greater than 12,000 or less than 4000
[2019-07-27] MEDS: LACTATED RINGERS 1,000 ML IV SCH ×2 (17:57→21:53)
[2019-07-27] MEDS: KETOROLAC 30 MG/ML VIAL IVP SCH (18:02)
[2019-07-27] MEDS: PROCHLORPERAZINE 10 MG/2 ML VIAL IVP PRN (18:53)
[2019-07-27 20:30] LABS: CALCIUM 8.1 mg/dL (8.5-10.3)
[2019-07-28] MEDS: SODIUM CHLORIDE FLUSH 0.9% 10 ML SYRINGE IVP SCH ×4 (00:53→06:55)
[2019-07-28] MEDS: KETOROLAC 30 MG/ML VIAL IVP SCH ×3 (00:53→12:01)
[2019-07-28] MEDS: HYDROmorphone 1 MG/ML CARPUJECT IVP PRN ×7 (01:01→22:23)
[2019-07-28] MEDS: LACTATED RINGERS 1,000 ML IV SCH ×6 (02:02→21:09)
[2019-07-28] MEDS: ONDANSETRON 4 MG/2 ML VIAL IVP PRN ×2 (04:41→16:14)
[2019-07-28 05:37] LABS: HGB - HEMOGLOBIN 8.8 g/dL (12.0-16.0); MEAN CORPUSCULAR HEMOGLOBIN 27.2 pg (27.0-31.0); MEAN CORPUSCULAR HGB CONC 32.8 g/dL (32.0-36.0); MEAN CORPUSCULAR VOLUME 82.7 fL (81.0-99.0); MEAN PLATELET VOLUME 10.2 fL (7.9-10.8); RED BLOOD COUNT 3.24 10^6/uL (4.20-5.40); RED CELL DISTRIBUTION WIDTH 14.1 % (12.0-15.0); WHITE BLOOD COUNT 15.9 x10^3/uL (4.8-10.8)
[2019-07-28 05:46] LABS: CALCIUM 8.2 mg/dL (8.5-10.3)
[2019-07-28 05:59] LABS: HB2 TOTAL 8.9 g/dL; HEMOGLOBIN A1C 0.3 g/dL; HEMOGLOBIN A1C % 5.2 % (4.6-6.2)
[2019-07-28] MEDS: SUCRALFATE 1 GM/10 ML UDC PO SCH ×4 (06:15→19:37)
[2019-07-28] MEDS: ACETAMINOPHEN 325 MG TABLET PO PRN (06:17)
[2019-07-28] MEDS: PANTOPRAZOLE 40 MG VIAL IVP SCH (06:20)
[2019-07-28] MEDS: SODIUM CHLORIDE FLUSH 0.9% 10 ML SYRINGE IVP PRN ×2 (06:20→15:25)
[2019-07-28] MEDS: LORazepam 2 MG/ML VIAL IVP PRN (06:55)
--- NOTE | 2019-07-28 06:56 | PROVIDER PROGRESS NOTE ---
Subjective - Prog Note Date Prog Note Date: 07/28/19 Prog Note Time: 06:54 - Subjective Subjective: Scant bleeding, clot passed last PM, but no obvious tissue. Continues mildly tachy BP stable. FBS 112 H&H 26.8/8.8 s/p IV iron Creat 1.0 Abd soft. TA US done at bedside; POC's still present in uterus. A/P Pt continues to be angry, displaying drug seeking behavior. Suspect is not actually taking the miso as directed. Will place the next dose vaginally. Continue to follow for [employer]. Objective - Vital Signs/Intake & Output Vital Signs: Vital Signs x48h Temp Pulse Resp BP Pulse Ox 07/28/19 05:00 97.9 F 115 H 20 111/63 100 07/28/19 00:00 99.4 F 126 H 20 125/70 100 Intake & Output: Intake & Output 07/25/19 07/26/19 07/27/19 07/28/19 23:59 23:59 23:59 23:59 Intake Total 2151 6327.166 2500 Output Total 3000 2000 Balance 2151 3327.166 500 - Lab Results Fish Bones: 07/28/19 05:20 07/28/19 05:20 Other Labs: Lab Results x24hrs 07/28/19 07/28/19 07/28/19 Range/Units 05:20 05:20 05:20 WBC 15.9 H (4.8-10.8) x10^3/uL RBC 3.24 L (4.20-5.40) 10^6/uL Hgb 8.8 L (12.0-16.0) g/dL Hct 26.8 L (37.0-47.0) % MCV 82.7 (81.0-99.0) fL MCH 27.2 (27.0-31.0) pg MCHC 32.8 (32.0-36.0) g/dL RDW 14.1 (12.0-15.0) % Plt Count 216 (130-450) 10^3/uL MPV 10.2 (7.9-10.8) fL Sodium 138 (135-145) mmol/L Potassium 3.7 (3.5-5.0) mmol/L Chloride 109 (101-111) mmol/L Carbon Dioxide 21 (21-32) mmol/L Anion Gap 8.0 (6-13) BUN 6 (6-20) mg/dL Creatinine 1.0 (0.4-1.0) mg/dL Estimated GFR (MDRD) 71 L (>89) Glucose 112 H (70-100) mg/dL Glycated Hemoglobin 5.2 (4.6-6.2) % Estim Average Glucose 103 H (70-100) Calcium 8.2 L (8.5-10.3) mg/dL Urine Color Urine Clarity (CLEAR) Urine pH (5.0-7.5) PH Ur Specific [place] (1.002-1.030) Urine Protein (NEGATIVE) mg/dL Urine Glucose (UA) (NEGATIVE) mg/dL Urine Ketones (NEGATIVE) mg/dL Urine Occult Blood (NEGATIVE) Urine Nitrite (NEGATIVE) Urine Bilirubin (NEGATIVE) Urine Urobilinogen (NORMAL) E.U./dL Ur Leukocyte Esterase (NEGATIVE) 07/27/19 07/27/19 07/27/19 Range/Units 20:10 12:44 11:09 WBC (4.8-10.8) x10^3/uL RBC (4.20-5.40) 10^6/uL Hgb (12.0-16.0) g/dL Hct (37.0-47.0) % MCV (81.0-99.0) fL MCH (27.0-31.0) pg MCHC (32.0-36.0) g/dL RDW (12.0-15.0) % Plt Count (130-450) 10^3/uL MPV (7.9-10.8) fL Sodium 133 L 134 L (135-145) mmol/L Potassium 3.5 3.9 (3.5-5.0) mmol/L Chloride 106 106 (101-111) mmol/L Carbon Dioxide 19 L 21 (21-32) mmol/L Anion Gap 8.0 7.0 (6-13) BUN 6 6 (6-20) mg/dL Creatinine 1.0 0.9 (0.4-1.0) mg/dL Estimated GFR (MDRD) 71 L 81 L (>89) Glucose 169 H 116 H (70-100) mg/dL Glycated Hemoglobin (4.6-6.2) % Estim Average Glucose (70-100) Calcium 8.1 L 8.4 L (8.5-10.3) mg/dL Urine Color YELLOW Urine Clarity HAZY (CLEAR) Urine pH 7.0 (5.0-7.5) PH Ur Specific [place] <=1.005 (1.002-1.030) Urine Protein NEGATIVE (NEGATIVE) mg/dL Urine Glucose (UA) NEGATIVE (NEGATIVE) mg/dL Urine Ketones NEGATIVE (NEGATIVE) mg/dL Urine Occult Blood MODERATE H (NEGATIVE) Urine Nitrite NEGATIVE (NEGATIVE) Urine Bilirubin NEGATIVE (NEGATIVE) Urine Urobilinogen 0.2 (NORMAL) (NORMAL) E.U./dL Ur Leukocyte Esterase MODERATE H (NEGATIVE) Sepsis Event Note (H) - Evaluation Current Stage of Sepsis: Sepsis Possible source of Sepsis: positive: Genitourinary - Sepsis Criteria Sepsis Criteria: Recorded Heart Rate greater than 90 bpm, WBC count greater than 12,000 or less than 4000
[2019-07-28] MEDS: miSOPROStoL 200 MCG TABLET BC SCH (07:02)
[2019-07-28] MEDS ORDERED: miSOPROStoL 200 MCG TABLET VG SCH (07:30)
[2019-07-28 08:27] LABS: ABSOLUTE RETICS # AUTO 0.062 10^6/uL (0.020-0.110); RED BLOOD COUNT 3.33 10^6/uL (4.20-5.40)
[2019-07-28] MEDS: LACTOBACILLUS RHAMNOSUS GG CAPSULE PO SCH ×2 (08:56→16:17)
[2019-07-28] MEDS: oxyCODONE 5 MG TABLET PO PRN ×3 (08:56→18:15)
[2019-07-28] MEDS: FAMOTIDINE 20 MG TABLET PO SCH ×2 (08:56→19:37)
[2019-07-28 08:57] LABS: FERRITIN 202.7 ng/mL (11.0-306.8)
[2019-07-28] MEDS: cefTRIAXone 2 GM in SODIUM CHLORIDE 0.9% MINIBAG 100 ML IV SCH (08:57)
[2019-07-28 09:58] LABS: % IRON SATURATION 86 % (20-50); IRON 196 ug/dL (28-170); TOTAL IRON BINDING CAPACITY 227 ug/dL (250-450); TRANSFERRIN 162 mg/dL (192-382)
--- NOTE | 2019-07-28 11:06 | PROVIDER PROGRESS NOTE ---
Assessment/Plan - Problem List (1) Pyelonephritis Assessment/Plan: 1. sepsis associated with Acute pyelonephritis 07/27, improved. WBC is slight reduced, tachycardia HR is reduced. has No fever today, blood culture is negative for bacteremia. pt still present some kind of drug seek behaviour, consistent to look for pain meds continue antibiotics Rocephin continue IVF pain control. 2. Threatened 07/27 consulted with [employer]TING [employer], continue follouwp. pt already started on Misoprostol. pt's HGB is 8.8 today although pt has some hemodilation. monitor with H&H, order T&S. and pain control 3. Tachycardia 07/27 improved. HR is 106 today now. it is Likely secondary to acute pyelonephritis, sepsis Continue IV fluid resuscitation, antibiotics, and pain control 4. 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 Anemia 07/27 reduced Hemoglobin and hematocrit to HGB 8.8 today, it is likely acutely combination of misoprostol for and hemodilation. pt was given iron IV on yesterday. continue H&H monitor and type screen, prepare blood transfusion as needed 7. Fibromyalgia 07/27 pt persistent to seek pain meds, discussed with pt for pain control. - Current Meds Current Meds: Current Medications Generic Name Dose Route Start Last Admin Trade Name Freq PRN Reason Stop Dose Admin Acetaminophen 650 mg 07/27/19 01:31 07/28/19 06:17 Tylenol PO 650 mg Q4HR PRN Administration Pain 1 to 4 Famotidine 20 mg 07/27/19 10:00 07/28/19 08:56 Pepcid PO 20 mg BID ALEXUS Administration Hydromorphone HCl 1 mg 07/27/19 09:02 07/28/19 09:33 Dilaudid Inj Carp IVP 1 mg Q2H PRN Administration Pain 8 to 10 Ceftriaxone Sodium 2 gm/ 100 mls @ 200 mls/hr 07/27/19 10:00 07/28/19 08:57 Sodium Chloride IV 08/01/19 09:29 200 mls/hr DAILY ALEXUS Administration Lactated Ringer's 1,000 mls @ 250 mls/hr 07/27/19 18:00 07/28/19 10:50 Lr IV Not Given .Q4H ALEXUS Ketorolac Tromethamine 30 mg 07/27/19 18:00 07/28/19 06:20 Toradol Inj (30mg) IVP 07/28/19 12:01 30 mg Q6HR ALEXUS Administration Lactobacillus Rhamnosus 1 cap 07/27/19 08:00 07/28/19 08:56 Culturelle PO 1 cap BIDWM ALEXUS Administration Lorazepam 0.5 mg 07/27/19 15:57 07/28/19 06:55 Ativan Inj (Vial) IVP 0.5 mg Q6H PRN Administration Anxiety Ondansetron HCl 4 mg 07/27/19 01:31 07/28/19 04:41 Zofran Inj IVP 4 mg Q6HR PRN Administration Nausea / Vomiting Oxycodone HCl 5 mg 07/27/19 01:31 07/28/19 08:56 Roxicodone PO 5 mg Q4HR PRN Administration Pain 5 to 7 Pantoprazole Sodium 40 mg 07/27/19 10:00 07/28/19 06:20 Protonix IVP 40 mg QDAC ALEXUS Administration Prochlorperazine Edisylate 10 mg 07/27/19 01:31 07/27/19 18:53 Compazine Inj IVP 10 mg Q6HR PRN Administration Nausea / Vomiting Sodium Chloride 10 ml 07/27/19 01:31 07/28/19 06:20 Normal Saline Flush 0.9% IVP 10 ml PRN PRN Administration NEEDED PER PROVIDER ORDERS Sodium Chloride 10 ml 07/27/19 09:00 07/28/19 06:55 Normal Saline Flush 0.9% IVP 10 ml 0100,0900,1700 ALEXUS Administration Sucralfate 1 gm 07/27/19 07:00 07/28/19 06:15 Carafate PO 1 gm ACHS ALEXUS Administration - Lab Result Fish Bone Diagrams: 07/28/19 05:20 07/28/19 05:20 - Additional Planning My Orders: My Active Orders 07/27/19 15:57 LORazepam INJ [Ativan Inj (Vial)] 0.5 mg IVP Q6H PRN 07/28/19 14:00 H&H [HEMOGLOBIN AND HEMATOCRIT] [HEME] Q8H 07/28/19 22:00 H&H [HEMOGLOBIN AND HEMATOCRIT] [HEME] Q8H Subjective - Subjective Patient Reports: Feeling Better Objective Vital Signs: Vital Signs - 24 hr 07/27/19 07/27/19 07/27/19 11:33 16:00 18:53 Temperature 36.8 C 37.9 C H 36.8 C Heart Rate [ 124 H 116 H Brachial] Respiratory 18 14 Rate Blood Pressure 127/86 H 125/81 H [Right Brachial artery] O2 Saturation 100 98 07/28/19 07/28/19 07/28/19 00:00 05:00 08:00 Temperature 37.4 C 36.6 C 36.9 C Heart Rate [ 126 H 115 H 106 H Brachial] Respiratory 20 20 16 Rate Blood Pressure 125/70 111/63 114/64 [Right Brachial artery] O2 Saturation 100 100 98 Oxygen O2 Source Room air I&O (Last 24 Hrs): Intake and Output Totals x24h 07/26/19 07/27/19 07/28/19 23:59 23:59 23:59 Intake Total 2151 6327.166 2500 Output Total 3000 2000 Balance 2151 3327.166 500 General: Alert, No acute distress HEENT: Atraumatic Neck: Supple Lymphatic: no adenopathy Neuro: Alert, Non Focal, Oriented Times 3 Cardiovascular: Regular rate, Normal S1, Normal S2 Respiratory: Chest non-tender, No respiratory distress, Breath sounds nml Abdomen: Normal bowel sounds, Soft Extremities: Normal pulses - Results Results: Laboratory Results WBC 15.9 x10^3/uL (4.8-10.8) H 07/28/19 05:20 RBC 3.33 10^6/uL (4.20-5.40) L 07/28/19 05:25 Hgb 8.8 g/dL (12.0-16.0) L 07/28/19 05:20 Hct 26.8 % (37.0-47.0) L 07/28/19 05:20 MCV 82.7 fL (81.0-99.0) 07/28/19 05:20 MCH 27.2 pg (27.0-31.0) 07/28/19 05:20 MCHC 32.8 g/dL (32.0-36.0) 07/28/19 05:20 RDW 14.1 % (12.0-15.0) 07/28/19 05:20 Plt Count 216 10^3/uL (130-450) 07/28/19 05:20 MPV 10.2 fL (7.9-10.8) 07/28/19 05:20 Reticulocyte % (Auto) 1.85 % (0.5-2.3) 07/28/19 05:25 Neut # (Auto) 14.8 10^3/uL (1.5-6.6) H 07/26/19 20:00 Lymph # (Auto) 1.1 10^3/uL (1.5-3.5) L 07/26/19 20:00 [place] # (Auto) 1.1 10^3/uL (0.0-1.0) H 07/26/19 20:00 Eos # (Auto) 0.3 10^3/uL (0.0-0.7) 07/26/19 20:00 Baso # (Auto) 0.1 10^3/uL (0.0-0.1) 07/26/19 20:00 Absolute Nucleated RBC 0.00 x10^3/uL 07/26/19 20:00 Nucleated RBC % 0.0 /100WBC 07/26/19 20:00 Absolute Retic 0.062 10^6/uL (0.020-0.110) 07/28/19 05:25 Sodium 138 mmol/L (135-145) 07/28/19 05:20 Potassium 3.7 mmol/L (3.5-5.0) 07/28/19 05:20 Chloride 109 mmol/L (101-111) 07/28/19 05:20 Carbon Dioxide 21 mmol/L (21-32) 07/28/19 05:20 Anion Gap 8.0 (6-13) 07/28/19 05:20 BUN 6 mg/dL (6-20) 07/28/19 05:20 Creatinine 1.0 mg/dL (0.4-1.0) 07/28/19 05:20 Estimated GFR (MDRD) 71 (>89) L 07/28/19 05:20 Glucose 112 mg/dL (70-100) H 07/28/19 05:20 Glycated Hemoglobin 5.2 % (4.6-6.2) 07/28/19 05:20 Estim Average Glucose 103 (70-100) H 07/28/19 05:20 Lactic Acid 0.8 mmol/L (0.5-2.2) 07/26/19 20:18 Calcium 8.2 mg/dL (8.5-10.3) L 07/28/19 05:20 Iron 196 ug/dL (28-170) H 07/28/19 05:25 TIBC 227 ug/dL (250-450) L 07/28/19 05:25 % Saturation 86 % (20-50) H 07/28/19 05:25 Transferrin 162 mg/dL (192-382) L 07/28/19 05:25 Ferritin 202.7 ng/mL (11.0-306.8) 07/28/19 05:25 Total Bilirubin 1.1 mg/dL (0.2-1.0) H 07/26/19 20:00 AST 20 IU/L (10-42) 07/26/19 20:00 ALT 51 IU/L (10-60) 07/26/19 20:00 Alkaline Phosphatase 85 IU/L (42-121) 07/26/19 20:00 Lactate Dehydrogenase 126 IU/L (91-225) 07/28/19 05:25 Total Protein 7.5 g/dL (6.7-8.2) 07/26/19 20:00 Albumin 3.8 g/dL (3.2-5.5) 07/26/19 20:00 Globulin 3.7 g/dL (2.1-4.2) 07/26/19 20:00 Albumin/Globulin Ratio 1.0 (1.0-2.2) 07/26/19 20:00 Lipase 25 U/L (22-51) 07/26/19 20:00 Vitamin B12 562 pg/mL (180-914) 07/28/19 05:25 HCG, Quant 53356.00 mIU/mL 07/26/19 20:00 Urine Color YELLOW 07/27/19 11:09 Urine Clarity HAZY (CLEAR) 07/27/19 11:09 Urine pH 7.0 PH (5.0-7.5) 07/27/19 11:09 Ur Specific [place] <=1.005 (1.002-1.030) 07/27/19 11:09 Urine Protein NEGATIVE mg/dL (NEGATIVE) 07/27/19 11:09 Urine Glucose (UA) NEGATIVE mg/dL (NEGATIVE) 07/27/19 11:09 Urine Ketones NEGATIVE mg/dL (NEGATIVE) 07/27/19 11:09 Urine Occult Blood MODERATE (NEGATIVE) H 07/27/19 11:09 Urine Nitrite NEGATIVE (NEGATIVE) 07/27/19 11:09 Urine Bilirubin NEGATIVE (NEGATIVE) 07/27/19 11:09 Urine Urobilinogen 0.2 (NORMAL) E.U./dL (NORMAL) 07/27/19 11:09 Ur Leukocyte Esterase MODERATE (NEGATIVE) H 07/27/19 11:09 Urine RBC 6-10 /HPF (0-5) H 07/27/19 00:09 Urine WBC 6-10 /HPF (0-5) H 07/27/19 00:09 Ur Squamous Epith Cells MANY Squamous (<= Few) H 07/27/19 00:09 Urine Bacteria Few /HPF (None Seen) 07/27/19 00:09 Ur Microscopic Review INDICATED 07/27/19 00:09 Urine Culture Comments NOT INDICATED 07/27/19 00:09 Sepsis Event Note (H) - Evaluation Current Stage of Sepsis: Sepsis Possible source of Sepsis: positive: Genitourinary - Sepsis Criteria Sepsis Criteria: Recorded Heart Rate greater than 90 bpm, WBC count greater than 12,000 or less than 4000 ABX Reporting Has patient been on IV antibiotics over the past 48 hours?: Yes Current Medications - Current Medications Current Medications: Active Medications Acetaminophen (Tylenol) 650 mg PO Q4HR PRN PRN Reason: Pain 1 to 4 Last Admin: 07/28/19 06:17 Dose: 650 mg Diphenoxylate HCl/Atropine (Lomotil) 1 tab PO QID PRN PRN Reason: Diarrhea Famotidine (Pepcid) 20 mg PO BID ALEXUS Last Admin: 07/28/19 08:56 Dose: 20 mg Hydromorphone HCl (Dilaudid Inj Carp) 1 mg IVP Q2H PRN PRN Reason: Pain 8 to 10 Last Admin: 07/28/19 09:33 Dose: 1 mg Ceftriaxone Sodium 2 gm/ (Sodium Chloride) 100 mls @ 200 mls/hr IV DAILY ALEXUS Stop: 08/01/19 09:29 Last Admin: 07/28/19 08:57 Dose: 200 mls/hr Lactated Ringer's (Lr) 1,000 mls @ 250 mls/hr IV .Q4H [facility] Last Admin: 07/28/19 10:50 Dose: Not Given Ketorolac Tromethamine (Toradol Inj (30mg)) 30 mg IVP Q6HR [facility] Stop: 07/28/19 12:01 Last Admin: 07/28/19 06:20 Dose: 30 mg Lactobacillus Rhamnosus (Culturelle) 1 cap PO BIDWM [facility] Last Admin: 07/28/19 08:56 Dose: 1 cap Lidocaine HCl (Xylocaine Viscous 2%) 5 ml MM Q4H PRN PRN Reason: PAIN Lorazepam (Ativan Inj (Vial)) 0.5 mg IVP Q6H PRN PRN Reason: Anxiety Last Admin: 07/28/19 06:55 Dose: 0.5 mg Misoprostol (Cytotec) 800 mcg VG Q6HR [facility] Stop: 07/28/19 18:01 Ondansetron HCl (Zofran Inj) 4 mg IVP Q6HR PRN PRN Reason: Nausea / Vomiting Last Admin: 07/28/19 04:41 Dose: 4 mg Oxycodone HCl (Roxicodone) 5 mg PO Q4HR PRN PRN Reason: Pain 5 to 7 Last Admin: 07/28/19 08:56 Dose: 5 mg Pantoprazole Sodium (Protonix) 40 mg IVP QDAC [facility] Last Admin: 07/28/19 06:20 Dose: 40 mg Prochlorperazine Edisylate (Compazine Inj) 10 mg IVP Q6HR PRN PRN Reason: Nausea / Vomiting Last Admin: 07/27/19 18:53 Dose: 10 mg Ropinirole HCl (Requip) 0.25 mg PO QPM PRN PRN Reason: RESTLESS LEGS Sodium Chloride (Normal Saline Flush 0.9%) 10 ml IVP PRN PRN PRN Reason: NEEDED PER PROVIDER ORDERS Last Admin: 07/28/19 06:20 Dose: 10 ml Sodium Chloride (Normal Saline Flush 0.9%) 10 ml IVP 0100,0900,1700 [facility] Last Admin: 07/28/19 06:55 Dose: 10 ml Sucralfate (Carafate) 1 gm PO ACHS [facility] Last Admin: 07/28/19 11:14 Dose: 1 gm Famotidine 20 mg PO BID 07/27/19 Lidocaine [Lidoderm] 1 patch TOP PRN PRN 07/27/19 Pantoprazole Sodium 40 mg PO BID 07/27/19 No.137/Iron/Folic Acd [ Vitamin Tablet] 1 tab PO DAILY 07/27/19
[2019-07-28] MEDS: miSOPROStoL 200 MCG TABLET VG SCH ×2 (14:22→19:07)
[2019-07-28] MEDS ORDERED: FERROUS SULFATE 325 MG TABLET PO SCH (17:00)
[2019-07-28] MEDS: PROCHLORPERAZINE 10 MG/2 ML VIAL IVP PRN (18:24)
--- NOTE | 2019-07-28 19:04 | PROVIDER PROGRESS NOTE ---
Subjective - Subjective Subjective: Bedside scan repeated. Formal report pending. Unchanged from my scan this AM. P tachy Otherwise stable, afebrile since yesterday. Plan change to PO miso (still suspecting pt not actually leaving the pills in place) Will directly observe swallowing them. Reassess in AM. May need D&E. Objective - Vital Signs/Intake & Output Vital Signs: Vital Signs x48h Temp Pulse Resp BP Pulse Ox 07/28/19 16:00 98.4 F 111 H 20 131/83 H 100 07/28/19 12:08 208.6 F H 116 H 16 114/72 100 Intake & Output: Intake & Output 07/25/19 07/26/19 07/27/19 07/28/19 23:59 23:59 23:59 23:59 Intake Total 2151 6327.166 4591.67 Output Total 3000 5050 Balance 2151 3327.166 -458.33 - Lab Results Fish Bones: 07/28/19 05:20 07/28/19 05:20 Other Labs: Lab Results x24hrs 07/28/19 07/28/19 07/28/19 Range/Units 11:45 05:25 05:25 WBC (4.8-10.8) x10^3/uL RBC (4.20-5.40) 10^6/uL Hgb (12.0-16.0) g/dL Hct (37.0-47.0) % MCV (81.0-99.0) fL MCH (27.0-31.0) pg MCHC (32.0-36.0) g/dL RDW (12.0-15.0) % Plt Count (130-450) 10^3/uL MPV (7.9-10.8) fL Reticulocyte % (Auto) (0.5-2.3) % Absolute Retic (0.020-0.110) 10^6/uL Sodium (135-145) mmol/L Potassium (3.5-5.0) mmol/L Chloride (101-111) mmol/L Carbon Dioxide (21-32) mmol/L Anion Gap (6-13) BUN (6-20) mg/dL Creatinine (0.4-1.0) mg/dL Estimated GFR (MDRD) (>89) Glucose (70-100) mg/dL Glycated Hemoglobin (4.6-6.2) % Estim Average Glucose (70-100) Calcium (8.5-10.3) mg/dL Iron (28-170) ug/dL TIBC (250-450) ug/dL % Saturation (20-50) % Transferrin (192-382) mg/dL Ferritin 202.7 (11.0-306.8) ng/mL Lactate Dehydrogenase 126 (91-225) IU/L Vitamin B12 562 (180-914) pg/mL Blood Type B POSITIVE Antibody Screen NEGATIVE 07/28/19 07/28/19 07/28/19 Range/Units 05:25 05:25 05:20 WBC (4.8-10.8) x10^3/uL RBC 3.33 L (4.20-5.40) 10^6/uL Hgb (12.0-16.0) g/dL Hct (37.0-47.0) % MCV (81.0-99.0) fL MCH (27.0-31.0) pg MCHC (32.0-36.0) g/dL RDW (12.0-15.0) % Plt Count (130-450) 10^3/uL MPV (7.9-10.8) fL Reticulocyte % (Auto) 1.85 (0.5-2.3) % Absolute Retic 0.062 (0.020-0.110) 10^6/uL Sodium (135-145) mmol/L Potassium (3.5-5.0) mmol/L Chloride (101-111) mmol/L Carbon Dioxide (21-32) mmol/L Anion Gap (6-13) BUN (6-20) mg/dL Creatinine (0.4-1.0) mg/dL Estimated GFR (MDRD) (>89) Glucose (70-100) mg/dL Glycated Hemoglobin 5.2 (4.6-6.2) % Estim Average Glucose 103 H (70-100) Calcium (8.5-10.3) mg/dL Iron 196 H (28-170) ug/dL TIBC 227 L (250-450) ug/dL % Saturation 86 H (20-50) % Transferrin 162 L (192-382) mg/dL Ferritin (11.0-306.8) ng/mL Lactate Dehydrogenase (91-225) IU/L Vitamin B12 (180-914) pg/mL Blood Type Antibody Screen 07/28/19 07/28/19 07/27/19 Range/Units 05:20 05:20 20:10 WBC 15.9 H (4.8-10.8) x10^3/uL RBC 3.24 L (4.20-5.40) 10^6/uL Hgb 8.8 L (12.0-16.0) g/dL Hct 26.8 L (37.0-47.0) % MCV 82.7 (81.0-99.0) fL MCH 27.2 (27.0-31.0) pg MCHC 32.8 (32.0-36.0) g/dL RDW 14.1 (12.0-15.0) % Plt Count 216 (130-450) 10^3/uL MPV 10.2 (7.9-10.8) fL Reticulocyte % (Auto) (0.5-2.3) % Absolute Retic (0.020-0.110) 10^6/uL Sodium 138 133 L (135-145) mmol/L Potassium 3.7 3.5 (3.5-5.0) mmol/L Chloride 109 106 (101-111) mmol/L Carbon Dioxide 21 19 L (21-32) mmol/L Anion Gap 8.0 8.0 (6-13) BUN 6 6 (6-20) mg/dL Creatinine 1.0 1.0 (0.4-1.0) mg/dL Estimated GFR (MDRD) 71 L 71 L (>89) Glucose 112 H 169 H (70-100) mg/dL Glycated Hemoglobin (4.6-6.2) % Estim Average Glucose (70-100) Calcium 8.2 L 8.1 L (8.5-10.3) mg/dL Iron (28-170) ug/dL TIBC (250-450) ug/dL % Saturation (20-50) % Transferrin (192-382) mg/dL Ferritin (11.0-306.8) ng/mL Lactate Dehydrogenase (91-225) IU/L Vitamin B12 (180-914) pg/mL Blood Type Antibody Screen Sepsis Event Note (H) - Evaluation Current Stage of Sepsis: Sepsis Possible source of Sepsis: positive: Genitourinary - Sepsis Criteria Sepsis Criteria: Recorded Heart Rate greater than 90 bpm, WBC count greater than 12,000 or less than 4000
[2019-07-28] MEDS: miSOPROStoL 100 MCG TABLET PO SCH (21:07)
--- NOTE | 2019-07-28 21:32 | Ultrasound Report ---
Reason: miscarriage Procedure Date: 07/28/2019 Accession Number: [id number] Procedure: US - Pelvic w/Transvaginal CPT Code: Final Report FULL RESULT: EXAM: PELVIC ULTRASOUND EXAM DATE: 07/28/2019 07:36 PM. CLINICAL HISTORY: Miscarriage. COMPARISON: OB FIRST TRIMESTER 07/26/2019 11:34 PM. TECHNIQUE: Realtime transabdominal pelvic scan performed to identify the uterus and adnexa and as an overview of other pelvic structures, followed by transvaginal scan to provide greater detail of the uterus and adnexa, with static image documentation. FINDINGS: Uterus: 10.2 x 3.6 x 6.5 cm, volume 124.9 cc. Anteverted position. 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 Masses: No uterine wall mass. Endometrium: In the lower uterine segment of the uterus is a complex cystic structure consistent with a collapsed gestational sac, embryo and yolk sac. The crown-rump length was measured at 3.5 mm. No cardiac activity is identified. Cervix: Closed. Right Ovary: 3.3 x 1.7 x 2.1 cm, volume 6.1 cc. Characterization limited as patient did not want to continue exam. Left Ovary: Not visualized. Patient did not want to continue with the examination. Free Fluid: Small volume. Other: None. IMPRESSION: 1. Intrauterine products of conception within the lower uterine segment with structure measuring 2.7 x 2.3 x 3.2 cm. Partially collapsed gestational sac with pole. No cardiac activity identified. RADIA
[2019-07-29] MEDS: ONDANSETRON 4 MG/2 ML VIAL IVP PRN ×2 (00:52→06:54)
[2019-07-29] MEDS: HYDROmorphone 1 MG/ML CARPUJECT IVP PRN ×9 (00:52→22:30)
[2019-07-29 00:57] LABS: HGB - HEMOGLOBIN 9.5 g/dL (12.0-16.0)
[2019-07-29] MEDS: LACTATED RINGERS 1,000 ML IV SCH ×3 (01:00→08:47)
[2019-07-29] MEDS: ACETAMINOPHEN 325 MG TABLET PO PRN ×2 (03:25→16:57)
[2019-07-29] MEDS: PROCHLORPERAZINE 10 MG/2 ML VIAL IVP PRN (03:27)
[2019-07-29] MEDS: SODIUM CHLORIDE FLUSH 0.9% 10 ML SYRINGE IVP PRN ×2 (03:27→06:54)
[2019-07-29] MEDS: oxyCODONE 5 MG TABLET PO PRN ×3 (04:35→23:46)
[2019-07-29 05:14] LABS: HGB - HEMOGLOBIN 8.3 g/dL (12.0-16.0); MEAN CORPUSCULAR HGB CONC 31.1 g/dL (32.0-36.0); MEAN CORPUSCULAR VOLUME 83.7 fL (81.0-99.0); MEAN PLATELET VOLUME 10.4 fL (7.9-10.8); RED BLOOD COUNT 3.19 10^6/uL (4.20-5.40); RED CELL DISTRIBUTION WIDTH 14.2 % (12.0-15.0); WHITE BLOOD COUNT 15.6 x10^3/uL (4.8-10.8)
[2019-07-29 05:24] LABS: CALCIUM 8.1 mg/dL (8.5-10.3); CREATININE 1.5 mg/dL (0.4-1.0)
[2019-07-29] MEDS: SUCRALFATE 1 GM/10 ML UDC PO SCH ×4 (06:51→20:27)
[2019-07-29] MEDS: PANTOPRAZOLE 40 MG VIAL IVP SCH (06:54)
[2019-07-29] MEDS: LACTOBACILLUS RHAMNOSUS GG CAPSULE PO SCH ×2 (08:42→16:56)
[2019-07-29] MEDS: miSOPROStoL 100 MCG TABLET PO SCH (08:43)
[2019-07-29] MEDS: cefTRIAXone 2 GM in SODIUM CHLORIDE 0.9% MINIBAG 100 ML IV SCH (08:46)
[2019-07-29] MEDS: SODIUM CHLORIDE FLUSH 0.9% 10 ML SYRINGE IVP SCH ×3 (08:50→23:47)
[2019-07-29] MEDS: FAMOTIDINE 20 MG TABLET PO SCH ×2 (08:50→20:27)
--- NOTE | 2019-07-29 10:07 | PROVIDER PROGRESS NOTE ---
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 US reviewed, as previously noted, POC's noted in lower uterine segment. Continues w mild tachycardia. T max 100.4 after miso dose (directly observed dose) Pelvic exam deferred Abd stable, non-tender A/P With PO dosing directly observed, should result in completion of SAB in next 24 hours. Mild fever could be secondary to miso and not pyelo although WBC still elevated. Not following expected fever curve for pyelo. Otherwise afebrile. Will collect any POC's and reassess with US. Offered D&E which she absolutely declines at this time. Anemia; given IV iron as noted. Transfusion not indicated. Expect hgb will decline further small amount as she completes the SAB. Expect full recovery within 10-14 days after iron administration. Objective - Vital Signs/Intake & Output Vital Signs: Vital Signs x48h Temp Pulse Resp BP Pulse Ox 07/29/19 08:05 98.2 F 112 H 18 124/80 97 07/29/19 07:02 98.1 F 07/29/19 04:32 112 H 16 99 07/29/19 04:26 99.9 F H 129 H 113/65 07/29/19 03:05 100.2 F H 127 H 16 132/63 H 100 Intake & Output: Intake & Output 07/26/19 07/27/19 07/28/19 07/29/19 23:59 23:59 23:59 23:59 Intake Total 2151 6327.166 6091.67 2925 Output Total 3000 6850 3650 Balance 2151 3327.166 -758.33 -725 - Lab Results Fish Bones: 07/29/19 04:50 07/29/19 04:50 Other Labs: Lab Results x24hrs 07/29/19 07/29/19 07/29/19 Range/Units 08:28 04:50 04:50 WBC 15.6 H (4.8-10.8) x10^3/uL RBC 3.19 L (4.20-5.40) 10^6/uL Hgb 8.3 L (12.0-16.0) g/dL Hct 26.7 L (37.0-47.0) % MCV 83.7 (81.0-99.0) fL MCH 26.0 L (27.0-31.0) pg MCHC 31.1 L (32.0-36.0) g/dL RDW 14.2 (12.0-15.0) % Plt Count 261 (130-450) 10^3/uL MPV 10.4 (7.9-10.8) fL Sodium 135 (135-145) mmol/L Potassium 3.0 L (3.5-5.0) mmol/L Chloride 103 (101-111) mmol/L Carbon Dioxide 22 (21-32) mmol/L Anion Gap 10.0 (6-13) BUN 7 (6-20) mg/dL Creatinine 1.5 H (0.4-1.0) mg/dL Estimated GFR (MDRD) 45 L (>89) Glucose 103 H (70-100) mg/dL POC Whole Bld Glucose 74 (70 - 100) mg/dL Calcium 8.1 L (8.5-10.3) mg/dL Blood Type Antibody Screen 07/29/19 07/28/19 07/28/19 Range/Units 00:50 20:39 11:45 WBC (4.8-10.8) x10^3/uL RBC (4.20-5.40) 10^6/uL Hgb 9.5 L (12.0-16.0) g/dL Hct 29.0 L (37.0-47.0) % MCV (81.0-99.0) fL MCH (27.0-31.0) pg MCHC (32.0-36.0) g/dL RDW (12.0-15.0) % Plt Count (130-450) 10^3/uL MPV (7.9-10.8) fL Sodium (135-145) mmol/L Potassium (3.5-5.0) mmol/L Chloride (101-111) mmol/L Carbon Dioxide (21-32) mmol/L Anion Gap (6-13) BUN (6-20) mg/dL Creatinine (0.4-1.0) mg/dL Estimated GFR (MDRD) (>89) Glucose (70-100) mg/dL POC Whole Bld Glucose 120 H (70 - 100) mg/dL Calcium (8.5-10.3) mg/dL Blood Type B POSITIVE Antibody Screen NEGATIVE Sepsis Event Note (H) - Evaluation Current Stage of Sepsis: Sepsis Possible source of Sepsis: positive: Genitourinary - Sepsis Criteria Sepsis Criteria: Recorded Heart Rate greater than 90 bpm, WBC count greater than 12,000 or less than 4000
--- NOTE | 2019-07-29 10:30 | PROVIDER PROGRESS NOTE ---
Assessment/Plan - Problem List (1) Spontaneous Assessment/Plan: The ultrasound last night showed continued retained components of non-viable . The patient was seen by manager database and the patient does not want dilatation and evacuation. Misoprostle dosing continues, by OB. She has some bleeding, being managed by OB. (2) Sepsis Qualifiers: Sepsis type: sepsis due to unspecified organism Sepsis acute organ dysfunction status: unspecified Qualified Code(s): A41.9 - Sepsis, unspecified organism Assessment/Plan: She had a fever overnight with tachycardia. The sources possibly the UTI/pyelonephritis. Blood cultures remain negative today however. Continue with empiric IV ceftriaxone. (3) ROSY (acute kidney injury) Assessment/Plan: New elevated creat of 1.3 today. Will change LR to saline iv. Follow BMP daily. (4) Pyelonephritis Assessment/Plan: Unknown if there is a urine culture to expect results from. Blood cultures have been negative to date. Continue with empiric IV ceftriaxone (5) Anemia Assessment/Plan: Iron replacement was ordered by the manager database. Follow CBC daily. (6) Hypokalemia Assessment/Plan: Replace gingerly since she has new ROSY. 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 (9) Hyperglycemia Assessment/Plan: She presented with a serum glucose of 144. Today she does not want to eat in the fingerstick glucose is 74. We will change IV fluids from LR to have D5 with saline and potassium replacement. - Current Meds Current Meds: Current Medications Generic Name Dose Route Start Last Admin Trade Name Melissa PRN Reason Stop Dose Admin Acetaminophen 650 mg 07/27/19 01:31 07/29/19 03:25 Tylenol PO 650 mg Q4HR PRN Administration Pain 1 to 4 Famotidine 20 mg 07/27/19 10:00 07/29/19 08:50 Pepcid PO 20 mg BID ALEXUS Administration Hydromorphone HCl 1 mg 07/27/19 09:02 07/29/19 08:46 Dilaudid Inj Carp IVP 1 mg Q2H PRN Administration Pain 8 to 10 Ceftriaxone Sodium 2 gm/ 100 mls @ 200 mls/hr 07/27/19 10:00 07/29/19 10:01 Sodium Chloride IV 08/01/19 09:29 Infused DAILY ALEXUS Infusion Lactobacillus Rhamnosus 1 cap 07/27/19 08:00 07/29/19 08:42 Culturelle PO 1 cap BIDWM ALEXUS Administration Lorazepam 0.5 mg 07/27/19 15:57 07/28/19 06:55 Ativan Inj (Vial) IVP 0.5 mg Q6H PRN Administration Anxiety Ondansetron HCl 4 mg 07/27/19 01:31 07/29/19 06:54 Zofran Inj IVP 4 mg Q6HR PRN Administration Nausea / Vomiting Oxycodone HCl 5 mg 07/27/19 01:31 07/29/19 04:35 Roxicodone PO 5 mg Q4HR PRN Administration Pain 5 to 7 Pantoprazole Sodium 40 mg 07/27/19 10:00 07/29/19 06:54 Protonix IVP 40 mg QDAC ALEXUS Administration Prochlorperazine Edisylate 10 mg 07/27/19 01:31 07/29/19 03:27 Compazine Inj IVP 10 mg Q6HR PRN Administration Nausea / Vomiting Sodium Chloride 10 ml 07/27/19 01:31 07/29/19 06:54 Normal Saline Flush 0.9% IVP 10 ml PRN PRN Administration NEEDED PER PROVIDER ORDERS Sodium Chloride 10 ml 07/27/19 09:00 07/29/19 08:50 Normal Saline Flush 0.9% IVP 10 ml 0100,0900,1700 ALEXUS Administration Sucralfate 1 gm 07/27/19 07:00 07/29/19 06:51 Carafate PO 1 gm ACHS ALEXUS Administration - Lab Result Fish Bone Diagrams: 07/29/19 04:50 07/29/19 04:50 - Additional Planning My Orders: My Active Orders 07/29/19 11:00 D5ns W/20 Meq KCl 1,000 ml IV 125 mls/hr D5ns W/20 Meq KCl 1,000 ml IV 200 mls/hr Subjective - Subjective Patient Reports: Abdominal Pain (Denies nausea but has no appetite due to abd pain, but says it is not her uterine contractions) Nursing Reports: Other (Refused breakfast) Objective Vital Signs: Vital Signs - 24 hr 07/28/19 07/28/19 07/28/19 12:08 16:00 20:59 Temperature 98.1 C H 36.9 C 37.1 C Heart Rate [ 116 H 111 H 134 H Brachial] Respiratory 16 20 20 Rate Blood Pressure 114/72 131/83 H 130/84 H [Right Brachial artery] O2 Saturation 100 100 100 07/29/19 07/29/19 07/29/19 00:15 03:05 04:26 Temperature 38.0 C H 37.9 C H 37.7 C H Heart Rate [ 102 H 127 H 129 H Brachial] Respiratory 16 16 Rate Blood Pressure 138/82 H 132/63 H 113/65 [Right Brachial artery] O2 Saturation 98 100 07/29/19 07/29/19 07/29/19 04:32 07:02 08:05 Temperature 36.7 C 36.8 C Heart Rate [ 112 H 112 H Brachial] Respiratory 16 18 Rate Blood Pressure 124/80 [Right Brachial artery] O2 Saturation 99 97 Oxygen O2 Source Room air I&O (Last 24 Hrs): Intake and Output Totals x24h 07/27/19 07/28/19 07/29/19 23:59 23:59 23:59 Intake Total 6327.166 6091.67 3025 Output Total 3000 6850 3650 Balance 3327.166 -758.33 -625 General: Alert, Oriented x3 HEENT: Mucous membr. moist/pink Neck: Supple Neuro: Alert, Non Focal Cardiovascular: Regular rate Respiratory: No respiratory distress Abdomen: Soft, Other (Obese with pannus) Genitourinary: Other (deferred to OB doctor) Extremities: No edema - Results Results: Laboratory Results WBC 15.6 x10^3/uL (4.8-10.8) H 07/29/19 04:50 RBC 3.19 10^6/uL (4.20-5.40) L 07/29/19 04:50 Hgb 8.3 g/dL (12.0-16.0) L 07/29/19 04:50 Hct 26.7 % (37.0-47.0) L 07/29/19 04:50 MCV 83.7 fL (81.0-99.0) 07/29/19 04:50 MCH 26.0 pg (27.0-31.0) L 07/29/19 04:50 MCHC 31.1 g/dL (32.0-36.0) L 07/29/19 04:50 RDW 14.2 % (12.0-15.0) 07/29/19 04:50 Plt Count 261 10^3/uL (130-450) 07/29/19 04:50 MPV 10.4 fL (7.9-10.8) 07/29/19 04:50 Reticulocyte % (Auto) 1.85 % (0.5-2.3) 07/28/19 05:25 Neut # (Auto) 14.8 10^3/uL (1.5-6.6) H 07/26/19 20:00 Lymph # (Auto) 1.1 10^3/uL (1.5-3.5) L 07/26/19 20:00 [place] # (Auto) 1.1 10^3/uL (0.0-1.0) H 07/26/19 20:00 Eos # (Auto) 0.3 10^3/uL (0.0-0.7) 07/26/19 20:00 Baso # (Auto) 0.1 10^3/uL (0.0-0.1) 07/26/19 20:00 Absolute Nucleated RBC 0.00 x10^3/uL 07/26/19 20:00 Nucleated RBC % 0.0 /100WBC 07/26/19 20:00 Absolute Retic 0.062 10^6/uL (0.020-0.110) 07/28/19 05:25 Sodium 135 mmol/L (135-145) 07/29/19 04:50 Potassium 3.0 mmol/L (3.5-5.0) L 07/29/19 04:50 Chloride 103 mmol/L (101-111) 07/29/19 04:50 Carbon Dioxide 22 mmol/L (21-32) 07/29/19 04:50 Anion Gap 10.0 (6-13) 07/29/19 04:50 BUN 7 mg/dL (6-20) 07/29/19 04:50 Creatinine 1.5 mg/dL (0.4-1.0) H 07/29/19 04:50 Estimated GFR (MDRD) 45 (>89) L 07/29/19 04:50 Glucose 103 mg/dL (70-100) H 07/29/19 04:50 POC Whole Bld Glucose 74 mg/dL (70 - 100) 07/29/19 08:28 Glycated Hemoglobin 5.2 % (4.6-6.2) 07/28/19 05:20 Estim Average Glucose 103 (70-100) H 07/28/19 05:20 Lactic Acid 0.8 mmol/L (0.5-2.2) 07/26/19 20:18 Calcium 8.1 mg/dL (8.5-10.3) L 07/29/19 04:50 Iron 196 ug/dL (28-170) H 07/28/19 05:25 TIBC 227 ug/dL (250-450) L 07/28/19 05:25 % Saturation 86 % (20-50) H 07/28/19 05:25 Transferrin 162 mg/dL (192-382) L 07/28/19 05:25 Ferritin 202.7 ng/mL (11.0-306.8) 07/28/19 05:25 Total Bilirubin 1.1 mg/dL (0.2-1.0) H 07/26/19 20:00 AST 20 IU/L (10-42) 07/26/19 20:00 ALT 51 IU/L (10-60) 07/26/19 20:00 Alkaline Phosphatase 85 IU/L (42-121) 07/26/19 20:00 Lactate Dehydrogenase 126 IU/L (91-225) 07/28/19 05:25 Total Protein 7.5 g/dL (6.7-8.2) 07/26/19 20:00 Albumin 3.8 g/dL (3.2-5.5) 07/26/19 20:00 Globulin 3.7 g/dL (2.1-4.2) 07/26/19 20:00 Albumin/Globulin Ratio 1.0 (1.0-2.2) 07/26/19 20:00 Lipase 25 U/L (22-51) 07/26/19 20:00 Vitamin B12 562 pg/mL (180-914) 07/28/19 05:25 HCG, Quant 11305.00 mIU/mL 07/26/19 20:00 Urine Color YELLOW 07/27/19 11:09 Urine Clarity HAZY (CLEAR) 07/27/19 11:09 Urine pH 7.0 PH (5.0-7.5) 07/27/19 11:09 Ur Specific Rumely <=1.005 (1.002-1.030) 07/27/19 11:09 Urine Protein NEGATIVE mg/dL (NEGATIVE) 07/27/19 11:09 Urine Glucose (UA) NEGATIVE mg/dL (NEGATIVE) 07/27/19 11:09 Urine Ketones NEGATIVE mg/dL (NEGATIVE) 07/27/19 11:09 Urine Occult Blood MODERATE (NEGATIVE) H 07/27/19 11:09 Urine Nitrite NEGATIVE (NEGATIVE) 07/27/19 11:09 Urine Bilirubin NEGATIVE (NEGATIVE) 07/27/19 11:09 Urine Urobilinogen 0.2 (NORMAL) E.U./dL (NORMAL) 07/27/19 11:09 Ur Leukocyte Esterase MODERATE (NEGATIVE) H 07/27/19 11:09 Urine RBC 6-10 /HPF (0-5) H 07/27/19 00:09 Urine WBC 6-10 /HPF (0-5) H 07/27/19 00:09 Ur Squamous Epith Cells MANY Squamous (<= Few) H 07/27/19 00:09 Urine Bacteria Few /HPF (None Seen) 07/27/19 00:09 Ur Microscopic Review INDICATED 07/27/19 00:09 Urine Culture Comments NOT INDICATED 07/27/19 00:09 Blood Type B POSITIVE 07/28/19 11:45 Antibody Screen NEGATIVE 07/28/19 11:45 Sepsis Event Note (H) - Evaluation Current Stage of Sepsis: Sepsis Possible source of Sepsis: positive: Genitourinary - Sepsis Criteria Sepsis Criteria: Recorded Heart Rate greater than 90 bpm, WBC count greater than 12,000 or less than 4000
[2019-07-29] MEDS: D5NS W/20 MEQ KCL 1,000 ML IV SCH ×3 (10:37→20:41)
[2019-07-29] MEDS ORDERED: D5NS W/20 MEQ KCL 1,000 ML IV SCH (11:00)
[2019-07-29] MEDS: miSOPROStoL 200 MCG TABLET PO SCH ×3 (13:19→20:27)
--- NOTE | 2019-07-29 16:51 | PROVIDER PROGRESS NOTE ---
Subjective - Prog Note Date Prog Note Date: 07/29/19 Prog Note Time: 16:49 - Subjective Subjective: Some bits of tissue passed, c/w POC's although volume less than expected. No significant vaginal bleeding. Still declines D&E Bedside US done that shows smaller volume (1.73cm) than that measured yesterday, all just above the internal cervical os. Continue with observed dosing of miso PO. Expect SAB will be complete in next 24 hours. Objective - Vital Signs/Intake & Output Vital Signs: Vital Signs x48h Temp Pulse Resp BP Pulse Ox 07/29/19 15:59 99.7 F H 122 H 20 123/78 100 07/29/19 13:24 99.0 F Intake & Output: Intake & Output 07/26/19 07/27/19 07/28/19 07/29/19 23:59 23:59 23:59 23:59 Intake Total 2151 6327.166 6091.67 5273.33 Output Total 3000 6850 6600 Balance 2151 3327.166 -758.33 -1326.67 - Lab Results Fish Bones: 07/29/19 04:50 07/29/19 04:50 Other Labs: Lab Results x24hrs 07/29/19 07/29/19 07/29/19 Range/Units 10:55 08:28 04:50 WBC (4.8-10.8) x10^3/uL RBC (4.20-5.40) 10^6/uL Hgb (12.0-16.0) g/dL Hct (37.0-47.0) % MCV (81.0-99.0) fL MCH (27.0-31.0) pg MCHC (32.0-36.0) g/dL RDW (12.0-15.0) % Plt Count (130-450) 10^3/uL MPV (7.9-10.8) fL Sodium 135 (135-145) mmol/L Potassium 3.0 L (3.5-5.0) mmol/L Chloride 103 (101-111) mmol/L Carbon Dioxide 22 (21-32) mmol/L Anion Gap 10.0 (6-13) BUN 7 (6-20) mg/dL Creatinine 1.5 H (0.4-1.0) mg/dL Estimated GFR (MDRD) 45 L (>89) Glucose 103 H (70-100) mg/dL POC Whole Bld Glucose 123 H 74 (70 - 100) mg/dL Calcium 8.1 L (8.5-10.3) mg/dL 07/29/19 07/29/19 07/28/19 Range/Units 04:50 00:50 20:39 WBC 15.6 H (4.8-10.8) x10^3/uL RBC 3.19 L (4.20-5.40) 10^6/uL Hgb 8.3 L 9.5 L (12.0-16.0) g/dL Hct 26.7 L 29.0 L (37.0-47.0) % MCV 83.7 (81.0-99.0) fL MCH 26.0 L (27.0-31.0) pg MCHC 31.1 L (32.0-36.0) g/dL RDW 14.2 (12.0-15.0) % Plt Count 261 (130-450) 10^3/uL MPV 10.4 (7.9-10.8) fL Sodium (135-145) mmol/L Potassium (3.5-5.0) mmol/L Chloride (101-111) mmol/L Carbon Dioxide (21-32) mmol/L Anion Gap (6-13) BUN (6-20) mg/dL Creatinine (0.4-1.0) mg/dL Estimated GFR (MDRD) (>89) Glucose (70-100) mg/dL POC Whole Bld Glucose 120 H (70 - 100) mg/dL Calcium (8.5-10.3) mg/dL Sepsis Event Note (H) - Evaluation Current Stage of Sepsis: Sepsis Possible source of Sepsis: positive: Genitourinary - Sepsis Criteria Sepsis Criteria: Recorded Heart Rate greater than 90 bpm, WBC count greater than 12,000 or less than 4000
[2019-07-30] MEDS: HYDROmorphone 1 MG/ML CARPUJECT IVP PRN ×6 (00:55→21:28)
[2019-07-30] MEDS: D5NS W/20 MEQ KCL 1,000 ML IV SCH ×5 (01:15→22:53)
[2019-07-30] MEDS: oxyCODONE 5 MG TABLET PO PRN ×2 (03:52→22:36)
[2019-07-30] MEDS: SODIUM CHLORIDE FLUSH 0.9% 10 ML SYRINGE IVP PRN ×2 (06:00→21:29)
[2019-07-30] MEDS: PANTOPRAZOLE 40 MG VIAL IVP SCH (06:00)
[2019-07-30] MEDS: SUCRALFATE 1 GM/10 ML UDC PO SCH ×2 (06:04→10:58)
[2019-07-30] MEDS: ONDANSETRON 4 MG/2 ML VIAL IVP PRN (06:15)
--- NOTE | 2019-07-30 07:23 | PROVIDER PROGRESS NOTE ---
Subjective - Prog Note Date Prog Note Date: 07/30/19 Prog Note Time: 07:12 - Subjective Subjective: Passed a few very small pieces of necrotic tissue overnight. Continues to decline D&E Using large amount narcotics for "10/10" pain but continues to appear completely comfortable when alone in the room. Tachycardia and fasting hyperglycemia continue Afebrile Abd soft, non-tender. A/P SAB not yet resolved; declined D&E. Cannot account for narcotic need with SAB which should require only motrin and tylenol. Behavior here and prior to admission at multiple ER's should raise the suspicion of drug seeking. Certainly it is a problem now. The pyelo is essentially resolved and also at this stage shouldn't require this level of pain medication. Would consider addressing this. Also continues to be hyperglycemic; consider formal evaluation Relative hypokalemia. Tachycardia cannot be accounted for by the pyelo as she is afebrile w neg blood cultures. She is well hydrated and anemia which is not severe in a 18 yo who is cannot account for it. Additionally, creat yesterday was 1.5; consider urine tox screen. Objective - Vital Signs/Intake & Output Vital Signs: Vital Signs x48h Temp Pulse Resp BP Pulse Ox 07/29/19 23:53 99.1 F 120 H 18 121/73 100 Intake & Output: Intake & Output 07/27/19 07/28/19 07/29/19 07/30/19 23:59 23:59 23:59 23:59 Intake Total 6327.166 6091.67 6766.663 2583.333 Output Total 3000 6850 8200 3000 Balance 3327.166 -758.33 -1433.337 -416.667 - Lab Results Fish Bones: 07/29/19 04:50 07/29/19 04:50 Other Labs: Lab Results x24hrs 07/29/19 07/29/19 07/29/19 Range/Units 20:56 16:46 10:55 POC Whole Bld Glucose 109 H 120 H 123 H (70 - 100) mg/dL 07/29/19 Range/Units 08:28 POC Whole Bld Glucose 74 (70 - 100) mg/dL Sepsis Event Note (H) - Evaluation Current Stage of Sepsis: Sepsis Possible source of Sepsis: positive: Genitourinary - Sepsis Criteria Sepsis Criteria: Recorded Heart Rate greater than 90 bpm, WBC count greater than 12,000 or less than 4000
[2019-07-30 09:00] LABS: BASOPHILS # (AUTO) 0.1 10^3/uL (0.0-0.1); BASOPHILS % (AUTO) 0.3 %; EOSINOPHILS # (AUTO) 0.5 10^3/uL (0.0-0.7); EOSINOPHILS % (AUTO) 2.9 %; LYMPHOCYTES # (AUTO) 1.1 10^3/uL (1.5-3.5); LYMPHOCYTES % (AUTO) 6.3 %; MEAN CORPUSCULAR HEMOGLOBIN 26.6 pg (27.0-31.0); MEAN CORPUSCULAR HGB CONC 32.4 g/dL (32.0-36.0); MEAN CORPUSCULAR VOLUME 82.2 fL (81.0-99.0); MEAN PLATELET VOLUME 9.5 fL (7.9-10.8); MONOCYTES # (AUTO) 1.2 10^3/uL (0.0-1.0); NEUTROPHILS % (AUTO) 81.6 %; PLT - PLATELET COUNT 319 10^3/uL (130-450); RED BLOOD COUNT 3.38 10^6/uL (4.20-5.40); RED CELL DISTRIBUTION WIDTH 14.5 % (12.0-15.0); WHITE BLOOD COUNT 17.2 x10^3/uL (4.8-10.8)
[2019-07-30 09:10] LABS: CALCIUM 7.9 mg/dL (8.5-10.3); CREATININE 1.7 mg/dL (0.4-1.0); MAGNESIUM 2.1 mg/dL (1.7-2.8)
[2019-07-30] MEDS: PROCHLORPERAZINE 10 MG/2 ML VIAL IVP PRN (10:51)
[2019-07-30] MEDS: cefTRIAXone 2 GM in SODIUM CHLORIDE 0.9% MINIBAG 100 ML IV SCH (10:51)
[2019-07-30] MEDS: SODIUM CHLORIDE FLUSH 0.9% 10 ML SYRINGE IVP SCH ×2 (10:52→16:43)
[2019-07-30] MEDS: LACTOBACILLUS RHAMNOSUS GG CAPSULE PO SCH ×2 (10:52→17:57)
[2019-07-30] MEDS: FAMOTIDINE 20 MG TABLET PO SCH (10:52)
[2019-07-30] MEDS: miSOPROStoL 200 MCG TABLET PO SCH ×3 (11:07→17:57)
[2019-07-30 11:32] LABS: ALBUMIN 2.5 g/dL (3.2-5.5); BILIRUBIN,DIRECT 0.1 mg/dL (0.1-0.5); BILIRUBIN,TOTAL 0.6 mg/dL (0.2-1.0); TOTAL PROTEIN 5.8 g/dL (6.7-8.2)
[2019-07-30] MEDS: METOCLOPRAMIDE 10 MG/2 ML VIAL IVP SCH ×3 (13:41→21:26)
--- NOTE | 2019-07-30 14:24 | Ultrasound Report ---
Reason: ROSY and Pyelonephritis Procedure Date: 07/30/2019 Accession Number: [id number] / [id number] Procedure: US - Retroperitoneal CPT Code: Final Report FULL RESULT: EXAM: RENAL ULTRASOUND EXAM DATE: 07/30/2019 11:56 AM. CLINICAL HISTORY: Acute kidney injury. Pyelonephritis. Bilateral flank pain since 07/24/2019. COMPARISON: RETROPERITONEAL 07/26/2019 10:57 PM ABDOMEN/PELVIS W/ 06/28/2019 8:30 PM. TECHNIQUE: Real-time scanning was performed with static images obtained. FINDINGS: Right Kidney: 14.5 cm. Mild dilation of the calyces. Otherwise unremarkable. Left Kidney: 15.8 cm. Mild calyceal dilation. Otherwise unremarkable. Focally prominent cortex adjacent to the hilum is visible on the prior CT, and is most likely a normal variant. Bladder: Bilateral jets seen. The prevoid bladder volume was 268 cc. The postvoid bladder volume was 0.8 cc. Other: None. IMPRESSION: 1. Mild bilateral calyceal dilation. 2. No other significant abnormality. RADIA
[2019-07-30 15:12] LABS: BILIRUBIN,URINE NEGATIVE (NEGATIVE); GLUCOSE, URINE (UA) NEGATIVE (NEGATIVE); KETONES,URINE (UA) NEGATIVE (NEGATIVE); LEUKOCYTE ESTERASE, URINE TRACE (NEGATIVE); NITRITE,URINE NEGATIVE (NEGATIVE); OCCULT BLOOD,URINE LARGE (NEGATIVE); PROTEIN,URINE NEGATIVE (NEGATIVE); UROBILINOGEN,URINE 0.2 (NORMAL) E.U./dL (NORMAL)
[2019-07-30 15:20] LABS: CLARITY,URINE CLOUDY (CLEAR)
[2019-07-30 15:26] LABS: BACTERIA,URINE Rare /HPF (None Seen); RBC,URINE TNTC /HPF (0-5); SQUAMOUS EPITHELIAL CELL,UR FEW Squamous (<= Few); WBC CLUMPS,URINE PRESENT
--- NOTE | 2019-07-30 15:44 | PROVIDER PROGRESS NOTE ---
Assessment/Plan - Problem List (1) Spontaneous Assessment/Plan: She still has not passed significant intra-uterine tissue. The prolonged intrauterine puts her at risk for ROSY, which she started to develop yesterday. I advised the patient to have the D&E that Dr Sampson, the OB offered. The patient is agreeable to have the procedure. I called Dr Sampson and let her know. Continue pain meds prn. (2) Sepsis Qualifiers: Sepsis type: sepsis due to unspecified organism Sepsis acute organ dysfunction status: unspecified Qualified Code(s): A41.9 - Sepsis, unspecified organism Assessment/Plan: Her WBC otto today, along with a recurrence of (low grade) fever of 99.5F, and worse flan pain today. Peritoneal ultrasound imaging of the entire renal system was ordered to be repeated and it was done today and it does not show any obstruction or worsening hydronephrosis. A repeat UA will be ordered for urine culture since there may be bacteria that is resistant to this ceftriaxone antibiotic. Her blood cultures are all negative to date. I will likely change her antibiotic coverage later today, to include coverage for anaerobes plus gram-negatives (3) N&V (nausea and vomiting) Assessment/Plan: The patient has reported for 3 days that she has no appetite but denied nausea. Today she did have nausea and requested that her "pink liquid" be stopped. Will stop her Carafate. Will change her diet from regular solid food to an easily digestible soft diet with low fiber. Start antiemetics PRN (4) ROSY (acute kidney injury) Assessment/Plan: New creatinine of 1.7 yesterday and it has increased to 1.8 today. She also has more flank pain. The concern is that she is having obstructive uropathy related to the pyelo Also her prolonged intrauterine gives her increased risk for ROSY. Will continue with IV hydration. Antibiotics will be changed for her UTI with sepsis. I spoke to Dr. Benedict to have the intrauterine tissue removed surgically, to which the patient agrees to this afternoon (5) Pyelonephritis Assessment/Plan: The repeat UA done today showed worsened hematuria and white blood cells, slt bacteria and still slt Leukocyte Esterase. Will change Ceftriaxone to iv Flagyl and Cipro. Await the newly ordered urine culture. (6) Anemia Assessment/Plan: Related to hemodilution plus slight vaginal bleeding. He got a dose of iron, ordered by the envelope folding machine adjuster Follow CBC daily. (7) Hyperglycemia Assessment/Plan: Her serum glucose was 140 at admission. The A1c was checked and it is 5.2 therefore she is not a diabetic. I suspect the elevated glucose was from the stress of the infection. We will cancel fingerstick glucose checks. 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 (10) Hypokalemia Assessment/Plan: Resolved with iv replacement - Current Meds Current Meds: Current Medications Generic Name Dose Route Start Last Admin Trade Name Freq PRN Reason Stop Dose Admin Acetaminophen 650 mg 07/27/19 01:31 07/29/19 16:57 Tylenol PO 650 mg Q4HR PRN Administration Pain 1 to 4 Hydromorphone HCl 1 mg 07/27/19 09:02 07/30/19 13:42 Dilaudid Inj Carp IVP 1 mg Q2H PRN Administration Pain 8 to 10 Ceftriaxone Sodium 2 gm/ 100 mls @ 200 mls/hr 07/27/19 10:00 07/30/19 12:02 Sodium Chloride IV 08/01/19 09:29 Infused DAILY ALEXUS Infusion Potassium Chloride/Dextrose/Sod Cl 1,000 mls @ 200 mls/hr 07/29/19 11:00 0 07/30/19 11:00 IV 200 mls/hr .Q5H ALEXUS Administration Lactobacillus Rhamnosus 1 cap 07/27/19 08:00 07/30/19 10:52 Culturelle PO Not Given BIDWM ALEXUS Lorazepam 0.5 mg 07/27/19 15:57 07/28/19 06:55 Ativan Inj (Vial) IVP 0.5 mg Q6H PRN Administration Anxiety Metoclopramide HCl 5 mg 07/30/19 12:06 07/30/19 13:41 Reglan Inj IVP 5 mg ACHS ALEXUS Administration Misoprostol 600 mcg 07/29/19 13:00 07/30/19 13:47 Cytotec PO Not Given QID ALEXUS Ondansetron HCl 4 mg 07/27/19 01:31 07/30/19 06:15 Zofran Inj IVP 4 mg Q6HR PRN Administration Nausea / Vomiting Oxycodone HCl 5 mg 07/27/19 01:31 07/30/19 03:52 Roxicodone PO 5 mg Q4HR PRN Administration Pain 5 to 7 Pantoprazole Sodium 40 mg 07/27/19 10:00 07/30/19 06:00 Protonix IVP 40 mg QDAC ALEXUS Administration Prochlorperazine Edisylate 10 mg 07/27/19 01:31 07/30/19 10:51 Compazine Inj IVP 10 mg Q6HR PRN Administration Nausea / Vomiting Sodium Chloride 10 ml 07/27/19 01:31 07/30/19 06:00 Normal Saline Flush 0.9% IVP 10 ml PRN PRN Administration NEEDED PER PROVIDER ORDERS Sodium Chloride 10 ml 07/27/19 09:00 07/30/19 10:52 Normal Saline Flush 0.9% IVP 10 ml 0100,0900,1700 ALEXUS Administration - Lab Result Fish Bone Diagrams: 07/30/19 08:50 07/30/19 08:50 - Additional Planning My Orders: My Active Orders 07/30/19 12:06 Metoclopramide Inj [Reglan Inj] 5 mg IVP ACHS 07/30/19 14:55 CUL, URINE [RM] Urgent 07/30/19 Dinner DIET [Soft (Low Fiber) Diet] [DIET] 07/31/19 05:00 BMP - BASIC METABOLIC PANEL [CHEM] DAILYLAB CBC - COMP BLD CT W/AUTO DIFF [HEME] DAILYLAB 08/01/19 05:00 BMP - BASIC METABOLIC PANEL [CHEM] DAILYLAB CBC - COMP BLD CT W/AUTO DIFF [HEME] DAILYLAB 08/02/19 05:00 BMP - BASIC METABOLIC PANEL [CHEM] DAILYLAB CBC - COMP BLD CT W/AUTO DIFF [HEME] DAILYLAB 08/03/19 05:00 BMP - BASIC METABOLIC PANEL [CHEM] DAILYLAB CBC - COMP BLD CT W/AUTO DIFF [HEME] DAILYLAB Objective Vital Signs: Vital Signs - 24 hr 07/29/19 07/29/19 07/30/19 15:59 23:53 08:00 Temperature 37.6 C H 37.3 C 37.3 C Heart Rate [ 122 H 120 H 124 H Brachial] Respiratory 20 18 16 Rate Blood Pressure 123/78 121/73 127/89 H [Right Brachial artery] O2 Saturation 100 100 100 07/30/19 07/30/19 13:04 13:40 Temperature 37.5 C 37 C Heart Rate [ Brachial] Respiratory Rate Blood Pressure [Right Brachial artery] O2 Saturation Oxygen O2 Source Room air I&O (Last 24 Hrs): Intake and Output Totals x24h 07/28/19 07/29/19 07/30/19 23:59 23:59 23:59 Intake Total 6091.67 6766.663 3683.333 Output Total 6850 8200 4400 Balance -758.33 -1433.337 -716.667 - Results Results: Laboratory Results WBC 17.2 x10^3/uL (4.8-10.8) H 07/30/19 08:50 RBC 3.38 10^6/uL (4.20-5.40) L 07/30/19 08:50 Hgb 9.0 g/dL (12.0-16.0) L 07/30/19 08:50 Hct 27.8 % (37.0-47.0) L 07/30/19 08:50 MCV 82.2 fL (81.0-99.0) 07/30/19 08:50 MCH 26.6 pg (27.0-31.0) L 07/30/19 08:50 MCHC 32.4 g/dL (32.0-36.0) 07/30/19 08:50 RDW 14.5 % (12.0-15.0) 07/30/19 08:50 Plt Count 319 10^3/uL (130-450) 07/30/19 08:50 MPV 9.5 fL (7.9-10.8) 07/30/19 08:50 Reticulocyte % (Auto) 1.85 % (0.5-2.3) 07/28/19 05:25 Neut # (Auto) 14.0 10^3/uL (1.5-6.6) H 07/30/19 08:50 Lymph # (Auto) 1.1 10^3/uL (1.5-3.5) L 07/30/19 08:50 Sac # (Auto) 1.2 10^3/uL (0.0-1.0) H 07/30/19 08:50 Eos # (Auto) 0.5 10^3/uL (0.0-0.7) 07/30/19 08:50 Baso # (Auto) 0.1 10^3/uL (0.0-0.1) 07/30/19 08:50 Absolute Nucleated RBC 0.00 x10^3/uL 07/30/19 08:50 Nucleated RBC % 0.0 /100WBC 07/30/19 08:50 Absolute Retic 0.062 10^6/uL (0.020-0.110) 07/28/19 05:25 Sodium 138 mmol/L (135-145) 07/30/19 08:50 Potassium 3.5 mmol/L (3.5-5.0) 07/30/19 08:50 Chloride 110 mmol/L (101-111) 07/30/19 08:50 Carbon Dioxide 20 mmol/L (21-32) L 07/30/19 08:50 Anion Gap 8.0 (6-13) 07/30/19 08:50 BUN 7 mg/dL (6-20) 07/30/19 08:50 Creatinine 1.7 mg/dL (0.4-1.0) H 07/30/19 08:50 Estimated GFR (MDRD) 39 (>89) L 07/30/19 08:50 Glucose 155 mg/dL (70-100) H 07/30/19 08:50 POC Whole Bld Glucose 111 mg/dL (70 - 100) H 07/30/19 11:48 Glycated Hemoglobin 5.2 % (4.6-6.2) 07/28/19 05:20 Estim Average Glucose 103 (70-100) H 07/28/19 05:20 Lactic Acid 0.8 mmol/L (0.5-2.2) 07/26/19 20:18 Calcium 7.9 mg/dL (8.5-10.3) L 07/30/19 08:50 Magnesium 2.1 mg/dL (1.7-2.8) 07/30/19 08:50 Iron 196 ug/dL (28-170) H 07/28/19 05:25 TIBC 227 ug/dL (250-450) L 07/28/19 05:25 % Saturation 86 % (20-50) H 07/28/19 05:25 Transferrin 162 mg/dL (192-382) L 07/28/19 05:25 Ferritin 202.7 ng/mL (11.0-306.8) 07/28/19 05:25 Total Bilirubin 0.6 mg/dL (0.2-1.0) 07/30/19 08:50 Direct Bilirubin 0.1 mg/dL (0.1-0.5) 07/30/19 08:50 AST 28 IU/L (10-42) 07/30/19 08:50 ALT 35 IU/L (10-60) 07/30/19 08:50 Alkaline Phosphatase 76 IU/L (42-121) 07/30/19 08:50 Lactate Dehydrogenase 126 IU/L (91-225) 07/28/19 05:25 Total Protein 5.8 g/dL (6.7-8.2) L 07/30/19 08:50 Albumin 2.5 g/dL (3.2-5.5) L 07/30/19 08:50 Globulin 3.3 g/dL (2.1-4.2) 07/30/19 08:50 Albumin/Globulin Ratio 1.0 (1.0-2.2) 07/26/19 20:00 Lipase 25 U/L (22-51) 07/26/19 20:00 Vitamin B12 562 pg/mL (180-914) 07/28/19 05:25 HCG, Quant 02598.00 mIU/mL 07/26/19 20:00 Urine Color YELLOW 07/30/19 14:55 Urine Clarity CLOUDY (CLEAR) 07/30/19 14:55 Urine pH 7.0 PH (5.0-7.5) 07/30/19 14:55 Ur Specific [place] 1.015 (1.002-1.030) 07/30/19 14:55 Urine Protein NEGATIVE mg/dL (NEGATIVE) 07/30/19 14:55 Urine Glucose (UA) NEGATIVE mg/dL (NEGATIVE) 07/30/19 14:55 Urine Ketones NEGATIVE mg/dL (NEGATIVE) 07/30/19 14:55 Urine Occult Blood LARGE (NEGATIVE) H 07/30/19 14:55 Urine Nitrite NEGATIVE (NEGATIVE) 07/30/19 14:55 Urine Bilirubin NEGATIVE (NEGATIVE) 07/30/19 14:55 Urine Urobilinogen 0.2 (NORMAL) E.U./dL (NORMAL) 07/30/19 14:55 Ur Leukocyte Esterase TRACE (NEGATIVE) H 07/30/19 14:55 Urine RBC TNTC /HPF (0-5) H 07/30/19 14:55 Urine WBC 11-25 /HPF (0-5) H 07/30/19 14:55 Urine WBC Clumps PRESENT 07/30/19 14:55 Ur Squamous Epith Cells FEW Squamous (<= Few) 07/30/19 14:55 Urine Bacteria Rare /HPF (None Seen) 07/30/19 14:55 Ur Microscopic Review INDICATED 07/27/19 00:09 Urine Culture Comments INDICATED 07/30/19 14:55 U Random Total Protein 14 mg/dL 07/30/19 14:55 Urine Creatinine 18.0 mg/dL 07/30/19 14:55 Blood Type B POSITIVE 07/28/19 11:45 Antibody Screen NEGATIVE 07/28/19 11:45 Sepsis Event Note (H) - Evaluation Current Stage of Sepsis: Sepsis Possible source of Sepsis: positive: Genitourinary - Sepsis Criteria Sepsis Criteria: Recorded Heart Rate greater than 90 bpm, WBC count greater than 12,000 or less than 4000
--- NOTE | 2019-07-30 16:34 | PROVIDER PROGRESS NOTE ---
Subjective - Subjective Subjective: Patient now agrees to D&E. Has been NPO except clear liqs >2 hours so will proceed using local and conscious sedation. Objective - Vital Signs/Intake & Output Vital Signs: Vital Signs x48h Temp 07/30/19 13:40 98.6 F 07/30/19 13:04 99.5 F Intake & Output: Intake & Output 07/27/19 07/28/19 07/29/19 07/30/19 23:59 23:59 23:59 23:59 Intake Total 6327.166 6091.67 6766.663 3683.333 Output Total 3000 6850 8200 4400 Balance 3327.166 -758.33 -1433.337 -716.667 - Lab Results Fish Bones: 07/30/19 08:50 07/30/19 08:50 Other Labs: Lab Results x24hrs 07/30/19 07/30/19 07/30/19 Range/Units 14:55 14:55 11:48 WBC (4.8-10.8) x10^3/uL RBC (4.20-5.40) 10^6/uL Hgb (12.0-16.0) g/dL Hct (37.0-47.0) % MCV (81.0-99.0) fL MCH (27.0-31.0) pg MCHC (32.0-36.0) g/dL RDW (12.0-15.0) % Plt Count (130-450) 10^3/uL MPV (7.9-10.8) fL Neut # (Auto) (1.5-6.6) 10^3/uL Lymph # (Auto) (1.5-3.5) 10^3/uL [place] # (Auto) (0.0-1.0) 10^3/uL Eos # (Auto) (0.0-0.7) 10^3/uL Baso # (Auto) (0.0-0.1) 10^3/uL Absolute Nucleated RBC x10^3/uL Nucleated RBC % /100WBC Sodium (135-145) mmol/L Potassium (3.5-5.0) mmol/L Chloride (101-111) mmol/L Carbon Dioxide (21-32) mmol/L Anion Gap (6-13) BUN (6-20) mg/dL Creatinine (0.4-1.0) mg/dL Estimated GFR (MDRD) (>89) Glucose (70-100) mg/dL POC Whole Bld Glucose 111 H (70 - 100) mg/dL Calcium (8.5-10.3) mg/dL Magnesium (1.7-2.8) mg/dL Total Bilirubin (0.2-1.0) mg/dL Direct Bilirubin (0.1-0.5) mg/dL AST (10-42) IU/L ALT (10-60) IU/L Alkaline Phosphatase (42-121) IU/L Total Protein (6.7-8.2) g/dL Albumin (3.2-5.5) g/dL Globulin (2.1-4.2) g/dL Urine Color YELLOW Urine Clarity CLOUDY (CLEAR) Urine pH 7.0 (5.0-7.5) PH Ur Specific [place] 1.015 (1.002-1.030) Urine Protein NEGATIVE (NEGATIVE) mg/dL Urine Glucose (UA) NEGATIVE (NEGATIVE) mg/dL Urine Ketones NEGATIVE (NEGATIVE) mg/dL Urine Occult Blood LARGE H (NEGATIVE) Urine Nitrite NEGATIVE (NEGATIVE) Urine Bilirubin NEGATIVE (NEGATIVE) Urine Urobilinogen 0.2 (NORMAL) (NORMAL) E.U./dL Ur Leukocyte Esterase TRACE H (NEGATIVE) Urine RBC TNTC H (0-5) /HPF Urine WBC 11-25 H (0-5) /HPF Urine WBC Clumps PRESENT Ur Squamous Epith Cells FEW Squamous (<= Few) Urine Bacteria Rare (None Seen) /HPF Urine Culture Comments INDICATED U Random Total Protein 14 mg/dL Urine Creatinine 18.0 mg/dL 07/30/19 07/30/19 07/30/19 Range/Units 08:50 08:50 08:50 WBC 17.2 H (4.8-10.8) x10^3/uL RBC 3.38 L (4.20-5.40) 10^6/uL Hgb 9.0 L (12.0-16.0) g/dL Hct 27.8 L (37.0-47.0) % MCV 82.2 (81.0-99.0) fL MCH 26.6 L (27.0-31.0) pg MCHC 32.4 (32.0-36.0) g/dL RDW 14.5 (12.0-15.0) % Plt Count 319 (130-450) 10^3/uL MPV 9.5 (7.9-10.8) fL Neut # (Auto) 14.0 H (1.5-6.6) 10^3/uL Lymph # (Auto) 1.1 L (1.5-3.5) 10^3/uL [place] # (Auto) 1.2 H (0.0-1.0) 10^3/uL Eos # (Auto) 0.5 (0.0-0.7) 10^3/uL Baso # (Auto) 0.1 (0.0-0.1) 10^3/uL Absolute Nucleated RBC 0.00 x10^3/uL Nucleated RBC % 0.0 /100WBC Sodium 138 (135-145) mmol/L Potassium 3.5 (3.5-5.0) mmol/L Chloride 110 (101-111) mmol/L Carbon Dioxide 20 L (21-32) mmol/L Anion Gap 8.0 (6-13) BUN 7 (6-20) mg/dL Creatinine 1.7 H (0.4-1.0) mg/dL Estimated GFR (MDRD) 39 L (>89) Glucose 155 H (70-100) mg/dL POC Whole Bld Glucose (70 - 100) mg/dL Calcium 7.9 L (8.5-10.3) mg/dL Magnesium 2.1 (1.7-2.8) mg/dL Total Bilirubin 0.6 (0.2-1.0) mg/dL Direct Bilirubin 0.1 (0.1-0.5) mg/dL AST 28 (10-42) IU/L ALT 35 (10-60) IU/L Alkaline Phosphatase 76 (42-121) IU/L Total Protein 5.8 L (6.7-8.2) g/dL Albumin 2.5 L (3.2-5.5) g/dL Globulin 3.3 (2.1-4.2) g/dL Urine Color Urine Clarity (CLEAR) Urine pH (5.0-7.5) PH Ur Specific [place] (1.002-1.030) Urine Protein (NEGATIVE) mg/dL Urine Glucose (UA) (NEGATIVE) mg/dL Urine Ketones (NEGATIVE) mg/dL Urine Occult Blood (NEGATIVE) Urine Nitrite (NEGATIVE) Urine Bilirubin (NEGATIVE) Urine Urobilinogen (NORMAL) E.U./dL Ur Leukocyte Esterase (NEGATIVE) Urine RBC (0-5) /HPF Urine WBC (0-5) /HPF Urine WBC Clumps Ur Squamous Epith Cells (<= Few) Urine Bacteria (None Seen) /HPF Urine Culture Comments U Random Total Protein mg/dL Urine Creatinine mg/dL 07/30/19 07/29/19 07/29/19 Range/Units 08:04 20:56 16:46 WBC (4.8-10.8) x10^3/uL RBC (4.20-5.40) 10^6/uL Hgb (12.0-16.0) g/dL Hct (37.0-47.0) % MCV (81.0-99.0) fL MCH (27.0-31.0) pg MCHC (32.0-36.0) g/dL RDW (12.0-15.0) % Plt Count (130-450) 10^3/uL MPV (7.9-10.8) fL Neut # (Auto) (1.5-6.6) 10^3/uL Lymph # (Auto) (1.5-3.5) 10^3/uL [place] # (Auto) (0.0-1.0) 10^3/uL Eos # (Auto) (0.0-0.7) 10^3/uL Baso # (Auto) (0.0-0.1) 10^3/uL Absolute Nucleated RBC x10^3/uL Nucleated RBC % /100WBC Sodium (135-145) mmol/L Potassium (3.5-5.0) mmol/L Chloride (101-111) mmol/L Carbon Dioxide (21-32) mmol/L Anion Gap (6-13) BUN (6-20) mg/dL Creatinine (0.4-1.0) mg/dL Estimated GFR (MDRD) (>89) Glucose (70-100) mg/dL POC Whole Bld Glucose 159 H 109 H 120 H (70 - 100) mg/dL Calcium (8.5-10.3) mg/dL Magnesium (1.7-2.8) mg/dL Total Bilirubin (0.2-1.0) mg/dL Direct Bilirubin (0.1-0.5) mg/dL AST (10-42) IU/L ALT (10-60) IU/L Alkaline Phosphatase (42-121) IU/L Total Protein (6.7-8.2) g/dL Albumin (3.2-5.5) g/dL Globulin (2.1-4.2) g/dL Urine Color Urine Clarity (CLEAR) Urine pH (5.0-7.5) PH Ur Specific [place] (1.002-1.030) Urine Protein (NEGATIVE) mg/dL Urine Glucose (UA) (NEGATIVE) mg/dL Urine Ketones (NEGATIVE) mg/dL Urine Occult Blood (NEGATIVE) Urine Nitrite (NEGATIVE) Urine Bilirubin (NEGATIVE) Urine Urobilinogen (NORMAL) E.U./dL Ur Leukocyte Esterase (NEGATIVE) Urine RBC (0-5) /HPF Urine WBC (0-5) /HPF Urine WBC Clumps Ur Squamous Epith Cells (<= Few) Urine Bacteria (None Seen) /HPF Urine Culture Comments U Random Total Protein mg/dL Urine Creatinine mg/dL Sepsis Event Note (H) - Evaluation Current Stage of Sepsis: Sepsis Possible source of Sepsis: positive: Genitourinary - Sepsis Criteria Sepsis Criteria: Recorded Heart Rate greater than 90 bpm, WBC count greater than 12,000 or less than 4000
--- NOTE | 2019-07-30 17:20 | ANESTHESIA ---
Pre-Anesthesia VS, & Labs - Diagnosis missed AB - Procedure D & C Vital Signs: Temp Pulse Resp BP Pulse Ox 37.3 C 125 H 16 129/79 100 07/30/19 16:00 07/30/19 16:00 07/30/19 16:00 07/30/19 16:00 07/30/19 16:00 Height 5 ft 5 in Weight (kg) 71 kg Body Mass Index 26.0 - NPO >8 hours - Is Patient ?: Yes (missed AB), No - Lab Results Current Lab Results: Laboratory Tests 07/30/19 16:45: POC Whole Bld Glucose 119 H 07/30/19 11:48: POC Whole Bld Glucose 111 H 07/30/19 08:50: Total Bilirubin 0.6, Direct Bilirubin 0.1, AST 28, ALT 35, Alkaline Phosphatase 76, Total Protein 5.8 L, Albumin 2.5 L, Globulin 3.3 07/30/19 08:50: Sodium 138, Potassium 3.5, Chloride 110, Carbon Dioxide 20 L, Anion Gap 8.0, BUN 7, Creatinine 1.7 H, Estimated GFR (MDRD) 39 L, Glucose 155 H , Calcium 7.9 L, Magnesium 2.1 07/30/19 08:50: WBC 17.2 H, RBC 3.38 L, Hgb 9.0 L, Hct 27.8 L, MCV 82.2, MCH 26.6 L, MCHC 32.4, RDW 14.5, Plt Count 319, MPV 9.5, Neut # (Auto) 14.0 H, Lymph # (Auto) 1.1 L, [place] # (Auto) 1.2 H, Eos # (Auto) 0.5, Baso # (Auto) 0.1, Absolute Nucleated RBC 0.00, Nucleated RBC % 0.0 07/30/19 08:04: POC Whole Bld Glucose 159 H 07/29/19 20:56: POC Whole Bld Glucose 109 H 07/29/19 16:46: POC Whole Bld Glucose 120 H 07/29/19 10:55: POC Whole Bld Glucose 123 H 07/29/19 08:28: POC Whole Bld Glucose 74 07/29/19 04:50: Sodium 135, Potassium 3.0 L, Chloride 103, Carbon Dioxide 22, Anion Gap 10.0, BUN 7, Creatinine 1.5 H, Estimated GFR (MDRD) 45 L, Glucose 103 H, Calcium 8.1 L 07/29/19 04:50: WBC 15.6 H, RBC 3.19 L, Hgb 8.3 L, Hct 26.7 L, MCV 83.7, MCH 26.0 L, MCHC 31.1 L, RDW 14.2, Plt Count 261, MPV 10.4 07/29/19 00:50: Hgb 9.5 L, Hct 29.0 L 07/28/19 20:39: POC Whole Bld Glucose 120 H 07/28/19 11:45: Blood Type B POSITIVE, Antibody Screen NEGATIVE 07/28/19 05:25: Lactate Dehydrogenase 126 07/28/19 05:25: Ferritin 202.7, Vitamin B12 562 07/28/19 05:25: Iron 196 H, TIBC 227 L, % Saturation 86 H, Transferrin 162 L 07/28/19 05:25: RBC 3.33 L, Reticulocyte % (Auto) 1.85, Absolute Retic 0.062 07/28/19 05:20: Glycated Hemoglobin 5.2, Estim Average Glucose 103 H 07/28/19 05:20: Sodium 138, Potassium 3.7, Chloride 109, Carbon Dioxide 21, Anion Gap 8.0, BUN 6, Creatinine 1.0, Estimated GFR (MDRD) 71 L, Glucose 112 H, Calcium 8.2 L 07/28/19 05:20: WBC 15.9 H, RBC 3.24 L, Hgb 8.8 L, Hct 26.8 L, MCV 82.7, MCH 27.2, MCHC 32.8, RDW 14.1, Plt Count 216, MPV 10.2 07/27/19 20:10: Sodium 133 L, Potassium 3.5, Chloride 106, Carbon Dioxide 19 L, Anion Gap 8.0, BUN 6, Creatinine 1.0, Estimated GFR (MDRD) 71 L, Glucose 169 H, Calcium 8.1 L 07/27/19 12:44: Sodium 134 L, Potassium 3.9, Chloride 106, Carbon Dioxide 21, Anion Gap 7.0, BUN 6, Creatinine 0.9, Estimated GFR (MDRD) 81 L, Glucose 116 H, Calcium 8.4 L 07/27/19 05:50: Sodium 135, Potassium 3.4 L, Chloride 105, Carbon Dioxide 23, Anion Gap 7.0, BUN 5 L, Creatinine 0.8, Estimated GFR (MDRD) 92, Glucose 148 H, Calcium 8.3 L 07/27/19 05:50: WBC 16.3 H, RBC 3.88 L, Hgb 10.5 L, Hct 32.0 L, MCV 82.5, MCH 27.1, MCHC 32.8, RDW 14.3, Plt Count 255, MPV 10.2 07/26/19 20:18: Lactic Acid 0.8 07/26/19 20:00: HCG, Quant 09397.00 07/26/19 20:00: Sodium 136, Potassium 2.9 L, Chloride 103, Carbon Dioxide 23, Anion Gap 10.0, BUN 6, Creatinine 0.8, Estimated GFR (MDRD) 92, Glucose 114 H, Calcium 8.9, Total Bilirubin 1.1 H, AST 20, ALT 51, Alkaline Phosphatase 85, Total Protein 7.5, Albumin 3.8, Globulin 3.7, Albumin/Globulin Ratio 1.0, Lipase 25 07/26/19 20:00: WBC 17.4 H, RBC 4.07 L, Hgb 10.9 L, Hct 33.0 L, MCV 81.1, MCH 26.8 L, MCHC 33.0, RDW 14.1, Plt Count 271, MPV 10.4, Neut # (Auto) 14.8 H, Lymph # (Auto) 1.1 L, [place] # (Auto) 1.1 H, Eos # (Auto) 0.3, Baso # (Auto) 0.1, Absolute Nucleated RBC 0.00, Nucleated RBC % 0.0 Fish Bones: 07/30/19 08:50 07/30/19 08:50 Home Medications and Allergies Home Medications: Ambulatory Orders Famotidine 20 mg PO BID 07/27/19 Lidocaine [Lidoderm] 1 patch TOP PRN PRN 07/27/19 Pantoprazole Sodium 40 mg PO BID 07/27/19 No.137/Iron/Folic Acd [ Vitamin Tablet] 1 tab PO DAILY 07/27/19 Active Medications Acetaminophen (Tylenol) 650 mg PO Q4HR PRN PRN Reason: Pain 1 to 4 Last Admin: 07/29/19 16:57 Dose: 650 mg Diphenoxylate HCl/Atropine (Lomotil) 1 tab PO QID PRN PRN Reason: Diarrhea Hydromorphone HCl (Dilaudid Inj Carp) 1 mg IVP Q2H PRN PRN Reason: Pain 8 to 10 Last Admin: 07/30/19 13:42 Dose: 1 mg Ceftriaxone Sodium 2 gm/ (Sodium Chloride) 100 mls @ 200 mls/hr IV DAILY [facility] Stop: 08/01/19 09:29 Last Infusion: 07/30/19 12:02 Dose: Infused Potassium Chloride/Dextrose/Sod Cl () 1,000 mls @ 200 mls/hr IV .Q5H [facility] Last Admin: 07/30/19 16:43 Dose: 200 mls/hr Lactobacillus Rhamnosus (Culturelle) 1 cap PO BIDWM [facility] Last Admin: 07/30/19 10:52 Dose: Not Given Lidocaine HCl (Xylocaine Viscous 2%) 5 ml MM Q4H PRN PRN Reason: PAIN Lorazepam (Ativan Inj (Vial)) 0.5 mg IVP Q6H PRN PRN Reason: Anxiety Last Admin: 07/28/19 06:55 Dose: 0.5 mg Metoclopramide HCl (Reglan Inj) 5 mg IVP ACHS [facility] Last Admin: 07/30/19 16:35 Dose: 5 mg Misoprostol (Cytotec) 600 mcg PO QID [facility] Last Admin: 07/30/19 13:47 Dose: Not Given Ondansetron HCl (Zofran Inj) 4 mg IVP Q6HR PRN PRN Reason: Nausea / Vomiting Last Admin: 07/30/19 06:15 Dose: 4 mg Oxycodone HCl (Roxicodone) 5 mg PO Q4HR PRN PRN Reason: Pain 5 to 7 Last Admin: 07/30/19 03:52 Dose: 5 mg Pantoprazole Sodium (Protonix) 40 mg IVP QDAC [facility] Last Admin: 07/30/19 06:00 Dose: 40 mg Prochlorperazine Edisylate (Compazine Inj) 10 mg IVP Q6HR PRN PRN Reason: Nausea / Vomiting Last Admin: 07/30/19 10:51 Dose: 10 mg Ropinirole HCl (Requip) 0.25 mg PO QPM PRN PRN Reason: RESTLESS LEGS Sodium Chloride (Normal Saline Flush 0.9%) 10 ml IVP PRN PRN PRN Reason: NEEDED PER PROVIDER ORDERS Last Admin: 07/30/19 06:00 Dose: 10 ml Sodium Chloride (Normal Saline Flush 0.9%) 10 ml IVP 0100,0900,1700 [facility] Last Admin: 07/30/19 16:43 Dose: 10 ml Famotidine 20 mg PO BID 07/27/19 Lidocaine [Lidoderm] 1 patch TOP PRN PRN 07/27/19 Pantoprazole Sodium 40 mg PO BID 07/27/19 No.137/Iron/Folic Acd [ Vitamin Tablet] 1 tab PO DAILY 07/27/19 Allergies/Adverse Reactions: Allergies Allergy/AdvReac Type Severity Reaction Status Date / Time Iodinated Contrast Media Allergy Anaphylaxis Verified 07/26/19 19:26 cyclobenzaprine AdvReac Emesis Verified 07/27/19 02:29 Anes History & Medical History - Anesthetic History Anesthesia Complications: reports: No previous complications - Medical History Cardiovascular: reports: None Pulmonary: reports: Pneumonia, Other (Denies) Gastrointestinal: reports: GERD, Other. denies: Esophageal varices (Recurrent nausea/vomiting. 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
[2019-07-30] MEDS ORDERED: LIDOCAINE 2%-EPI 1:100000 20 ML MDV ONE (17:22)
[2019-07-30] MEDS ORDERED: LIDOCAINE 1%-EPI 1:100000 20 ML MDV ONE (17:30)
[2019-07-30] MEDS ORDERED: fentaNYL 100 MCG/2 ML VIAL IVP ONE (17:40)
[2019-07-30] MEDS ORDERED: ONDANSETRON 4 MG/2 ML VIAL IVP ONE (17:40)
[2019-07-30] MEDS ORDERED: PROPOFOL 200 MG/20 ML VIAL IVP ONE (17:40)
[2019-07-30] MEDS ORDERED: MIDAZOLAM 2 MG/2 ML VIAL IVP ONE (17:40)
[2019-07-30] MEDS ORDERED: LIDOCAINE 1%-EPI 1:100000 30 ML MDV SUBQ ONE (17:59)
[2019-07-30 18:47] LABS: MUDS CUTOFF CONCENTRATIONS CUTOFF CONC BELOW:
[2019-07-30 18:59] LABS: AMPHETAMINE SCREEN,URINE NEGATIVE (NEGATIVE); BENZODIAZEPINES SCREEN, URINE NEGATIVE (NEGATIVE); COCAINE SCREEN URINE NEGATIVE (NEGATIVE); METHADONE SCREEN, URINE NEGATIVE (NEGATIVE); METHAMPHETAMINES SCREEN, URINE NEGATIVE (NEGATIVE); OPIATE SCREEN, URINE POSITIVE (NEGATIVE); OXYCODONE SCREEN, URINE POSITIVE (NEGATIVE); PROPOXYPHENE SCREEN, URINE NEGATIVE (NEGATIVE); TRICYCLIC ANTIDEPRESSANT,URINE NEGATIVE (NEGATIVE)
--- NOTE | 2019-07-30 19:14 | OPERATIVE REPORT ---
Operative Report - General Admit Date: 07/29/19 Procedure Date: 07/30/19 Planned Procedure: Suction D&E Pre-Op Diagnosis: Incomplete SAB Procedure Performed: Suction D&E Post Op Diagnosis: Same - Procedure Note Primary Surgeon: Gertrude Sampson MD Secondary Surgeon: Andrea Anesthesia Provider: Taty Anesthesia Technique: MAC Pathology: Retained POC's IV Fluids (mL): 300 Estimated Blood Loss (mL): 5 Urine Output (mL): 200 Indications: Retained POC's Findings: Scant necrotic tissue, villi Complications: None - Other Other Information/Narrative: Patient was brought to the operating room where conscious sedation was administered. She was placed in dorsal lithotomy postition and prepped and draped in usual fashion. Her bladder was emptied of 200cc clear urine. A speculum was placed and the cervix grasped with a single tooted tenaculum. A paracervical block of 10cc 1% lidocaine with epi was placed. The cervix easily admitted a 7mm canula. The cavity was suctioned cleaned of retained products. A gentle curettage to ensure it was empty was done. Products were examined and villi were seen. The procedure was terminated. Counts were correct and there were no complications. I performed the entire procedure.
--- NOTE | 2019-07-30 19:48 | PROVIDER PROGRESS NOTE ---
Subjective - Subjective Subjective: PO check No complaints. Scant spotting. Stable. Specimen submitted to pathology Will sign off; return if other [facility] issues arise. Objective - Vital Signs/Intake & Output Vital Signs: Vital Signs x48h Temp Pulse Pulse Resp BP BP Pulse Ox 07/30/19 19:04 98.6 F 112 H 16 121/80 100 07/30/19 18:49 98.8 F 110 H 16 121/77 98 07/30/19 18:34 98.6 F 115 H 16 123/71 98 07/30/19 18:25 99.9 F H 113 H 23 117/78 96 07/30/19 18:20 100.2 F H 115 H 25 H 119/77 96 07/30/19 18:15 116 H 25 H 105/76 97 07/30/19 18:12 100.4 F H 117 H 13 113/68 100 07/30/19 16:00 99.1 F 125 H 16 129/79 100 07/30/19 13:40 98.6 F 07/30/19 13:04 99.5 F Intake & Output: Intake & Output 07/27/19 07/28/19 07/29/19 07/30/19 23:59 23:59 23:59 23:59 Intake Total 6327.166 6091.67 6766.663 4683.333 Output Total 3000 6850 8200 5200 Balance 3327.166 -758.33 -1433.337 -516.667 - Lab Results Fish Bones: 07/30/19 08:50 07/30/19 08:50 Other Labs: Lab Results x24hrs 07/30/19 07/30/19 07/30/19 Range/Units 18:46 16:45 14:55 WBC (4.8-10.8) x10^3/uL RBC (4.20-5.40) 10^6/uL Hgb (12.0-16.0) g/dL Hct (37.0-47.0) % MCV (81.0-99.0) fL MCH (27.0-31.0) pg MCHC (32.0-36.0) g/dL RDW (12.0-15.0) % Plt Count (130-450) 10^3/uL MPV (7.9-10.8) fL Neut # (Auto) (1.5-6.6) 10^3/uL Lymph # (Auto) (1.5-3.5) 10^3/uL [place] # (Auto) (0.0-1.0) 10^3/uL Eos # (Auto) (0.0-0.7) 10^3/uL Baso # (Auto) (0.0-0.1) 10^3/uL Absolute Nucleated RBC x10^3/uL Nucleated RBC % /100WBC Sodium (135-145) mmol/L Potassium (3.5-5.0) mmol/L Chloride (101-111) mmol/L Carbon Dioxide (21-32) mmol/L Anion Gap (6-13) BUN (6-20) mg/dL Creatinine (0.4-1.0) mg/dL Estimated GFR (MDRD) (>89) Glucose (70-100) mg/dL POC Whole Bld Glucose 119 H (70 - 100) mg/dL Calcium (8.5-10.3) mg/dL Magnesium (1.7-2.8) mg/dL Total Bilirubin (0.2-1.0) mg/dL Direct Bilirubin (0.1-0.5) mg/dL AST (10-42) IU/L ALT (10-60) IU/L Alkaline Phosphatase (42-121) IU/L Total Protein (6.7-8.2) g/dL Albumin (3.2-5.5) g/dL Globulin (2.1-4.2) g/dL Urine Color YELLOW Urine Clarity CLOUDY (CLEAR) Urine pH 7.0 (5.0-7.5) PH Ur Specific [place] 1.015 (1.002-1.030) Urine Protein NEGATIVE (NEGATIVE) mg/dL Urine Glucose (UA) NEGATIVE (NEGATIVE) mg/dL Urine Ketones NEGATIVE (NEGATIVE) mg/dL Urine Occult Blood LARGE H (NEGATIVE) Urine Nitrite NEGATIVE (NEGATIVE) Urine Bilirubin NEGATIVE (NEGATIVE) Urine Urobilinogen 0.2 (NORMAL) (NORMAL) E.U./dL Ur Leukocyte Esterase TRACE H (NEGATIVE) Urine RBC TNTC H (0-5) /HPF Urine WBC 11-25 H (0-5) /HPF Urine WBC Clumps PRESENT Ur Squamous Epith Cells FEW Squamous (<= Few) Urine Bacteria Rare (None Seen) /HPF Urine Culture Comments INDICATED U Random Total Protein mg/dL Urine Creatinine mg/dL Urine Opiates Screen POSITIVE H (NEGATIVE) Ur Oxycodone Screen POSITIVE H (NEGATIVE) Urine Methadone Screen NEGATIVE (NEGATIVE) Ur Propoxyphene Screen NEGATIVE (NEGATIVE) Ur Barbiturates Screen NEGATIVE (NEGATIVE) Ur Tricyclics Screen NEGATIVE (NEGATIVE) Ur Phencyclidine Scrn NEGATIVE (NEGATIVE) Ur Amphetamine Screen NEGATIVE (NEGATIVE) U Methamphetamines Scrn NEGATIVE (NEGATIVE) U Benzodiazepines Scrn NEGATIVE (NEGATIVE) Urine Cocaine Screen NEGATIVE (NEGATIVE) U Cannabinoids Screen NEGATIVE (NEGATIVE) 07/30/19 07/30/19 07/30/19 Range/Units 14:55 11:48 08:50 WBC (4.8-10.8) x10^3/uL RBC (4.20-5.40) 10^6/uL Hgb (12.0-16.0) g/dL Hct (37.0-47.0) % MCV (81.0-99.0) fL MCH (27.0-31.0) pg MCHC (32.0-36.0) g/dL RDW (12.0-15.0) % Plt Count (130-450) 10^3/uL MPV (7.9-10.8) fL Neut # (Auto) (1.5-6.6) 10^3/uL Lymph # (Auto) (1.5-3.5) 10^3/uL [place] # (Auto) (0.0-1.0) 10^3/uL Eos # (Auto) (0.0-0.7) 10^3/uL Baso # (Auto) (0.0-0.1) 10^3/uL Absolute Nucleated RBC x10^3/uL Nucleated RBC % /100WBC Sodium (135-145) mmol/L Potassium (3.5-5.0) mmol/L Chloride (101-111) mmol/L Carbon Dioxide (21-32) mmol/L Anion Gap (6-13) BUN (6-20) mg/dL Creatinine (0.4-1.0) mg/dL Estimated GFR (MDRD) (>89) Glucose (70-100) mg/dL POC Whole Bld Glucose 111 H (70 - 100) mg/dL Calcium (8.5-10.3) mg/dL Magnesium (1.7-2.8) mg/dL Total Bilirubin 0.6 (0.2-1.0) mg/dL Direct Bilirubin 0.1 (0.1-0.5) mg/dL AST 28 (10-42) IU/L ALT 35 (10-60) IU/L Alkaline Phosphatase 76 (42-121) IU/L Total Protein 5.8 L (6.7-8.2) g/dL Albumin 2.5 L (3.2-5.5) g/dL Globulin 3.3 (2.1-4.2) g/dL Urine Color Urine Clarity (CLEAR) Urine pH (5.0-7.5) PH Ur Specific [place] (1.002-1.030) Urine Protein (NEGATIVE) mg/dL Urine Glucose (UA) (NEGATIVE) mg/dL Urine Ketones (NEGATIVE) mg/dL Urine Occult Blood (NEGATIVE) Urine Nitrite (NEGATIVE) Urine Bilirubin (NEGATIVE) Urine Urobilinogen (NORMAL) E.U./dL Ur Leukocyte Esterase (NEGATIVE) Urine RBC (0-5) /HPF Urine WBC (0-5) /HPF Urine WBC Clumps Ur Squamous Epith Cells (<= Few) Urine Bacteria (None Seen) /HPF Urine Culture Comments U Random Total Protein 14 mg/dL Urine Creatinine 18.0 mg/dL Urine Opiates Screen (NEGATIVE) Ur Oxycodone Screen (NEGATIVE) Urine Methadone Screen (NEGATIVE) Ur Propoxyphene Screen (NEGATIVE) Ur Barbiturates Screen (NEGATIVE) Ur Tricyclics Screen (NEGATIVE) Ur Phencyclidine Scrn (NEGATIVE) Ur Amphetamine Screen (NEGATIVE) U Methamphetamines Scrn (NEGATIVE) U Benzodiazepines Scrn (NEGATIVE) Urine Cocaine Screen (NEGATIVE) U Cannabinoids Screen (NEGATIVE) 07/30/19 07/30/19 07/30/19 Range/Units 08:50 08:50 08:04 WBC 17.2 H (4.8-10.8) x10^3/uL RBC 3.38 L (4.20-5.40) 10^6/uL Hgb 9.0 L (12.0-16.0) g/dL Hct 27.8 L (37.0-47.0) % MCV 82.2 (81.0-99.0) fL MCH 26.6 L (27.0-31.0) pg MCHC 32.4 (32.0-36.0) g/dL RDW 14.5 (12.0-15.0) % Plt Count 319 (130-450) 10^3/uL MPV 9.5 (7.9-10.8) fL Neut # (Auto) 14.0 H (1.5-6.6) 10^3/uL Lymph # (Auto) 1.1 L (1.5-3.5) 10^3/uL [place] # (Auto) 1.2 H (0.0-1.0) 10^3/uL Eos # (Auto) 0.5 (0.0-0.7) 10^3/uL Baso # (Auto) 0.1 (0.0-0.1) 10^3/uL Absolute Nucleated RBC 0.00 x10^3/uL Nucleated RBC % 0.0 /100WBC Sodium 138 (135-145) mmol/L Potassium 3.5 (3.5-5.0) mmol/L Chloride 110 (101-111) mmol/L Carbon Dioxide 20 L (21-32) mmol/L Anion Gap 8.0 (6-13) BUN 7 (6-20) mg/dL Creatinine 1.7 H (0.4-1.0) mg/dL Estimated GFR (MDRD) 39 L (>89) Glucose 155 H (70-100) mg/dL POC Whole Bld Glucose 159 H (70 - 100) mg/dL Calcium 7.9 L (8.5-10.3) mg/dL Magnesium 2.1 (1.7-2.8) mg/dL Total Bilirubin (0.2-1.0) mg/dL Direct Bilirubin (0.1-0.5) mg/dL AST (10-42) IU/L ALT (10-60) IU/L Alkaline Phosphatase (42-121) IU/L Total Protein (6.7-8.2) g/dL Albumin (3.2-5.5) g/dL Globulin (2.1-4.2) g/dL Urine Color Urine Clarity (CLEAR) Urine pH (5.0-7.5) PH Ur Specific [place] (1.002-1.030) Urine Protein (NEGATIVE) mg/dL Urine Glucose (UA) (NEGATIVE) mg/dL Urine Ketones (NEGATIVE) mg/dL Urine Occult Blood (NEGATIVE) Urine Nitrite (NEGATIVE) Urine Bilirubin (NEGATIVE) Urine Urobilinogen (NORMAL) E.U./dL Ur Leukocyte Esterase (NEGATIVE) Urine RBC (0-5) /HPF Urine WBC (0-5) /HPF Urine WBC Clumps Ur Squamous Epith Cells (<= Few) Urine Bacteria (None Seen) /HPF Urine Culture Comments U Random Total Protein mg/dL Urine Creatinine mg/dL Urine Opiates Screen (NEGATIVE) Ur Oxycodone Screen (NEGATIVE) Urine Methadone Screen (NEGATIVE) Ur Propoxyphene Screen (NEGATIVE) Ur Barbiturates Screen (NEGATIVE) Ur Tricyclics Screen (NEGATIVE) Ur Phencyclidine Scrn (NEGATIVE) Ur Amphetamine Screen (NEGATIVE) U Methamphetamines Scrn (NEGATIVE) U Benzodiazepines Scrn (NEGATIVE) Urine Cocaine Screen (NEGATIVE) U Cannabinoids Screen (NEGATIVE) 07/29/19 Range/Units 20:56 WBC (4.8-10.8) x10^3/uL RBC (4.20-5.40) 10^6/uL Hgb (12.0-16.0) g/dL Hct (37.0-47.0) % MCV (81.0-99.0) fL MCH (27.0-31.0) pg MCHC (32.0-36.0) g/dL RDW (12.0-15.0) % Plt Count (130-450) 10^3/uL MPV (7.9-10.8) fL Neut # (Auto) (1.5-6.6) 10^3/uL Lymph # (Auto) (1.5-3.5) 10^3/uL [place] # (Auto) (0.0-1.0) 10^3/uL Eos # (Auto) (0.0-0.7) 10^3/uL Baso # (Auto) (0.0-0.1) 10^3/uL Absolute Nucleated RBC x10^3/uL Nucleated RBC % /100WBC Sodium (135-145) mmol/L Potassium (3.5-5.0) mmol/L Chloride (101-111) mmol/L Carbon Dioxide (21-32) mmol/L Anion Gap (6-13) BUN (6-20) mg/dL Creatinine (0.4-1.0) mg/dL Estimated GFR (MDRD) (>89) Glucose (70-100) mg/dL POC Whole Bld Glucose 109 H (70 - 100) mg/dL Calcium (8.5-10.3) mg/dL Magnesium (1.7-2.8) mg/dL Total Bilirubin (0.2-1.0) mg/dL Direct Bilirubin (0.1-0.5) mg/dL AST (10-42) IU/L ALT (10-60) IU/L Alkaline Phosphatase (42-121) IU/L Total Protein (6.7-8.2) g/dL Albumin (3.2-5.5) g/dL Globulin (2.1-4.2) g/dL Urine Color Urine Clarity (CLEAR) Urine pH (5.0-7.5) PH Ur Specific [place] (1.002-1.030) Urine Protein (NEGATIVE) mg/dL Urine Glucose (UA) (NEGATIVE) mg/dL Urine Ketones (NEGATIVE) mg/dL Urine Occult Blood (NEGATIVE) Urine Nitrite (NEGATIVE) Urine Bilirubin (NEGATIVE) Urine Urobilinogen (NORMAL) E.U./dL Ur Leukocyte Esterase (NEGATIVE) Urine RBC (0-5) /HPF Urine WBC (0-5) /HPF Urine WBC Clumps Ur Squamous Epith Cells (<= Few) Urine Bacteria (None Seen) /HPF Urine Culture Comments U Random Total Protein mg/dL Urine Creatinine mg/dL Urine Opiates Screen (NEGATIVE) Ur Oxycodone Screen (NEGATIVE) Urine Methadone Screen (NEGATIVE) Ur Propoxyphene Screen (NEGATIVE) Ur Barbiturates Screen (NEGATIVE) Ur Tricyclics Screen (NEGATIVE) Ur Phencyclidine Scrn (NEGATIVE) Ur Amphetamine Screen (NEGATIVE) U Methamphetamines Scrn (NEGATIVE) U Benzodiazepines Scrn (NEGATIVE) Urine Cocaine Screen (NEGATIVE) U Cannabinoids Screen (NEGATIVE) Sepsis Event Note (H) - Evaluation Current Stage of Sepsis: Sepsis Possible source of Sepsis: positive: Genitourinary - Sepsis Criteria Sepsis Criteria: Recorded Heart Rate greater than 90 bpm, WBC count greater than 12,000 or less than 4000
[2019-07-30] MEDS: ACETAMINOPHEN 325 MG TABLET PO PRN (22:37)
[2019-07-30] MEDS: LORazepam 2 MG/ML VIAL IVP PRN (22:53)
[2019-07-31] MEDS: SODIUM CHLORIDE FLUSH 0.9% 10 ML SYRINGE IVP SCH ×3 (00:42→16:23)
[2019-07-31] MEDS: HYDROmorphone 1 MG/ML CARPUJECT IVP PRN ×6 (00:55→21:25)
[2019-07-31] MEDS: D5NS W/20 MEQ KCL 1,000 ML IV SCH ×4 (03:32→19:25)
[2019-07-31] MEDS: oxyCODONE 5 MG TABLET PO PRN ×3 (04:41→19:24)
[2019-07-31] MEDS: ACETAMINOPHEN 325 MG TABLET PO PRN (04:41)
[2019-07-31 05:34] LABS: BASOPHILS # (AUTO) 0.1 10^3/uL (0.0-0.1); BASOPHILS % (AUTO) 0.3 %; EOSINOPHILS # (AUTO) 0.5 10^3/uL (0.0-0.7); EOSINOPHILS % (AUTO) 3.3 %; HGB - HEMOGLOBIN 8.8 g/dL (12.0-16.0); LYMPHOCYTES # (AUTO) 1.7 10^3/uL (1.5-3.5); LYMPHOCYTES % (AUTO) 10.6 %; MEAN CORPUSCULAR HEMOGLOBIN 25.9 pg (27.0-31.0); MEAN CORPUSCULAR VOLUME 83.5 fL (81.0-99.0); MEAN PLATELET VOLUME 9.3 fL (7.9-10.8); MONOCYTES # (AUTO) 0.9 10^3/uL (0.0-1.0); NEUTROPHILS % (AUTO) 77.1 %; PLT - PLATELET COUNT 303 10^3/uL (130-450); RED CELL DISTRIBUTION WIDTH 14.7 % (12.0-15.0); WHITE BLOOD COUNT 15.5 x10^3/uL (4.8-10.8)
[2019-07-31 05:43] LABS: CALCIUM 7.9 mg/dL (8.5-10.3); CREATININE 1.7 mg/dL (0.4-1.0)
[2019-07-31] MEDS: PANTOPRAZOLE 40 MG VIAL IVP SCH (06:22)
[2019-07-31] MEDS: METOCLOPRAMIDE 10 MG/2 ML VIAL IVP SCH ×4 (06:23→21:25)
[2019-07-31] MEDS: SODIUM CHLORIDE FLUSH 0.9% 10 ML SYRINGE IVP PRN (06:29)
[2019-07-31] MEDS: cefTRIAXone 2 GM in SODIUM CHLORIDE 0.9% MINIBAG 100 ML IV SCH (08:43)
[2019-07-31] MEDS: LACTOBACILLUS RHAMNOSUS GG CAPSULE PO SCH ×2 (08:46→16:23)
--- NOTE | 2019-07-31 12:21 | PROVIDER PROGRESS NOTE ---
Assessment/Plan - Problem List (1) Sepsis Qualifiers: Sepsis type: sepsis due to unspecified organism Sepsis acute organ dysfunction status: unspecified Qualified Code(s): A41.9 - Sepsis, unspecified organism Assessment/Plan: She had another fever spike at midnight. She is still tachycardic. Her white blood count has slightly improved. Continue with IV antibiotics for pyelonephritis. Awaiting repeat urine cultures. Blood cultures are negative to date. (2) N&V (nausea and vomiting) Assessment/Plan: This continues for the third day. Despite adjusting her diet, she still has intolerance. We will request a nutrition consult to help with the diet order. Continue with PRN antiemetics. Continue with scheduled Reglan iv ac and hs, will increase from 5mg dose to 10mg dose. (3) ROSY (acute kidney injury) Assessment/Plan: Continued elevated creat of 1.7 today, same as yesterday. Hopefully with removal of the prolonged intrauterine , this will correct. Continue with IV hydration while she is nauseated and vomiting. Follow BMP daily. (4) Pyelonephritis Assessment/Plan: The retroperitoneal ultrasound has been done twice, there are no signs of stones, hydronephrosis, dilatation, obstruction. Her urinalysis was repeated yesterday since there was no urine culture done at admission. Continue with empiric antibiotics, adjust if needed and eventual transition to oral when she is not nauseated. She is getting impatient with how long her flank pain is lasting. (5) Spontaneous Assessment/Plan: She agreed to and had a D&E with OB last evening. (6) Anemia Assessment/Plan: Hemodilutional and from vaginal bleeding. Nutrition did give her iron replacement therapy and she continues on a vitamin. 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 She apparently did not have final repair of some portion of the intestines, as per Dr. Sampson's (the OB) consult (8) Fibromyalgia Assessment/Plan: Pain meds continue (9) Hypokalemia Assessment/Plan: Resolved with replacement. - Current Meds Current Meds: Current Medications Generic Name Dose Route Start Last Admin Trade Name Freq PRN Reason Stop Dose Admin Acetaminophen 650 mg 07/27/19 01:31 07/31/19 04:41 Tylenol PO 650 mg Q4HR PRN Administration Pain 1 to 4 Hydromorphone HCl 1 mg 07/27/19 09:02 07/31/19 09:20 Dilaudid Inj Carp IVP 1 mg Q2H PRN Administration Pain 8 to 10 Ceftriaxone Sodium 2 gm/ 100 mls @ 200 mls/hr 07/27/19 10:00 07/31/19 09:19 Sodium Chloride IV 08/01/19 09:29 Infused DAILY ALEXUS Infusion Potassium Chloride/Dextrose/Sod Cl 1,000 mls @ 200 mls/hr 07/29/19 11:00 07/31/19 11:48 IV 200 mls/hr .Q5H ALEXUS Infusion Lactobacillus Rhamnosus 1 cap 07/27/19 08:00 07/31/19 08:46 Culturelle PO Not Given BIDWM ALEXUS Lorazepam 0.5 mg 07/27/19 15:57 07/30/19 22:53 Ativan Inj (Vial) IVP 0.5 mg Q6H PRN Administration Anxiety Metoclopramide HCl 5 mg 07/30/19 12:06 07/31/19 11:40 Reglan Inj IVP 5 mg ACHS ALEXUS Administration Ondansetron HCl 4 mg 07/27/19 01:31 07/30/19 06:15 Zofran Inj IVP 4 mg Q6HR PRN Administration Nausea / Vomiting Oxycodone HCl 5 mg 07/27/19 01:31 07/31/19 11:39 Roxicodone PO 5 mg Q4HR PRN Administration Pain 5 to 7 Pantoprazole Sodium 40 mg 07/27/19 10:00 07/31/19 06:22 Protonix IVP 40 mg QDAC ALEXUS Administration Prochlorperazine Edisylate 10 mg 07/27/19 01:31 07/30/19 10:51 Compazine Inj IVP 10 mg Q6HR PRN Administration Nausea / Vomiting Sodium Chloride 10 ml 07/27/19 01:31 07/31/19 06:29 Normal Saline Flush 0.9% IVP 10 ml PRN PRN Administration NEEDED PER PROVIDER ORDERS Sodium Chloride 10 ml 07/27/19 09:00 07/31/19 08:49 Normal Saline Flush 0.9% IVP 10 ml 0100,0900,1700 ALEXUS Administration - Lab Result Fish Bone Diagrams: 07/31/19 05:25 07/31/19 05:25 - Additional Planning My Orders: My Active Orders 07/30/19 12:06 Metoclopramide Inj [Reglan Inj] 5 mg IVP ACHS 07/30/19 14:55 CUL, URINE [RM] Urgent 07/31/19 12:17 Nutrition Consult [CONS] Routine 07/31/19 Dinner DIET [Dysphagia Puree Diet] [DIET] 08/01/19 05:00 BMP - BASIC METABOLIC PANEL [CHEM] DAILYLAB CBC - COMP BLD CT W/AUTO DIFF [HEME] DAILYLAB 08/02/19 05:00 BMP - BASIC METABOLIC PANEL [CHEM] DAILYLAB CBC - COMP BLD CT W/AUTO DIFF [HEME] DAILYLAB 08/03/19 05:00 BMP - BASIC METABOLIC PANEL [CHEM] DAILYLAB CBC - COMP BLD CT W/AUTO DIFF [HEME] DAILYLAB Subjective - Subjective Patient Reports: Back Pain (flanks hurt), Nausea (no appealing food) Nursing Reports: Pain (He is requiring IV antibiotics for pain but wants to be discharged home today) Objective Vital Signs: Vital Signs - 24 hr 07/30/19 07/30/19 07/30/19 13:04 13:40 16:00 Temperature 37.5 C 37 C 37.3 C Heart Rate Heart Rate [ 125 H Brachial] Respiratory 16 Rate Blood Pressure Blood Pressure 129/79 [Right Brachial artery] O2 Saturation 100 07/30/19 07/30/19 07/30/19 18:12 18:15 18:20 Temperature 38.0 C H 37.9 C H Heart Rate 117 H 116 H 115 H Heart Rate [ Brachial] Respiratory 13 25 H 25 H Rate Blood Pressure 113/68 105/76 119/77 Blood Pressure [Right Brachial artery] O2 Saturation 100 97 96 07/30/19 07/30/19 07/30/19 18:25 18:34 18:49 Temperature 37.7 C H 37.0 C 37.1 C Heart Rate 113 H Heart Rate [ 115 H 110 H Brachial] Respiratory 23 16 16 Rate Blood Pressure 117/78 Blood Pressure 123/71 121/77 [Right Brachial artery] O2 Saturation 96 98 98 07/30/19 07/30/19 07/30/19 19:04 19:34 20:04 Temperature 37.0 C 36.8 C 37.2 C Heart Rate Heart Rate [ 112 H 120 H 110 H Brachial] Respiratory 16 16 16 Rate Blood Pressure Blood Pressure 121/80 129/79 129/90 H [Right Brachial artery] O2 Saturation 100 100 100 07/30/19 07/31/19 07/31/19 21:04 01:00 08:00 Temperature 36.8 C 36.9 C 37.0 C Heart Rate Heart Rate [ 119 H 107 H 117 H Brachial] Respiratory 16 18 16 Rate Blood Pressure Blood Pressure 135/89 H 122/77 129/85 H [Right Brachial artery] O2 Saturation 100 100 99 Oxygen O2 Source Room air I&O (Last 24 Hrs): Intake and Output Totals x24h 07/29/19 07/30/19 07/31/19 23:59 23:59 23:59 Intake Total 6766.663 6183.333 2983.333 Output Total 8200 6400 3500 Balance -1433.337 -216.667 -516.667 General: Alert, Oriented x3 HEENT: Mucous membr. moist/pink Neck: Supple Neuro: Alert, Non Focal Cardiovascular: Regular rate Respiratory: No respiratory distress Abdomen: Normal bowel sounds, Soft, Other (Obese with pannus) Extremities: No edema - Results Results: Laboratory Results WBC 15.5 x10^3/uL (4.8-10.8) H 07/31/19 05:25 RBC 3.40 10^6/uL (4.20-5.40) L 07/31/19 05:25 Hgb 8.8 g/dL (12.0-16.0) L 07/31/19 05:25 Hct 28.4 % (37.0-47.0) L 07/31/19 05:25 MCV 83.5 fL (81.0-99.0) 07/31/19 05:25 MCH 25.9 pg (27.0-31.0) L 07/31/19 05:25 MCHC 31.0 g/dL (32.0-36.0) L 07/31/19 05:25 RDW 14.7 % (12.0-15.0) 07/31/19 05:25 Plt Count 303 10^3/uL (130-450) 07/31/19 05:25 MPV 9.3 fL (7.9-10.8) 07/31/19 05:25 Reticulocyte % (Auto) 1.85 % (0.5-2.3) 07/28/19 05:25 Neut # (Auto) 12.0 10^3/uL (1.5-6.6) H 07/31/19 05:25 Lymph # (Auto) 1.7 10^3/uL (1.5-3.5) 07/31/19 05:25 [place] # (Auto) 0.9 10^3/uL (0.0-1.0) 07/31/19 05:25 Eos # (Auto) 0.5 10^3/uL (0.0-0.7) 07/31/19 05:25 Baso # (Auto) 0.1 10^3/uL (0.0-0.1) 07/31/19 05:25 Absolute Nucleated RBC 0.00 x10^3/uL 07/31/19 05:25 Nucleated RBC % 0.0 /100WBC 07/31/19 05:25 Absolute Retic 0.062 10^6/uL (0.020-0.110) 07/28/19 05:25 Sodium 138 mmol/L (135-145) 07/31/19 05:25 Potassium 3.6 mmol/L (3.5-5.0) 07/31/19 05:25 Chloride 110 mmol/L (101-111) 07/31/19 05:25 Carbon Dioxide 18 mmol/L (21-32) L 07/31/19 05:25 Anion Gap 10.0 (6-13) 07/31/19 05:25 BUN 6 mg/dL (6-20) 07/31/19 05:25 Creatinine 1.7 mg/dL (0.4-1.0) H 07/31/19 05:25 Estimated GFR (MDRD) 39 (>89) L 07/31/19 05:25 Glucose 148 mg/dL (70-100) H 07/31/19 05:25 POC Whole Bld Glucose 119 mg/dL (70 - 100) H 07/30/19 16:45 Glycated Hemoglobin 5.2 % (4.6-6.2) 07/28/19 05:20 Estim Average Glucose 103 (70-100) H 07/28/19 05:20 Lactic Acid 0.8 mmol/L (0.5-2.2) 07/26/19 20:18 Calcium 7.9 mg/dL (8.5-10.3) L 07/31/19 05:25 Magnesium 2.1 mg/dL (1.7-2.8) 07/30/19 08:50 Iron 196 ug/dL (28-170) H 07/28/19 05:25 TIBC 227 ug/dL (250-450) L 07/28/19 05:25 % Saturation 86 % (20-50) H 07/28/19 05:25 Transferrin 162 mg/dL (192-382) L 07/28/19 05:25 Ferritin 202.7 ng/mL (11.0-306.8) 07/28/19 05:25 Total Bilirubin 0.6 mg/dL (0.2-1.0) 07/30/19 08:50 Direct Bilirubin 0.1 mg/dL (0.1-0.5) 07/30/19 08:50 AST 28 IU/L (10-42) 07/30/19 08:50 ALT 35 IU/L (10-60) 07/30/19 08:50 Alkaline Phosphatase 76 IU/L (42-121) 07/30/19 08:50 Lactate Dehydrogenase 126 IU/L (91-225) 07/28/19 05:25 Total Protein 5.8 g/dL (6.7-8.2) L 07/30/19 08:50 Albumin 2.5 g/dL (3.2-5.5) L 07/30/19 08:50 Globulin 3.3 g/dL (2.1-4.2) 07/30/19 08:50 Albumin/Globulin Ratio 1.0 (1.0-2.2) 07/26/19 20:00 Lipase 25 U/L (22-51) 07/26/19 20:00 Vitamin B12 562 pg/mL (180-914) 07/28/19 05:25 HCG, Quant 29119.00 mIU/mL 07/26/19 20:00 Urine Color YELLOW 07/30/19 14:55 Urine Clarity CLOUDY (CLEAR) 07/30/19 14:55 Urine pH 7.0 PH (5.0-7.5) 07/30/19 14:55 Ur Specific [place] 1.015 (1.002-1.030) 07/30/19 14:55 Urine Protein NEGATIVE mg/dL (NEGATIVE) 07/30/19 14:55 Urine Glucose (UA) NEGATIVE mg/dL (NEGATIVE) 07/30/19 14:55 Urine Ketones NEGATIVE mg/dL (NEGATIVE) 07/30/19 14:55 Urine Occult Blood LARGE (NEGATIVE) H 07/30/19 14:55 Urine Nitrite NEGATIVE (NEGATIVE) 07/30/19 14:55 Urine Bilirubin NEGATIVE (NEGATIVE) 07/30/19 14:55 Urine Urobilinogen 0.2 (NORMAL) E.U./dL (NORMAL) 07/30/19 14:55 Ur Leukocyte Esterase TRACE (NEGATIVE) H 07/30/19 14:55 Urine RBC TNTC /HPF (0-5) H 07/30/19 14:55 Urine WBC 11-25 /HPF (0-5) H 07/30/19 14:55 Urine WBC Clumps PRESENT 07/30/19 14:55 Ur Squamous Epith Cells FEW Squamous (<= Few) 07/30/19 14:55 Urine Bacteria Rare /HPF (None Seen) 07/30/19 14:55 Ur Microscopic Review INDICATED 07/27/19 00:09 Urine Culture Comments INDICATED 07/30/19 14:55 U Random Total Protein 14 mg/dL 07/30/19 14:55 Urine Creatinine 18.0 mg/dL 07/30/19 14:55 Urine Opiates Screen POSITIVE (NEGATIVE) H 07/30/19 18:46 Ur Oxycodone Screen POSITIVE (NEGATIVE) H 07/30/19 18:46 Urine Methadone Screen NEGATIVE (NEGATIVE) 07/30/19 18:46 Ur Propoxyphene Screen NEGATIVE (NEGATIVE) 07/30/19 18:46 Ur Barbiturates Screen NEGATIVE (NEGATIVE) 07/30/19 18:46 Ur Tricyclics Screen NEGATIVE (NEGATIVE) 07/30/19 18:46 Ur Phencyclidine Scrn NEGATIVE (NEGATIVE) 07/30/19 18:46 Ur Amphetamine Screen NEGATIVE (NEGATIVE) 07/30/19 18:46 U Methamphetamines Scrn NEGATIVE (NEGATIVE) 07/30/19 18:46 U Benzodiazepines Scrn NEGATIVE (NEGATIVE) 07/30/19 18:46 Urine Cocaine Screen NEGATIVE (NEGATIVE) 07/30/19 18:46 U Cannabinoids Screen NEGATIVE (NEGATIVE) 07/30/19 18:46 Blood Type B POSITIVE 07/28/19 11:45 Antibody Screen NEGATIVE 07/28/19 11:45 Sepsis Event Note (H) - Evaluation Current Stage of Sepsis: Sepsis Possible source of Sepsis: positive: Genitourinary - Sepsis Criteria Sepsis Criteria: Recorded Heart Rate greater than 90 bpm, WBC count greater than 12,000 or less than 4000
[2019-08-01] MEDS: D5NS W/20 MEQ KCL 1,000 ML IV SCH ×2 (00:29→05:15)
[2019-08-01] MEDS: ACETAMINOPHEN 325 MG TABLET PO PRN ×3 (00:33→20:48)
[2019-08-01] MEDS: oxyCODONE 5 MG TABLET PO PRN ×3 (00:33→20:48)
[2019-08-01] MEDS: SODIUM CHLORIDE FLUSH 0.9% 10 ML SYRINGE IVP SCH ×3 (00:35→16:14)
[2019-08-01] MEDS: ONDANSETRON 4 MG/2 ML VIAL IVP PRN (05:05)
[2019-08-01] MEDS: HYDROmorphone 1 MG/ML CARPUJECT IVP PRN ×2 (05:09→07:55)
[2019-08-01 05:56] LABS: BASOPHILS % (AUTO) 0.5 %; EOSINOPHILS % (AUTO) 3.7 %; HGB - HEMOGLOBIN 8.9 g/dL (12.0-16.0); LYMPHOCYTES % (AUTO) 12.5 %; MEAN CORPUSCULAR HEMOGLOBIN 26.7 pg (27.0-31.0); MEAN CORPUSCULAR HGB CONC 31.3 g/dL (32.0-36.0); MEAN CORPUSCULAR VOLUME 85.3 fL (81.0-99.0); MEAN PLATELET VOLUME 9.7 fL (7.9-10.8); MONOCYTES % (AUTO) 6.2 %; NEUTROPHILS % (AUTO) 72.1 %; PLT - PLATELET COUNT 380 10^3/uL (130-450); RED BLOOD COUNT 3.33 10^6/uL (4.20-5.40); RED CELL DISTRIBUTION WIDTH 15.2 % (12.0-15.0); WHITE BLOOD COUNT 14.9 x10^3/uL (4.8-10.8)
[2019-08-01 06:00] LABS: ABNORMAL LYMPHS % (MANUAL) 0 %
[2019-08-01 06:06] LABS: CALCIUM 8.2 mg/dL (8.5-10.3); CREATININE 1.6 mg/dL (0.4-1.0)
[2019-08-01 06:21] LABS: BAND NEUTROPHILS % (MANUAL) 4 %; EOSINOPHILS # (MANUAL) 0.1 10^3/uL (0-0.7); LYMPHOCYTES # (MANUAL) 2.5 10^3/uL (1.5-3.5); LYMPHOCYTES % (MANUAL) 17 %; MONOCYTES # (MANUAL) 0.6 10^3/uL (0.0-1.0); MYELOCYTES % (MANUAL) 3 %; PLATELET ESTIMATE, MANUAL NORMAL (130-450,000) (NORMAL); PLATELET MORPHOLOGY NORMAL APPEARANCE (NORMAL); RBC MORPHOLOGY (MULTIPLE) NORMAL APPEARANCE (NORMAL)
[2019-08-01] MEDS: METOCLOPRAMIDE 10 MG/2 ML VIAL IVP SCH ×4 (06:31→20:47)
[2019-08-01] MEDS: SODIUM CHLORIDE FLUSH 0.9% 10 ML SYRINGE IVP PRN (06:31)
[2019-08-01] MEDS: PANTOPRAZOLE 40 MG VIAL IVP SCH (06:31)
[2019-08-01 06:34] LABS: DIFFERENTIAL COMMENT MANUAL DIFFERENTIAL
--- NOTE | 2019-08-01 07:36 | PROVIDER PROGRESS NOTE ---
Subjective - Prog Note Date Prog Note Date: 08/01/19 - Subjective Subjective: Continues to complain of bilateral flank pain that is worse in the right side but this is improving. She is eager to go home as soon as possible. She is unhappy with the hospital food. Reports no abdominal pain and no evidence of bleeding. States her nausea and vomiting has resolved. Current Medications - Current Medications Current Medications: Active Medications Acetaminophen (Tylenol) 650 mg PO Q4HR PRN PRN Reason: Pain 1 to 4 Last Admin: 08/01/19 00:33 Dose: 650 mg Diphenoxylate HCl/Atropine (Lomotil) 1 tab PO QID PRN PRN Reason: Diarrhea Hydromorphone HCl (Dilaudid Inj Carp) 1 mg IVP Q2H PRN PRN Reason: Pain 8 to 10 Last Admin: 08/01/19 07:55 Dose: 1 mg Ceftriaxone Sodium 2 gm/ (Sodium Chloride) 100 mls @ 200 mls/hr IV DAILY [facility] Stop: 08/01/19 09:29 Last Infusion: 07/31/19 09:19 Dose: Infused Lactated Ringer's (Lr) 1,000 mls @ 125 mls/hr IV .Q8H ALEXUS Lactobacillus Rhamnosus (Culturelle) 1 cap PO BIDWM [facility] Last Admin: 07/31/19 16:23 Dose: Not Given Lidocaine HCl (Xylocaine Viscous 2%) 5 ml MM Q4H PRN PRN Reason: PAIN Lorazepam (Ativan Inj (Vial)) 0.5 mg IVP Q6H PRN PRN Reason: Anxiety Last Admin: 07/30/19 22:53 Dose: 0.5 mg Metoclopramide HCl (Reglan Inj) 10 mg IVP ACHS [facility] Last Admin: 08/01/19 06:31 Dose: 10 mg Ondansetron HCl (Zofran Inj) 4 mg IVP Q6HR PRN PRN Reason: Nausea / Vomiting Last Admin: 08/01/19 05:05 Dose: 4 mg Oxycodone HCl (Roxicodone) 5 mg PO Q4HR PRN PRN Reason: Pain 5 to 7 Last Admin: 08/01/19 00:33 Dose: 5 mg Pantoprazole Sodium (Protonix) 40 mg IVP QDAC [facility] Last Admin: 08/01/19 06:31 Dose: 40 mg Prochlorperazine Edisylate (Compazine Inj) 10 mg IVP Q6HR PRN PRN Reason: Nausea / Vomiting Last Admin: 08/01/19 07:54 Dose: 10 mg Ropinirole HCl (Requip) 0.25 mg PO QPM PRN PRN Reason: RESTLESS LEGS Sodium Chloride (Normal Saline Flush 0.9%) 10 ml IVP PRN PRN PRN Reason: NEEDED PER PROVIDER ORDERS Last Admin: 08/01/19 06:31 Dose: 10 ml Sodium Chloride (Normal Saline Flush 0.9%) 10 ml IVP 0100,0900,1700 ALEXUS Last Admin: 08/01/19 00:35 Dose: Not Given Famotidine 20 mg PO BID 07/27/19 Lidocaine [Lidoderm] 1 patch TOP PRN PRN 07/27/19 Pantoprazole Sodium 40 mg PO BID 07/27/19 No.137/Iron/Folic Acd [ Vitamin Tablet] 1 tab PO DAILY 07/27/19 Objective - Vital Signs/Intake & Output Reviewed Vital Signs: Yes Vital Signs: Vital Signs x48h Temp Pulse Resp BP Pulse Ox 08/01/19 00:06 36.7 C 118 H 18 127/81 H 100 Intake & Output: Intake & Output 07/29/19 07/30/19 07/31/19 08/01/19 23:59 23:59 23:59 23:59 Intake Total 6766.663 6183.333 5300.000 2253.333 Output Total 8200 6400 6900 2100 Balance -1433.337 -216.667 -1600.000 153.333 - Objective General Appearance: positive: No acute distress, Alert Eyes Bilateral: positive: Normal inspection ENT: positive: ENT inspection nml Neck: positive: Nml inspection Respiratory: positive: No respiratory distress. negative: Wheezes, Rales Cardiovascular: positive: No murmur, Tachycardia. negative: Irregularly irregular, Bradycardia, Systolic murmur Abdomen: positive: Non-tender, No distention. negative: Tenderness Back: positive: CVA tenderness (R), CVA tenderness (L) Skin: positive: Warm, Dry Extremities: positive: Full ROM, No pedal edema Neurologic/Psychiatric: positive: Oriented x3. negative: Disoriented to person, Disoriented to place, Disoriented to time - Lab Results Fish Bones: 08/01/19 05:05 08/01/19 05:05 Other Labs: Lab Results x24hrs 08/01/19 08/01/19 Range/Units 05:05 05:05 WBC 14.9 H (4.8-10.8) x10^3/uL RBC 3.33 L (4.20-5.40) 10^6/uL Hgb 8.9 L (12.0-16.0) g/dL Hct 28.4 L (37.0-47.0) % MCV 85.3 (81.0-99.0) fL MCH 26.7 L (27.0-31.0) pg MCHC 31.3 L (32.0-36.0) g/dL RDW 15.2 H (12.0-15.0) % Plt Count 380 (130-450) 10^3/uL MPV 9.7 (7.9-10.8) fL Neut # (Auto) VETERINARIAN EPIDEMIOLOGIST Lymph # (Auto) VETERINARIAN EPIDEMIOLOGIST Gaston # (Auto) VETERINARIAN EPIDEMIOLOGIST Eos # (Auto) VETERINARIAN EPIDEMIOLOGIST Baso # (Auto) VETERINARIAN EPIDEMIOLOGIST Absolute Nucleated RBC VETERINARIAN EPIDEMIOLOGIST Total Counted 100 Band Neuts % (Manual) 4 (0 - 10) % Abnorm Lymph % (Manual) 0 % Myelocytes % 3 H ( - 0) % Nucleated RBC % VETERINARIAN EPIDEMIOLOGIST Neutrophils # (Manual) 11.2 H (1.5-6.6) 10^3/uL Lymphocytes # (Manual) 2.5 (1.5-3.5) 10^3/uL Monocytes # (Manual) 0.6 (0.0-1.0) 10^3/uL Eosinophils # (Manual) 0.1 (0-0.7) 10^3/uL Basophils # (Manual) 0.0 (0-0.1) 10^3/uL Differential Comment MANUAL DIFFERENTIAL WBC Morphology NORMAL APPEARANCE (NORMAL) Platelet Estimate NORMAL (130-450,000) (NORMAL) Platelet Morphology NORMAL APPEARANCE (NORMAL) RBC Morph Micro Appear NORMAL APPEARANCE (NORMAL) Sodium 141 (135-145) mmol/L Potassium 3.8 (3.5-5.0) mmol/L Chloride 111 (101-111) mmol/L Carbon Dioxide 22 (21-32) mmol/L Anion Gap 8.0 (6-13) BUN 5 L (6-20) mg/dL Creatinine 1.6 H (0.4-1.0) mg/dL Estimated GFR (MDRD) 42 L (>89) Glucose 107 H (70-100) mg/dL Calcium 8.2 L (8.5-10.3) mg/dL ABX Reporting Has patient been on IV antibiotics over the past 48 hours?: Yes Sepsis Event Note (H) - Evaluation Current Stage of Sepsis: Sepsis Possible source of Sepsis: positive: Genitourinary - Sepsis Criteria Sepsis Criteria: Recorded Temperature greater than 38.3C or Less than 36C, Recorded Heart Rate greater than 90 bpm, WBC count greater than 12,000 or less than 4000 Assessment/Plan - Problem List (1) Sepsis Impression: This is secondary to her pyelonephritis. She has not been afebrile for 24 hours but she remains tachycardic. Her white count appears to be improving although she still has bands present. Given her tachycardia and leukocytosis, we will keep her on IV antibiotics for another day. Her blood cultures have been negative. Continue to trend her white count. Qualifiers: Sepsis type: sepsis due to unspecified organism Sepsis acute organ dysfunction status: unspecified Qualified Code(s): A41.9 - Sepsis, unspecified organism (2) Pyelonephritis Impression: This is suspected source of her sepsis. Her initial urinalysis not sent for culture as it was a dirty catch. Repeat urinalysis on showed WBCs and rare bacteria. Flank pain is improving. We will continue her on IV ceftriaxone. Discontinue her Dilaudid IV. We will transition to oral medications for pain control. (3) ROSY (acute kidney injury) Impression: Her creatinine had increased to 1.7 but is now slightly decreased and appears to be on the downtrend. The etiology of ROSY is not clear although suspect this may have potentially been prerenal given the sepsis as well as secondary to the retained products of conception prior to her D&C. I will discontinue her dextrose and saline IV fluids and transition her to lactated Ringer's. Recheck BMP in the morning. Avoid nephrotoxic medications. (4) Anemia Impression: Her hemoglobin has been slightly decreasing and is now stable at around 9. Suspect this is likely secondary to frequent blood draws as well as her sepsis. No evidence of bleeding. We will continue to monitor her hemoglobin (5) Spontaneous Impression: She is now status post D&C.
[2019-08-01] MEDS: PROCHLORPERAZINE 10 MG/2 ML VIAL IVP PRN (07:54)
[2019-08-01] MEDS: cefTRIAXone 2 GM in SODIUM CHLORIDE 0.9% MINIBAG 100 ML IV SCH (09:41)
[2019-08-01] MEDS: LACTOBACILLUS RHAMNOSUS GG CAPSULE PO SCH ×2 (09:42→16:14)
[2019-08-01] MEDS: LACTATED RINGERS 1,000 ML IV SCH ×2 (09:43→22:30)
[2019-08-02] MEDS: SODIUM CHLORIDE FLUSH 0.9% 10 ML SYRINGE IVP SCH ×2 (01:04→09:38)
[2019-08-02] MEDS: ONDANSETRON 4 MG/2 ML VIAL IVP PRN (03:01)
[2019-08-02] MEDS: oxyCODONE 5 MG TABLET PO PRN (03:08)
[2019-08-02] MEDS: ACETAMINOPHEN 325 MG TABLET PO PRN (03:08)
[2019-08-02] MEDS: PROCHLORPERAZINE 10 MG/2 ML VIAL IVP PRN (03:17)
[2019-08-02 05:01] LABS: BASOPHILS % (AUTO) 0.5 %; EOSINOPHILS % (AUTO) 2.3 %; HGB - HEMOGLOBIN 8.7 g/dL (12.0-16.0); LYMPHOCYTES % (AUTO) 8.5 %; MEAN CORPUSCULAR HEMOGLOBIN 26.9 pg (27.0-31.0); MEAN CORPUSCULAR HGB CONC 32.2 g/dL (32.0-36.0); MEAN CORPUSCULAR VOLUME 83.6 fL (81.0-99.0); MEAN PLATELET VOLUME 9.5 fL (7.9-10.8); MONOCYTES % (AUTO) 5.1 %; NEUTROPHILS % (AUTO) 79.5 %; PLT - PLATELET COUNT 395 10^3/uL (130-450); RED BLOOD COUNT 3.23 10^6/uL (4.20-5.40); RED CELL DISTRIBUTION WIDTH 14.9 % (12.0-15.0); WHITE BLOOD COUNT 16.7 x10^3/uL (4.8-10.8)
[2019-08-02 05:07] LABS: CALCIUM 8.4 mg/dL (8.5-10.3); CREATININE 1.5 mg/dL (0.4-1.0)
[2019-08-02 05:10] LABS: ABNORMAL LYMPHS % (MANUAL) 0 %
[2019-08-02 05:26] LABS: BAND NEUTROPHILS % (MANUAL) 14 %; DIFFERENTIAL COMMENT MANUAL DIFFERENTIAL; EOSINOPHILS # (MANUAL) 0.2 10^3/uL (0-0.7); LYMPHOCYTES % (MANUAL) 6 %; METAMYELOCYTES % (MANUAL) 1 %; MONOCYTES # (MANUAL) 0.3 10^3/uL (0.0-1.0); MYELOCYTES % (MANUAL) 1 %; PLATELET ESTIMATE, MANUAL NORMAL (130-450,000) (NORMAL); RBC MORPHOLOGY (MULTIPLE) NORMAL APPEARANCE (NORMAL)
[2019-08-02] MEDS: LACTATED RINGERS 1,000 ML IV SCH ×2 (06:16→09:37)
[2019-08-02] MEDS: PANTOPRAZOLE 40 MG VIAL IVP SCH (06:16)
[2019-08-02] MEDS: METOCLOPRAMIDE 10 MG/2 ML VIAL IVP SCH (06:16)
[2019-08-02 07:55] VITALS: BP 123/79
[2019-08-02] MEDS ORDERED: PIPERACILLIN/TAZOBACTAM 3.375 GM in SODIUM CHLORIDE 0.9% MINIBAG 100 ML IV SCH (08:00)
--- NOTE | 2019-08-02 08:49 | CT Report ---
Reason: FLANK PAIN, LEUKOCYTOSIS, ROSY Procedure Date: 08/02/2019 Accession Number: [id number] / [id number] Procedure: CT - Abdomen/Pelvis WO CPT Code: Final Report FULL RESULT: EXAM: CT ABDOMEN AND PELVIS EXAM DATE: 08/02/2019 08:09 AM. CLINICAL HISTORY: FLANK PAIN, LEUKOCYTOSIS, ROSY. COMPARISONS: ABDOMEN/PELVIS W/O 06/10/2019 10:29 PM. TECHNIQUE: Routine axial helical CT imaging was performed through the abdomen and pelvis without IV contrast. Reconstructions: Coronal and sagittal. In accordance with CT protocol optimization, one or more of the following dose reduction techniques were utilized for this exam: automated exposure control, adjustment of mA and/or KV based on patient size, or use of iterative reconstructive technique. FINDINGS: Lung Bases: Unremarkable. Abdominal Organs: There is hepatic steatosis. No focal hepatic lesions are seen. The spleen and pancreas demonstrate no acute abnormalities. The adrenal glands are normal. There is mild bilateral perinephric stranding. No evidence of significant hydronephrosis. Gallbladder/bile ducts: The gallbladder is contracted. No evidence of significant bile duct dilatation. Peritoneal Cavity: Patient has undergone prior rectosigmoid surgery. The rectum is distended with stool. Relatively stable appearance to this region. There is a percutaneous catheter in the left lower quadrant. There is no intraperitoneal free air or free fluid. There are no enlarged mesenteric or retroperitoneal lymph nodes. Pelvic Organs: No bladder stones or wall thickening. Noncontrast images of the visualized pelvic organs are unremarkable. Vasculature: Unremarkable. Other: None. IMPRESSION: 1. There is mild enlargement of the bilateral kidneys with perinephric stranding. Findings are suspicious for infection. No obstructing stones or hydronephrosis. 2. Status post rectosigmoid colon surgery. Relatively stable, large volume stool within the rectal region. 3. There is hepatic steatosis.
[2019-08-02] MEDS: LACTOBACILLUS RHAMNOSUS GG CAPSULE PO SCH (09:39)
--- NOTE | 2019-08-02 10:03 | Discharge Plan ---
Discharge Plan Problem Reviewed?: Yes Disposition: Against Medical Advice Condition: Serious Prescriptions: Ciprofloxacin HCl 500 mg PO BID 7 Days #28 tablet Activity Restrictions: Activity as Tolerated Instruction Topics: Sepsis Dc, Pyelonephritis Dc Health Concerns: You were admitted to the hospital because of a severe urinary tract infection that led to a kidney infection. It was also found that you had a nonviable . You underwent procedure for the non-viable . You were treated with IV antibiotics for the kidney infection. You did improve over the first few days but then your white count began to increase and your signs of infection worsened. We did a CT scan of your abdomen which showed that there was signs of inflammation around your kidney suggestive of infection. It is recommended that you stay in the hospital to receive further treatment with IV antibiotics. Plan of Treatment: Given you have decided to leave AGAINST MEDICAL ADVICE, we have prescribed you antibiotics to take. Please take ciprofloxacin 500 mg twice a day for 7 days. It is encouraged that you follow-up with your primary care physician as soon as possible and to have labs drawn to make sure your kidney function is stable as well as your blood counts. Care Goals: If you develop worsening signs of infection which may include fevers, chills, nausea, vomiting, lightheadedness, dizziness then please return to the emergency department as soon as possible No Smoking: If you smoke, Please STOP! Call for help. Follow-up with: Jurgen Laird ARNP [Primary Care Provider] -
--- NOTE | 2019-08-02 10:07 | DISCHARGE SUMMARY ---
"Discharge Summary Admit Date: 07/27/19 Discharge Date: 08/02/19 Discharging Provider: Ej Amaya Primary Care Provider: Jurgen Laird Code Status: Attempt Resuscitation Condition at Discharge: Serious Discharge Disposition: 07 Against Medical Advice - DIAGNOSES Admission Diagnoses: Acute pyelonephritis Threatened Tachycardia Hypokalemia Congenital anomaly of GI tract Anemia Fibromyalgia Discharge Diagnoses with Status of Each Condition: Sepsis - not improving. Pyelonephritis - not improving. Threatened - resolved. Congenital anomaly of GI tract - stable. Anemia - stable. Fibromyalgia - stable. - HPI History of Present Illness: H&P per Dr. 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 She presents to the emergency room with chief complaint of abdominal pain in the periumbilical region, as well as bilateral flank pain. She was in the emergency room yesterday with the same complaints and diagnosed with UTI, and was also diagnosed with a spontaneous along with a elevated leukocytosis and patient left AMA prior to further investigative work-up and treatment.He was given a dose of IV Rocephin in emergency department yesterday before going home. She returns today because she has been unable to tolerate p.o. and pain is getting worse.She is also had some vaginal bleeding since this time, but has been relatively light. In the emergency department, another pelvic exam was performed demonstrating scant vaginal vault blood, but otherwise no significant abnormalities. Because of the concern for the intrauterine , conversation was had with Dr. Moreno regarding the risk and benefit of a CT scan to evaluate for further urological pathology. After consultation with ASSISTANT PROFESSOR OF PSYCHOLOGY on-call, decision was made to proceed with ultrasound of retroperitoneum as well as OB ultrasound to confirm or rule out before proceeding with a CT scan. Results of the ultrasound demonstrate persistence of a intrauterine without heart tones, suggestive of a probable imminent spontaneous . Because of the persistent nausea vomiting, leukocytosis, along with tachycardia associated with her presenting pyelonephritis, hospital admission was requested. - CONSULTS | PROCEDURES Consultations: [facility] Procedures: D&C on 07/30/19 for incomplete SAB. - HOSPITAL COURSE Hospital Course: Admitted for sepsis secondary to pyelonephritis and threatened . She treated with IV fluids and IV ceftriaxone for pyelonephritis. Gynecology was consulted for threatened and she was administered misoprostol. There was concerned she was not taking the Misoprostol as directed and so it was administered vaginally. Repeat vaginal ultrasound showed retained products of conception. Dilatation evacuation was discussed with the patient but she continued to decline. Misoprostol was continued by OB. She continued to spike fevers and developed acute kidney injury the creatinine of 1.5. She is finally agreeable to a dilatation and evacuation this was performed on 29 July. She was monitored postoperatively and she continued to have low-grade fevers but her white count was improving. She remained on IV ceftriaxone for presumed pyelonephritis. Her blood cultures were negative. Her urine culture was for she never obtained as initial urine sample was a dirty catch. Repeat urine sample was obtained which continue to show WBCs and WBC clumps with rare bacteria. This was a clean-catch. Her renal function began to improve with IV fluids and she remained afebrile. Unfortunately her white count began to rise and she had 14% bands. She continued to complain of bilateral flank pain. The patient at this point was adamant on leaving AGAINST MEDICAL ADVICE as she felt that she was here for way too long as she can follow-up with her primary care physician on an outpatient basis. I discussed with her the importance of remaining in the hospital given the sepsis and concern for pyelonephritis as well as her worsening white count. She was agreeable to obtaining further imaging for evaluation. A CT of the abdomen pelvis was obtained which showed perinephric stranding consistent with infection but no other acute abnormalities. I broaden her antibiotics to Zosyn from ceftriaxone given her worsening white count. I recommend that she remain hospitalized for IV antibiotics but she was adamant on leaving AGAINST MEDICAL ADVICE. I told her only we will provide her with any prescriptions except for antibiotics. I did prescribe her ciprofloxacin 500 mg twice a day to take for 7 more days. She stated that she will follow-up with her primary care provider this afternoon. I asked her to return to emergency department if she develops worsening fevers, chills, dizziness, lightheadedness. - ALLERGIES Allergies/Adverse Reactions: Allergies Allergy/AdvReac Type Severity Reaction Status Date / Time Iodinated Contrast Media Allergy Anaphylaxis Verified 07/26/19 19:26 cyclobenzaprine AdvReac Emesis Verified 07/27/19 02:29 - MEDICATIONS Home Medications: Ambulatory Orders Medication Instructions Recorded Confirmed Famotidine 20 mg PO BID 07/27/19 07/27/19 Lidocaine [Lidoderm] 1 patch TOP PRN PRN 07/27/19 07/27/19 Pantoprazole Sodium 40 mg PO BID 07/27/19 07/27/19 No.137/Iron/Folic Acd 1 tab PO DAILY 07/27/19 07/27/19 [ Vitamin Tablet] Ciprofloxacin HCl 500 mg PO BID 7 Days #28 tablet 08/02/19 - PHYSICAL EXAM AT DISCHARGE General Appearance: positive: Alert Eyes Bilateral: positive: Normal inspection ENT: positive: ENT inspection nml Neck: positive: Nml inspection Respiratory: positive: No respiratory distress. negative: Wheezes, Rales Cardiovascular: positive: No murmur, Tachycardia. negative: Regular rate & rhythm, Irregularly irregular, Bradycardia, Diastolic murmur Abdomen: positive: Non-tender, No distention. negative: Tenderness Skin: positive: Warm, Dry Extremities: positive: Full ROM, No pedal edema Neurologic/Psychiatric: positive: Oriented x3, Other (Tearful.). negative: Disoriented to person, Disoriented to place, Disoriented to time - LABS Result Diagrams: 08/02/19 04:45 08/02/19 04:45 Other Lab Results: Microbiology Results 07/30/19 14:55 Urine,Clean Catch Urine Culture - Final Less Than 10,000 COLONIES/ML UROGENITAL LORIN 07/26/19 21:15 Blood - Left Iv Start Blood Culture - Final NO GROWTH AFTER 5 DAYS 07/26/19 21:14 Blood - Right Arm Blood Culture - Final NO GROWTH AFTER 5 DAYS Laboratory Results 08/02/19 04:45: Sodium 136, Potassium 3.6, Chloride 105, Carbon Dioxide 23, A nion Gap 8.0, BUN 7, Creatinine 1.5 H, Estimated GFR (MDRD) 45 L, Glucose 115 H, Calcium 8.4 L 08/02/19 04:45: WBC 16.7 H, RBC 3.23 L, Hgb 8.7 L, Hct 27.0 L, MCV 83.6, MCH 26. 9 L, MCHC 32.2, RDW 14.9, Plt Count 395, MPV 9.5, Neut # (Auto) Not Reportable, Lymph # (Auto) Not Reportable, Grant # (Auto) Not Reportable, Eos # (Auto) Not Reportable, Baso # (Auto) Not Reportable, Absolute Nucleated RBC Not Reportable, Total Counted 100, Band Neuts % (Manual) 14 H, Abnorm Lymph % (Manual) 0, Metamyelocytes % 1 H, Myelocytes % 1 H, Nucleated RBC % Not Reportable, Neutrophils # (Manual) 14.9 H, Lymphocytes # (Manual) 1.0 L, Monocytes # (Manual) 0.3, Eosinophils # (Manual) 0.2, Basophils # (Manual) 0.0, Differential Comment MANUAL DIFFERENTIAL, WBC Morphology 1+ TOXIC GRANULATION, Platelet Estimate NORMAL (130-450,000), RBC Morph Micro Appear NORMAL APPEARANCE 08/01/19 05:05: Sodium 141, Potassium 3.8, Chloride 111, Carbon Dioxide 22, Anion Gap 8.0, BUN 5 L, Creatinine 1.6 H, Estimated GFR (MDRD) 42 L, Glucose 107 H, Calcium 8.2 L 08/01/19 05:05: WBC 14.9 H, RBC 3.33 L, Hgb 8.9 L, Hct 28.4 L, MCV 85.3, MCH 26.7 L, MCHC 31.3 L, RDW 15.2 H, Plt Count 380, MPV 9.7, Neut # (Auto) COMBINATION WORKER, Lymph # (Auto) COMBINATION WORKER, Grant # (Auto) COMBINATION WORKER, Eos # (Auto) COMBINATION WORKER, Baso # (Auto) COMBINATION WORKER, Absolute Nucleated RBC COMBINATION WORKER, Total Counted 100, Band Neuts % (Manual) 4, Abnorm Lymph % (Manual) 0, Myelocytes % 3 H, Nucleated RBC % COMBINATION WORKER, Neutrophils # (Manual) 11.2 H, Lymphocytes # (Manual) 2.5, Monocytes # (Manual) 0.6, Eosinophils # (Manual) 0.1, Basophils # (Manual) 0.0, Differential Comment MANUAL DIFFERENTIAL, WBC Morphology NORMAL APPEARANCE, Platelet Estimate NORMAL (130-450,000), Platelet Morphology NORMAL APPEARANCE, RBC Morph Micro Appear NORMAL APPEARANCE - SEPSIS Current Stage of Sepsis: Sepsis Possible source of Sepsis: Genitourinary Sepsis Criteria: Recorded Temperature greater than 38.3C or Less than 36C, Recorded Heart Rate greater than 90 bpm, WBC count greater than 12,000 or less than 4000"
== END 2019-08-02 10:50 | disposition left against medical advice (07) | DRG 779 ==
LOC: ED 19:11 → MS2 07-27 01:31 → OBSVTOIN 07-29 07:55
PROVIDERS: ADMIT Family Medicine Sports Medicine; ATTEND Internal Medicine
PROC: 10D17Z9 Manual Extraction of Products of Conception, Retained, Via Natural or Artificial Opening (ICD-10-PCS; principal; 2019-07-30 17:30)
DX: O03.37 Sepsis following incomplete spontaneous abortion (principal); N10 Acute pyelonephritis; Q42.3 Congenital absence, atresia and stenosis of anus without fistula; N17.9 Acute kidney failure, unspecified; E87.6 Hypokalemia; O03.39 Incomplete spontaneous abortion with other complications; D50.0 Iron deficiency anemia secondary to blood loss (chronic); Q51.3 Bicornate uterus; M79.7 Fibromyalgia; R25.1 Tremor, unspecified; K21.9 Gastro-esophageal reflux disease without esophagitis; R73.9 Hyperglycemia, unspecified; F41.9 Anxiety disorder, unspecified; R11.2 Nausea with vomiting, unspecified; Z53.29 Procedure and treatment not carried out because of patient's decision for other reasons; Z93.1 Gastrostomy status; Z87.442 Personal history of urinary calculi; Z87.01 Personal history of pneumonia (recurrent); Z83.3 Family history of diabetes mellitus
CPT/HCPCS: 36415; 74176; 76770; 76801; 76817; 76830; 76856; 80048; 80053; 80076; 80306; 81001; 81003; 82570; 82607; 82728; 83036; 83540; 83605; 83615; 83690; 83735; 84156; 84466; 84702; 85014; 85018; 85025; 85027; 85045; 86850; 86900; 86901; 87040; 87086; 96361; 96365; 96366; 96367; 96368; 96375; 96376; 99284; 99285; A9270; G0378; J1170; J1750; J2060; J2765; J7040; J7120

== ENCOUNTER 2019-08-03 03:05 | Outpatient (CLI) | payer OTHER | END 2019-08-03 03:06 | disposition EMS.NT | LOC: EMS 03:05 | PROVIDERS: ATTEND Surgery | DX: R10.10 Upper abdominal pain, unspecified (principal) ==

== ENCOUNTER 2019-08-03 04:14 | Inpatient (IN) | payer OTHER ==
--- NOTE | 2019-08-03 04:05 | ED Physician Documentation ---
History of Present Illness - Stated complaint Stated Complaint: ABD PX - History obtained from History obtained from: Patient (Patient is a 18-year-old female who was recently admitted to the hospital for pyelonephritis she left AGAINST MEDICAL ADVICE about 12 hours ago and she returns to the emergency department wanting to be admitted and treated for pyelonephritis. 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 now with a chronic PEG tube.Patient reports that she left AGAINST MEDICAL ADVICE because she wanted to go home to see her 3-year-old child she spent time with her child now she returns wanting to complete treatment.) Review of Systems Constitutional: reports: Reviewed and negative Eyes: reports: Reviewed and negative Ears: reports: Reviewed and negative Nose: reports: Reviewed and negative Throat: reports: Reviewed and negative Cardiac: reports: Reviewed and negative Respiratory: reports: Reviewed and negative GI: reports: Reviewed and negative : reports: Other (Bilateral flank pain) Skin: reports: Reviewed and negative Musculoskeletal: reports: Reviewed and negative Neurologic: reports: Reviewed and negative Psychiatric: reports: Reviewed and negative Endocrine: reports: Reviewed and negative Immunocompromised: reports: Reviewed and negative PD PAST MEDICAL HISTORY - Present Medications Home Medications: Ambulatory Orders Medication Instructions Recorded Confirmed Famotidine 20 mg PO BID 07/27/19 08/03/19 Lidocaine [Lidoderm] 1 patch TOP PRN PRN 07/27/19 08/03/19 Ciprofloxacin HCl 500 mg PO BID 7 Days #28 tablet 08/02/19 08/03/19 - Allergies Allergies/Adverse Reactions: Allergies Allergy/AdvReac Type Severity Reaction Status Date / Time Iodinated Contrast Media Allergy Anaphylaxis Verified 08/03/19 04:32 cyclobenzaprine AdvReac Emesis Verified 08/03/19 04:32 PD ED PE NORMAL - Vitals Vital signs reviewed: Yes - General General: Alert and oriented X 3, No acute distress, Well developed/nourished - HEENT HEENT: Atraumatic, PERRL, Moist mucous membranes - Neck Neck: Supple, no meningeal sign - Cardiac Cardiac: RRR, No murmur, Strong equal pulses - Respiratory Respiratory: No respiratory distress, Clear bilaterally - Abdomen Abdomen: Normal bowel sounds, Soft, Non tender, Non distended, Other (PEG tube in place without signs of infection, Positive for bilateral CVA tenderness to palpation) - Derm Derm: Warm and dry - Extremities Extremities: No deformity - Neuro Neuro: Alert and oriented X 3, aviation safety officer 2-12 intact, No motor deficit, No sensory deficit, Normal speech - Psych Psych: Normal mood, Normal affect Results - Vitals Vitals: Vital Signs - 24 hr 08/03/19 08/03/19 08/03/19 04:20 04:32 04:55 Temperature 36.9 C Heart Rate 99 92 90 Respiratory 17 17 16 Rate Blood Pressure 129/79 113/76 115/76 O2 Saturation 100 99 100 Oxygen O2 Source Room air - Labs Labs: Laboratory Tests 08/03/19 08/03/19 08/03/19 04:55 04:55 04:55 WBC 19.5 H RBC 3.54 L Hgb 9.6 L Hct 30.2 L MCV 85.3 MCH 27.1 MCHC 31.8 L RDW 15.2 H Plt Count 488 H MPV 9.7 Sodium 138 Potassium 3.2 L Chloride 102 Carbon Dioxide 23 Anion Gap 13.0 BUN 7 Creatinine 1.6 H Estimated GFR (MDRD) 42 L Glucose 107 H Calcium 8.3 L Total Bilirubin 0.5 AST 27 ALT 39 Alkaline Phosphatase 95 Total Protein 7.2 Albumin 2.9 L Globulin 4.3 H Albumin/Globulin Ratio 0.7 L Lipase 32 Urine Color YELLOW Urine Clarity HAZY Urine pH 6.0 Ur Specific [place] 1.010 Urine Protein 30 H Urine Glucose (UA) NEGATIVE Urine Ketones NEGATIVE Urine Occult Blood LARGE H Urine Nitrite NEGATIVE Urine Bilirubin NEGATIVE Urine Urobilinogen 0.2 (NORMAL) Ur Leukocyte Esterase LARGE H Urine RBC TNTC H Urine WBC 11-25 H Ur Squamous Epith Cells FEW Squamous Urine Bacteria Few Ur Microscopic Review INDICATED Urine Culture Comments INDICATED PD MEDICAL DECISION MAKING - ED course Complexity details: reviewed old records, reviewed results, re-evaluated patient, considered differential, d/w patient, other (Reviewed patient's records had a lengthy discussion with the patient regarding her recent admission and leaving AGAINST MEDICAL ADVICE patient would like to be readmitted I did speak with the hospitalist on-call who agreed to admit this patient.) - Consults Consults: Discussed case with (05:[address] Farnsworth, Will admit patient for pyelonephritis.) Departure - Departure Disposition: 66 [facility] DC/Xfer Clinical Impression: Pyelonephritis Leukocytosis Qualifiers: Leukocytosis type: unspecified Qualified Code(s): D72.829 - Elevated white blood cell count, unspecified Condition: Stable
[2019-08-03] MEDS ORDERED: PIPERACILLIN/TAZOBACTAM 3.375 GM in SODIUM CHLORIDE 0.9% MINIBAG 100 ML IV STA (04:29)
[2019-08-03 05:12] LABS: BILIRUBIN,URINE NEGATIVE (NEGATIVE); GLUCOSE, URINE (UA) NEGATIVE (NEGATIVE); KETONES,URINE (UA) NEGATIVE (NEGATIVE); LEUKOCYTE ESTERASE, URINE LARGE (NEGATIVE); NITRITE,URINE NEGATIVE (NEGATIVE); OCCULT BLOOD,URINE LARGE (NEGATIVE); PROTEIN,URINE 30 mg/dL (NEGATIVE); UROBILINOGEN,URINE 0.2 (NORMAL) E.U./dL (NORMAL)
[2019-08-03 05:13] LABS: CLARITY,URINE HAZY (CLEAR)
[2019-08-03 05:14] LABS: BASOPHILS % (AUTO) 0.4 %; EOSINOPHILS % (AUTO) 2.4 %; HGB - HEMOGLOBIN 9.6 g/dL (12.0-16.0); LYMPHOCYTES % (AUTO) 11.9 %; MEAN CORPUSCULAR HEMOGLOBIN 27.1 pg (27.0-31.0); MEAN CORPUSCULAR HGB CONC 31.8 g/dL (32.0-36.0); MEAN CORPUSCULAR VOLUME 85.3 fL (81.0-99.0); MEAN PLATELET VOLUME 9.7 fL (7.9-10.8); MONOCYTES % (AUTO) 4.3 %; NEUTROPHILS % (AUTO) 76.6 %; PLT - PLATELET COUNT 488 10^3/uL (130-450); RED BLOOD COUNT 3.54 10^6/uL (4.20-5.40); RED CELL DISTRIBUTION WIDTH 15.2 % (12.0-15.0); WHITE BLOOD COUNT 19.5 x10^3/uL (4.8-10.8)
[2019-08-03 05:15] LABS: ABNORMAL LYMPHS % (MANUAL) 0 %
[2019-08-03 05:20] LABS: BACTERIA,URINE Few /HPF (None Seen); RBC,URINE TNTC /HPF (0-5); SQUAMOUS EPITHELIAL CELL,UR FEW Squamous (<= Few)
[2019-08-03 05:27] LABS: ALBUMIN 2.9 g/dL (3.2-5.5); ALBUMIN/GLOBULIN RATIO 0.7 (1.0-2.2); BILIRUBIN,TOTAL 0.5 mg/dL (0.2-1.0); CALCIUM 8.3 mg/dL (8.5-10.3); CREATININE 1.6 mg/dL (0.4-1.0); TOTAL PROTEIN 7.2 g/dL (6.7-8.2)
[2019-08-03 05:36] LABS: BAND NEUTROPHILS % (MANUAL) 3 %; DIFFERENTIAL COMMENT MANUAL DIFFERENTIAL; EOSINOPHILS # (MANUAL) 0.4 10^3/uL (0-0.7); LYMPHOCYTES # (MANUAL) 2.1 10^3/uL (1.5-3.5); LYMPHOCYTES % (MANUAL) 11 %; MONOCYTES # (MANUAL) 0.8 10^3/uL (0.0-1.0); PLATELET ESTIMATE, MANUAL INCREASED (>450,000) (NORMAL); RBC MORPHOLOGY (MULTIPLE) NORMAL APPEARANCE (NORMAL)
[2019-08-03] MEDS ORDERED: SODIUM CHLORIDE FLUSH 0.9% 10 ML SYRINGE IVP PRN (05:43)
[2019-08-03] MEDS ORDERED: oxyCODONE 5 MG TABLET PO PRN (05:43)
[2019-08-03] MEDS ORDERED: ACETAMINOPHEN 325 MG TABLET PO PRN (05:43)
--- NOTE | 2019-08-03 06:00 | HISTORY & PHYSICAL EXAMINATION ---
Chief Complaint - Chief Complaint Chief Complaint: Flank pain History of Present Illness - Admitted From Admitted From:: Home - History Obtained From Records Reviewed: Yes History obtained from: Patient and medical records Exam Limitations: None - History of Present Illness HPI Comment/Other: Patient is a 18-year-old female G3, P1, A1, with a complicated past medical history including anal atresia at , requiring initial colostomy status post ileostomy 5 years ago, now with a PEG tube who was admitted to [facility] from 07/27/2019 till 08/02/2019 after she initially presented with abdominal pain in the periumbilical region as well as bilateral flank pain. The patient initially presented to the ER on 07/26/2019 at which time she was diagnosed with a urinary tract infection and a spontaneous along with leukocytosis. She left AMA from the emergency department prior to further investigation, work-up or treatment. She was given a dose of IV Rocephin in the emergency department before she returned home. The patient returned to the emergency department the following day as she was unable to tolerate any p.o. intake and was having worsening abdominal pain with vaginal bleeding. The patient was admitted to the hospital secondary to sepsis from pyelonephritis with a spontaneous . The patient was initially started on IV fluids and IV ceftriaxone. Gynecology was consulted and she was given misoprostol. There was concern that the patient was not taking the medication orally therefore it was administered vaginally. Repeat vaginal ultrasound showed retained products of conception. Initially gynecology recommended a dilatation and evacuation but the patient declined. She was monitored and began developing fever and worsening acute kidney injury. Finally the patient agreed to a dilatation and evacuation which was performed on 07/30/2019. Postoperatively the patient continued to have low-grade fevers but her white count was initially improving. She remained on IV ceftriaxone for presumed pyelonephritis. Her blood cultures remained negative. Her urine was initially contaminated and repeat culture grew urogenital yordan. Unfortunately despite the IV ceftriaxone the patient's white blood cell count began to increase and she had worsening bandemia with 14% bands. Patient also continued to have bilateral flank pain and worsening acute kidney injury. At this point the patient was adamant to leave AGAINST MEDICAL ADVICE as she wanted to see her children. The hospitalist did perform a CT of the patient's abdomen pelvis prior to her leaving which showed perinephric stranding consistent with infection but no other acute abnormality. The patient's antibiotic regimen was expanded with IV Zosyn and ceftriaxone was discontinued. The patient was counseled on the need to stay in the hospital as her condition was not stable enough for discharge. The patient however declined and left AGAINST MEDICAL ADVICE. She did receive a prescription for ciprof loxacin 500 mg twice daily to take for 5 more days. Since returning home on 08/02/2019 the patient has been experiencing worsening bilateral flank pain, periumbilical abdominal pain and has been having continuous vaginal bleeding. The patient also states that she has been able to only drink some Powerade and not been able to keep any kind of solid foods down. She states that she is been having loose stools from her ostomy. She denies having fevers or chills but states that her pain was getting so severe that she had to return to the hospital today. On return to the emergency department the patient was afebrile and heart rate was 99 otherwise vital signs were stable. The patient's white blood cell count had increased from her discharge up to 19.5, patient's creatinine remained stable at 1.6 and her potassium had decreased to 3.2. Patient's urine analysis revealed a large leukocyte Estrace, RBCs, blood, 11-25 WBCs. The patient otherwise denies any fevers, chills, headaches, blurred vision, runny nose, sore throat, nasal congestion, neck stiffness, recent unintentional weight loss, night sweats or any focal neurologic deficits. She denies any chest pain, shortness of air, orthopnea or PND. She denies any increased lower extremity swelling. Given the patient's persistent sepsis with pyelonephritis and concern for retained products of conception she was admitted. History - Past Medical History Cardiovascular: reports: None Respiratory: reports: Pneumonia, Other Neuro: reports: Migraines, Peripheral neuropathy, Tremors, Other Endocrine/Autoimmune: reports: None, Other GI: reports: GERD, Other BULK PALLET BUILDER: reports: None, Miscarriage(s), Other : reports: Kidney stones, Other HEENT: reports: None Psych: reports: None Musculoskeletal: reports: Fibromyalgia, Other Derm: reports: None MRSA Hx?: No Other Past Medical History: Congenital anal atresia requiring initial colostomy, status post ileostomy now with PEG tube. - Past Surgical History General: reports: Bowel surgery, Gastric surgery /BULK PALLET BUILDER: reports: section - Family & Social History Family History: Mother: Alive and Well, CAD, Diabetes, Type 2, Mental Illness, Father: Alive and Well, CAD, Diabetes, Type 2, Mental Illness Family History Comment/Other: Several half siblings, all alive and well. Thinks one of her brothers has heart disease. 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 She denies ilicit drug use, tobacco use or alcohol use. She wishes to be a FULL code. - Substance History Use: Uses substance without health or social issues: NONE - POLST Patient has POLST: No POLST Status: Full Code Meds/Allgy - Home Medications Home Medications: Ambulatory Orders Medication Instructions Recorded Confirmed Famotidine 20 mg PO BID 07/27/19 08/03/19 Lidocaine [Lidoderm] 1 patch TOP PRN PRN 07/27/19 08/03/19 Ciprofloxacin HCl 500 mg PO BID 7 Days #28 tablet 08/02/19 08/03/19 - Allergies Allergies/Adverse Reactions: Allergies Allergy/AdvReac Type Severity Reaction Status Date / Time Iodinated Contrast Media Allergy Anaphylaxis Verified 08/03/19 04:32 cyclobenzaprine AdvReac Emesis Verified 08/03/19 04:32 Review of Systems - Other Findings Other Findings: A comprehensive review of systems was performed the pertinent positives and negatives are stated above in the HPI and the remainder of the review of systems is negative. Prior Level of Functionality: Fully independent Exam - Vital Signs Reviewed Vital Signs: Yes Vital Signs: Vital Signs x48h Temp Pulse Resp BP Pulse Ox 08/03/19 05:42 36.8 C 85 16 123/80 100 08/03/19 04:55 90 16 115/76 100 08/03/19 04:32 92 17 113/76 99 08/03/19 04:20 36.9 C 99 17 129/79 100 - Physical Exam General Appearance: positive: Alert, Mild distress Eyes Bilateral: positive: Normal inspection, PERRL, EOMI, No lid inflammation, Conjunctivae nml, No scleral icterus ENT: positive: ENT inspection nml, Pharynx nml, Dry mucous membranes Neck: positive: Nml inspection, Thyroid nml, No JVD, Trachea midline. negative: Thyromegaly, Lymphadenopathy (R), Lymphadenopathy (L), Carotid bruit, Tracheal deviation Respiratory: positive: Chest non-tender, No respiratory distress, Breath sounds nml. negative: Wheezes, Rales, Rhonchi Cardiovascular: positive: No murmur, No gallop, Tachycardia Peripheral Pulses: positive: 2+ Abdomen: positive: No organomegaly, Nml bowel sounds, No distention, Tenderness, Guarding Back: positive: Nml inspection, CVA tenderness (R), CVA tenderness (L) Skin: positive: Color nml, No rash, Warm, Dry Extremities: positive: Non-tender, Full ROM, Nml appearance, No pedal edema Neurologic/Psychiatric: positive: Oriented x3, CN's nml (2-12), Motor nml, Sensation nml, Mood/affect nml Conclusion/Plan - Problem List (1) Sepsis Conclusion/Plan: Persistently elevated leukocytosis, tachycardia Source appears to be pyelonephritis versus retained products of conception Start IV Zosyn Obtain repeat blood culture N.p.o. Transvaginal ultrasound Check hCG Consult gynecology/obstetrics for possible hysteroscopy and repeat D&C Qualifiers: Sepsis type: sepsis due to unspecified organism Sepsis acute organ dysfunction status: unspecified Qualified Code(s): A41.9 - Sepsis, unspecified organism (2) Pyelonephritis Conclusion/Plan: CT shows bilateral perinephric stranding concerning for pyelonephritis Likely at least partially causing sepsis IV Zosyn Follow-up blood culture (3) ROSY (acute kidney injury) Conclusion/Plan: Creatinine elevated at 1.6 slightly elevated from time of discharge Give IV fluids Likely patient has ATN secondary to sepsis Monitor urine output and creatinine Avoid nephrotoxic agents (4) Anemia Conclusion/Plan: Patient appears to have acute blood loss anemia secondary to persistent vaginal bleeding Possibly secondary retained products of conception Consult ZIPPER MEASURER Monitor hemoglobin Transfuse if hemoglobin less than 7 (5) Hypokalemia Conclusion/Plan: Replace potassium Monitor potassium (6) Spontaneous Conclusion/Plan: Status post dilatation and curettage ZIPPER MEASURER consult Concern for retained products of conception - Lab Results Lab results reviewed: Yes Fish Bones: 08/03/19 04:55 08/03/19 04:55 Other Lab Results: Laboratory Tests 04/30/20 04/30/20 04/30/20 04:55 04:55 04:55 WBC 19.5 H RBC 3.54 L Hgb 9.6 L Hct 30.2 L MCV 85.3 MCH 27.1 MCHC 31.8 L RDW 15.2 H Plt Count 488 H MPV 9.7 Neut # (Auto) Not Reportable Lymph # (Auto) Not Reportable Parmer # (Auto) Not Reportable Eos # (Auto) Not Reportable Baso # (Auto) Not Reportable Absolute Nucleated RBC Not Reportable Total Counted 100 Band Neuts % (Manual) 3 Abnorm Lymph % (Manual) 0 Nucleated RBC % Not Reportable Neutrophils # (Manual) 16.2 H Lymphocytes # (Manual) 2.1 Monocytes # (Manual) 0.8 Eosinophils # (Manual) 0.4 Basophils # (Manual) 0.0 Differential Comment MANUAL DIFFERENTIAL Platelet Estimate INCREASED (>450,000) RBC Morph Micro Appear NORMAL APPEARANCE Sodium 138 Potassium 3.2 L Chloride 102 Carbon Dioxide 23 Anion Gap 13.0 BUN 7 Creatinine 1.6 H Estimated GFR (MDRD) 42 L Glucose 107 H Calcium 8.3 L Total Bilirubin 0.5 AST 27 ALT 39 Alkaline Phosphatase 95 Total Protein 7.2 Albumin 2.9 L Globulin 4.3 H Albumin/Globulin Ratio 0.7 L Lipase 32 Urine Color YELLOW Urine Clarity HAZY Urine pH 6.0 Ur Specific [place] 1.010 Urine Protein 30 H Urine Glucose (UA) NEGATIVE Urine Ketones NEGATIVE Urine Occult Blood LARGE H Urine Nitrite NEGATIVE Urine Bilirubin NEGATIVE Urine Urobilinogen 0.2 (NORMAL) Ur Leukocyte Esterase LARGE H Urine RBC TNTC H Urine WBC 11-25 H Ur Squamous Epith Cells FEW Squamous Urine Bacteria Few Ur Microscopic Review INDICATED Urine Culture Comments INDICATED - Diagnostic Imaging Results Diagnostic Imaging Results: positive: Final report reviewed Diagnostic Imaging Results Comments: CT abdomen pelvis from 08/02/2019: 1. There is mild enlargement of the bilateral kidneys with perinephric stranding. Findings are suspicious for infection. No obstructing stones or hy dronephrosis. 2. Status post rectosigmoid colon surgery. Relatively stable, large volume stool with in the rectal region. 3. There is hepatic steatosis Core Measures - Anticipated LOS I expect patient to be DC'd or transferred within 96 hours.: Yes - DVT/VTE - Prophylaxis VTE/DVT Device ordered at admit?: Yes
[2019-08-03 06:46] LABS: HCG,QUALITATIVE BLOOD POSITIVE
[2019-08-03] MEDS: PIPERACILLIN/TAZOBACTAM 3.375 GM in SODIUM CHLORIDE 0.9% MINIBAG 100 ML IV SCH ×3 (06:47→17:48)
[2019-08-03] MEDS: SODIUM CHLORIDE FLUSH 0.9% 10 ML SYRINGE IVP SCH ×2 (06:54→16:47)
[2019-08-03] MEDS: MORPHINE 2 MG/ML CARPUJECT IVP PRN ×6 (06:54→22:25)
[2019-08-03] MEDS: NS W/20 MEQ KCL 1,000 ML IV SCH ×2 (06:57→16:30)
[2019-08-03 08:37] LABS: HCG UR QUAL POSITIVE
--- NOTE | 2019-08-03 09:36 | PHARMACY PROGRESS NOTE ---
- Best Possible Medication History Admit Date and Time: 08/03/19 0543 Processed by: Nursing Medication History completed: Yes As the person ultimately responsible for medication therapy, providers are able to order a medication from an existing home medication list in [facility] via the "Reconcile Routine" prior to Confirmation of that medication by operator command support systems. Such practice is discouraged except when the physician, in their clinical judgment, deems that a medical need exists for a medication without regard to previous use.
[2019-08-03] MEDS: ONDANSETRON 4 MG/2 ML VIAL IVP PRN (09:42)
[2019-08-03] MEDS ORDERED: PANTOPRAZOLE 40 MG VIAL IVP SCH (10:00)
[2019-08-03] MEDS: SACCHAROMYCES BOULARDII 250 MG CAPSULE PO SCH ×2 (10:02→16:32)
[2019-08-03] MEDS: ENOXAPARIN 40 MG/0.4 ML SYRINGE SUBQ SCH (10:02)
--- NOTE | 2019-08-03 10:54 | Ultrasound Report ---
Reason: Abdominal pain. History of gallstone. Procedure Date: 08/03/2019 Accession Number: [id number] / [id number] Procedure: US - Abdomen Limited CPT Code: Final Report FULL RESULT: EXAM: ABDOMEN ULTRASOUND LIMITED, RUQ EXAM DATE: 08/03/2019 08:42 AM. CLINICAL HISTORY: Abdominal pain. History of gallstone. COMPARISON: ABDOMEN LIMITED 06/09/2019 1:49 PM ABDOMEN/PELVIS W/O 08/02/2019 8:01 AM ABDOMEN/PELVIS W/ 06/28/2019 8:30 PM OB FIRST TRIMESTER 07/26/2019 11:34 PM. TECHNIQUE: Real-time scanning was performed with static images obtained. FINDINGS: Liver: Coarse hepatic echotexture. There is a 1.2 cm hypodensity within the left hepatic lobe. There is a stable 2.0 cm hypoechoic lesion within the right hepatic lobe. Main portal vein flow: Hepatopetal. Gallbladder: There is a 1.3 cm stone in the proximal gallbladder. There is borderline gallbladder wall thickening. Negative sonographic Donovan sign. Biliary System: CBD measures 3 mm. No intrahepatic or extrahepatic ductal dilatation. Other: The visualized pancreas and right kidney are unremarkable. IMPRESSION: 1. Coarse hepatic echotexture suggestive of steatosis. 2. There are hypoechoic lesions within the left and right hepatic lobe as above. The right hepatic lesion is seen on prior studies. Nonemergent hepatic MRI could be used for further evaluation as indicated. 3. There is 1.3 cm stone within the gallbladder. There is borderline gallbladder wall thickening. Findings are equivocal for sonographic diagnosis of acute cholecystitis. 4. There is no intra-or extrahepatic bile duct dilatation. RADIA
[2019-08-03] MEDS: FAMOTIDINE 20 MG TABLET PO SCH ×2 (11:42→21:02)
--- NOTE | 2019-08-03 14:13 | CONSULTATION NOTE ---
Referring Provider Name of Referring Provider:: Ej Amaya Consult Date: 08/03/19 Chief Complaint - Chief Complaint Chief Complaint: Abdominal pain and leukocytosis History of Present Illness - Admitted From Admitted From:: ER - History Obtained From Records Reviewed: Prior records History obtained from: Patient report and prior records review Exam Limitations: Patient compliance - History of Present Illness HPI Comment/Other: Patient is a 18 yo admitted with abdominal pain and leukocytosis with recent D&C for missed SAB. Patient has had multiple presentations to this facility and [facility] for pyelonephritis /urosepsis.She was also found to have an early dated to approximately 5w5d. failed to progress with [place] [id number] and 07/26/19 of . She underwent multiple pelvic us during her last in- patient stay. On 07/24/19, gestational sac was c/w 5w5d but viable not confirmed. 07/26/19, again gestational sac was 5w5d, viability unproven, sac noted to be near scar. 07/28/19, us showed a complex cystic structure with collapsed sac measuring 2.7x2.3x3.2 cm and was absent of cardiac activity. She was deemed to have an incomplete SAB and was given misoprostol with some evidence of retained products of conception. She then underwent a D&C on 07/30/19. Pathology is pending. 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 She left AMA. She presented to the ED this morning with abdominal pain. WBC elevated to 19.5. Vital signs within normal limits. Patient reports that she has had heavy vaginal bleeding but she has not been soaking pads. At jack time of this exam, she reports that her bleeding is minimal. She has been up and ambulating and voiding. Her HCG this am was 845. A pelvic us was ordered but she refused the pelvic portion of her us when the abdominal imaging was completed today. She states that she is willing to repeat the us at current. She reports that her pain is diffuse throughout her abdomen, does not localize to the suprapubic area. Reports that her abdomen feels inflamed. 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 Has a history of after developing pre- eclampsia at 32 [facility]. Recently moved to [facility] from [facility] in February 2019. History - Past Medical History Cardiovascular: reports: None Respiratory: reports: Pneumonia, Other Neuro: reports: Migraines, Peripheral neuropathy, Tremors, Other Endocrine/Autoimmune: reports: None, Other GI: reports: GERD, Other ADAPTED PHYSICAL EDUCATION AIDE: reports: None, Miscarriage(s), Other : reports: Kidney stones, Other HEENT: reports: None Psych: reports: None Musculoskeletal: reports: Fibromyalgia, Other Derm: reports: None MRSA Hx?: No Other Past Medical History: Congenital anal atresia requiring initial colostomy, status post ileostomy now with PEG tube. - Past Surgical History General: reports: Bowel surgery, Gastric surgery /ADAPTED PHYSICAL EDUCATION AIDE: reports: section - Family & Social History Family History: Mother: Alive and Well, CAD, Diabetes, Type 2, Mental Illness, Father: Alive and Well, CAD, Diabetes, Type 2, Mental Illness Family History Comment/Other: Several half siblings, all alive and well. Thinks one of her brothers has heart disease. 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 She denies ilicit drug use, tobacco use or alcohol use. She wishes to be a FULL code. - Substance History Use: Uses substance without health or social issues: NONE - POLST Patient has POLST: No POLST Status: Full Code Meds/Allgy - Home Medications Home Medications: Ambulatory Orders Medication Instructions Recorded Confirmed Famotidine 20 mg PO BID 07/27/19 08/03/19 Lidocaine [Lidoderm] 1 patch TOP PRN PRN 07/27/19 08/03/19 Ciprofloxacin HCl 500 mg PO BID 7 Days #28 tablet 08/02/19 08/03/19 No.137/Iron/Folic Acd 1 tab PO DAILYWM 08/03/19 08/03/19 [ Vitamin Tablet] - Allergies Allergies/Adverse Reactions: Allergies Allergy/AdvReac Type Severity Reaction Status Date / Time Iodinated Contrast Media Allergy Anaphylaxis Verified 08/03/19 04:32 cyclobenzaprine AdvReac Emesis Verified 08/03/19 04:32 Review of Systems - Other Findings Other Findings: As per HPI otherwise remaining systems are negative. Exam - Vital Signs Vital Signs: Vital Signs x48h Temp Pulse Pulse Resp BP Pulse Ox 08/03/19 09:53 98.8 F 87 16 99 08/03/19 08:25 98.8 F 88 16 113/80 97 08/03/19 06:30 99.3 F 90 16 129/74 97 - Physical Exam General Appearance: positive: No acute distress Respiratory: positive: Other (normal effort) Abdomen: positive: Other (PEG tube in lower abd. Mildly distended. Diffuse tenderness, patient resistant to exam. No increased TTP in suprapubic area.) Neurologic/Psychiatric: positive: Other (Alert and oriented, moves easily without guarding) Comments/Other: ADAPTED PHYSICAL EDUCATION AIDE: scant bleeding on pad. NEFG. Nl BSUMA. No active bleeding at introitus. BME reveal baldder and urethra to be non-tender. no CMT. Uterus non-tender on exam limited by habitus. Conclusion/Plan - Diagnosis Diagnosis: Abdominal pain - Plan Plan: Abdominal pain and vaginal bleeding in setting of recent SAB with D&C. -Low suspicion for retained products or endometritis -HCG still elevated but dropped significantly from 19,000 range pre-op and may require a week or two to trend to normal -Level of bleeding is wnl at present for post-D&C. -HCT is 30.2, which is the highest it has been since 07/27/19 and is an increase form time of discharge. Reassuring with regard to on-going vaginal bleeding Without pelvic us, it is difficult to be certain regarding potential retained products of conception. Unfortunately, patient refused pelvic us this am. In the absence of that data, the current volume of vaginal bleeding is expected for recent SAB and D&C. -If patient continues to have higher than usual blood flow, would administer misoprostol as next step to expel remaining tissue. Dosing would be 600 mcg bucal/oral (buccal prefered for 30 minutes with swallowing any remaining undissolved portion of the tablets at that time- can proceed direct to oral if compliance is a concern). Alternatively, vaginal dosingis 800 mcg. It is not unusual to have mild residual elevated in HCG in the few days following a D&C. -Recommend checking HCG again in 1-2 days to confirm downward trend. Low concern for endometritis based on physical exam with benign pelvic exam. Will reassess if and when pelvic us results become available. Thank you for including me in the care of this patient. Please call Dr. Bellamy at [phone] with any questions or concerns. - Lab Results Lab results reviewed: Yes Fish Bones: 08/03/19 04:55 08/03/19 04:55
--- NOTE | 2019-08-03 16:24 | Ultrasound Report ---
Reason: Concern for retained products of conception Procedure Date: 08/03/2019 Accession Number: [id number] / [id number] Procedure: US - Pelvic w/Transvag+Doppler Ltd CPT Code: Final Report FULL RESULT: EXAM: PELVIC ULTRASOUND WITH DOPPLERS CLINICAL HISTORY: Concern for retained products of conception. COMPARISON: ABDOMEN 08/03/2019 8:42 AM ABDOMEN/PELVIS W/O 08/02/2019 8:01 AM TECHNIQUE: Realtime transabdominal imaging performed to identify the uterus and adnexa and as an overview of other pelvic structures, followed by transvaginal imaging for better assessment of the endometrium and adnexa, with static image documentation. Color flow imaging and Doppler spectral analysis was performed to evaluate blood flow to the ovaries given pelvic pain and clinical concern for ovarian torsion. FINDINGS: Uterus: 10.8 x 3.7 x 8.1 cm, volume 168.7 cc. Anteverted position. Masses: None. Endometrium: Endometrial stripe appears thickened and heterogeneous in the lower uterine segment measuring 2.0 cm, without internal color signal/vascularity seen. Endometrial stripe in the right uterine horn measures 6 mm, left uterine horn measures 5 mm. Cervix: Unremarkable. Right Ovary: 2.3 x 2.0 x 2.9 cm, volume 6.9 cc. Normal echotexture. Arterial and venous blood flow are present. PSV 11.8 cm/sec. RI 0.5. Adnexa are unremarkable. Left Ovary: 2.8 x 1.7 x 2.0 cm, volume 4.8 cc. Normal echotexture. Arterial and venous blood flow are present. PSV 15 cm/sec. RI 0.8. Adnexa are unremarkable. Free Fluid: None. Other: None. IMPRESSION: 1. Heterogeneous thickening of the endometrial stripe in the lower uterine segment without convincing vascularity. Differential includes retained products of conception and hemorrhage 2. Arterial and venous blood flow are present to the ovaries bilaterally. RADIA
--- NOTE | 2019-08-03 17:06 | PROVIDER PROGRESS NOTE ---
Hospitalist Cross-cover Note - Cross-Cover Note Cross-Cover Note: I spoke with SALVATIONIST regarding the patient given the concern for retained products of conception. They are able to evaluate the patient and review the ultrasound. It was felt that was low suspicion for retained proximal conception at this time. He recommended repeating a beta hCG in approximately 3 days. Given the patient continued to have abdominal pain, an ultrasound of the right upper quadrant was obtained given she is a history of gallstones as well. The ultrasound equivocal for cholecystitis. A HIDA scan was ordered but unfortunately able to be obtained until tomorrow as nuclear medicine is gone for the day. The patient was started on a diet and made n.p.o. at midnight for this procedure. We will also check for C. difficile to rule out any other possible cause of infection. This may still be pyelonephritis although we would be quite odd for her to have such elevated white count approximate 1 week after receiving IV antibiotics. She is now on Zosyn compare ceftriaxone we will continue to monitor.
[2019-08-03] MEDS: LACTATED RINGERS 1,000 ML IV SCH (17:48)
[2019-08-04] MEDS: PROCHLORPERAZINE 10 MG/2 ML VIAL IVP PRN ×2 (00:05→06:18)
[2019-08-04] MEDS: PIPERACILLIN/TAZOBACTAM 3.375 GM in SODIUM CHLORIDE 0.9% MINIBAG 100 ML IV SCH ×5 (00:30→23:50)
[2019-08-04] MEDS: SODIUM CHLORIDE FLUSH 0.9% 10 ML SYRINGE IVP SCH ×3 (00:30→18:00)
[2019-08-04] MEDS: MORPHINE 2 MG/ML CARPUJECT IVP PRN ×7 (00:31→23:58)
[2019-08-04] MEDS: LORazepam 2 MG/ML VIAL IVP PRN ×2 (04:38→14:45)
[2019-08-04 05:16] LABS: BASOPHILS % (AUTO) 0.3 %; EOSINOPHILS % (AUTO) 2.9 %; HGB - HEMOGLOBIN 8.9 g/dL (12.0-16.0); MEAN CORPUSCULAR HEMOGLOBIN 27.1 pg (27.0-31.0); MEAN CORPUSCULAR VOLUME 84.8 fL (81.0-99.0); MEAN PLATELET VOLUME 9.2 fL (7.9-10.8); MONOCYTES % (AUTO) 3.9 %; NEUTROPHILS % (AUTO) 74.1 %; PLT - PLATELET COUNT 502 10^3/uL (130-450); RED BLOOD COUNT 3.28 10^6/uL (4.20-5.40); RED CELL DISTRIBUTION WIDTH 15.4 % (12.0-15.0); WHITE BLOOD COUNT 17.2 x10^3/uL (4.8-10.8)
[2019-08-04 05:20] LABS: ABNORMAL LYMPHS % (MANUAL) 0 %; BAND NEUTROPHILS % (MANUAL) 0 %
[2019-08-04 05:28] LABS: ALBUMIN 2.6 g/dL (3.2-5.5); ALBUMIN/GLOBULIN RATIO 0.7 (1.0-2.2); BILIRUBIN,TOTAL 0.6 mg/dL (0.2-1.0); CALCIUM 8.5 mg/dL (8.5-10.3); CREATININE 1.3 mg/dL (0.4-1.0); TOTAL PROTEIN 6.6 g/dL (6.7-8.2)
[2019-08-04 05:35] LABS: EOSINOPHILS # (MANUAL) 0.3 10^3/uL (0-0.7); LYMPHOCYTES # (MANUAL) 3.1 10^3/uL (1.5-3.5); LYMPHOCYTES % (MANUAL) 18 %; MONOCYTES # (MANUAL) 0.7 10^3/uL (0.0-1.0); MYELOCYTES % (MANUAL) 2 %
[2019-08-04 05:36] LABS: RBC MORPHOLOGY (MULTIPLE) NORMAL APPEARANCE (NORMAL)
[2019-08-04 05:37] LABS: DIFFERENTIAL COMMENT MANUAL DIFFERENTIAL; PLATELET ESTIMATE, MANUAL INCREASED (>450,000) (NORMAL); PLATELET MORPHOLOGY NORMAL APPEARANCE (NORMAL)
[2019-08-04] MEDS: LACTATED RINGERS 1,000 ML IV SCH ×3 (05:37→23:52)
--- NOTE | 2019-08-04 06:50 | PROVIDER PROGRESS NOTE ---
Subjective - Prog Note Date Prog Note Date: 08/04/19 - Subjective Subjective: Reports abdominal pain has improved but she continues to have bilateral flank pain all this is also decreased compared to admission. She states that she is hungry would like a diet. Current Medications - Current Medications Current Medications: Active Medications Acetaminophen (Tylenol) 650 mg PO Q4HR PRN PRN Reason: Pain 1 to 4 Enoxaparin Sodium (Lovenox) 40 mg SUBQ DAILY [facility] Last Admin: 08/04/19 10:21 Dose: Not Given Famotidine (Pepcid) 20 mg PO BID [facility] Last Admin: 08/04/19 10:21 Dose: Not Given Piperacillin Sod/Tazobactam (Sod 3.375 gm/ Sodium Chloride) 100 mls @ 200 mls/hr IV Q6H [facility] Stop: 08/10/19 05:59 Last Admin: 08/04/19 11:18 Dose: 200 mls/hr Lactated Ringer's (Lr) 1,000 mls @ 100 mls/hr IV .Q10H [facility] Last Admin: 08/04/19 05:37 Dose: 100 mls/hr Lorazepam (Ativan Inj (Vial)) 0.5 mg IVP Q2H PRN PRN Reason: Anxiety Last Admin: 08/04/19 04:38 Dose: 0.5 mg Morphine Sulfate (Morphine (Carpuject)) 2 mg IVP Q2HR PRN PRN Reason: Pain 8 to 10 Last Admin: 08/04/19 10:20 Dose: 2 mg Ondansetron HCl (Zofran Inj) 4 mg IVP Q6HR PRN PRN Reason: Nausea / Vomiting Last Admin: 08/03/19 09:42 Dose: 4 mg Oxycodone HCl (Roxicodone) 10 mg PO Q4HR PRN PRN Reason: Pain 8 to 10 Oxycodone HCl (Roxicodone) 5 mg PO Q4HR PRN PRN Reason: Pain 5 to 7 Prochlorperazine Edisylate (Compazine Inj) 10 mg IVP Q6HR PRN PRN Reason: Nausea / Vomiting Last Admin: 08/04/19 06:18 Dose: 10 mg Saccharomyces Boulardii (Florastor) 250 mg PO BIDWM [facility] Last Admin: 08/04/19 10:20 Dose: Not Given Sodium Chloride (Normal Saline Flush 0.9%) 10 ml IVP PRN PRN PRN Reason: NEEDED PER PROVIDER ORDERS Last Admin: 08/04/19 06:17 Dose: 10 ml Sodium Chloride (Normal Saline Flush 0.9%) 10 ml IVP 0100,0900,1700 [facility] Last Admin: 08/04/19 10:22 Dose: Not Given Famotidine 20 mg PO BID 07/27/19 Lidocaine [Lidoderm] 1 patch TOP PRN PRN 07/27/19 No.137/Iron/Folic Acd [ Vitamin Tablet] 1 tab PO DAILYWM 08/03/19 Objective - Vital Signs/Intake & Output Reviewed Vital Signs: Yes Vital Signs: Vital Signs x48h Temp Pulse Resp BP Pulse Ox 08/03/19 23:54 37.0 C 89 16 117/77 99 Intake & Output: Intake & Output 08/01/19 08/02/19 08/03/19 08/04/19 23:59 23:59 23:59 23:59 Intake Total 1955 1100 Output Total 2750 Balance -795 1100 - Objective General Appearance: positive: No acute distress, Alert Eyes Bilateral: positive: Normal inspection ENT: positive: ENT inspection nml Neck: positive: Nml inspection Respiratory: positive: No respiratory distress. negative: Wheezes, Rales Cardiovascular: positive: Regular rate & rhythm, No murmur. negative: Tachycardia, Bradycardia Abdomen: positive: Non-tender, No distention, Other. negative: Tenderness, Guarding, Rebound Back: positive: CVA tenderness (R), CVA tenderness (L), Other (Tenderness has improved compared to admission.) Skin: positive: No rash, Warm, Dry Extremities: positive: Full ROM, No pedal edema Neurologic/Psychiatric: positive: Oriented x3. negative: Disoriented to person, Disoriented to place, Disoriented to time - Lab Results Fish Bones: 08/04/19 05:10 08/04/19 05:10 Other Labs: Lab Results x24hrs 08/04/19 08/04/19 08/03/19 Range/Units 05:10 05:10 23:35 WBC 17.2 H (4.8-10.8) x10^3/uL RBC 3.28 L (4.20-5.40) 10^6/uL Hgb 8.9 L (12.0-16.0) g/dL Hct 27.8 L (37.0-47.0) % MCV 84.8 (81.0-99.0) fL MCH 27.1 (27.0-31.0) pg MCHC 32.0 (32.0-36.0) g/dL RDW 15.4 H (12.0-15.0) % Plt Count 502 H (130-450) 10^3/uL MPV 9.2 (7.9-10.8) fL Neut # (Auto) Not Reportable Lymph # (Auto) Not Reportable Lander # (Auto) Not Reportable Eos # (Auto) Not Reportable Baso # (Auto) Not Reportable Absolute Nucleated RBC Not Reportable Total Counted 100 Band Neuts % (Manual) 0 (0 - 10) % Abnorm Lymph % (Manual) 0 % Myelocytes % 2 H ( - 0) % Nucleated RBC % Not Reportable Neutrophils # (Manual) 12.7 H (1.5-6.6) 10^3/uL Lymphocytes # (Manual) 3.1 (1.5-3.5) 10^3/uL Monocytes # (Manual) 0.7 (0.0-1.0) 10^3/uL Eosinophils # (Manual) 0.3 (0-0.7) 10^3/uL Basophils # (Manual) 0.0 (0-0.1) 10^3/uL Differential Comment MANUAL DIFFERENTIAL WBC Morphology NORMAL APPEARANCE (NORMAL) Platelet Estimate INCREASED (>450,000) (NORMAL) Platelet Morphology NORMAL APPEARANCE (NORMAL) RBC Morph Micro Appear NORMAL APPEARANCE (NORMAL) Sodium 142 (135-145) mmol/L Potassium 3.8 (3.5-5.0) mmol/L Chloride 107 (101-111) mmol/L Carbon Dioxide 26 (21-32) mmol/L Anion Gap 9.0 (6-13) BUN 7 (6-20) mg/dL Creatinine 1.3 H (0.4-1.0) mg/dL Estimated GFR (MDRD) 53 L (>89) Glucose 94 (70-100) mg/dL Calcium 8.5 (8.5-10.3) mg/dL Total Bilirubin 0.6 (0.2-1.0) mg/dL AST 24 (10-42) IU/L ALT 32 (10-60) IU/L Alkaline Phosphatase 80 (42-121) IU/L Total Protein 6.6 L (6.7-8.2) g/dL Albumin 2.6 L (3.2-5.5) g/dL Globulin 4.0 (2.1-4.2) g/dL Albumin/Globulin Ratio 0.7 L (1.0-2.2) HCG, Quant mIU/mL Ur Specific [place] (1.002-1.030) Urine HCG, Qual Stl C. diff Tox B Gene NEGATIVE (NEGATIVE) 08/03/19 08/03/19 Range/Units 08:20 06:20 WBC (4.8-10.8) x10^3/uL RBC (4.20-5.40) 10^6/uL Hgb (12.0-16.0) g/dL Hct (37.0-47.0) % MCV (81.0-99.0) fL MCH (27.0-31.0) pg MCHC (32.0-36.0) g/dL RDW (12.0-15.0) % Plt Count (130-450) 10^3/uL MPV (7.9-10.8) fL Neut # (Auto) Lymph # (Auto) Lander # (Auto) Eos # (Auto) Baso # (Auto) Absolute Nucleated RBC Total Counted Band Neuts % (Manual) (0 - 10) % Abnorm Lymph % (Manual) % Myelocytes % ( - 0) % Nucleated RBC % Neutrophils # (Manual) (1.5-6.6) 10^3/uL Lymphocytes # (Manual) (1.5-3.5) 10^3/uL Monocytes # (Manual) (0.0-1.0) 10^3/uL Eosinophils # (Manual) (0-0.7) 10^3/uL Basophils # (Manual) (0-0.1) 10^3/uL Differential Comment WBC Morphology (NORMAL) Platelet Estimate (NORMAL) Platelet Morphology (NORMAL) RBC Morph Micro Appear (NORMAL) Sodium (135-145) mmol/L Potassium (3.5-5.0) mmol/L Chloride (101-111) mmol/L Carbon Dioxide (21-32) mmol/L Anion Gap (6-13) BUN (6-20) mg/dL Creatinine (0.4-1.0) mg/dL Estimated GFR (MDRD) (>89) Glucose (70-100) mg/dL Calcium (8.5-10.3) mg/dL Total Bilirubin (0.2-1.0) mg/dL AST (10-42) IU/L ALT (10-60) IU/L Alkaline Phosphatase (42-121) IU/L Total Protein (6.7-8.2) g/dL Albumin (3.2-5.5) g/dL Globulin (2.1-4.2) g/dL Albumin/Globulin Ratio (1.0-2.2) HCG, Quant 854.00 mIU/mL Ur Specific [place] 1.010 (1.002-1.030) Urine HCG, Qual POSITIVE Stl C. diff Tox B Gene (NEGATIVE) ABX Reporting Has patient been on IV antibiotics over the past 48 hours?: Yes Sepsis Event Note (H) - Evaluation Current Stage of Sepsis: Sepsis Possible source of Sepsis: positive: Genitourinary - Sepsis Criteria Sepsis Criteria: Recorded Heart Rate greater than 90 bpm, WBC count greater than 12,000 or less than 4000, Renal: urine output less than 0.5ml/kg/hr for 2 hours or creatinine gr Assessment/Plan - Problem List (1) Sepsis Impression: Seems to be improving from a sepsis standpoint. She remains afebrile and her white count is improving. Her heart rate has also improved. At this point, the suspect the source is pyelonephritis although it is quite unusual for her to have not shown improvement up until now although she is on Zosyn instead of ceftriaxone. Unfortunate also do not have any cultures available. Gynecology feels it is low suspicion for retained products of conception. An ultrasound of the right upper quadrant was equivocal for cholecystitis and so we are obtaining a HIDA scan. In the meantime we will continue with IV Zosyn and follow-up the HIDA scan. If this is negative suspect this is likely just pyelonephritis. If she remains afebrile and her white count continues to improve tomorrow then she can likely be discharged on oral antibiotics. Qualifiers: Sepsis type: sepsis due to unspecified organism Sepsis acute organ dysfunct ion status: unspecified Qualified Code(s): A41.9 - Sepsis, unspecified organism (2) Pyelonephritis Impression: This is the presumed source of her sepsis. Her last 3 urine cultures have all grown less than 10,000 colonies of urogenital yordan. Blood cultures have been negative. Clinically she appears to be improving as he is no longer febrile or tachycardic. Her white count is also improving. We will continue her on IV Zosyn and if her white count improves we will discharge her on oral antibiotics tomorrow. (3) ROSY (acute kidney injury) Impression: Her renal function is improving and her creatinine is down to 1.3. Suspect this was likely prerenal injury given her sepsis. We will continue with IV fluids and monitor her renal function. Avoid nephrotoxins. (4) Abdominal pain Impression: She has generalized abdominal pain and flank pain. This appears to be out of proportion to somewhat he would just have pyelonephritis or cholecystitis. Low suspicion for retained products of conception at this time. CT of the abdomen pelvis during last visit did not show any acute abnormalities except for mild perinephric stranding. An ultrasound of the right upper quadrant was equivocal for cholecystitis and so we are obtaining a HIDA scan. We will follow this up and consider a general surgery consult. Continue to treat her pain with morphine IV as needed. Qualifiers: Abdominal location: unspecified location Qualified Code(s): R10.9 - Unspecified abdominal pain (5) Anemia Impression: This is likely multifactorial and secondary to her acute illness, hemo- dilutional, blood loss from her D&C. Hemoglobin appears to have stabilized at approximately 9 and there is no evidence of significant bleeding at this time. We will check iron studies continue to monitor her hemoglobin daily. (6) Spontaneous Impression: She is status post D&C on July 29. Was concern for retained products of conception. Transvaginal ultrasound showed heterogenous thickening of endometrial stripe concerning for possible hemorrhage or retained parts of conception. Gynecology did review this and feel that there is low suspicion given ultrasound findings and physical exam. Her bleeding has also seemed to improved and gynecology stated that this is within normal limits given her recent D&C. They did recommend a beta hCG in 3 days to make sure his trending down. (7) Congenital anomaly of gastrointestinal tract Impression: Stable. CT of the and pelvis during that the mission did not show any acute abnormalities. She has a G-tube in place in the left lower quadrant.
[2019-08-04] MEDS: SACCHAROMYCES BOULARDII 250 MG CAPSULE PO SCH ×2 (10:20→18:00)
[2019-08-04] MEDS: ENOXAPARIN 40 MG/0.4 ML SYRINGE SUBQ SCH (10:21)
[2019-08-04] MEDS: FAMOTIDINE 20 MG TABLET PO SCH ×2 (10:21→21:40)
--- NOTE | 2019-08-04 11:57 | Nuclear Medicine Report ---
Reason: Abd pain. Equivocal ultrasound for cholecystitis. Procedure Date: 08/04/2019 Accession Number: [id number] / [id number] Procedure: NM - Hepatobiliary HIDA w/o Rx CPT Code: Final Report FULL RESULT: EXAM: HEPATOBILIARY SCAN EXAM DATE: 08/04/2019 10:24 AM. CLINICAL HISTORY: Abd pain. Equivocal ultrasound for cholecystitis. COMPARISON: ABDOMEN 08/03/2019 8:42 AM TECHNIQUE: Following the intravenous administration of 5.2 mCi of Tc99m Mebrofenin, a hepatobiliary scan was done centered on the right upper quadrant region in multiple sequential images and projections. Morphine sulfate given: No. Four-hour delayed images performed: No. FINDINGS: Normal clearance of blood pool activity indicating grossly normal hepatocellular function. Liver size and shape grossly normal. Appearance of tracer in the biliary tree as early as 5 minutes, within normal limits. Gallbladder not visualized during the initial 1 hour of imaging. Appearance of tracer in the small bowel as early as 5 minutes. No evidence of significant enterogastric bile reflux. IMPRESSION: 1. Nonvisualization of the gallbladder during the initial hour of imaging. Cystic duct patency is not confirmed. Delayed imaging at 4 hours could be obtained for improve specificity. 2. Patent common bile duct. 3. No evidence of significant enterogastric bile reflux. RADIA
[2019-08-04] MEDS: oxyCODONE 5 MG TABLET PO PRN (14:49)
[2019-08-05] MEDS: SODIUM CHLORIDE FLUSH 0.9% 10 ML SYRINGE IVP SCH ×2 (00:02→09:32)
[2019-08-05] MEDS: MORPHINE 2 MG/ML CARPUJECT IVP PRN (05:31)
[2019-08-05] MEDS: PIPERACILLIN/TAZOBACTAM 3.375 GM in SODIUM CHLORIDE 0.9% MINIBAG 100 ML IV SCH (05:31)
[2019-08-05 05:51] LABS: BASOPHILS # (AUTO) 0.1 10^3/uL (0.0-0.1); BASOPHILS % (AUTO) 0.3 %; EOSINOPHILS # (AUTO) 0.4 10^3/uL (0.0-0.7); EOSINOPHILS % (AUTO) 2.7 %; HGB - HEMOGLOBIN 8.9 g/dL (12.0-16.0); LYMPHOCYTES # (AUTO) 2.6 10^3/uL (1.5-3.5); LYMPHOCYTES % (AUTO) 16.8 %; MEAN CORPUSCULAR HEMOGLOBIN 26.4 pg (27.0-31.0); MEAN CORPUSCULAR HGB CONC 30.2 g/dL (32.0-36.0); MEAN CORPUSCULAR VOLUME 87.5 fL (81.0-99.0); MEAN PLATELET VOLUME 9.3 fL (7.9-10.8); MONOCYTES # (AUTO) 0.7 10^3/uL (0.0-1.0); MONOCYTES % (AUTO) 4.4 %; NEUTROPHILS # (AUTO) 11.1 10^3/uL (1.5-6.6); PLT - PLATELET COUNT 512 10^3/uL (130-450); RED BLOOD COUNT 3.37 10^6/uL (4.20-5.40); RED CELL DISTRIBUTION WIDTH 15.6 % (12.0-15.0); WHITE BLOOD COUNT 15.2 x10^3/uL (4.8-10.8)
[2019-08-05 06:09] LABS: ALBUMIN 2.6 g/dL (3.2-5.5); ALBUMIN/GLOBULIN RATIO 0.6 (1.0-2.2); BILIRUBIN,TOTAL 0.2 mg/dL (0.2-1.0); CALCIUM 8.3 mg/dL (8.5-10.3); TOTAL PROTEIN 6.8 g/dL (6.7-8.2)
[2019-08-05] MEDS: ONDANSETRON 4 MG/2 ML VIAL IVP PRN (06:57)
[2019-08-05] MEDS ORDERED: POTASSIUM CHLORIDE 20 MEQ TABLET PO ONE (07:20)
[2019-08-05] MEDS: SACCHAROMYCES BOULARDII 250 MG CAPSULE PO SCH (08:56)
[2019-08-05] MEDS: ENOXAPARIN 40 MG/0.4 ML SYRINGE SUBQ SCH (09:31)
[2019-08-05] MEDS: FAMOTIDINE 20 MG TABLET PO SCH (09:31)
[2019-08-05] MEDS ORDERED: CIPROFLOXACIN 250 MG TABLET PO SCH (10:00)
[2019-08-05] MEDS: LACTATED RINGERS 1,000 ML IV SCH (10:22)
[2019-08-05] MEDS: oxyCODONE 5 MG TABLET PO PRN (10:28)
--- NOTE | 2019-08-05 12:07 | PROVIDER PROGRESS NOTE ---
Subjective - Prog Note Date Prog Note Date: 08/05/19 - Subjective Subjective: Still reports some nausea and vomiting but this has improved compared to admission but it is still present. Reports no abdominal pain but continues to complain of bilateral flank pain. She states this has also improved since admission. Current Medications - Current Medications Current Medications: Active Medications Acetaminophen (Tylenol) 650 mg PO Q4HR PRN PRN Reason: Pain 1 to 4 Ciprofloxacin (Cipro) 500 mg PO BID [facility] Last Admin: 08/05/19 10:22 Dose: 500 mg Enoxaparin Sodium (Lovenox) 40 mg SUBQ DAILY [facility] Last Admin: 08/05/19 09:31 Dose: Not Given Famotidine (Pepcid) 20 mg PO BID [facility] Last Admin: 08/05/19 09:31 Dose: Not Given Lactated Ringer's (Lr) 1,000 mls @ 100 mls/hr IV .Q10H [facility] Last Admin: 08/05/19 10:22 Dose: 100 mls/hr Lorazepam (Ativan Inj (Vial)) 0.5 mg IVP Q2H PRN PRN Reason: Anxiety Last Admin: 08/04/19 14:45 Dose: 0.5 mg Ondansetron HCl (Zofran Inj) 4 mg IVP Q6HR PRN PRN Reason: Nausea / Vomiting Last Admin: 08/05/19 06:57 Dose: 4 mg Oxycodone HCl (Roxicodone) 10 mg PO Q4HR PRN PRN Reason: Pain 8 to 10 Last Admin: 08/05/19 10:28 Dose: 10 mg Oxycodone HCl (Roxicodone) 5 mg PO Q4HR PRN PRN Reason: Pain 5 to 7 Prochlorperazine Edisylate (Compazine Inj) 10 mg IVP Q6HR PRN PRN Reason: Nausea / Vomiting Last Admin: 08/04/19 06:18 Dose: 10 mg Saccharomyces Boulardii (Florastor) 250 mg PO BIDWM [facility] Last Admin: 08/05/19 08:56 Dose: Not Given Sodium Chloride (Normal Saline Flush 0.9%) 10 ml IVP PRN PRN PRN Reason: NEEDED PER PROVIDER ORDERS Last Admin: 08/04/19 06:17 Dose: 10 ml Sodium Chloride (Normal Saline Flush 0.9%) 10 ml IVP 0100,0900,1700 ALEXUS Last Admin: 08/05/19 09:32 Dose: Not Given Famotidine 20 mg PO BID 07/27/19 Lidocaine [Lidoderm] 1 patch TOP PRN PRN 07/27/19 No.137/Iron/Folic Acd [ Vitamin Tablet] 1 tab PO DAILYWM 08/03/19 Objective - Vital Signs/Intake & Output Reviewed Vital Signs: Yes Vital Signs: Vital Signs x48h Temp Pulse Resp BP Pulse Ox 08/05/19 08:00 37.1 C 85 16 119/75 98 Intake & Output: Intake & Output 08/02/19 08/03/19 08/04/19 08/05/19 23:59 23:59 23:59 23:59 Intake Total 1955 4308.999 2001 Output Total 2750 360 300 Balance -795 3948.999 1702 - Objective General Appearance: positive: No acute distress, Alert Eyes Bilateral: positive: Normal inspection ENT: positive: ENT inspection nml Neck: positive: Nml inspection Respiratory: positive: No respiratory distress. negative: Wheezes, Rales Cardiovascular: positive: Regular rate & rhythm, No murmur. negative: Tachycardia, Bradycardia Abdomen: positive: Non-tender, No distention, Tenderness (Mild tenderness in the right lower quadrant.) Back: positive: CVA tenderness (R), CVA tenderness (L), Other (Flank tenderness has improved.) Skin: positive: Warm, Dry Extremities: positive: Full ROM, No pedal edema Neurologic/Psychiatric: positive: Oriented x3. negative: Disoriented to person, Disoriented to place, Disoriented to time - Lab Results Fish Bones: 08/05/19 05:27 08/05/19 05:27 Other Labs: Lab Results x24hrs 08/05/19 08/05/19 08/05/19 Range/Units 05:27 05:27 05:27 WBC 15.2 H (4.8-10.8) x10^3/uL RBC 3.37 L (4.20-5.40) 10^6/uL Hgb 8.9 L (12.0-16.0) g/dL Hct 29.5 L (37.0-47.0) % MCV 87.5 (81.0-99.0) fL MCH 26.4 L (27.0-31.0) pg MCHC 30.2 L (32.0-36.0) g/dL RDW 15.6 H (12.0-15.0) % Plt Count 512 H (130-450) 10^3/uL MPV 9.3 (7.9-10.8) fL Neut # (Auto) 11.1 H (1.5-6.6) 10^3/uL Lymph # (Auto) 2.6 (1.5-3.5) 10^3/uL [place] # (Auto) 0.7 (0.0-1.0) 10^3/uL Eos # (Auto) 0.4 (0.0-0.7) 10^3/uL Baso # (Auto) 0.1 (0.0-0.1) 10^3/uL Absolute Nucleated RBC 0.00 x10^3/uL Nucleated RBC % 0.0 /100WBC Sodium 134 L (135-145) mmol/L Potassium 3.4 L (3.5-5.0) mmol/L Chloride 97 L (101-111) mmol/L Carbon Dioxide 25 (21-32) mmol/L Anion Gap 12.0 (6-13) BUN 5 L (6-20) mg/dL Creatinine 1.0 (0.4-1.0) mg/dL Estimated GFR (MDRD) 71 L (>89) Glucose 85 (70-100) mg/dL Calcium 8.3 L (8.5-10.3) mg/dL Iron 40 (28-170) ug/dL TIBC 171 L (250-450) ug/dL % Saturation 23 (20-50) % Transferrin 122 L (192-382) mg/dL Ferritin 760.1 H (11.0-306.8) ng/mL Total Bilirubin 0.2 (0.2-1.0) mg/dL AST 40 (10-42) IU/L ALT 37 (10-60) IU/L Alkaline Phosphatase 83 (42-121) IU/L Total Protein 6.8 (6.7-8.2) g/dL Albumin 2.6 L (3.2-5.5) g/dL Globulin 4.2 (2.1-4.2) g/dL Albumin/Globulin Ratio 0.6 L (1.0-2.2) ABX Reporting Has patient been on IV antibiotics over the past 48 hours?: Yes Sepsis Event Note (H) - Evaluation Current Stage of Sepsis: Resolved Possible source of Sepsis: positive: Genitourinary - Sepsis Criteria Sepsis Criteria: Recorded Heart Rate greater than 90 bpm, WBC count greater than 12,000 or less than 4000, Renal: urine output less than 0.5ml/kg/hr for 2 hours or creatinine gr Assessment/Plan - Problem List (1) Sepsis Impression: This is presumed to be secondary to pyelonephritis. Her sepsis has now resolved as she remains afebrile with no tachycardia. Her leukocytosis is also improving. We will transition her to oral antibiotics today and monitor overni ght. As long as her white count is improving tomorrow, I believe she will be stable for discharge. Qualifiers: Sepsis type: sepsis due to unspecified organism Sepsis acute organ dysfunction status: unspecified Qualified Code(s): A41.9 - Sepsis, unspecified organism (2) Pyelonephritis Impression: This is the presumed source of her sepsis. Unfortunately do not have any urine cultures available. We will continue to oral ciprofloxacin today and monitor her overnight. If her white count continues to improve tomorrow, we will discharge her on ciprofloxacin to complete 10 days of antibiotics. She had been on ceftriaxone during the prior admission but as she improved on Zosyn, we will restart the 10 days of therapy since this admission. (3) Abdominal pain Impression: Reports her abdominal pain has improved but continues to have some nausea and vomiting. Most of her pain is now in the right lower quadrant. I suspect this i s secondary to her pyelonephritis and should continue to improve as we treat her underlying infection. Ultrasound was equivocal for cholecystitis. The HIDA scan was performed but unfortunate the gallbladder was not well visualized. Clinically she does not appear to have cholecystitis as she has no abdominal tenderness in the right upper quadrant. A CT abdomen pelvis done prior to his left AGAINST MEDICAL ADVICE during last admission showed no acute normality except for perinephric stranding. Continue with diet as tolerated and monitor her pain. Will consider further imaging if there is any change in her clinical condition. Qualifiers: Abdominal location: unspecified location Qualified Code(s): R10.9 - Unspecified abdominal pain (4) Anemia Impression: Hemoglobin has stabilized and there is no evidence of significant hemorrhage. Her iron studies were not suggestive of iron deficiency anemia. Her anemia is likely due to her acute illness and some blood loss given the D&C. (5) ROSY (acute kidney injury) Impression: This has resolved.Discontinue her IV fluids. (6) Spontaneous Impression: She is status post D&C on July 29 and there is low suspicion for retained products of conception at the moment. Gynecology commend repeating a beta hCG and this will be done tomorrow morning to make sure it is continuing to trend down. (7) Congenital anomaly of gastrointestinal tract Impression: I do not suspect this is contributing to her nausea and vomiting. A G-tube remains in place in the left lower quadrant.
--- NOTE | 2019-08-05 15:26 | Discharge Plan ---
Discharge Plan Problem Reviewed?: Yes Disposition: Home, Self Care Condition: Stable Prescriptions: Ciprofloxacin HCl [Cipro] 500 mg PO BID #16 tablet Diet: Regular Activity Restrictions: Activity as Tolerated Shower Restrictions: No Driving Restrictions: No Instruction Topics: Ciprofloxacin tablets Health Concerns: You were seen in the hospital because of concern for severe infection second [place] to kidney infection. You were treated with IV antibiotics with improvement in your symptoms. Entertainment Agent evaluated you and thought that the infection was not secondary to the procedure you had last week when he had a dilatation and evacuation. We got an ultrasound of her gallbladder which did not confirm an infection or rule out one therefore we did another imaging study which did not visualize the gallbladder very well unfortunately. Clinically do not appear to have signs of a gallbladder infections is likely all from your kidneys. He had improved with IV antibiotics and you will be discharged on oral antibiotics to complete 10 days of treatment. Plan of Treatment: Please take the ciprofloxacin as prescribed 500 mg twice daily to complete treatment. You may take Tylenol as needed for pain control. Care Goals: Please follow-up with your primary care physician within 1 week. Assessment: Patient expressed understanding of the treatment plan. No Smoking: If you smoke, Please STOP! Call for help. Follow-up with: Jurgen Laird ARNP [Primary Care Provider] -
--- NOTE | 2019-08-05 15:31 | DISCHARGE SUMMARY ---
"Discharge Summary Admit Date: 08/03/19 Discharge Date: 08/05/19 Discharging Provider: Ej Amaya Primary Care Provider: Jurgen Laird Code Status: Attempt Resuscitation Condition at Discharge: Stable Discharge Disposition: 01 Home, Self Care - DIAGNOSES Admission Diagnoses: Sepsis Pyelonephritis Acute kidney injury Anemia Hypokalemia Spontaneous Discharge Diagnoses with Status of Each Condition: Sepsis - resolved. Pyelonephritis - improving. Abdominal pain - improving. Anemia - stable. ROSY - resolved. Spontaneous - resolved. Congenital anomaly of gastrointestinal tract - stable. - HPI History of Present Illness: H&P per Dr. 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 The patient initially presented to the ER on 07/26/2019 at which time she was diagnosed with a urinary tract infection and a spontaneous along with leukocytosis. She left AMA from the emergency department prior to further investigation, work-up or treatment. She was given a dose of IV Rocephin in the emergency department before she returned home. The patient returned to the emergency department the following day as she was unable to tolerate any p.o. intake and was having worsening abdominal pain with vaginal bleeding. The patient was admitted to the hospital secondary to sepsis from pyelonephritis with a spontaneous . The patient was initially started on IV fluids and IV ceftriaxone. Gynecology was consulted and she was given misoprostol. There was concern that the patient was not taking the medication orally therefore it was administered vaginally. Repeat vaginal ultrasound showed retained products of conception. Initially gynecology recommended a dilatation and evacuation but the patient declined. She was monitored and began developing fever and worsening acute kidney injury. Finally the patient agreed to a dilatation and evacuation which was performed on 07/30/2019. Postoperatively the patient continued to have low-grade fevers but her white count was initially improving. She remained on IV ceftriaxone for presumed pyelonephritis. Her blood cultures remained negative. Her urine was initially contaminated and repeat culture grew urogenital yordan. Unfortunately despite the IV ceftriaxone the patient's white blood cell count began to increase and she had worsening bandemia with 14% bands. Patient also continued to have bilateral flank pain and worsening acute kidney injury. At this point the patient was adamant to leave AGAINST MEDICAL ADVICE as she wanted to see her children. The hospitalist did perform a CT of the patient's abdomen pelvis prior to her leaving which showed perinephric stranding consistent with infection but no other acute abnormality. The p will's antibiotic regimen was expanded with IV Zosyn and ceftriaxone was discontinued. The patient was counseled on the need to stay in the hospital as her condition was not stable enough for discharge. The patient however declined and left AGAINST MEDICAL ADVICE. She did receive a prescription for ciprofloxacin 500 mg twice daily to take for 5 more days. Since returning home on 08/02/2019 the patient has been experiencing worsening bilateral flank pain, periumbilical abdominal pain and has been having continuous vaginal bleeding. The patient also states that she has been able to only drink some Powerade and not been able to keep any kind of solid foods down. She states that she is been having loose stools from her ostomy. She denies having fevers or chills but states that her pain was getting so severe that she had to return to the hospital today. On return to the emergency department the patient was afebrile and heart rate was 99 otherwise vital signs were stable. The patient's white blood cell count had increased from her discharge up to 19.5, patient's creatinine remained stable at 1.6 and her potassium had decreased to 3.2. Patient's urine analysis revealed a large leukocyte Estrace, RBCs, blood, 11-25 WBCs. The patient otherwise denies any fevers, chills, headaches, blurred vision, runny nose, sore throat, nasal congestion, neck stiffness, recent unintentional weight loss, night sweats or any focal neurologic deficits. She denies any chest pain, shortness of air, orthopnea or PND. She denies any increased lower extremity swelling. Given the patient's persistent sepsis with pyelonephritis and concern for retained products of conception she was admitted. - CONSULTS | PROCEDURES Consultations: Dairy Technologist Procedures: Transvaginal ultrasound performed August 02 there is showed heterogenous thi ckening of the endometrial stripe in the lower uterine segment about convincing vascularity. Differential includes retained products of conception and hemorrhage. Abdominal ultrasound performed August 02 showed coarse hepatic echotexture suggestive of steatosis. There is a 1.2 cm hypodensity within the left hepatic lobe. There is a stable 2.0 cm hypoechoic lesion within the right hepatic lobe. There is a 1.3 cm stone within the gallbladder. There is borderline gallbladder wall thickening. Findings are equivocal for sonographic diagnosis of acute cholecystitis. HIDA scan performed August 03 showed nonvisualization of the gallbladder during initial hour of imaging. Cystic duct patency is not confirmed. Delayed imaging of 4 hours could be obtained for improved specificity. Patent common bile duct. No evidence of significant enterogastric bile reflux. - HOSPITAL COURSE Hospital Course: She was admitted for sepsis secondary to presumed pyelonephritis after she had left AGAINST MEDICAL ADVICE. There is also concern for possibly products of re tained conception given her recent D&C. She was treated with Zosyn IV. Gynecology was consulted and reviewed the transvaginal ultrasound which showed endometrial thickening concerning for possible retained proximal of conception or hemorrhage. Gynecology thought that there was low suspicion for retained products of conception and the patient's beta hCG had been trending down appropriately. Her vaginal bleeding was also consistent with what would be expected after a D&C. A right upper quadrant ultrasound was obtained which was equivocal for cholecystitis. HIDA scan was then obtained which unfortunately did not visualize the gallbladder. Clinically, there is low suspicion for cholecystitis as the patient's abdominal pain resolved. Repeat blood cultures remain negative and her urine culture had no growth. Her white count improved from 20,000 down to 15,000. Her acute kidney injury also resolved. She was checked for C. difficile and this was also negative. She was transitioned from Zosyn IV to ciprofloxacin orally. The plan was to observe her 1 more day while on oral antibiotics to make sure her white count continue to improve. The patient requested to be discharged home and I feel this is reasonable given she has remained afebrile and her tachycardia has resolved. Her white count had also been improving on a daily basis. She was prescribed ciprofloxacin to complete 10 days of therapy for pyelonephritis. Although she had received ceftriaxone IV during her last admission, she will be treated for 10 days from the beginning of this admission. - ALLERGIES Allergies/Adverse Reactions: Allergies Allergy/AdvReac Type Severity Reaction Status Date / Time Iodinated Contrast Media Allergy Anaphylaxis Verified 08/03/19 04:32 cyclobenzaprine AdvReac Emesis Verified 08/03/19 04:32 - MEDICATIONS Home Medications: Ambulatory Orders Medication Instructions Recorded Confirmed Famotidine 20 mg PO BID 07/27/19 08/03/19 Lidocaine [Lidoderm] 1 patch TOP PRN PRN 07/27/19 08/03/19 No.137/Iron/Folic Acd 1 tab PO DAILYWM 08/03/19 08/03/19 [ Vitamin Tablet] Ciprofloxacin HCl [Cipro] 500 mg PO BID #16 tablet 08/05/19 - PHYSICAL EXAM AT DISCHARGE General Appearance: positive: No acute distress, Alert Eyes Bilateral: positive: Normal inspection ENT: positive: ENT inspection nml Neck: positive: Nml inspection Respiratory: positive: No respiratory distress. negative: Wheezes, Rales, Rhonchi Cardiovascular: positive: Regular rate & rhythm, No murmur. negative: Tachycardia, Bradycardia Abdomen: positive: Nml bowel sounds, No distention, Tenderness (Mild tenderness in right lower quadrant), Other (G tube in place in left lower quadrant.). negative: Non-tender, Guarding, Rebound Back: positive: CVA tenderness (R), CVA tenderness (L), Other (Mild flank tenderness that has improved.) Skin: positive: Warm, Dry Extremities: positive: Full ROM, No pedal edema Neurologic/Psychiatric: positive: Oriented x3. negative: Disoriented to person, Disoriented to place, Disoriented to time - LABS Result Diagrams: 08/05/19 05:27 08/05/19 05:27 - DIAGNOSTIC IMAGING Diagnostic Imaging Results: Final report reviewed - SEPSIS Current Stage of Sepsis: Resolved Possible source of Sepsis: Genitourinary Sepsis Criteria: Recorded Heart Rate greater than 90 bpm, WBC count greater than 12,000 or less than 4000, Renal: urine output less than 0.5ml/kg/hr for 2 hours or creatinine gr - FOLLOW UP Follow Up: She was asked to follow-up with her primary care provider within 1 week. - TIME SPENT Time Spent in Discharge (Minutes): 31"
[2019-08-05 16:04] LABS: HCG,QUALITATIVE BLOOD POSITIVE
[2019-08-05 16:10] VITALS: BP 122/82
[2019-08-05] MEDS ORDERED: CIPROFLOXACIN 250 MG TABLET PO STA (16:16)
== END 2019-08-05 16:30 | disposition home or self-care (01) | DRG 872 ==
LOC: EDUNIT# → ED 04:14 → MS2 05:43
PROVIDERS: ADMIT Internal Medicine; ATTEND Internal Medicine
DX: A41.9 Sepsis, unspecified organism (principal); N10 Acute pyelonephritis; N17.9 Acute kidney failure, unspecified; Q42.3 Congenital absence, atresia and stenosis of anus without fistula; E87.6 Hypokalemia; N93.8 Other specified abnormal uterine and vaginal bleeding; D50.0 Iron deficiency anemia secondary to blood loss (chronic); K80.20 Calculus of gallbladder without cholecystitis without obstruction; Q51.3 Bicornate uterus; K21.9 Gastro-esophageal reflux disease without esophagitis; Z98.890 Other specified postprocedural states; Z93.1 Gastrostomy status; Z90.49 Acquired absence of other specified parts of digestive tract; Z87.442 Personal history of urinary calculi; O03.9 Complete or unspecified spontaneous abortion without complication; Z91.19 Patient's noncompliance with other medical treatment and regimen; Z93.2 Ileostomy status
CPT/HCPCS: 36415; 76705; 76830; 76856; 78226; 80053; 81001; 81025; 82728; 83540; 83605; 83690; 84466; 84702; 84703; 85025; 87040; 87086; 87493; 93976; 96365; 99283; 99285; A9270; J2060; J7120; 81003

== ENCOUNTER 2019-08-07 06:43 | Emergency (ER) | payer OTHER ==
--- NOTE | 2019-08-07 07:12 | ED Physician Documentation ---
PD HPI ABD PAIN - Stated complaint Stated Complaint: ABD PX/VOMITING - Chief complaint Chief Complaint: Abd Pain - History obtained from History obtained from: Patient - History of Present Illness Timing - onset: Yesterday (She had been hospitalized recently with concerns for urinary tract and kidney infection versus endometritis with antibiotics targeted towards pyelonephritis. She had had a recent spontaneous miscarriage with the subsequent D&C on July 29 I believe. She had a FIRE ALARM DISPATCHER consult on the recent hospitalization with a pelvic exam and the feeling that that was not endometritis or retained products. The patient was discharged a couple of days ago feeling improving but yesterday started with increased abdominal pain and back pain and nausea and vomiting. She is having upper abdominal pain more today and last evening.) Timing - duration: Weeks (has had some symptoms for couple weeks, and was doing better though still nausea, when dfischarged couple days ago. But with vomiting and nausea, increased abd pain (upper right as well as her back) since yesterday.) Timing - details: Gradual onset, Waxing and waning Quality: Aching, Sharp, Pain Location: RUQ Radiation: Lower back Improved by: No: Eating, Vomiting Worsened by: Eating. No: Breathing Associated symptoms: Nausea, Vomiting. No: Fever, Diarrhea, Dysuria Similar symptoms before: No diagnosis (has had Dx pyelonephritis but urine cultures have been negative. COOK PRESSURE did not feel it is endometritis. Consideration of gallbladder process.) Recently seen: Emergency Dept, Admitted Review of Systems Constitutional: reports: Fever. denies: Chills Nose: denies: Rhinorrhea / runny nose, Congestion Throat: denies: Sore throat Respiratory: denies: Cough GI: reports: Abdominal Pain, Nausea, Vomiting. denies: Constipation, Diarrhea : reports: Frequency, Vaginal bleeding (mild since recent miscarriage). denies: Dysuria, Discharge Skin: denies: Rash, Lesions Musculoskeletal: reports: Back pain. denies: Neck pain PD PAST MEDICAL HISTORY - Past Medical History Cardiovascular: None Respiratory: Pneumonia, Other Neuro: Migraines, Peripheral neuropathy, Tremors, Other Endocrine/Autoimmune: None, Other GI: GERD, Other COOK PRESSURE: None, Miscarriage(s), Other : Kidney stones, Other HEENT: None Psych: None Musculoskeletal: Fibromyalgia, Other Derm: None - Past Surgical History Past Surgical History: Yes General: Bowel surgery, Gastric surgery /COOK PRESSURE: section - Present Medications Home Medications: Ambulatory Orders Medication Instructions Recorded Confirmed Famotidine 20 mg PO BID 07/27/19 08/03/19 Lidocaine [Lidoderm] 1 patch TOP PRN PRN 07/27/19 08/03/19 No.137/Iron/Folic Acd 1 tab PO DAILYWM 08/03/19 08/03/19 [ Vitamin Tablet] Ciprofloxacin HCl [Cipro] 500 mg PO BID #16 tablet 08/05/19 - Allergies Allergies/Adverse Reactions: Allergies Allergy/AdvReac Type Severity Reaction Status Date / Time Iodinated Contrast Media Allergy Anaphylaxis Verified 08/07/19 06:55 cyclobenzaprine AdvReac Emesis Verified 08/07/19 06:55 - Social History Does the pt smoke?: No Smoking Status: Never smoker Does the pt drink ETOH?: No Does the pt have substance abuse?: No - Immunizations Immunizations are current?: No - POLST Patient has POLST: No POLST Status: Full Code PD ED PE NORMAL - Vitals Vital signs reviewed: Yes - General General: Alert and oriented X 3, Well developed/nourished, Other (appears in pain and nauseated. ) - HEENT HEENT: Pharynx benign - Neck Neck: Supple, no meningeal sign, No adenopathy - Cardiac Cardiac: RRR, No murmur - Respiratory Respiratory: Clear bilaterally - Abdomen Abdomen: Soft, Non distended, No organomegaly, Other (tender RUQ with some local guarding. Lower abd some tender in infraumbilical area. ) - Female Female : Deferred - Rectal Rectal: Deferred - Back Back: Other (CVA tender both sides) - Derm Derm: Normal color - Extremities Extremities: No tenderness to palpate, Normal ROM s pain, No edema, No calf tenderness / cord - Neuro Neuro: Alert and oriented X 3, No motor deficit, Normal speech Results - Vitals Vitals: Vital Signs - 24 hr 08/07/19 08/07/19 08/07/19 06:45 07:24 08:21 Temperature 37.0 C 37 C Heart Rate 100 92 80 Respiratory 18 18 18 Rate Blood Pressure 125/93 H 127/98 H 113/78 O2 Saturation 99 98 100 08/07/19 08/07/19 08/07/19 09:42 10:55 12:00 Temperature Heart Rate 88 68 68 Respiratory 14 16 16 Rate Blood Pressure 117/94 H 141/81 H 123/101 H O2 Saturation 98 98 96 08/07/19 08/07/19 14:35 15:46 Temperature Heart Rate 105 H 68 Respiratory 16 16 Rate Blood Pressure 129/85 H 114/57 L O2 Saturation 95 98 Oxygen O2 Source Room air - Labs Labs: Laboratory Tests 08/07/19 08/07/19 08/07/19 07:15 07:15 07:47 WBC 16.1 H RBC 3.71 L Hgb 10.1 L Hct 31.5 L MCV 84.9 MCH 27.2 MCHC 32.1 RDW 15.0 Plt Count 810 H* MPV 9.1 Neut # (Auto) 12.7 H Lymph # (Auto) 2.2 [place] # (Auto) 0.5 Eos # (Auto) 0.2 Baso # (Auto) 0.1 Absolute Nucleated RBC 0.00 Nucleated RBC % 0.0 Platelet Estimate INCREASED (>450,000) Platelet Morphology NORMAL APPEARANCE RBC Morph Micro Appear 1+ POLYCHROMASIA Sodium Potassium Chloride Carbon Dioxide Anion Gap BUN Creatinine Estimated GFR (MDRD) Glucose Lactic Acid Calcium Total Bilirubin AST ALT Alkaline Phosphatase C-Reactive Protein Total Protein Albumin Globulin Albumin/Globulin Ratio Lipase HCG, Quant Urine Color YELLOW Urine Clarity HAZY Urine pH 7.0 Ur Specific [place] 1.010 1.010 Urine Protein NEGATIVE Urine Glucose (UA) NEGATIVE Urine Ketones NEGATIVE Urine Occult Blood LARGE H Urine Nitrite NEGATIVE Urine Bilirubin NEGATIVE Urine Urobilinogen 0.2 (NORMAL) Ur Leukocyte Esterase LARGE H Urine RBC 11-25 H Urine WBC >25 H Ur Squamous Epith Cells MOD Squamous H Urine Bacteria Moderate H Ur Microscopic Review INDICATED Urine Culture Comments NOT INDICATED Urine HCG, Qual POSITIVE Slides for Path Review Indicated 08/07/19 08/07/19 08/07/19 07:47 07:47 07:47 WBC RBC Hgb Hct MCV MCH MCHC RDW Plt Count MPV Neut # (Auto) Lymph # (Auto) [place] # (Auto) Eos # (Auto) Baso # (Auto) Absolute Nucleated RBC Nucleated RBC % Platelet Estimate Platelet Morphology RBC Morph Micro Appear Sodium 139 Potassium 3.1 L Chloride 101 Carbon Dioxide 28 Anion Gap 10.0 BUN 5 L Creatinine 1.0 Estimated GFR (MDRD) 71 L Glucose 97 Lactic Acid 1.0 Calcium 9.2 Total Bilirubin 0.5 AST 24 ALT 32 Alkaline Phosphatase 79 C-Reactive Protein 6.7 H Total Protein 8.5 H Albumin 3.2 Globulin 5.3 H Albumin/Globulin Ratio 0.6 L Lipase 32 HCG, Quant 165.71 Urine Color Urine Clarity Urine pH Ur Specific [place] Urine Protein Urine Glucose (UA) Urine Ketones Urine Occult Blood Urine Nitrite Urine Bilirubin Urine Urobilinogen Ur Leukocyte Esterase Urine RBC Urine WBC Ur Squamous Epith Cells Urine Bacteria Ur Microscopic Review Urine Culture Comments Urine HCG, Qual Slides for Path Review - Rads (name of study) RUQ U/S Radiology: Prelim report reviewed (mild wall thickening at 3 mm. nonmobile stone in neck. Prior noted hepatic cysts. ), See rad report abd CT Radiology: Prelim report reviewed (mild pericholocystic fluid/edema, some stranding left perinephric. ), See rad report PD MEDICAL DECISION MAKING - ED course Complexity details: reviewed old records, reviewed results (U/S showing minimal wall thickness of GB 3 mm, with nonmobile stone. Borderline cholecystitis. CT showing some pericholecystic fluid. So could be acute/subacute cholecystitis, and not pyelo this time per se. ), re-evaluated patient, considered differential (has had Dx of UTI/pyelo but cultures previously not conclusive. Consider endometritis, but had nontender pelvic exam 5 days ago by COOK PRESSURE. Today has upper abd pain/tender, so could be having cholecystitis now. ), d/w patient, d/w consultants intern (Consult with Dr. Rivera the hospitalist who had recently seen the patient and discharged her. Also contacted and consulted Dr. Mauricio Rodriges for general surgery and Dr. Bellamy on FIRE ALARM DISPATCHER. Dr. Bellamy did not feel the source of infection or pain was endometritis based on her recent pelvic exam a few days ago. Dr. Rodriges reviewed the CT and ultrasound and lab tests and also examined the patient and did not feel that her gallbladder was the cause of her problem. This was reportedly based on her not being that tender in the area. Her imaging did show some mild pericholecystic edema and minimal wall thickening of [address] Rivera was not sure of the cause of the infection with pyelonephritis not being really proven based on urine cultures though there is some perinephric stranding still on CT scan. He contacted the hospitalist at [facility] who accepted the patient in transfer for further specialist testing and evaluation.) ED course: Talked with COOK PRESSURE, Surgery, and Hospitalist, without clear Dx of her problems. Dr. Amaya, arranged transfer of the patient to [facility] for ID and ? Urology eval. Will also get another general surgery consultation regarding the gallbladder. Patient kept comfortable with repeat doses meds here. Departure - Departure Disposition: 02 Transfer Acute Care Hosp Clinical Impression: Upper abdominal pain Leukocytosis Qualifiers: Leukocytosis type: unspecified Qualified Code(s): D72.829 - Elevated white blood cell count, unspecified UTI (urinary tract infection) Qualifiers: Urinary tract infection type: site unspecified Hematuria presence: without hematuria Qualified Code(s): N39.0 - Urinary tract infection, site not specified Nausea and vomiting Qualifiers: Vomiting type: unspecified Vomiting Intractability: non-intractable Qualified Code(s): R11.2 - Nausea with vomiting, unspecified Condition: Stable Record reviewed to determine appropriate education?: Yes Discharge Date/Time: 08/07/19 15:47
[2019-08-07 07:28] LABS: BILIRUBIN,URINE NEGATIVE (NEGATIVE); GLUCOSE, URINE (UA) NEGATIVE (NEGATIVE); KETONES,URINE (UA) NEGATIVE (NEGATIVE); LEUKOCYTE ESTERASE, URINE LARGE (NEGATIVE); NITRITE,URINE NEGATIVE (NEGATIVE); OCCULT BLOOD,URINE LARGE (NEGATIVE); PROTEIN,URINE NEGATIVE (NEGATIVE); UROBILINOGEN,URINE 0.2 (NORMAL) E.U./dL (NORMAL)
[2019-08-07 07:29] LABS: CLARITY,URINE HAZY (CLEAR)
[2019-08-07] MEDS ORDERED: ONDANSETRON 4 MG/2 ML VIAL IVP STA (07:32)
[2019-08-07] MEDS ORDERED: SODIUM CHLORIDE 0.9% 1,000 ML IV ONE ×3 (07:32→12:07)
[2019-08-07] MEDS ORDERED: FAMOTIDINE 20 MG/2 ML SYRINGE IVP STA (07:32)
[2019-08-07] MEDS ORDERED: KETOROLAC 15 MG/ML VIAL IVP STA (07:32)
[2019-08-07] MEDS ORDERED: HYDROmorphone 1 MG/ML CARPUJECT IVP STA ×3 (07:32→10:56)
[2019-08-07] MEDS ORDERED: cefTRIAXone 1 GM VIAL IVP STA (07:33)
[2019-08-07 07:45] LABS: HCG UR QUAL POSITIVE
[2019-08-07 07:46] LABS: BACTERIA,URINE Moderate /HPF (None Seen); SQUAMOUS EPITHELIAL CELL,UR MOD Squamous (<= Few)
[2019-08-07 08:05] LABS: BASOPHILS # (AUTO) 0.1 10^3/uL (0.0-0.1); BASOPHILS % (AUTO) 0.4 %; EOSINOPHILS # (AUTO) 0.2 10^3/uL (0.0-0.7); EOSINOPHILS % (AUTO) 1.2 %; HGB - HEMOGLOBIN 10.1 g/dL (12.0-16.0); LYMPHOCYTES # (AUTO) 2.2 10^3/uL (1.5-3.5); LYMPHOCYTES % (AUTO) 13.5 %; MEAN CORPUSCULAR HEMOGLOBIN 27.2 pg (27.0-31.0); MEAN CORPUSCULAR HGB CONC 32.1 g/dL (32.0-36.0); MEAN CORPUSCULAR VOLUME 84.9 fL (81.0-99.0); MEAN PLATELET VOLUME 9.1 fL (7.9-10.8); MONOCYTES # (AUTO) 0.5 10^3/uL (0.0-1.0); MONOCYTES % (AUTO) 3.2 %; NEUTROPHILS # (AUTO) 12.7 10^3/uL (1.5-6.6); RED BLOOD COUNT 3.71 10^6/uL (4.20-5.40); WHITE BLOOD COUNT 16.1 x10^3/uL (4.8-10.8)
[2019-08-07 08:09] LABS: ALBUMIN 3.2 g/dL (3.2-5.5); ALBUMIN/GLOBULIN RATIO 0.6 (1.0-2.2); BILIRUBIN,TOTAL 0.5 mg/dL (0.2-1.0); CALCIUM 9.2 mg/dL (8.5-10.3); CRP - C-REACTIVE PROTEIN 6.7 mg/dL (0-1.0); TOTAL PROTEIN 8.5 g/dL (6.7-8.2)
[2019-08-07 08:10] LABS: PLT - PLATELET COUNT 810 10^3/uL (130-450)
[2019-08-07 08:44] LABS: PLATELET ESTIMATE, MANUAL INCREASED (>450,000) (NORMAL); PLATELET MORPHOLOGY NORMAL APPEARANCE (NORMAL)
--- NOTE | 2019-08-07 09:29 | Ultrasound Report ---
Reason: increased RUQ pain last 2 days Procedure Date: 08/07/2019 Accession Number: [id number] / [id number] Procedure: US - Abdomen Limited CPT Code: Final Report FULL RESULT: EXAM: ABDOMEN ULTRASOUND LIMITED, RUQ EXAM DATE: 08/07/2019 08:55 AM. CLINICAL HISTORY: Increased RUQ pain last 2 days. COMPARISON: GALLBLADDER EF 08/04/2019 8:17 AM Ultrasound ABDOMEN LIMITED 06/09/2019 1:49 PM Ultrasound ABDOMEN 08/03/2019 8:[address] ABDOMEN/PELVIS W/O 08/02/2019 8:[address] abdomen and pelvis with contrast 06/28/2019. TECHNIQUE: Real-time scanning was performed with static images obtained. FINDINGS: Liver: The parenchyma is echogenic diffusely. There is a 1.2 cm ovoid hypoechoic focus in the left hepatic lobe, unchanged. There is a 2.2 cm ovoid hypoechoic focus in the right hepatic lobe, as seen on the prior exam. The right lobe of the liver measures up to 17.7 cm. Main portal vein flow: Hepatopetal. Gallbladder: There is a 1.1 cm non-mobile echogenic shadowing stone in the proximal gallbladder, as seen on the prior right upper quadrant ultrasound on 08/03/2019. Borderline gallbladder wall thickening measures 3.2 mm, previously 3.5 mm. No sonographic Donovan sign. Biliary System: CBD measures 5.3 mm. No intrahepatic or extrahepatic ductal dilatation. Other: The right kidney is unremarkable. Right renal length measures 13.6 cm. No right-sided hydronephrosis. IMPRESSION: 1. There is a 1.1 cm stone within the proximal gallbladder, as seen on the prior ultrasound on 08/03/2019. Borderline gallbladder wall thickening is similar to prior. No sonographic Donovan sign. Acute cholecystitis cannot be completely excluded. Nuclear medicine HIDA scan may be helpful for further evaluation. 2. Echogenic hepatic parenchyma consistent with diffuse hepatic steatosis. 3. Hypoechoic lesions in the left and right hepatic lobes appear similar to prior. These could be further evaluated with nonemergent hepatic MRI. RADIA
[2019-08-07] MEDS ORDERED: GENTAMICIN IV STA (09:52)
[2019-08-07] MEDS ORDERED: SODIUM CHLORIDE 0.9% IV STA (09:52)
--- NOTE | 2019-08-07 12:31 | CT Report ---
Reason: abd pain Procedure Date: 08/07/2019 Accession Number: [id number] / [id number] Procedure: CT - Abdomen/Pelvis WO CPT Code: Final Report FULL RESULT: EXAM: CT ABDOMEN AND PELVIS EXAM DATE: 08/07/2019 11:17 AM. CLINICAL HISTORY: Abdominal pain. Vomiting. COMPARISONS: ABDOMEN/PELVIS W/O 08/02/2019 8:01 AM. ABDOMEN 08/03/2019 8:42 AM. ABDOMEN LIMITED 08/07/2019 8:24 AM. ABDOMEN/PELVIS W/ 06/28/2019 8:30 PM. TECHNIQUE: Routine helical CT imaging was performed through the abdomen and pelvis. IV contrast: None. Enteric contrast: No. Reconstructions: Coronal and sagittal. In accordance with CT protocol optimization, one or more of the following dose reduction techniques were utilized for this exam: automated exposure control, adjustment of mA and/or KV based on patient size, or use of iterative reconstructive technique. FINDINGS: Lung Bases: Lung bases are clear. Included portions of the heart are unremarkable. Liver: Diffuse fatty liver. Gallbladder/Bile Ducts: Mild pericholecystic fluid/edema. No radiopaque calculi. Spleen: Normal. Pancreas: Normal. Adrenal Glands: Normal. Kidneys: Kidneys are mild prominent in size. There is asymmetric left perinephric stranding in comparison to the right. No obstructing calculi. Peritoneal Cavity/Bowel: No bowel obstruction. No small bowel dilatation. Small fatty umbilical hernia. Appendix is normal. Small volume of stool in the colon. No diverticulitis. Changes are seen from prior rectosigmoid surgery with a large segment of focal outpouching measuring up to 12 x 10 cm containing layering stool and fluid level, as before which is similar in size along the margins of the rectum. Percutaneous catheter with a balloon is seen within the lumen of the proximal sigmoid colon. No pericolonic inflammatory changes. Pelvic Organs: Urinary bladder is moderately distended. No bladder calculi. No other adnexal masses. No pelvic adenopathy. Vasculature: No aneurysms or other significant abnormality. Bones: No significant abnormality. Other: None. IMPRESSION: 1. Asymmetric perinephric stranding with perinephric standing more prominent on the left compared to the right. No significant hydronephrosis. Findings may be infectious/inflammatory although unlikely to be obstructive. No bladder calculi. No obstructing ureteral calculi. 2. No small bowel obstruction. 3. Small volume of stool in the colon. Prior rectosigmoid surgery with a large dilated outpouching/pouch along arising from the left rectum similar compared to 08/02/2019. Left lower quadrant colonic percutaneous catheter stable in position. RADIA
[2019-08-07] MEDS ORDERED: HALOPERIDOL 5 MG/ML VIAL IVP ONE (13:36)
--- NOTE | 2019-08-07 14:46 | CONSULTATION NOTE ---
Referring Provider Name of Referring Provider:: Dr. 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 She has a hx of multiple ER visits and admissions for abd pain including treatment of left ureterolithiasis with obstruction and sepsis in Mar 2019, and essentially continuous hospitalization for the past several weeks for diffuse abdominal and flank pain initially diagnosed as pyelonephritis in setting of early , followed by spontaneous miscarriage, followed by a D & E for retained products of conception, with persistent fevers and leukocytosis despite prolonged course of broad spectrum antibiotic therapy. She has never had positive blood or urine cultures. Evaluation has included multiple US and CT scans of abd and pelvis. The abd US studies on 08/02 and today show a 1.1 cm stone in the gallbladder neck, minimally thickened gallbladder wall (3 mm), nl bile ducts and neg sonographic Donovan's signs, without change between the two studies. A HIDA scan performed on 08/03 showed nonvisualization of the gallbladder at 1 hour and a 4 hour f/u was advised but apparently never performed. CT scans have not showed significant pathology. LFT's and lipase have been nl throughout. Yesterday pt reports that the pain has somewhat more localized to the RUQ and she has continued to have intermittent N/V without pattern changer and repairer the past several weeks. She reports a hx of fatty food intolerance for several months and was told reportedly by her physicians in [place] that she needed her gallbladder out last fall, but never had it done because she was moving here. She denies FH of gallbladder disease. She takes H2 patricia medication for GERD. No recent sig wt changes or hx PUD. No use of NSAIDs or alcohol. History - Past Medical History Cardiovascular: reports: None Respiratory: reports: Pneumonia, Other Neuro: reports: Migraines, Peripheral neuropathy, Tremors, Other Endocrine/Autoimmune: reports: None, Other GI: reports: GERD, Other TREE KILLER: reports: None, Miscarriage(s), Other : reports: Kidney stones, Other HEENT: reports: None Psych: reports: None Musculoskeletal: reports: Fibromyalgia, Other Derm: reports: None MRSA Hx?: No - Past Surgical History General: reports: Bowel surgery /TREE KILLER: reports: section - Family & Social History Family History: Mother: Alive and Well, CAD, Diabetes, Type 2, Mental Illness, Father: Alive and Well, CAD, Diabetes, Type 2, Mental Illness Family History Comment/Other: Several half siblings, all alive and well. Thinks one of her brothers has heart disease. 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 She denies ilicit drug use, tobacco use or alcohol use. She wishes to be a FULL code. - Substance History Use: Uses substance without health or social issues: NONE - POLST Patient has POLST: No POLST Status: Full Code Meds/Allgy - Home Medications Home Medications: Ambulatory Orders Medication Instructions Recorded Confirmed Famotidine 20 mg PO BID 07/27/19 08/03/19 Lidocaine [Lidoderm] 1 patch TOP PRN PRN 07/27/19 08/03/19 No.137/Iron/Folic Acd 1 tab PO DAILYWM 08/03/19 08/03/19 [ Vitamin Tablet] Ciprofloxacin HCl [Cipro] 500 mg PO BID #16 tablet 08/05/19 - Allergies Allergies/Adverse Reactions: Allergies Allergy/AdvReac Type Severity Reaction Status Date / Time Iodinated Contrast Media Allergy Anaphylaxis Verified 08/07/19 06:55 cyclobenzaprine AdvReac Emesis Verified 08/07/19 06:55 Review of Systems - Constitutional Constitutional: reports: Malaise, Poor appetite - Gastrointestinal Gastrointestinal: reports: Abdominal pain, Nausea, Vomiting, Reflux/heartburn - Genitourinary Genitourinary: reports: Flank pain - Musculoskeletal Musculoskeletal: reports: Back pain - Hematologic/Lymphatic Hematologic/Lymphatic: denies: Blood clots, Bleeding tendencies Exam - Vital Signs Reviewed Vital Signs: Yes Vital Signs: Vital Signs x48h Temp Pulse Resp BP Pulse Ox 08/07/19 12:00 68 16 123/101 H 96 08/07/19 10:55 68 16 141/81 H 98 08/07/19 09:42 88 14 117/94 H 98 08/07/19 08:21 37 C 80 18 113/78 100 08/07/19 07:24 92 18 127/98 H 98 08/07/19 06:45 37.0 C 100 18 125/93 H 99 - Physical Exam General Appearance: positive: Alert, Mild distress Eyes Bilateral: positive: Normal inspection, PERRL, EOMI, No lid inflammation, Conjunctivae nml, No scleral icterus ENT: positive: ENT inspection nml, Pharynx nml, No signs of dehydration Neck: positive: Nml inspection, No JVD, Trachea midline. negative: Lymphade nopathy (R), Lymphadenopathy (L) Respiratory: positive: Chest non-tender, No respiratory distress, Breath sounds nml. negative: Wheezes, Rales, Rhonchi Cardiovascular: positive: Regular rate & rhythm, No murmur, No gallop Peripheral Pulses: positive: 2+ Abdomen: positive: Tenderness (diffuse,non reproducible (non tender when distracted, tender when not distracted, worse in RUQ and bilat lower bettye drants)), Abnml bowel sounds (hypoactive), Other (colostomy tube exiting LLQ suprapubic region). negative: Hepatomegaly, Splenomegaly, Mass Back: positive: CVA tenderness (R), CVA tenderness (L) Skin: positive: Color nml, No rash, Warm, Dry. negative: Cyanosis Extremities: positive: Non-tender, Nml appearance, No pedal edema. negative: Calf tenderness Neurologic/Psychiatric: positive: Oriented x3 Conclusion/Plan - Diagnosis Diagnosis: 1. abdominal pain, fever, leukocytosis, persistent/recurrent of unclear etiology. ddx includes urosepsis, endometritis, unusual infectious/inflammatory disease, doubt acute cholecystititis/biliary in nature. 2. cholelithiasis; likely with sx of biliary colic but not acute cholecystitis. 3. s/p multiple procedures for imperforate anus; not likely related to current illness. - Plan Plan: Consider transfer to higher level of care given lack of improvement with present management. If pt remains here, recommend repeat HIDA scan with 4 hour f/u imag es if necessary. If positive for findings suggestive of cystic duct obstruction, then can offer lap cholecystectomy in attempt to alleviate her symptoms. Thanks, - Lab Results Lab results reviewed: Yes Fish Bones: 08/07/19 07:47 08/07/19 07:47 Other Lab Results: LFTs, lipase nl - Diagnostic Imaging Results Diagnostic Imaging Results: positive: Final report reviewed, Read independently Diagnostic Imaging Results Comments: see HPI
--- NOTE | 2019-08-07 14:53 | CONSULTATION NOTE ---
Referring Provider Name of Referring Provider:: Dr. Joshua Gonsales Consult Date: 08/07/19 Chief Complaint - Chief Complaint Chief Complaint: Abdominal pain, flank pain, nause/vomiting History of Present Illness - Admitted From Admitted From:: Home - History Obtained From Records Reviewed: Yes History obtained from: Patient, ER Physician, EMR - History of Present Illness HPI Comment/Other: This is a 18-year-old female who presents today complaining of worsening abdominal pain, flank pain, nausea and vomiting. She was just discharged on Wednesday after being treated for presumed sepsis secondary to pyelonephritis. She recently had a miscarriage and underwent a D&C for retained products of conception at the end of July. During her last hospitalization, she was treated with IV Zosyn for presumed pyelonephritis. Blood cultures and urine cultures have been negative. Her white count did improve with antibiotics. Given her abdominal pain, an ultrasound was obtained which showed gallbladder wall thickening and was equivocal for cholecystitis. There was also 1.3 cm stone in the gallbladder neck. A HIDA scan was obtained which did not show visualization of the gallbladder. Patient continued to improve and clinically was felt that she had pyelonephritis and so she was discharged on oral ciprofloxacin. She states that when she is been home, she began to have nausea and vomiting along with epigastric and right upper quadrant abdominal pain. Her bilateral flank pain also returned. She states she picked up her ciprofloxacin yesterday from the pharmacy but due to her vomiting, she has been unable to keep it down. She reports subjective fevers and chills at home. She did have dysuria at home which has since resolved. Reports no blood in her stool or diarrhea. She feels that it is her gallbladder causing her symptoms and she was told in [place] that she needed her gallbladder removed but since she moved here to [facility], no one is willing to remove her gallbladder. Labs in the ER showed a persistently elevated white count and her platelet count had increased to over 800. Repeat ultrasound of the gallbladder showed a slightly thickened gallbladder wall and a 1.1 cm stone in the gallbladder neck. Repeat CT of the abdomen and pelvis also showed gallbladder wall thickening and mild perinephric stranding. History - Past Medical History Cardiovascular: reports: None Respiratory: reports: Pneumonia, Other Neuro: reports: Migraines, Peripheral neuropathy, Tremors, Other Endocrine/Autoimmune: reports: None, Other GI: reports: GERD, Other MANGLE TENDER CLOTH: reports: None, Miscarriage(s), Other : reports: Kidney stones, Other HEENT: reports: None Psych: reports: None Musculoskeletal: reports: Fibromyalgia, Other Derm: reports: None MRSA Hx?: No - Past Surgical History General: reports: Bowel surgery /MANGLE TENDER CLOTH: reports: section - Family & Social History Family History: Mother: Alive and Well, CAD, Diabetes, Type 2, Mental Illness, Father: Alive and Well, CAD, Diabetes, Type 2, Mental Illness Family History Comment/Other: Several half siblings, all alive and well. Thinks one of her brothers has heart disease. Living arrangement: At home Living Situation: With spouse/s.o. 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 She denies ilicit drug use, tobacco use or alcohol use. - Substance History Use: Uses substance without health or social issues: NONE - POLST Patient has POLST: No POLST Status: Full Code Meds/Allgy - Home Medications Home Medications: Ambulatory Orders Medication Instructions Recorded Confirmed RX: Famotidine 20 mg PO BID 07/27/19 08/03/19 RX: Lidocaine [Lidoderm] 1 patch TOP PRN PRN 07/27/19 08/03/19 RX: No.137/Iron/Folic Acd 1 tab PO DAILYWM 08/03/19 08/03/19 [ Vitamin Tablet] RX: Ciprofloxacin HCl [Cipro] 500 mg PO BID #16 tablet 08/05/19 - Allergies Allergies/Adverse Reactions: Allergies Allergy/AdvReac Type Severity Reaction Status Date / Time Iodinated Contrast Media Allergy Anaphylaxis Verified 08/07/19 06:55 cyclobenzaprine AdvReac Emesis Verified 08/07/19 06:55 Review of Systems - Constitutional Constitutional: reports: Fever, Chills, Malaise, Poor appetite - Eyes Eyes: denies: Blurred vision - Ears, Nose & Throat Ears, Nose & Throat: denies: Nasal congestion, Sore throat - Cardiovascular Cariovascular: denies: Chest pain, Exertional dyspnea, Decr. exercise tolerance - Respiratory Respiratory: denies: Cough, SOB at rest, SOB with exertion - Gastrointestinal Gastrointestinal: reports: Abdominal pain, Nausea, Vomiting, Reflux/heartburn, Poor appetite. denies: Black stools, Bloody stools - Genitourinary Genitourinary: reports: Dysuria, Flank pain. denies: Frequency, Urgency - Integumentary Integumentary: denies: Rash - Neurological Neurological: reports: Headache. denies: Focal weakness - All Other Systems All Other Systems: reports: Reviewed and negative Exam - Vital Signs Reviewed Vital Signs: Yes Vital Signs: Vital Signs x48h Temp Pulse Resp BP Pulse Ox 08/07/19 14:35 105 H 16 129/85 H 95 08/07/19 12:00 68 16 123/101 H 96 08/07/19 10:55 68 16 141/81 H 98 08/07/19 09:42 88 14 117/94 H 98 08/07/19 08:21 37 C 80 18 113/78 100 08/07/19 07:24 92 18 127/98 H 98 - Physical Exam General Appearance: positive: Alert, Mild distress Eyes Bilateral: positive: Normal inspection ENT: positive: ENT inspection nml Neck: positive: Nml inspection Respiratory: positive: No respiratory distress. negative: Wheezes, Rales Cardiovascular: positive: No murmur, Tachycardia. negative: Bradycardia, Systolic murmur, Diastolic murmur Abdomen: positive: No distention, Tenderness (Most promininent in right upper quadrant and epigastric region.). negative: Non-tender, Guarding, Rebound Back: positive: CVA tenderness (R), CVA tenderness (L) Skin: positive: No rash, Warm, Dry Extremities: positive: Full ROM, No pedal edema Neurologic/Psychiatric: positive: Oriented x3. negative: Disoriented to person, Disoriented to place, Disoriented to time Conclusion/Plan - Diagnosis Diagnosis: 1) Sepsis. 2) Pyelonephritis. 3) Abdominal pain. 4) Leukocytosis. 5) Thrombocytosis - Plan Plan: She presents again with a sepsis-like picture and is unclear if this is cholecystitis versus pyelonephritis. Repeat imaging shows gallbladder wall thickening and perinephric stranding. Cultures have been negative to date during her last 2 admissions. Her white count remains elevated with a left shift and her platelets are now elevated at over 800 which is likely reactive from ongoing infection. I did ask Dr. Rodriges of general surgery to consult on the patient given the concern for cholecystitis. It was felt that clinically, she did not appear to have cholecystitis and transfer to higher level of care was recommended. If the patient were to remain here at our facility, then we could consider repeating a HIDA scan. Given her ongoing symptoms without a clear etiology despite extensive work-up, I believe she would benefit from transfer to higher level of care for infectious disease consult. I spoke with the hospitalist at [facility], Dr. Giles, who graciously accepted the patient in transfer. - Lab Results Lab results reviewed: Yes Shaheen Bones: 08/07/19 07:47 08/07/19 07:47 - Diagnostic Imaging Results Diagnostic Imaging Results: positive: Final report reviewed
[2019-08-07 15:47] VITALS: BP 114/57
== END 2019-08-07 15:47 | disposition short-term general hospital (02) ==
LOC: ED 06:43
DX: R10.10 Upper abdominal pain, unspecified (principal); D72.829 Elevated white blood cell count, unspecified; N39.0 Urinary tract infection, site not specified; R11.2 Nausea with vomiting, unspecified
CPT/HCPCS: 36415; 74176; 76705; 80053; 81001; 81025; 83605; 83690; 84702; 85025; 86140; 87086; 96361; 96365; 96375; 96376; 99284; 99285; J1170; J1580; 81003

== ENCOUNTER 2019-08-07 15:45 | Outpatient (CLI) | payer OTHER | END 2019-08-07 15:46 | disposition short-term general hospital (02) | LOC: EMS 15:45 | PROVIDERS: ATTEND Surgery | DX: R10.9 Unspecified abdominal pain (principal) | CPT/HCPCS: A0425; A0426 ==

== ENCOUNTER 2020-02-09 14:34 | Emergency (ER) | payer OTHER ==
[2020-02-09 14:44] VITALS: BP 123/87
[2020-02-09] MEDS ORDERED: LORazepam 1 MG TABLET PO STA (14:52)
--- NOTE | 2020-02-09 14:55 | ED Physician Documentation ---
PD HPI MHE - Stated complaint Stated Complaint: ANXIETY - Chief complaint Chief Complaint: MHE - History obtained from History obtained from: Patient - Additional information Additional information: -year-old with history of anxiety, recent admission to [facility], discharged with prescriptions, ran out and has an appointment with her doctor in about a week and needs refills. No acute complaints other than anxiety. She says that the aripiprazole does not work, she takes trazodone 50 mg at night and hydroxyzine 50 mg at night. Would like to try something different for anxiety. No thoughts of hurting herself or others. Review of Systems Constitutional: denies: Fever, Chills Cardiac: reports: Reviewed and negative Respiratory: reports: Reviewed and negative PD PAST MEDICAL HISTORY - Past Medical History Past Medical History: Yes Cardiovascular: None Respiratory: Pneumonia, Other Neuro: Migraines, Peripheral neuropathy, Tremors, Other Endocrine/Autoimmune: None, Other GI: GERD, Other CIRCUS TRAIN SUPERVISOR: None, Miscarriage(s), Other : Kidney stones, Other HEENT: None Psych: None Musculoskeletal: Fibromyalgia, Other Derm: None - Past Surgical History Past Surgical History: Yes General: Bowel surgery, Gastric surgery /CIRCUS TRAIN SUPERVISOR: section - Present Medications Home Medications: Ambulatory Orders Medication Instructions Recorded Confirmed Famotidine 20 mg PO BID 07/27/19 08/03/19 Lidocaine [Lidoderm] 1 patch TOP PRN PRN 07/27/19 08/03/19 No.137/Iron/Folic Acd 1 tab PO DAILYWM 08/03/19 08/03/19 [ Vitamin Tablet] Ciprofloxacin HCl [Cipro] 500 mg PO BID #16 tablet 08/05/19 Amox/Clav 875/125 [Augmentin] 1 each PO Q8H #30 tablet 10/31/19 Propranolol [Inderal] 10 mg PO TID #40 tablet 02/09/20 hydrOXYzine HCL [Hydroxyzine HCl] 50 mg PO HS #14 tablet 02/09/20 traZODone [Desyrel] 100 mg PO HS #14 tablet 02/09/20 - Allergies Allergies/Adverse Reactions: Allergies Allergy/AdvReac Type Severity Reaction Status Date / Time Iodinated Contrast Media Allergy Anaphylaxis Verified 02/09/20 14:44 cyclobenzaprine AdvReac Emesis Verified 02/09/20 14:44 - Social History Does the pt smoke?: No Smoking Status: Never smoker Does the pt drink ETOH?: No Does the pt have substance abuse?: No - Immunizations Immunizations are current?: No - POLST Patient has POLST: No POLST Status: Full Code PD ED PE NORMAL - Vitals Vital signs reviewed: Yes - General General: Alert and oriented X 3, No acute distress - Neuro Neuro: Alert and oriented X 3, Normal speech - Psych Psych: Normal mood, Normal affect Results - Vitals Vitals: Vital Signs - 24 hr 02/09/20 14:38 Temperature 36.2 C L Heart Rate 89 Respiratory 17 Rate Blood Pressure 123/87 H O2 Saturation 100 Oxygen O2 Source Room air Departure - Departure Disposition: Home, Self Care Clinical Impression: Anxiety Condition: Stable Record reviewed to determine appropriate education?: Yes Instructions: ED Stress React Prescriptions: traZODone [Desyrel] 100 mg PO HS #14 tablet hydrOXYzine HCL [Hydroxyzine HCl] 50 mg PO HS #14 tablet Propranolol [Inderal] 10 mg PO TID #40 tablet Comments: At your request, we are stopping the aripiprazole and substituting propranolol which I think will help your symptoms. Return if worsening. Follow-up with your doctor as scheduled.
== END 2020-02-09 15:03 | disposition home or self-care (01) ==
LOC: ED 14:34
DX: F41.9 Anxiety disorder, unspecified (principal); Z76.0 Encounter for issue of repeat prescription
CPT/HCPCS: 99283; J8499

== ENCOUNTER 2020-02-21 19:55 | Emergency (ER) | payer OTHER ==
[2020-02-21] MEDS ORDERED: FLUCONAZOLE 100 MG TABLET PO STA (20:35)
[2020-02-21 20:36] LABS: BILIRUBIN,URINE NEGATIVE (NEGATIVE); GLUCOSE, URINE (UA) NEGATIVE (NEGATIVE); KETONES,URINE (UA) NEGATIVE (NEGATIVE); LEUKOCYTE ESTERASE, URINE NEGATIVE (NEGATIVE); NITRITE,URINE NEGATIVE (NEGATIVE); OCCULT BLOOD,URINE NEGATIVE (NEGATIVE); PH,URINE 6.5 PH (5.0-7.5); PROTEIN,URINE NEGATIVE (NEGATIVE); UROBILINOGEN,URINE 0.2 (NORMAL) E.U./dL (NORMAL)
[2020-02-21 20:38] LABS: CLARITY,URINE CLEAR (CLEAR)
--- NOTE | 2020-02-21 21:17 | ED Physician Documentation ---
PD HPI FEMALE - Stated complaint Stated Complaint: LOWER BACK PX - Chief complaint Chief Complaint: Abd Pain - History obtained from History obtained from: Patient - Additional information Additional information: Department complaining of low back pain and vaginal discharge going on for the last 3 or 4 days. Patient states she has a lot of itching in her vagina and has not been noticing a lot of white clumpy discharge. She denies any dysuria. No fevers or chills. No abdominal pain or nausea vomiting. Patient has had some right flank pain and states that her right kidney hurts. No other complaints at this time. She does state that she is monogamous as far as sexual activity and is . Review of Systems Ten Systems: 10 systems reviewed and negative Constitutional: reports: Reviewed and negative Eyes: reports: Reviewed and negative Ears: reports: Reviewed and negative Nose: reports: Reviewed and negative Throat: reports: Reviewed and negative Cardiac: reports: Reviewed and negative Respiratory: reports: Reviewed and negative GI: reports: Reviewed and negative : reports: Reviewed and negative Skin: reports: Reviewed and negative Musculoskeletal: reports: Reviewed and negative Neurologic: reports: Reviewed and negative Psychiatric: reports: Reviewed and negative Endocrine: reports: Reviewed and negative Immunocompromised: reports: Reviewed and negative PD PAST MEDICAL HISTORY - Past Medical History Past Medical History: Yes Cardiovascular: None Respiratory: Pneumonia, Other Neuro: Migraines, Peripheral neuropathy, Tremors, Other Endocrine/Autoimmune: None, Other GI: GERD, Other BARGE CAPTAIN: None, Miscarriage(s), Other : Kidney stones, Other HEENT: None Psych: None Musculoskeletal: Fibromyalgia, Other Derm: None - Past Surgical History Past Surgical History: Yes General: Bowel surgery, Gastric surgery /BARGE CAPTAIN: section - Present Medications Home Medications: Ambulatory Orders Medication Instructions Recorded Confirmed Famotidine 20 mg PO BID 07/27/19 08/03/19 Lidocaine [Lidoderm] 1 patch TOP PRN PRN 07/27/19 08/03/19 No.137/Iron/Folic Acd 1 tab PO DAILYWM 08/03/19 08/03/19 [ Vitamin Tablet] Ciprofloxacin HCl [Cipro] 500 mg PO BID #16 tablet 08/05/19 Amox/Clav 875/125 [Augmentin] 1 each PO Q8H #30 tablet 10/31/19 Propranolol [Inderal] 10 mg PO TID #40 tablet 02/09/20 hydrOXYzine HCL [Hydroxyzine HCl] 50 mg PO HS #14 tablet 02/09/20 traZODone [Desyrel] 100 mg PO HS #14 tablet 02/09/20 Fluconazole [Diflucan] 200 mg PO ONCE 1 Days #1 tablet 02/21/20 - Allergies Allergies/Adverse Reactions: Allergies Allergy/AdvReac Type Severity Reaction Status Date / Time Iodinated Contrast Media Allergy Anaphylaxis Verified 02/21/20 20:03 cyclobenzaprine AdvReac Emesis Verified 02/21/20 20:03 - Social History Does the pt smoke?: No Smoking Status: Never smoker Does the pt drink ETOH?: No Does the pt have substance abuse?: No - Immunizations Immunizations are current?: No - POLST Patient has POLST: No POLST Status: Full Code PD ED PE NORMAL - Vitals Vital signs reviewed: Yes - General General: Alert and oriented X 3, No acute distress - HEENT HEENT: Atraumatic, PERRL, EOMI, Moist mucous membranes - Neck Neck: Supple, no meningeal sign - Cardiac Cardiac: RRR, No murmur - Respiratory Respiratory: No respiratory distress, Clear bilaterally - Abdomen Abdomen: Soft, Non tender, Non distended - Female Female : Chucking Machine Operator present, Other (Normal female genitalia; no trauma; copious clumpy white discharge noted in the patient's vaginal canal. No foul smell. No bleeding. No cervical dysmorphology.) - Derm Derm: Warm and dry - Extremities Extremities: No deformity - Neuro Neuro: Alert and oriented X 3 - Psych Psych: Normal mood, Normal affect Results - Vitals Vitals: Oxygen O2 Source Room air - Labs Labs: Microbiology 02/21/20 20:38 Wet Prep - Final Vaginal Laboratory Tests 02/21/20 02/21/20 20:11 20:35 Urine Color YELLOW Urine Clarity CLEAR Urine pH 6.5 Ur Specific [place] 1.025 Urine Protein NEGATIVE Urine Glucose (UA) NEGATIVE Urine Ketones NEGATIVE Urine Occult Blood NEGATIVE Urine Nitrite NEGATIVE Urine Bilirubin NEGATIVE Urine Urobilinogen 0.2 (NORMAL) Ur Leukocyte Esterase NEGATIVE Ur Microscopic Review NOT INDICATED Urine Culture Comments NOT INDICATED Chlam trachomat DNA PCR NEGATIVE N.gonorrhoeae DNA (PCR) NEGATIVE T. vaginalis (PCR) NEGATIVE PD MEDICAL DECISION MAKING - ED course Complexity details: reviewed old records, reviewed results, re-evaluated patient, considered differential, d/w patient ED course: Urinalysis was negative. She was found to have a wet mount positive for yeast, and as such, was started on Diflucan. I have given her prescription for 1 more dose to be taken tomorrow or the next day. We have discussed home management of the symptoms, as well as the usual indications for return. Departure - Departure Disposition: 01 Home, Self Care Clinical Impression: Vaginal yeast infection Condition: Stable Instructions: ED Vaginal Infec Fungal Tammy Prescriptions: Fluconazole [Diflucan] 200 mg PO ONCE 1 Days #1 tablet Comments: Your urinalysis looks goodno infection whatsoever. If you have a kidney in fection, this will be very obvious in the urine, which will appear strongly infected. There is also no blood to indicate a kidney stone. Your vaginal cultures do show a yeast infection, which is consistent with the appearance of your discharge. You have been started on a medication for this here in the emergency department, and will be appropriate given a prescription for 1 more dose of this medication. This should be taken tomorrow. Please avoid sugar and acidic foods to help with resolution of the yeast infection. Please follow-up with your primary care physician if you are not feeling better after the next several days. Discharge Date/Time: 02/21/20 21:26
[2020-02-21 21:25] VITALS: BP 132/80
[2020-02-22 02:19] LABS: TRICHOMONAS VAGINALIS DNA NEGATIVE (NEGATIVE)
== END 2020-02-21 21:26 | disposition home or self-care (01) ==
LOC: ED 19:55
DX: B37.3 Candidiasis of vulva and vagina (principal)
CPT/HCPCS: 81003; 87210; 87491; 87591; 87661; 99283; 99284; A9270; 80053; 81001; 83690; 85025; 87086

== ENCOUNTER 2020-03-13 16:48 | Emergency (ER) | payer OTHER ==
[2020-03-13] MEDS ORDERED: SODIUM CHLORIDE 0.9% 1,000 ML IV STA ×2 (17:12→17:21)
[2020-03-13] MEDS ORDERED: PROCHLORPERAZINE 10 MG/2 ML VIAL IVP STA (17:21)
[2020-03-13] MEDS ORDERED: diphenhydrAMINE INJ 50 MG/ML VIAL IVP STA (17:24)
--- NOTE | 2020-03-13 17:27 | ED Physician Documentation ---
History of Present Illness - Stated complaint Stated Complaint: ACEVEDO/DIZZY - Chief complaint Chief Complaint: Neuro - History obtained from History obtained from: Patient - History of Present Illness Timing: How many days ago (3) - Additonal information Additional information: 19-year-old female presents to the emergency department for evaluation 3 days generalized headache. She denies any fever but endorses nausea. She denies focal abdominal pain dysuria urgency or frequency. She has no neck pain no focal neuro deficits. Headache was not sudden onset. She denies falls or trauma. She states that she is dizzy but does not have any lightheadedness. She has a normal gait. She has had no recent travel. In the exam area she is quite reluctant to offer information about her medical history. She is angry with provider for no apparent reason. She is not willing to tell me the names of the patients that she takes for her history of depression. She reports to this provider that she is likely dehydrated. 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 Review of Systems Constitutional: denies: Fever, Chills Eyes: reports: Reviewed and negative Ears: denies: Loss of hearing, Ear pain Nose: reports: Reviewed and negative Throat: reports: Reviewed and negative Cardiac: denies: Chest pain / pressure, Palpitations Respiratory: denies: Dyspnea, Cough GI: reports: Nausea. denies: Abdominal Pain, Vomiting, Constipation, Diarrhea, Hematemesis : denies: Dysuria, Frequency, Hesitancy Skin: denies: Rash, Lesions Musculoskeletal: denies: Neck pain, Back pain Neurologic: reports: Headache. denies: Generalized weakness, Focal weakness, Numbness, Difficulty speaking, Near syncope, Syncope, Seizure, Confused Psychiatric: reports: Reviewed and negative Endocrine: reports: Reviewed and negative PD PAST MEDICAL HISTORY - Past Medical History Cardiovascular: None Respiratory: Pneumonia, Other Neuro: Migraines, Peripheral neuropathy, Tremors, Other Endocrine/Autoimmune: None, Other GI: GERD, Other RIGGING ENGINEER: None, Miscarriage(s), Other : Kidney stones, Other HEENT: None Psych: None Musculoskeletal: Fibromyalgia, Other Derm: None - Past Surgical History Past Surgical History: Yes General: Bowel surgery, Gastric surgery /RIGGING ENGINEER: section - Present Medications Home Medications: Ambulatory Orders Medication Instructions Recorded Confirmed Famotidine 20 mg PO BID 07/27/19 08/03/19 Lidocaine [Lidoderm] 1 patch TOP PRN PRN 07/27/19 08/03/19 No.137/Iron/Folic Acd 1 tab PO DAILYWM 08/03/19 08/03/19 [ Vitamin Tablet] Ciprofloxacin HCl [Cipro] 500 mg PO BID #16 tablet 08/05/19 Amox/Clav 875/125 [Augmentin] 1 each PO Q8H #30 tablet 10/31/19 Propranolol [Inderal] 10 mg PO TID #40 tablet 02/09/20 hydrOXYzine HCL [Hydroxyzine HCl] 50 mg PO HS #14 tablet 02/09/20 traZODone [Desyrel] 100 mg PO HS #14 tablet 02/09/20 Fluconazole [Diflucan] 200 mg PO ONCE 1 Days #1 tablet 02/21/20 Cephalexin [Keflex] 500 mg PO BID #10 capsule 03/13/20 - Allergies Allergies/Adverse Reactions: Allergies Allergy/AdvReac Type Severity Reaction Status Date / Time Iodinated Contrast Media Allergy Anaphylaxis Verified 03/13/20 17:05 cyclobenzaprine AdvReac Emesis Verified 03/13/20 17:05 - Social History Does the pt smoke?: No Smoking Status: Never smoker Does the pt drink ETOH?: No Does the pt have substance abuse?: No - Immunizations Immunizations are current?: No - POLST Patient has POLST: No POLST Status: Full Code PD ED PE EXPANDED - General General: Alert, No acute distress - HEENT HEENT: Atraumatic, PERRL, EOMI - Eyes Eyes: PERRL - Neck Neck: Supple w/out meningeal sx, No tenderness. No: Brudzinki's, Kernig's - Cardiac Cardiac: Regular Rate, Regular Rhythm, Radial strong equal, Cap refill < 2 sec. No: Murmur Present - Respiratory Respiratory: Clear to ausultation edita. No: Distress, Labored - Abdomen Abdomen: Normal Bowel sounds, Other (Left-sided colostomy with brown stool in bag. pink stoma). No: Tender to palpation - Back Back: Normal exam. No: Normal ROM, Vertebral tenderness - Neuro Neuro: Alert and Oriented X 3, Cerebellar nl, Normal gait, Normal finger nose, Normal speech. No: Confused, Disoriented - GCS Eye Opening: Spontaneous Motor: Obeys Commands Verbal: Oriented Total: 15 - Psych Psych: Agitated (Angry affect) Results - Vitals Vitals: Vital Signs - 24 hr 03/13/20 03/13/20 17:00 19:08 Temperature 36.8 C 36.6 C Heart Rate 110 H 86 Respiratory 16 18 Rate Blood Pressure 123/74 105/69 O2 Saturation 99 99 Oxygen O2 Source Room air - Labs Labs: Laboratory Tests 03/13/20 17:48 Urine Color YELLOW Urine Clarity CLOUDY Urine pH 7.0 Ur Specific [place] 1.025 Urine Protein NEGATIVE Urine Glucose (UA) NEGATIVE Urine Ketones NEGATIVE Urine Occult Blood NEGATIVE Urine Nitrite POSITIVE H Urine Bilirubin NEGATIVE Urine Urobilinogen 0.2 (NORMAL) Ur Leukocyte Esterase NEGATIVE Urine RBC 0-5 Urine WBC 4-5 Ur Squamous Epith Cells MANY Squamous H Urine Bacteria Many H Ur Microscopic Review INDICATED Urine Culture Comments NOT INDICATED Urine HCG, Qual NEGATIVE PD MEDICAL DECISION MAKING - ED course Complexity details: reviewed results, re-evaluated patient, considered differential, d/w patient ED course: 19-year-old female presents the emergency department with chief complaint of headache for 3 days. She has no fevers nuchal rigidity focal deficits. This headache was not sudden onset nor is it worst of life. She does have a history of known anal stenosis and she does have a left-sided colostomy in place. Urine was obtained to evaluate for infection. It is nitrite positive with many bacteria. And reexam and discussion with the patient she does admit to some urgency and frequency over the last 2 days but did not think that she may potentially have an infection. Here in the emergency department she was given a liter of IV fluid as well as Compazine and Benadryl with moderate relief of the headache though not fully abated. I will start her on a prescription of cephalexin for suspected occult UTI. She was also given 10 of Decadron here in the ER to keep the headache at bay in the future. Emergent return precautions were discussed Departure - Departure Disposition: 01 Home, Self Care Clinical Impression: Cystitis Headache Qualifiers: Headache type: other headache syndrome Qualified Code(s): G44.89 - Other headache syndrome Condition: Stable Record reviewed to determine appropriate education?: Yes Follow-Up: Eitan,Jurgen A, ICT ACCOUNT MANAGER [Primary Care Provider] - Prescriptions: Cephalexin [Keflex] 500 mg PO BID #10 capsule Discharge Date/Time: 03/13/20 19:16
[2020-03-13] MEDS ORDERED: HYDROmorphone 1 MG/ML CARPUJECT IVP STA (17:47)
[2020-03-13] MEDS ORDERED: HYDROmorphone 1 MG/ML CARPUJECT IM STA (18:11)
[2020-03-13 18:14] LABS: BILIRUBIN,URINE NEGATIVE (NEGATIVE); GLUCOSE, URINE (UA) NEGATIVE (NEGATIVE); KETONES,URINE (UA) NEGATIVE (NEGATIVE); LEUKOCYTE ESTERASE, URINE NEGATIVE (NEGATIVE); NITRITE,URINE POSITIVE (NEGATIVE); OCCULT BLOOD,URINE NEGATIVE (NEGATIVE); PROTEIN,URINE NEGATIVE (NEGATIVE); UROBILINOGEN,URINE 0.2 (NORMAL) E.U./dL (NORMAL)
[2020-03-13 18:17] LABS: CLARITY,URINE CLOUDY (CLEAR); HCG UR QUAL NEGATIVE
[2020-03-13 18:22] LABS: RBC,URINE 0-5 /HPF (0-5)
[2020-03-13 18:23] LABS: BACTERIA,URINE Many /HPF (None Seen); SQUAMOUS EPITHELIAL CELL,UR MANY Squamous (<= Few)
[2020-03-13] MEDS ORDERED: cephALEXin 250 MG CAPSULE PO STA (18:44)
[2020-03-13] MEDS ORDERED: DEXAMETHASONE 10 MG/ML VIAL PO STA (18:44)
[2020-03-13] MEDS ORDERED: CHERRY SYRUP 10 ML UDC PO ONE (18:44)
[2020-03-13 19:09] VITALS: BP 105/69
== END 2020-03-13 19:16 | disposition home or self-care (01) ==
LOC: ED 16:48
DX: G44.89 Other headache syndrome (principal); N30.90 Cystitis, unspecified without hematuria; K62.4 Stenosis of anus and rectum; Z93.3 Colostomy status
CPT/HCPCS: 81001; 81025; 96374; 96375; 99283; 99284; A9270; J1170; J1200; 80053; 81003; 83690; 87086

== ENCOUNTER 2020-03-20 15:55 | Emergency (ER) | payer OTHER ==
[2020-03-20 16:09] VITALS: BP 120/67
[2020-03-20 16:33] LABS: MUDS CUTOFF CONCENTRATIONS CUTOFF CONC BELOW:
[2020-03-20 16:44] LABS: BILIRUBIN,URINE NEGATIVE (NEGATIVE); GLUCOSE, URINE (UA) NEGATIVE (NEGATIVE); KETONES,URINE (UA) NEGATIVE (NEGATIVE); LEUKOCYTE ESTERASE, URINE NEGATIVE (NEGATIVE); NITRITE,URINE NEGATIVE (NEGATIVE); OCCULT BLOOD,URINE NEGATIVE (NEGATIVE); PROTEIN,URINE NEGATIVE (NEGATIVE); UROBILINOGEN,URINE 0.2 (NORMAL) E.U./dL (NORMAL)
[2020-03-20 16:45] LABS: CLARITY,URINE HAZY (CLEAR)
[2020-03-20 16:46] LABS: HCG UR QUAL NEGATIVE
[2020-03-20 16:53] LABS: BACTERIA,URINE None Seen /HPF (None Seen); RBC,URINE None Seen /HPF (0-5); SQUAMOUS EPITHELIAL CELL,UR MANY Squamous (<= Few)
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
[2020-03-20 17:16] LABS: AMPHETAMINE SCREEN,URINE NEGATIVE (NEGATIVE); BENZODIAZEPINES SCREEN, URINE NEGATIVE (NEGATIVE); COCAINE SCREEN URINE NEGATIVE (NEGATIVE); METHADONE SCREEN, URINE NEGATIVE (NEGATIVE); METHAMPHETAMINES SCREEN, URINE NEGATIVE (NEGATIVE); OPIATE SCREEN, URINE NEGATIVE (NEGATIVE); OXYCODONE SCREEN, URINE NEGATIVE (NEGATIVE); PROPOXYPHENE SCREEN, URINE NEGATIVE (NEGATIVE); TRICYCLIC ANTIDEPRESSANT,URINE NEGATIVE (NEGATIVE)
== END 2020-03-20 17:29 | disposition home or self-care (01) ==
LOC: EDUNIT# → ED 15:55
DX: F32.9 Major depressive disorder, single episode, unspecified (principal); Z63.0 Problems in relationship with spouse or partner
CPT/HCPCS: 80053; 80306; 80307; 80320; 80329; 81001; 81003; 81025; 83690; 84443; 85025; 87086; 99281; 99283

== ENCOUNTER 2020-04-15 20:29 | Emergency (ER) | payer OTHER ==
[2020-04-15] MEDS ORDERED: CIPROFLOXACIN 250 MG TABLET PO STA (20:48)
[2020-04-15] MEDS ORDERED: metroNIDAZOLE 250 MG TABLET PO STA (20:48)
--- NOTE | 2020-04-15 20:52 | ED Physician Documentation ---
PD HPI ABD PAIN - Stated complaint Stated Complaint: ABD PAIN - Chief complaint Chief Complaint: Abd Pain - History obtained from History obtained from: Patient - History of Present Illness Timing - onset: Today Timing - duration: Days Timing - details: Abrupt onset Pain level max: 8 Pain level now: 6 Quality: Aching, Pain Location: LLQ Improved by: Laying still Worsened by: Moving, Palpation Associated symptoms: No: Nausea, Vomiting, Hematemesis, Diarrhea, Constipation Recently seen: Not recently seen - Additional information Additional information: Patient is a well-known to this ED, 19-year-old female who presents to the emergency department with abdominal pain. This been ongoing for several weeks. She was at [facility] recently. She states that she was there for almost a week. She was placed on Cipro and Flagyl. She states that they wanted her to stay another 3 to 4 days, but she "had to get home". She states that she left AMA and the hospital allegedly refused to provide any prescriptions to her. She states she is still supposed to be taking antibiotics. She states that she called [facility] and was informed that they would not send any prescriptions anywhere for her as she had left AMA. She states they told her to either go to her doctor or a different hospital. She states that her symptoms are unchanged and she would like to get prescriptions for Cipro and Flagyl. Review of Systems Constitutional: denies: Fever, Chills Cardiac: denies: Chest pain / pressure GI: denies: Nausea, Vomiting, Hematemesis, Bloody / black stool : denies: Dysuria, Frequency, Hesitancy, Now EGA Skin: denies: Rash Musculoskeletal: denies: Neck pain, Back pain Neurologic: denies: Headache PD PAST MEDICAL HISTORY - Past Medical History Cardiovascular: None Respiratory: Pneumonia, Other Neuro: Migraines, Peripheral neuropathy, Tremors, Other Endocrine/Autoimmune: None, Other GI: GERD, Other SCRAP HANDLER: None, Miscarriage(s), Other : Kidney stones, Other HEENT: None Psych: None Musculoskeletal: Fibromyalgia, Other Derm: None - Past Surgical History Past Surgical History: Yes General: Bowel surgery, Gastric surgery /SCRAP HANDLER: section - Present Medications Home Medications: Ambulatory Orders Medication Instructions Recorded Confirmed Lidocaine [Lidoderm] 1 patch TOP PRN PRN 07/27/19 04/15/20 Ciprofloxacin HCl [Cipro] 500 mg PO BID #20 tablet 04/15/20 clonazePAM [Clonazepam] 0.5 mg PO DAILY 04/15/20 04/15/20 metroNIDAZOLE [Flagyl] 500 mg PO BID #20 tablet 04/15/20 - Allergies Allergies/Adverse Reactions: Allergies Allergy/AdvReac Type Severity Reaction Status Date / Time Iodinated Contrast Media Allergy Anaphylaxis Verified 04/15/20 20:52 cyclobenzaprine AdvReac Emesis Verified 04/15/20 20:52 morphine AdvReac Emesis Verified 04/15/20 20:52 - Social History Does the pt smoke?: No Smoking Status: Never smoker Does the pt drink ETOH?: No Does the pt have substance abuse?: No - Immunizations Immunizations are current?: No - POLST Patient has POLST: No POLST Status: Full Code PD ED PE NORMAL - Vitals Vital signs reviewed: Yes - General General: Alert and oriented X 3, No acute distress - HEENT HEENT: Moist mucous membranes - Neck Neck: Supple, no meningeal sign - Cardiac Cardiac: RRR, Strong equal pulses - Respiratory Respiratory: No respiratory distress, Clear bilaterally - Abdomen Abdomen: Soft, Non distended, Other (Colostomy present in the left lower quadrant. No signs of infection. mild TTP LLQ. no pertioneal signs) - Derm Derm: Warm and dry - Neuro Neuro: Alert and oriented X 3 - Psych Psych: Normal mood, Normal affect Results - Vitals Vitals: Vital Signs - 24 hr 04/15/20 20:30 Temperature 36.9 C Heart Rate 110 H Respiratory 16 Rate Blood Pressure 134/77 H O2 Saturation 98 Oxygen O2 Source Room air PD MEDICAL DECISION MAKING - ED course Complexity details: reviewed old records, considered differential, d/w patient ED course: Discharge summary was obtained from [facility]. It does appear as though she was diagnosed with colitis and was on Cipro and Flagyl. Unclear why this was not prescribed at the time of discharge. We will start her back on Cipro and Flagyl. We will have her follow-up with her doctor for further care. Patient counseled regarding signs and symptoms for which I believe and urgent re-evaluation would be necessary. Patient with good understanding of and agreement to plan and is comfortable going home at this time This document was made in part using voice recognition software. While efforts are made to proofread this document, sound alike and grammatical errors may occur. Departure - Departure Disposition: 01 Home, Self Care Clinical Impression: Colitis Condition: Good Instructions: ED Gastroenteritis Bacterial Follow-Up: Jurgen Laird ARNP [Physician No Access] - Within 1 week Prescriptions: Ciprofloxacin HCl [Cipro] 500 mg PO BID #20 tablet metroNIDAZOLE [Flagyl] 500 mg PO BID #20 tablet Comments: Follow up with your doctor for further care. Return if you worsen. Take all antibiotics until gone.
[2020-04-15 21:23] VITALS: BP 113/69
== END 2020-04-15 21:29 | disposition home or self-care (01) ==
LOC: ED 20:29
DX: K52.9 Noninfective gastroenteritis and colitis, unspecified (principal); Z93.3 Colostomy status
CPT/HCPCS: 99282; 99284; A9270

== ENCOUNTER 2020-05-12 18:12 | Emergency (ER) | payer OTHER ==
[2020-05-12] MEDS ORDERED: oxyCODONE 5 MG TABLET PO STA (18:46)
--- NOTE | 2020-05-12 18:47 | ED Physician Documentation ---
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 It was done in [place]. Lately she has been having a lot of problems with the ostomy site. Says she was admitted to [place] for a week for an infection at the ostomy site. He asked that we was unable to do colonoscopy but could not prep her adequately. She has had some diarrhea with a small amount of blood in it. No fevers. Review of Systems Ten Systems: 10 systems reviewed and negative Constitutional: reports: Reviewed and negative Ears: reports: Reviewed and negative Nose: reports: Reviewed and negative Throat: reports: Reviewed and negative Cardiac: reports: Reviewed and negative Respiratory: reports: Reviewed and negative PD PAST MEDICAL HISTORY - Past Medical History Cardiovascular: None Respiratory: Pneumonia, Other Neuro: Migraines, Peripheral neuropathy, Tremors, Other Endocrine/Autoimmune: None, Other GI: GERD, Other CURRICULUM ASSISTANT: None, Miscarriage(s), Other : Kidney stones, Other HEENT: None Psych: None Musculoskeletal: Fibromyalgia, Other Derm: None - Past Surgical History Past Surgical History: Yes General: Bowel surgery, Gastric surgery /CURRICULUM ASSISTANT: section - Present Medications Home Medications: Ambulatory Orders Medication Instructions Recorded Confirmed Lidocaine [Lidoderm] 1 patch TOP PRN PRN 07/27/19 04/15/20 Ciprofloxacin HCl [Cipro] 500 mg PO BID #20 tablet 04/15/20 clonazePAM [Clonazepam] 0.5 mg PO DAILY 04/15/20 04/15/20 metroNIDAZOLE [Flagyl] 500 mg PO BID #20 tablet 04/15/20 HYDROcod/ACETAM 5/325 [Willow 5/325] 1 - 2 tab PO Q6H PRN #7 tab 05/12/20 cephALEXin [Keflex] 500 mg PO Q6H #28 cap 05/12/20 - Allergies Allergies/Adverse Reactions: Allergies Allergy/AdvReac Type Severity Reaction Status Date / Time Iodinated Contrast Media Allergy Anaphylaxis Verified 04/15/20 20:52 cyclobenzaprine AdvReac Emesis Verified 04/15/20 20:52 morphine AdvReac Emesis Verified 04/15/20 20:52 - Social History Does the pt smoke?: No Smoking Status: Never smoker Does the pt drink ETOH?: No Does the pt have substance abuse?: No - Immunizations Immunizations are current?: No - POLST Patient has POLST: No POLST Status: Full Code PD ED PE NORMAL - Vitals Vital signs reviewed: Yes - General General: Alert and oriented X 3, No acute distress - HEENT HEENT: PERRL, EOMI - Neck Neck: Supple, no meningeal sign, No bony TTP - Abdomen Abdomen: Soft, Non tender, Other (No diffuse abdominal tenderness, normal bowel tones. The ostomy appliance was removed and underneath there is some redness of the skin with a small amount of breakdown inferior to lateral. ) - Back Back: No CVA TTP, No spinal TTP - Derm Derm: Normal color, Warm and dry - Extremities Extremities: No edema, No calf tenderness / cord - Neuro Neuro: Alert and oriented X 3, Normal speech Results - Vitals Vitals: Vital Signs - 24 hr 05/12/20 18:25 Temperature 36.8 C Heart Rate 92 Respiratory 18 Rate Blood Pressure 120/77 O2 Saturation 99 Oxygen O2 Source Room air - Labs Labs: Laboratory Tests 05/12/20 05/12/20 05/12/20 18:54 18:54 19:25 WBC 9.4 RBC 4.93 Hgb 13.5 Hct 42.9 MCV 87.0 MCH 27.4 MCHC 31.5 L RDW 12.9 Plt Count 311 MPV 11.1 H Neut # (Auto) 6.0 Lymph # (Auto) 2.3 Ross # (Auto) 0.7 Eos # (Auto) 0.3 Baso # (Auto) 0.1 Absolute Nucleated RBC 0.00 Nucleated RBC % 0.0 Sodium 140 Potassium 3.8 Chloride 102 Carbon Dioxide 25 Anion Gap 13.0 BUN 7 Creatinine 0.6 Estimated GFR (MDRD) 127 Glucose 90 Calcium 9.7 Total Bilirubin 0.8 AST 54 H ALT 96 H Alkaline Phosphatase 59 Total Protein 7.7 Albumin 4.2 Globulin 3.5 Albumin/Globulin Ratio 1.2 Lipase 46 Urine Color YELLOW Urine Clarity HAZY Urine pH 7.0 Ur Specific [place] 1.020 Urine Protein NEGATIVE Urine Glucose (UA) NEGATIVE Urine Ketones NEGATIVE Urine Occult Blood TRACE-INTA Urine Nitrite NEGATIVE Urine Bilirubin NEGATIVE Urine Urobilinogen 0.2 (NORMAL) Ur Leukocyte Esterase MODERATE H Urine RBC 0-5 Urine WBC 11-25 H Ur Squamous Epith Cells MANY Squamous H Urine Bacteria Few Urine Mucus Moderate Strands Ur Microscopic Review INDICATED Urine Culture Comments NOT INDICATED Urine HCG, Qual NEGATIVE Urine Opiates Screen NEGATIVE Ur Oxycodone Screen NEGATIVE Urine Methadone Screen NEGATIVE Ur Propoxyphene Screen NEGATIVE Ur Barbiturates Screen NEGATIVE Ur Tricyclics Screen POSITIVE H Ur Phencyclidine Scrn NEGATIVE Ur Amphetamine Screen NEGATIVE U Methamphetamines Scrn NEGATIVE U Benzodiazepines Scrn NEGATIVE Urine Cocaine Screen NEGATIVE U Cannabinoids Screen POSITIVE H PD MEDICAL DECISION MAKING - ED course ED course: Mild cellulitis around her ostomy ring, I think at the end of the day this is because she is replacing it every few hours because she is not using enough barrier cream and it [place]. Lab work relatively unremarkable. Departure - Departure Disposition: 01 Home, Self Care Clinical Impression: Colitis, Cellulitis, abdominal wall Condition: Stable Record reviewed to determine appropriate education?: Yes Instructions: Cellulitis Dc Prescriptions: cephALEXin [Keflex] 500 mg PO Q6H #28 cap HYDROcod/ACETAM 5/325 [Willow 5/325] 1 - 2 tab PO Q6H PRN #7 tab PRN Reason: Pain Comments: As discussed, you should be replacing your ostomy appliance so often. That is making it worse. Return for new or worsening symptoms, follow-up with your surgeon in [place], next available appointment. Use more barrier cream when you do replace the ostomy appliance.
[2020-05-12 18:59] LABS: BASOPHILS # (AUTO) 0.1 10^3/uL (0.0-0.1); BASOPHILS % (AUTO) 0.5 %; EOSINOPHILS # (AUTO) 0.3 10^3/uL (0.0-0.7); EOSINOPHILS % (AUTO) 3.5 %; HGB - HEMOGLOBIN 13.5 g/dL (12.0-16.0); LYMPHOCYTES # (AUTO) 2.3 10^3/uL (1.5-3.5); LYMPHOCYTES % (AUTO) 24.9 %; MEAN CORPUSCULAR HEMOGLOBIN 27.4 pg (27.0-31.0); MEAN CORPUSCULAR HGB CONC 31.5 g/dL (32.0-36.0); MEAN PLATELET VOLUME 11.1 fL (7.9-10.8); MONOCYTES # (AUTO) 0.7 10^3/uL (0.0-1.0); MONOCYTES % (AUTO) 7.2 %; NEUTROPHILS % (AUTO) 63.6 %; PLT - PLATELET COUNT 311 10^3/uL (130-450); RED BLOOD COUNT 4.93 10^6/uL (4.20-5.40); RED CELL DISTRIBUTION WIDTH 12.9 % (12.0-15.0); WHITE BLOOD COUNT 9.4 x10^3/uL (4.8-10.8)
[2020-05-12 19:14] LABS: ALBUMIN 4.2 g/dL (3.2-5.5); ALBUMIN/GLOBULIN RATIO 1.2 (1.0-2.2); BILIRUBIN,TOTAL 0.8 mg/dL (0.2-1.0); CALCIUM 9.7 mg/dL (8.5-10.3); CREATININE 0.6 mg/dL (0.4-1.0); TOTAL PROTEIN 7.7 g/dL (6.7-8.2)
[2020-05-12 19:32] LABS: MUDS CUTOFF CONCENTRATIONS CUTOFF CONC BELOW:
[2020-05-12 19:40] LABS: BILIRUBIN,URINE NEGATIVE (NEGATIVE); GLUCOSE, URINE (UA) NEGATIVE (NEGATIVE); KETONES,URINE (UA) NEGATIVE (NEGATIVE); LEUKOCYTE ESTERASE, URINE MODERATE (NEGATIVE); NITRITE,URINE NEGATIVE (NEGATIVE); OCCULT BLOOD,URINE TRACE-INTA (NEGATIVE); PROTEIN,URINE NEGATIVE (NEGATIVE); UROBILINOGEN,URINE 0.2 (NORMAL) E.U./dL (NORMAL)
[2020-05-12 19:43] LABS: CLARITY,URINE HAZY (CLEAR); HCG UR QUAL NEGATIVE
[2020-05-12 19:55] LABS: AMPHETAMINE SCREEN,URINE NEGATIVE (NEGATIVE); BENZODIAZEPINES SCREEN, URINE NEGATIVE (NEGATIVE); COCAINE SCREEN URINE NEGATIVE (NEGATIVE); METHADONE SCREEN, URINE NEGATIVE (NEGATIVE); METHAMPHETAMINES SCREEN, URINE NEGATIVE (NEGATIVE); OPIATE SCREEN, URINE NEGATIVE (NEGATIVE); OXYCODONE SCREEN, URINE NEGATIVE (NEGATIVE); PROPOXYPHENE SCREEN, URINE NEGATIVE (NEGATIVE); TRICYCLIC ANTIDEPRESSANT,URINE POSITIVE (NEGATIVE)
[2020-05-12 20:06] LABS: BACTERIA,URINE Few /HPF (None Seen); RBC,URINE 0-5 /HPF (0-5); SQUAMOUS EPITHELIAL CELL,UR MANY Squamous (<= Few)
[2020-05-12 20:07] LABS: MUCUS,URINE Moderate Strands
[2020-05-12] MEDS ORDERED: CEPHALEXIN 250 MG Prepack 8 CAP BOTTLE PO STA (20:08)
[2020-05-12] MEDS ORDERED: HYDROcod/ACET 5/325 Prepack 4 PO STA (20:08)
[2020-05-12 20:29] VITALS: BP 106/64
== END 2020-05-12 20:30 | disposition home or self-care (01) ==
LOC: ED 18:12
DX: K52.9 Noninfective gastroenteritis and colitis, unspecified (principal); L03.311 Cellulitis of abdominal wall
CPT/HCPCS: 36415; 80053; 80306; 81001; 81025; 83690; 85025; 99283; A9270; 81003; 87086

== ENCOUNTER 2020-06-02 20:59 | Emergency (ER) | payer OTHER ==
[2020-06-02] MEDS ORDERED: diphenhydrAMINE INJ 50 MG/ML VIAL IM STA (21:59)
[2020-06-02] MEDS ORDERED: PROMETHAZINE 25 MG/1 ML VIAL IM STA (21:59)
[2020-06-02] MEDS ORDERED: KETOROLAC 60 MG/2 ML VIAL IM STA (22:00)
[2020-06-02] MEDS ORDERED: NYSTATIN POWDER 15 GM TOP STA (23:23)
[2020-06-02 23:46] VITALS: BP 128/77
--- NOTE | 2020-06-03 00:04 | ED Physician Documentation ---
History of Present Illness - Stated complaint Stated Complaint: ACEVEDO/NAUSEA/OSTOMY PROBLEM - Chief complaint Chief Complaint: Wound - History obtained from History obtained from: Patient - History of Present Illness Timing: How many days ago (4) Pain level now: 5 Improved by: nothing - Additonal information Additional information: c/o generalized headache x 4 days. She also c/o skin irritation, breakdown with some bleeding, adjacent to her ostomy site. She says she has taken tylenol and ibuprofen for the headache without relief. Also c/o nausea. Review of Systems Constitutional: denies: Fever Cardiac: reports: Reviewed and negative Respiratory: reports: Reviewed and negative GI: reports: Abdominal Pain, Nausea. denies: Vomiting Neurologic: reports: Headache PD PAST MEDICAL HISTORY - Past Medical History Past Medical History: Yes Cardiovascular: None Respiratory: Pneumonia, Other Neuro: Migraines, Peripheral neuropathy, Tremors, Other Endocrine/Autoimmune: None, Other GI: GERD, Other CABLE DRILLER: None, Miscarriage(s), Other : Kidney stones, Other HEENT: None Psych: None Musculoskeletal: Fibromyalgia, Other Derm: None - Past Surgical History Past Surgical History: Yes General: Bowel surgery, Gastric surgery /CABLE DRILLER: section - Present Medications Home Medications: Ambulatory Orders Medication Instructions Recorded Confirmed clonazePAM [Clonazepam] 0.5 mg PO DAILY 04/15/20 04/15/20 Lurasidone HCl [Latuda] 20 mg PO DAILY 06/02/20 06/02/20 Mirtazapine [Remeron] 7.5 mg PO HS 06/02/20 06/02/20 Nystatin [Nystop] 1 applic TOP UD #1 bottle 06/02/20 - Allergies Allergies/Adverse Reactions: Allergies Allergy/AdvReac Type Severity Reaction Status Date / Time Iodinated Contrast Media Allergy Anaphylaxis Verified 06/02/20 21:12 cyclobenzaprine AdvReac Emesis Verified 06/02/20 21:12 morphine AdvReac Emesis Verified 06/02/20 21:12 - Social History Does the pt smoke?: No Smoking Status: Never smoker Does the pt drink ETOH?: No Does the pt have substance abuse?: No - Immunizations Immunizations are current?: No - POLST Patient has POLST: No POLST Status: Full Code PD ED PE NORMAL - Vitals Vital signs reviewed: Yes - General General: Alert and oriented X 3, No acute distress, Well developed/nourished - HEENT HEENT: Moist mucous membranes - Neck Neck: Supple, no meningeal sign - Cardiac Cardiac: RRR, No murmur - Respiratory Respiratory: No respiratory distress, Clear bilaterally - Abdomen Abdomen: Normal bowel sounds, Soft, Non tender, Non distended PD ED PE EXPANDED - Abdomen Abdomen: Other (small area of redness and mild skin breakdown adjacent to inferior margin of stoma. no evidence of active infection such as surrounding cellulitis or purulent discharge. There is formed stool in pouch, and mucosa at stoma site is moist and pink) Results - Vitals Vitals: Vital Signs - 24 hr 06/02/20 06/02/20 21:00 23:42 Temperature 37.0 C 36.7 C Heart Rate 96 89 Respiratory 16 16 Rate Blood Pressure 134/89 H 128/77 O2 Saturation 98 98 Oxygen O2 Source Room air PD MEDICAL DECISION MAKING - ED course Complexity details: reviewed old records, re-evaluated patient, considered differential, d/w patient ED course: ANNIA form reflects tonight is patient's 26th ED visit over past 12 months (, [facility], [facility]); ANNIA reflects 5 admissions. patient appears well-hydrated (moist mucous membranes) and vital signs are stable (including normal temperature). she is given IM benadryl, toradol, and phenergan for her ACEVEDO (and phenergan to help with nausea, as well). I explained that emergent testing is not indicated at this time and she was unhappy with this. She says that when she has this headache, it has correlated with "an infection" (per patient), and specifically colitis. I note the well-formed stool that is in her ostomy pouch, and she says she had loose stool but because she ate chicken earlier today, her stool is now well-formed. I explained that I do not feel this would be an indication for testing; [facility], per patient, previous diagnoses of colitis were made as a result of blood tests. She says that she trusts my medical opinion but subsequently says that if I will not perform blood tests, she will go to another hospital. She says she was treated with antibiotics at [facility] inpatient x 5 days for colitis; [facility] ED record indicates she left AMA, then came to this ED requesting prescriptions for more antibiotics which were provided to her. She says she recently was prescribed another course of antibiotics by [facility] medical. I also note a prescription was provided for keflex on her most recent [facility] ED visit. I again explained that I do not feel that emergent testing is indicated at this time and that antibiotics are also not indicated based on my H+P, and that I would be limiting treatment to rx for antifungal powder to be used on the area of dermal irritation at the stoma site. Prior to d/c, patient tells me she contacted her medical doctor nuclear medicine and was able to arrange for an appointment within the next week. Departure - Departure Disposition: Home, Self Care Clinical Impression: Stoma dermatitis Headache Qualifiers: Headache type: unspecified Headache chronicity pattern: acute headache Intractability: not intractable Qualified Code(s): R51.9 - Headache, unspecified Condition: Good Instructions: Colostomy Stoma Care, ED Cephalgia Unspecified Prescriptions: Nystatin [Nystop] 1 applic TOP UD #1 bottle Comments: Follow up with your medical doctor nuclear medicine and primary care provider, next available appointments Discharge Date/Time: 06/02/20 23:46
== END 2020-06-02 23:46 | disposition home or self-care (01) ==
LOC: ED 20:59
DX: K94.02 Colostomy infection (principal); L30.9 Dermatitis, unspecified; Y83.3 Surgical operation with formation of external stoma as the cause of abnormal reaction of the patient, or of later complication, without mention of misadventure at the time of the procedure; R51.9 Headache, unspecified; R11.0 Nausea
CPT/HCPCS: 96372; 99283; 99284; J1200

== ENCOUNTER 2020-11-05 19:13 | Emergency (ER) | payer OTHER ==
[2020-11-05 19:32] VITALS: BP 121/80
[2020-11-05] MEDS ORDERED: methocarbamoL 500 MG TABLET PO STA (19:55)
[2020-11-05] MEDS ORDERED: KETOROLAC 30 MG/ML VIAL IM STA (19:55)
--- NOTE | 2020-11-05 19:56 | ED Physician Documentation ---
History of Present Illness - Stated complaint Stated Complaint: BACK PX/BODY ACHES - Chief complaint Chief Complaint: Back Pain - History obtained from History obtained from: Patient, Friend - Additonal information Additional information: 20yF with pmh congenital abdominal issues with colostomy p/w lower back pain gradual in onset, constant, aching since , initially improved with epsom salts, now not improving. worse with walking around and up steps. a/w body aches, weakness, and generalized aching headache. also with chronic nonworsening nausea. denies fevers, cough, cp, soa. patient on flagyl for the past 2 weeks for STI. 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 Review of Systems Ten Systems: 10 systems reviewed and negative Constitutional: reports: Myalgias, Fatigue. denies: Fever, Chills Cardiac: denies: Chest pain / pressure Respiratory: denies: Dyspnea GI: reports: Nausea. denies: Abdominal Pain, Vomiting : reports: Vaginal bleeding (LMP today (first day)). denies: Dysuria, Frequency Musculoskeletal: reports: Back pain Neurologic: reports: Generalized weakness PD PAST MEDICAL HISTORY - Past Medical History Cardiovascular: None Respiratory: Pneumonia, Other Neuro: Migraines, Peripheral neuropathy, Tremors, Other Endocrine/Autoimmune: None, Other GI: GERD, Other REVENUE RESEARCH ANALYST: None, Miscarriage(s), Other : Kidney stones, Other HEENT: None Psych: None Musculoskeletal: Fibromyalgia, Other Derm: None - Past Surgical History Past Surgical History: Yes General: Bowel surgery, Gastric surgery /REVENUE RESEARCH ANALYST: section - Present Medications Home Medications: Ambulatory Orders Medication Instructions Recorded Confirmed clonazePAM [Clonazepam] 0.5 mg PO DAILY 04/15/20 04/15/20 Lurasidone HCl [Latuda] 20 mg PO DAILY 06/02/20 06/02/20 Mirtazapine [Remeron] 7.5 mg PO HS 06/02/20 06/02/20 Nystatin [Nystop] 1 applic TOP UD #1 bottle 06/02/20 Cefpodoxime Proxetil [Vantin] 200 mg PO Q12H #28 tablet 11/05/20 - Allergies Allergies/Adverse Reactions: Allergies Allergy/AdvReac Type Severity Reaction Status Date / Time Iodinated Contrast Media Allergy Anaphylaxis Verified 06/02/20 21:12 cyclobenzaprine AdvReac Emesis Verified 06/02/20 21:12 morphine AdvReac Emesis Verified 06/02/20 21:12 - Social History Does the pt smoke?: No Smoking Status: Never smoker Does the pt drink ETOH?: No Does the pt have substance abuse?: No - Immunizations Immunizations are current?: No - POLST Patient has POLST: No POLST Status: Full Code PD ED PE NORMAL - Vitals Vital signs reviewed: Yes - General General: Alert and oriented X 3, No acute distress, Well developed/nourished - HEENT HEENT: Atraumatic, PERRL, EOMI - Neck Neck: Supple, no meningeal sign - Back Back: No spinal TTP - Derm Derm: Normal color, Warm and dry - Extremities Extremities: No deformity - Neuro Neuro: Alert and oriented X 3 Results - Vitals Vitals: Vital Signs - 24 hr 11/05/20 19:22 Temperature 36.5 C Heart Rate 99 Respiratory 18 Rate Blood Pressure 121/80 O2 Saturation 100 Oxygen O2 Source Room air - Labs Labs: Laboratory Tests 11/05/20 11/05/20 20:13 20:13 Urine Color RED/BLOODY Urine Clarity CLOUDY Urine pH 6.5 Ur Specific [place] >=1.030 H Urine Protein 30 H Urine Glucose (UA) NEGATIVE Urine Ketones NEGATIVE Urine Occult Blood LARGE H Urine Nitrite NEGATIVE Urine Bilirubin NEGATIVE Urine Urobilinogen 0.2 (NORMAL) Ur Leukocyte Esterase TRACE H Urine RBC TNTC H Urine WBC 0-3 Ur Squamous Epith Cells RARE Squamous Urine Bacteria Rare Urine Culture Comments INDICATED Urine HCG, Qual NEGATIVE PD MEDICAL DECISION MAKING - ED course ED course: Patient presented with MSK appearing back pain. Discussed treatment options and after extensive discussion she agreed to toradol and robaxin. Patient was very fixated on having an MRI of her back however she has no signs of cord compression (no incontinence or focal deficits) and I discussed with her that she will need to f/u with her PMD for preauthorization if she wants an MRI. She asked to see a assembly department supervisor so charge hand Debbie spoke with her. Patient pressed the call button and a member of staff went to check on her. She stated that the medicine we gave her didn't work. As staff member closed the door she heard the patient laughing. Evidence of uti on urinalysis. will treat with antibiotics. return precautions given. [place] Departure - Departure Disposition: 01 Home, Self Care Clinical Impression: UTI (urinary tract infection), Back pain Condition: Good Instructions: UTI Prescriptions: Cefpodoxime Proxetil [Vantin] 200 mg PO Q12H #28 tablet Comments: You were seen in the emergency department for back pain and body aches. Your urinalysis showed signs of uti. Please continue your flagyl antibiotic until d one, and start taking vantin (another antibiotic that treats uti) in addition to this. Return to the ED if you experience fevers, new or worsening symptoms or have other concerns. [place]
[2020-11-05 20:25] LABS: BILIRUBIN,URINE NEGATIVE (NEGATIVE); GLUCOSE, URINE (UA) NEGATIVE (NEGATIVE); KETONES,URINE (UA) NEGATIVE (NEGATIVE); LEUKOCYTE ESTERASE, URINE TRACE (NEGATIVE); NITRITE,URINE NEGATIVE (NEGATIVE); OCCULT BLOOD,URINE LARGE (NEGATIVE); PH,URINE 6.5 PH (5.0-7.5); PROTEIN,URINE 30 mg/dL (NEGATIVE); UROBILINOGEN,URINE 0.2 (NORMAL) E.U./dL (NORMAL)
[2020-11-05 20:35] LABS: HCG UR QUAL NEGATIVE
[2020-11-05 20:36] LABS: BACTERIA,URINE Rare /HPF (None Seen); CLARITY,URINE CLOUDY (CLEAR); RBC,URINE TNTC /HPF (0-5); SQUAMOUS EPITHELIAL CELL,UR RARE Squamous (<= Few); WBC,URINE 0-3 /HPF (0-5)
[2020-11-05] MEDS ORDERED: CEFPODOXIME PROXETIL 100 MG TABLET PO STA (20:50)
== END 2020-11-05 21:20 | disposition home or self-care (01) ==
LOC: ED 19:13
DX: N39.0 Urinary tract infection, site not specified (principal); M54.5 Low back pain
CPT/HCPCS: 81001; 81025; 87077; 87086; 96372; 99283; 99284; A9270

== ENCOUNTER 2020-12-09 21:40 | Emergency (ER) | payer OTHER ==
[2020-12-09 21:47] VITALS: BP 134/69
[2020-12-09] MEDS ORDERED: SODIUM CHLORIDE 0.9% 1,000 ML IV STA (22:32)
== END 2020-12-09 22:38 | disposition left against medical advice (07) ==
LOC: ED 21:40
DX: Z53.21 Procedure and treatment not carried out due to patient leaving prior to being seen by health care provider (principal)
CPT/HCPCS: 80053; 83690; 85025

== ENCOUNTER 2021-02-23 17:58 | Emergency (ER) | payer OTHER ==
--- NOTE | 2021-02-23 19:40 | ED Physician Documentation ---
PD HPI URI - Stated complaint Stated Complaint: HEADACHE/VOMITING/SOA - Chief complaint Chief Complaint: Resp - History obtained from History obtained from: Patient - Additional information Additional information: 20-year-old woman with history of colostomy presents with 4 days of illness with shaking chills, body aches, nonproductive cough. Multiple sick family members but no one with confirmed Covid. No measured fevers. Review of Systems Constitutional: reports: Chills, Myalgias Nose: reports: Rhinorrhea / runny nose Throat: reports: Sore throat Respiratory: reports: Cough. denies: Dyspnea PD PAST MEDICAL HISTORY - Past Medical History Cardiovascular: None Respiratory: Pneumonia, Other Neuro: Migraines, Peripheral neuropathy, Tremors, Other Endocrine/Autoimmune: None, Other GI: GERD, Other BAGGING SALVAGER: None, Miscarriage(s), Other : Kidney stones, Other HEENT: None Psych: None Musculoskeletal: Fibromyalgia, Other Derm: None - Past Surgical History Past Surgical History: Yes General: Bowel surgery, Gastric surgery /BAGGING SALVAGER: section - Present Medications Home Medications: Ambulatory Orders Medication Instructions Recorded Confirmed clonazePAM [Clonazepam] 0.5 mg PO DAILY 04/15/20 04/15/20 Lurasidone HCl [Latuda] 20 mg PO DAILY 06/02/20 06/02/20 Mirtazapine [Remeron] 7.5 mg PO HS 06/02/20 06/02/20 Nystatin [Nystop] 1 applic TOP UD #1 bottle 06/02/20 Cefpodoxime Proxetil [Vantin] 200 mg PO Q12H #28 tablet 11/05/20 guaiFENesin/CODEINE [Robitussin AC] 5 - 10 ml PO Q6H PRN #120 ml 02/23/21 - Allergies Allergies/Adverse Reactions: Allergies Allergy/AdvReac Type Severity Reaction Status Date / Time Iodinated Contrast Media Allergy Anaphylaxis Verified 02/23/21 18:06 cyclobenzaprine AdvReac Emesis Verified 02/23/21 18:06 morphine AdvReac Emesis Verified 02/23/21 18:06 - Social History Does the pt smoke?: No Smoking Status: Never smoker Does the pt drink ETOH?: No Does the pt have substance abuse?: No - Immunizations Immunizations are current?: No - POLST Patient has POLST: No POLST Status: Full Code PD ED PE NORMAL - Vitals Vital signs reviewed: Yes - General General: Alert and oriented X 3, No acute distress - HEENT HEENT: PERRL, EOMI - Neck Neck: Supple, no meningeal sign, No bony TTP - Cardiac Cardiac: RRR, No murmur - Respiratory Respiratory: No respiratory distress, Clear bilaterally - Abdomen Abdomen: Non tender, Other (Colostomy left lower quadrant) - Derm Derm: No rash Results - Vitals Vitals: Vital Signs - 24 hr 02/23/21 18:06 Temperature 36.8 C Heart Rate 105 H Respiratory 16 Rate Blood Pressure 109/80 O2 Saturation 98 Oxygen O2 Source Room air PD MEDICAL DECISION MAKING - ED course ED course: 20-year-old woman with viral URI. Well-appearing with unremarkable exam. Will treat symptomatically. Departure - Departure Disposition: 01 Home, Self Care Clinical Impression: Upper respiratory tract infection Qualifiers: URI type: unspecified viral URI Qualified Code(s): J06.9 - Acute upper respiratory infection, unspecified Condition: Good Record reviewed to determine appropriate education?: Yes Instructions: ED Viral Syndrome Prescriptions: guaiFENesin/CODEINE [Robitussin AC] 5 - 10 ml PO Q6H PRN #120 ml PRN Reason: Cough Comments: You were seen today for an upper respiratory infection, I am sending a prescription for codeine cough syrup to the [facility]. Return for new or worsening symptoms. You have a Covid test pending. You need to self quarantine until the result is done and negative. Do not leave your house. Do not get near anybody. The results should be done in 48 to 72 hours. We will call with a positive result, the fastest way to get a negative result for confirmation though is to go to the hospital website at [email or web address], click on the my [facility] tab and sign up for the patient portal. If any friends or family get sick and would like to have a Covid test done, but do not have signs or symptoms that would necessitate being hospitalized, there are multiple local options for Covid testing. [facility] keeps an updated list of testing and vaccination options at: [email or web address]. I am prescribing a short course of narcotic pain medication for you. These are potentially dangerous and addictive medications that should be used carefully. These medications may constipate you. Take an mjug-tcg-tgnrwpp stool softener (docusate) twice daily with plenty of water while taking these medications. If you go 24 hours without a bowel movement, take [id number]-[id number] miralax, per package instructions. Do not drink or drive while taking these medications. If you received narcotic or sedating medications while in the emergency department, do not drive for 24 hours. Store this medication in a safe, secure place and out of reach of children. It is a violation of federal law to give or sell this medication to another person or to use in a manner other than prescribed. The ED will not refill narcotic prescriptions, including prescriptions lost or stolen. To dispose of unwanted medications: 1. [facility] at [address] in [place] has a medication drop box. They accept prescription medications (in pill form) Wednesday through Wednesday 9:00 a.m. to 5:00 p.m. 2. The [facility] accepts prescription medications (in pill form only) for disposal year round. Call for more information. 3. Contact the [facility] for the next [facility] sponsored prescription drug collection event. , [phone], or [phone]; Note that many narcotic pain relievers also contain Tylenol/acetaminophen. Plea se ensure that your total dose of acetaminophen from all sources does not exceed 3 g (3000 mg) per day.
[2021-02-23] MEDS: guaiFENesin/CODEINE 5 ML UDC PO STA (19:59)
[2021-02-23 20:00] VITALS: BP 129/92
== END 2021-02-23 20:01 | disposition home or self-care (01) ==
LOC: ED 17:58
DX: J06.9 Acute upper respiratory infection, unspecified (principal); B97.89 Other viral agents as the cause of diseases classified elsewhere; Z20.822 Contact with and (suspected) exposure to COVID-19; Z93.3 Colostomy status
CPT/HCPCS: 87635; 99283; A9270

== ENCOUNTER 2021-03-03 12:55 | Emergency (ER) | payer OTHER ==
[2021-03-03 13:03] VITALS: BP 124/81
[2021-03-03] MEDS ORDERED: NAPROXEN 250 MG TABLET PO STA (14:31)
[2021-03-03] MEDS ORDERED: HYDROcod/ACETAM 5/325 MG TABLET PO STA (14:31)
--- NOTE | 2021-03-03 14:33 | ED Physician Documentation ---
PD HPI LOWER EXT INJURY - Stated complaint Stated Complaint: LT HIP PX - Chief complaint Chief Complaint: Ext Problem - History obtained from History obtained from: Patient - Additional information Additional information: 20-year-old woman with fibromyalgia and some chronic back issues presents with atraumatic left hip pain that is been going on for the last 4 days. She points to the area above the posterior pelvic brim and sciatic notch is the site of pain. It radiates down into the left buttock. There was no fall or trauma. She does have some tingling in the left thigh. It is worse with walking. It is worse with laying on the left side. No saddle anesthesia, incontinence, or fevers. Review of Systems Constitutional: denies: Fever, Chills Ears: reports: Reviewed and negative Cardiac: reports: Reviewed and negative Respiratory: reports: Reviewed and negative PD PAST MEDICAL HISTORY - Past Medical History Cardiovascular: None Respiratory: Pneumonia, Other Neuro: Migraines, Peripheral neuropathy, Tremors, Other Endocrine/Autoimmune: None, Other GI: GERD, Other ARMATURE BANDER: None, Miscarriage(s), Other : Kidney stones, Other HEENT: None Psych: None Musculoskeletal: Fibromyalgia, Other Derm: None - Past Surgical History Past Surgical History: Yes General: Bowel surgery, Gastric surgery /ARMATURE BANDER: section - Present Medications Home Medications: Ambulatory Orders Medication Instructions Recorded Confirmed clonazePAM [Clonazepam] 0.5 mg PO DAILY 04/15/20 04/15/20 Lurasidone HCl [Latuda] 20 mg PO DAILY 06/02/20 06/02/20 Mirtazapine [Remeron] 7.5 mg PO HS 06/02/20 06/02/20 Nystatin [Nystop] 1 applic TOP UD #1 bottle 06/02/20 Cefpodoxime Proxetil [Vantin] 200 mg PO Q12H #28 tablet 11/05/20 guaiFENesin/CODEINE [Robitussin AC] 5 - 10 ml PO Q6H PRN #120 ml 02/23/21 HYDROcod/ACETAM 5/325 [[place] 5/325] 1 - 2 tab PO Q6H PRN #15 tablet 03/03/21 Meloxicam [Mobic] 7.5 mg PO BID PRN #20 tablet 03/03/21 - Allergies Allergies/Adverse Reactions: Allergies Allergy/AdvReac Type Severity Reaction Status Date / Time Iodinated Contrast Media Allergy Anaphylaxis Verified 03/03/21 13:00 cyclobenzaprine AdvReac Emesis Verified 03/03/21 13:00 morphine AdvReac Emesis Verified 03/03/21 13:00 - Social History Does the pt smoke?: No Smoking Status: Never smoker Does the pt drink ETOH?: No Does the pt have substance abuse?: No - Immunizations Immunizations are current?: No - POLST Patient has POLST: No POLST Status: Full Code PD ED PE NORMAL - Vitals Vital signs reviewed: Yes - General General: Alert and oriented X 3, No acute distress - HEENT HEENT: PERRL, EOMI - Back Back: No spinal TTP, Other (She appears slightly uncomfortable and is laying on her right side. She has diffuse muscular tenderness of the left low back.) - Extremities Extremities: Other (The patient has equal and normal Achilles and patellar reflexes bilaterally. Normal sensation in all areas of the legs. Patient denies saddle anesthesia. Normal strength in flexion-extension at the ankles, knees, and flexion of the hips.) - Neuro Neuro: Alert and oriented X 3, Normal speech Results - Vitals Vitals: Vital Signs - 24 hr 03/03/21 13:00 Temperature 36.5 C Heart Rate 95 Respiratory 16 Rate Blood Pressure 124/81 H O2 Saturation 99 Oxygen O2 Source Room air PD MEDICAL DECISION MAKING - ED course ED course: Seems like pain of the paralumbar muscles or sacroiliac joint more than the hip per se. She declined injectable medications here. I am prescribing a short course of short-acting opioid pain medication for this patient. I have reviewed the patients [employer] and no concerning findings were noted. I have discussed that the opioids are for short term therapy only, and will not be refilled from the ED. Departure - Departure Disposition: 01 Home, Self Care Clinical Impression: Low back pain Qualifiers: Chronicity: acute Back pain laterality: left Sciatica presence: without sciatica Qualified Code(s): M54.50 - Low back pain, unspecified Condition: Good Record reviewed to determine appropriate education?: Yes Instructions: ED Spasm Back No Trauma Prescriptions: Meloxicam [Mobic] 7.5 mg PO BID PRN #20 tablet PRN Reason: Pain HYDROcod/ACETAM 5/325 [[place] 5/325] 1 - 2 tab PO Q6H PRN #15 tablet PRN Reason: Pain Comments: Prescription sent electronically to [facility] in [place]. Call your doctor to arrange a follow-up appointment, make the next available appointment. In the interim, return anytime if worse or if new symptoms develop. I am prescribing a short course of narcotic pain medication for you. These are potentially dangerous and addictive medications that should be used carefully. These medications may constipate you. Take an stzq-mnb-blyhskh stool softener (docusate) twice daily with plenty of water while taking these medications. If you go 24 hours without a bowel movement, take plmz-afd-yhlyuzn miralax, per package instructions. Do not drink or drive while taking these medications. If you received narcotic or sedating medications while in the emergency department, do not drive for 24 hours. Store this medication in a safe, secure place and out of reach of children. It is a violation of federal law to give or sell this medication to another person or to use in a manner other than prescribed. The ED will not refill narcotic prescriptions, including prescriptions lost or stolen. To dispose of unwanted medications: 1. [facility] [address] in [place] has a medication drop box. They accept prescription medications (in pill form) Wednesday through Wednesday 9:00 a.m. to 5:00 p.m. 2. The [facility] accepts prescription medications (in pill form only) for disposal year round. Call for more information. 3. Contact the [facility] for the next [facility] sponsored prescription drug collection event. , [phone], or [phone]; Note that many narcotic pain relievers also contain Tylenol/acetaminophen. Please ensure that your total dose of acetaminophen from all sources does not exceed 3 g (3000 mg) per day.
== END 2021-03-03 15:05 | disposition home or self-care (01) ==
LOC: ED 12:55
DX: M54.50 Low back pain, unspecified (principal); M25.552 Pain in left hip; M79.7 Fibromyalgia; G62.9 Polyneuropathy, unspecified
CPT/HCPCS: 99282; 99283; A9270

== ENCOUNTER 2021-03-24 20:51 | Emergency (ER) | payer OTHER ==
[2021-03-24] MEDS ORDERED: HYDROmorphone 1 MG/ML CARPUJECT IM STA (21:20)
--- NOTE | 2021-03-24 21:23 | ED Physician Documentation ---
History of Present Illness - Stated complaint Stated Complaint: BACK PX - Chief complaint Chief Complaint: Back Pain - Additonal information Additional information: 20-year-old female presents emergency department for evaluation of acute on c hronic low back pain. Reports slipping in the bathroom on a wet for falling backwards and striking her back on the ridge of the tub. Did not strike her head or lose consciousness. However she has had worsening back pain since. She has no saddle anesthesia. She has an antalgic but unassisted gait. At baseline she does have fibromyalgia and reports chronic ohcu-lwh-rpcvezd in her legs. She also has a history of a diverting colostomy. She states that she has used ibuprofen meloxicam and lidocaine patches without relief of pain. She did speak with her primary care doctor today and has been referred to a pain management clinic but understands that this will take months Review of Systems Constitutional: denies: Fever Eyes: reports: Reviewed and negative Nose: reports: Reviewed and negative Throat: reports: Reviewed and negative Cardiac: reports: Reviewed and negative Respiratory: reports: Reviewed and negative GI: reports: Reviewed and negative : reports: Reviewed and negative Skin: reports: Reviewed and negative Musculoskeletal: reports: Back pain PD PAST MEDICAL HISTORY - Past Medical History Past Medical History: Yes Cardiovascular: None Respiratory: Pneumonia, Other Neuro: Migraines, Peripheral neuropathy, Tremors, Other Endocrine/Autoimmune: None, Other GI: GERD, Other PRINCIPAL CYBER ENGINEER: None, Miscarriage(s), Other : Kidney stones, Other HEENT: None Psych: None Musculoskeletal: Fibromyalgia, Other Derm: None - Past Surgical History Past Surgical History: Yes General: Bowel surgery, Gastric surgery /PRINCIPAL CYBER ENGINEER: section - Present Medications Home Medications: Ambulatory Orders Medication Instructions Recorded Confirmed clonazePAM [Clonazepam] 0.5 mg PO DAILY 04/15/20 04/15/20 Lurasidone HCl [Latuda] 20 mg PO DAILY 06/02/20 06/02/20 Mirtazapine [Remeron] 7.5 mg PO HS 06/02/20 06/02/20 Nystatin [Nystop] 1 applic TOP UD #1 bottle 06/02/20 Cefpodoxime Proxetil [Vantin] 200 mg PO Q12H #28 tablet 11/05/20 guaiFENesin/CODEINE [Robitussin AC] 5 - 10 ml PO Q6H PRN #120 ml 02/23/21 HYDROcod/ACETAM 5/325 [[place] 5/325] 1 - 2 tab PO Q6H PRN #15 tablet 03/03/21 Meloxicam [Mobic] 7.5 mg PO BID PRN #20 tablet 03/03/21 HYDROcod/ACETAM 5/325 [[place] 5/325] 1 tab PO BID #10 tablet 03/24/21 - Allergies Allergies/Adverse Reactions: Allergies Allergy/AdvReac Type Severity Reaction Status Date / Time Iodinated Contrast Media Allergy Anaphylaxis Verified 03/24/21 21:13 cyclobenzaprine AdvReac Emesis Verified 03/24/21 21:13 morphine AdvReac Emesis Verified 03/24/21 21:13 - Social History Does the pt smoke?: No Smoking Status: Never smoker Does the pt drink ETOH?: No Does the pt have substance abuse?: No - Immunizations Immunizations are current?: No - POLST Patient has POLST: No POLST Status: Full Code PD ED PE EXPANDED - General General: Alert, No acute distress - Back Back: Vertebral tenderness (Lower lumbar midline tenderness without ecchymosis or erythema. Reduced forward flexion secondary to pain. Bilateral paraspinous tenderness. 2+ patellar reflexes bilaterally. Normal sensation grossly lower extremities), Soft tissue tenderness - Derm Derm: Normal color, Warm and dry. No: Abrasion (s), Bruising - Extremities Extremities: Normal. No: Deformity, Tenderness - Neuro Neuro: Alert and Oriented X 3, CNII-XII intact Results - Vitals Vitals: Vital Signs - 24 hr 03/24/21 03/24/21 21:10 21:38 Temperature 36.8 C Heart Rate 100 Respiratory 17 16 Rate Blood Pressure 133/85 H O2 Saturation 100 Oxygen O2 Source Room air PD MEDICAL DECISION MAKING - ED course Complexity details: reviewed results, re-evaluated patient, d/w patient ED course: 20-year-old female presents emergency department for evaluation of acute on chronic low back pain. She slipped in the bathroom and hit her back on the bathtub. She was previously being seen by railroad car painter when she lived in [place] and her primary care doctor has made that referral today. She has been using her meloxicam as well as lidocaine patches without relief of the symptoms. She does have a known colostomy on the left side of her abdomen. Ho wever she does not have saddle anesthesia. She has a mildly antalgic but unassisted gait and normal strength and reflexes on her lower extremities. CT of the lumbar spine was complete and results are pending. Patient will be signed out to my nighttime colleague Dr. Doll to follow-up on CT results. Assuming that there are no worrisome findings patient is stable for discharge home. I will send a prescription for limited amount of [place] [facility] [place] Patient is advised that she would need to have close follow- up with her railroad car painter and that the emergency department cannot write for pain management meds in the future. Departure - Departure Clinical Impression: Low back pain Qualifiers: Chronicity: chronic Back pain laterality: midline Sciatica presence: without sciatica Qualified Code(s): M54.50 - Low back pain, unspecified; G89.29 - Other chronic pain Fall Qualifiers: Encounter type: initial encounter Qualified Code(s): W19.XXXA - Unspecified fall, initial encounter Condition: Stable Record reviewed to determine appropriate education?: Yes Prescriptions: HYDROcod/ACETAM 5/325 [[place]ing 5/325] 1 tab PO BID #10 tablet Comments: Vicenta alves are seen in the emergency department today for low back pain after you fell in your bathroom striking her back on the bathtub. However you do have chronic pain and your primary doctor is making a referral to a pain specialist. Please continue to follow-up with this referral. The CT of your lumbar spine did not show an obvious fracture. It is most likely that you have some contusions or bruising in your lower back. I encourage you to continue the lidocaine patches, meloxicam as well as the Tylenol. I am prescribing a very limited amount of hydrocodone for severe pain only. The emergency department cannot refill this in the future. [place] If you develop inability to control the flow of your urine, you have numbness or tingling in your genital area, you develop sudden severe weakness in one of your legs and please return immediately to the ER for a second evaluation. I am prescribing a short course of narcotic pain medication for you. These are potentially dangerous and addictive medications that should be used carefully. These medications may constipate you. Take an rxwa-nsi-jhshmtd stool softener (docusate) twice daily with plenty of water while taking these medications. If you go 24 hours without a bowel movement, take qulw-ooy-nnyfzbc miralax, per package instructions. Do not drink or drive while taking these medications. If you received narcotic or sedating medications while in the emergency department, do not drive for 24 hours. Store this medication in a safe, secure place and out of reach of children. It is a violation of federal law to give or sell this medication to another person or to use in a manner other than prescribed. The ED will not refill narcotic prescriptions, including prescriptions lost or stolen. To dispose of unwanted medications: 1. [facility] [address] in [place] has a medication drop box. They accept prescription medications (in pill form) Wednesday through Wednesday 9:00 a.m. to 5:00 p.m. 2. [facility] [employer] accepts prescription medications (in pill form only) for disposal year round. Call for more information. 3. Contact the [facility] for the next [facility] sponsored prescription drug collection event. , [phone], or [phone]; Note that many narcotic pain relievers also contain Tylenol/acetaminophen. Please ensure that your total dose of acetaminophen from all sources does not exceed 3 g (3000 mg) per day.
[2021-03-24 22:18] VITALS: BP 118/68
--- NOTE | 2021-03-24 23:06 | CT Report ---
PROCEDURE: CT lumbar spine without contrast INDICATIONS: fell on bathtub TECHNIQUE: Noncontrast 3 mm thick sections acquired from the T12 level to the sacrum. Sagittal and coronal refo rmats were constructed. For radiation dose reduction, the following was used: automated exposure co ntrol, adjustment of mA and/or kV according to patient size. COMPARISON: None. FINDINGS: Image quality: Excellent. Bones: There is normal bony alignment. No acute vertebral body compression fractures. No suspiciou s lytic or blastic bony lesions. Central spinal caliber is of normal overall caliber. No pars defec ts. T12-L1: Normal in appearance. L1-L2: Normal in appearance. L2-L3: Normal in appearance. L3-L4: Normal in appearance. L4-L5: Normal in appearance. L5-S1: Normal in appearance. Soft tissues: No retroperitoneal masses or hematomas. Visualized aorta is normal in caliber. IMPRESSION: Unremarkable CT lumbar spine. No fracture or malalignment. No disc protrusion or central stenosis. Reviewed by: Mariano Romano MD on 03/24/2021 10:04 PM [facility] Approved by: Mariano Romano MD on 03/24/2021 10:04 PM [place] Station ID: [id number]
--- NOTE | 2021-03-24 23:20 | ED Physician Documentation ---
ED Addendum - Addendum Addendum: Patient received as signout from off going nurse practitioner. Please see their documentation for further detail. Patient received as signout with CT of the spine pending. Images reviewed. No indications acute fracture. Patient evaluated independently at bedside. Did endorse for ongoing pain however was noted to be resting very comfortably, engaged with her cell phone throughout our conversation. Will discharge at this time for follow-up with primary care. Medications have already been sent for the patient's use for ongoing symptomatic management. 03/25/21 04:27
== END 2021-03-24 23:23 | disposition home or self-care (01) ==
LOC: ED 20:51
DX: M54.50 Low back pain, unspecified (principal); G89.29 Other chronic pain; W01.198A Fall on same level from slipping, tripping and stumbling with subsequent striking against other object, initial encounter; Y92.002 Bathroom of unspecified non-institutional (private) residence as the place of occurrence of the external cause; M79.7 Fibromyalgia; Z93.3 Colostomy status
CPT/HCPCS: 72131; 96372; 99283; 99284; J1170

== ENCOUNTER 2021-06-10 22:49 | Emergency (ER) | payer OTHER ==
--- NOTE | 2021-06-10 22:58 | ED Physician Documentation ---
PD HPI ABD PAIN - Stated complaint Stated Complaint: VOMITING, ABD PX - Chief complaint Chief Complaint: Abd Pain - History obtained from History obtained from: Patient - History of Present Illness Timing - onset: Chronic Timing - details: Waxing and waning Pain level now: 8 Quality: Pain Location: All over / everywhere Radiation: Other (does not radiate) Improved by: Other (nothing) Worsened by: Eating, Palpation Associated symptoms: Nausea, Vomiting - Additional information Additional information: c/o sick for a while; asked to specify, she says predominantly nausea, vomiting, abdominal pain for approximately 2 months. Saw PCP ([facility]) approximately 2 weeks ago, had blood tests, abnormal results were something about my liver. She says her urinalysis suggested UTI but no rx, was told to increase PO fluids (per patient) Patients chief complaint tonight is increased nausea and vomiting not improving with promethazine (patient says she feels the promethazine makes it worse). Also c/o increased abdominal pain tonight. She has hydrocodone at home but says she has not been able to keep this down today due to n/v. Patient has had two-dozen [facility] ED visits since 03/2019 with some visits result in admission. 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 Review of Systems Constitutional: reports: Reviewed and negative Cardiac: reports: Reviewed and negative Respiratory: reports: Reviewed and negative GI: reports: Abdominal Pain, Nausea, Vomiting, Diarrhea (been having diarrhea but normal (describes chronic diarrhea without recent change)). denies: Abdominal Swelling : reports: Dysuria. denies: Frequency PD PAST MEDICAL HISTORY - Past Medical History Cardiovascular: None Respiratory: Pneumonia, Other Neuro: Migraines, Peripheral neuropathy, Tremors, Other Endocrine/Autoimmune: None, Other GI: GERD, Other ELECTRONIC ORGAN MECHANIC: None, Miscarriage(s), Other : Kidney stones, Other HEENT: None Psych: None Musculoskeletal: Fibromyalgia, Other Derm: None - Past Surgical History Past Surgical History: Yes General: Bowel surgery, Gastric surgery /ELECTRONIC ORGAN MECHANIC: section - Present Medications Home Medications: Ambulatory Orders Medication Instructions Recorded Confirmed clonazePAM [Clonazepam] 0.5 mg PO DAILY 04/15/20 04/15/20 Lurasidone HCl [Latuda] 20 mg PO DAILY 06/02/20 06/02/20 Mirtazapine [Remeron] 7.5 mg PO HS 06/02/20 06/02/20 Nystatin [Nystop] 1 applic TOP UD #1 bottle 06/02/20 Cefpodoxime Proxetil [Vantin] 200 mg PO Q12H #28 tablet 11/05/20 guaiFENesin/CODEINE [Robitussin AC] 5 - 10 ml PO Q6H PRN #120 ml 02/23/21 HYDROcod/ACETAM 5/325 [[place] 5/325] 1 - 2 tab PO Q6H PRN #15 tablet 03/03/21 Meloxicam [Mobic] 7.5 mg PO BID PRN #20 tablet 03/03/21 HYDROcod/ACETAM 5/325 [[place] 5/325] 1 tab PO BID #10 tablet 03/24/21 Nitrofurantoin [Macrobid] 100 mg PO BID #9 cap 06/11/21 - Allergies Allergies/Adverse Reactions: Allergies Allergy/AdvReac Type Severity Reaction Status Date / Time Iodinated Contrast Media Allergy Anaphylaxis Verified 06/10/21 22:54 cyclobenzaprine AdvReac Emesis Verified 06/10/21 22:54 morphine AdvReac Emesis Verified 06/10/21 22:54 - Social History Does the pt smoke?: No Smoking Status: Never smoker Does the pt drink ETOH?: No Does the pt have substance abuse?: No - Immunizations Immunizations are current?: No - POLST Patient has POLST: No POLST Status: Full Code PD ED PE NORMAL - Vitals Vital signs reviewed: Yes - General General: Alert and oriented X 3, No acute distress, Well developed/nourished - HEENT HEENT: Moist mucous membranes - Neck Neck: Supple, no meningeal sign - Cardiac Cardiac: RRR, No murmur - Respiratory Respiratory: No respiratory distress, Clear bilaterally - Abdomen Abdomen: Soft, Non distended, Other (ostomy bag in place; abdomen is diffusely TTP, predominantly right-sided. no rebound or guarding) - Back Back: No CVA TTP - Derm Derm: Normal color, Warm and dry - Extremities Extremities: No edema Results - Vitals Vitals: Vital Signs - 24 hr 06/10/21 06/11/21 06/11/21 22:54 00:25 00:59 Temperature 36.5 C Heart Rate 98 85 Respiratory 16 16 16 Rate Blood Pressure 114/64 120/84 H O2 Saturation 99 100 Oxygen O2 Source Room air - Labs Labs: Microbiology 06/11/21 00:00 Urine Culture - Preliminary Urine,Clean Catch Laboratory Tests 06/10/21 06/10/21 06/11/21 23:24 23:24 00:00 WBC 9.0 RBC 4.98 Hgb 12.8 Hct 39.6 MCV 79.5 L MCH 25.7 L MCHC 32.3 RDW 13.8 Plt Count 373 MPV 10.2 Neut # (Auto) 6.0 Lymph # (Auto) 2.2 Edwards # (Auto) 0.5 Eos # (Auto) 0.3 Baso # (Auto) 0.0 Absolute Nucleated RBC 0.00 Nucleated RBC % 0.0 Sodium 140 Potassium 3.5 Chloride 105 Carbon Dioxide 24 Anion Gap 11.0 BUN 8 Creatinine 0.6 Estimated GFR (MDRD) 126 Glucose 105 H Calcium 9.2 Total Bilirubin 0.5 AST 37 ALT 61 H Alkaline Phosphatase 47 Total Protein 8.1 Albumin 4.3 Globulin 3.8 Albumin/Globulin Ratio 1.1 Lipase 73 H Urine Color YELLOW Urine Clarity HAZY Urine pH 6.0 Ur Specific Balko >=1.030 H Urine Protein 30 H Urine Glucose (UA) NEGATIVE Urine Ketones NEGATIVE Urine Occult Blood LARGE H Urine Nitrite POSITIVE H Urine Bilirubin NEGATIVE Urine Urobilinogen 0.2 (NORMAL) Ur Leukocyte Esterase SMALL H Urine RBC 6-10 H Urine WBC 11-25 H Ur Squamous Epith Cells FEW Squamous Urine Bacteria Many H Ur Microscopic Review INDICATED Urine Culture Comments INDICATED - Rads (name of study) CT A/P Radiology: Prelim report reviewed, See rad report PD MEDICAL DECISION MAKING - ED course Complexity details: reviewed old records, reviewed results, re-evaluated patient, considered differential, d/w patient ED course: patients chief complaints are intractable n/v (not keeping anything down this evening, refractory to promethazine) as well as abdominal pain. by her description, it sounds like the abdominal pain was being controlled with PO vicodin but unable to keep this down today due to the n/v. She has diffuse tenderness on exam and she says this is unusual for her. She has had findings on some previous CT A/P c/w colitis. CT A/P performed tonight (she says she has anaphylaxis with IV contrast and thus noncontrast CT performed), and there are no acute/ concerning findings on this study. Mildly elevated lipase (73) but no evidence of pancreatitis on CT. AST minimally elevated at 61. unremarkable cbc with normal WBC, h/h, platelets. she is given 1 liter NS IV and 8mg IV zofran. on reevaluation she reports improvement and requests water, which she is able to tolerate without recurrence of n/v. She does c/o ongoing pain. After discussing options, result of this discussion was to give morphine with benadryl (morphine is listed as an allergy but she says she has no problems with IV morphine if benadryl is also given). 4mg IV morphine given with 25mg iv benadryl. patient reported feeling better and requesting d/c. UA c/w UTI; given macrobid with rx for same sent to her pharmacy of choice. Departure - Departure Disposition: 01 Home, Self Care Clinical Impression: Abdominal pain Qualifiers: Abdominal location: generalized Qualified Code(s): R10.84 - Generalized abdominal pain Vomiting Qualifiers: Vomiting type: unspecified Nausea presence: with nausea Qualified Code(s): R11.2 - Nausea with vomiting, unspecified Urinary tract infection Qualifiers: Urinary tract infection type: acute cystitis Hematuria presence: with hematuria Qualified Code(s): N30.01 - Acute cystitis with hematuria Condition: Good Instructions: ED Abdominal Pain Female Non-Specific Abdominal Pain, ED Vomiting Diarrhea Nonspecific Ad Follow-Up: REINA BLEDSOE DO [Primary Care Provider] - Prescriptions: Nitrofurantoin [Macrobid] 100 mg PO BID #9 cap Comments: The results of the tests performed tonight do not show the cause of your symptoms. As we discussed , one of your liver enzymes is minimally above normal range (ALT is 61, with the cutoff for normal being 60). Your pancreatic enzyme (lipase) is mildly elevated, but there is no evidence of pancreatic inflammation on the CT scan. Neither of these findings is diagnostic nor (considering how minimally elevated they are) concerning at this time. Follow up with your primary care provider for reevaluation of these symptoms. Your urinalysis is consistent with a urinary tract infection, and for this you were given an antibiotic in the emergency department and a prescription has been electronically submitted to the [facility] pharmacy in [place]. A urinary tract infection would account for urinary frequency and burning or discomfort with urination, but I do not think this would explain your abdominal pain, nausea, and vomiting. Discharge Date/Time: 06/11/21 01:00
[2021-06-10] MEDS ORDERED: ONDANSETRON 4 MG/2 ML VIAL IVP STA (23:15)
[2021-06-10] MEDS ORDERED: SODIUM CHLORIDE 0.9% 1,000 ML IV STA (23:15)
[2021-06-10 23:34] LABS: BASOPHILS % (AUTO) 0.2 %; EOSINOPHILS # (AUTO) 0.3 10^3/uL (0.0-0.7); EOSINOPHILS % (AUTO) 3.4 %; HCT - HEMATOCRIT 39.6 % (37.0-47.0); HGB - HEMOGLOBIN 12.8 g/dL (12.0-16.0); LYMPHOCYTES # (AUTO) 2.2 10^3/uL (1.5-3.5); LYMPHOCYTES % (AUTO) 24.1 %; MEAN CORPUSCULAR HEMOGLOBIN 25.7 pg (27.0-31.0); MEAN CORPUSCULAR HGB CONC 32.3 g/dL (32.0-36.0); MEAN CORPUSCULAR VOLUME 79.5 fL (81.0-99.0); MEAN PLATELET VOLUME 10.2 fL (7.9-10.8); MONOCYTES # (AUTO) 0.5 10^3/uL (0.0-1.0); MONOCYTES % (AUTO) 5.1 %; NEUTROPHILS % (AUTO) 66.9 %; PLT - PLATELET COUNT 373 10^3/uL (130-450); RED BLOOD COUNT 4.98 10^6/uL (4.20-5.40); RED CELL DISTRIBUTION WIDTH 13.8 % (12.0-15.0)
--- OUTSIDE RECORDS SUMMARY | 2021-06-10 23:37 | EXTERNAL MEDICAL SUMMARY RPT | Continuity of Care Document ---
:2000 Author Organization [facility] Address [address] [phone] Phone Allergies No information. Encounters No information. Medications No information. Problems date description facility [id number] Abdominal Pain [facility] [id number] Noninfective gastroenteritis and [facility] colitis, unspecified Results No information.
[2021-06-10 23:46] LABS: ALBUMIN 4.3 g/dL (3.2-5.5); ALBUMIN/GLOBULIN RATIO 1.1 (1.0-2.2); BILIRUBIN,TOTAL 0.5 mg/dL (0.2-1.0); CALCIUM 9.2 mg/dL (8.5-10.3); CREATININE 0.6 mg/dL (0.4-1.0); POTASSIUM 3.5 mmol/L (3.5-5.0); TOTAL PROTEIN 8.1 g/dL (6.7-8.2)
--- NOTE | 2021-06-11 00:12 | CT Report ---
PROCEDURE: Abdomen/Pelvis WO INDICATIONS: abd. pain, n/v, colostomy TECHNIQUE: Noncontrast 5 mm thick sections acquired from the diaphragms to the symphysis. 5 mm coronal and sagi ttal reformats were then performed. For radiation dose reduction, the following was used: automated exposure control, adjustment of mA and/or kV according to patient size. COMPARISON: CT abdomen/pelvis 10/31/2019. FINDINGS: Image quality: Excellent. ABDOMEN: Lung bases: Lung bases are clear. Heart size is normal. Solid organs: Liver is diffusely hypoattenuating, consistent with fatty infiltration. Gallbladder is surgically absent. Pancreas is normal in contours. Spleen is normal size. No adrenal nodules. Kidn eys are normal in size, without hydronephrosis or nephrolithiasis. Peritoneum and bowel: Post surgical changes again seen from partial colectomy with left lower quadran t colostomy. Large dilated outpouching along the left rectum/rectal pouch filled with stool is again seen, which demonstrates a mildly decreased volume of stool compared to the CT from 10/31/2019. The re mainder of the colon is normal in appearance. Normal appendix. No signs of bowel obstruction. Nodes and vessels: No retroperitoneal or mesenteric adenopathy by size criteria. Aorta and inferior vena cava are normal in caliber. Miscellaneous: No ventral hernias. PELVIS: Genitourinary: Bladder is decompressed, which limits evaluation. Miscellaneous: No inguinal hernias or adenopathy. Bones: No suspicious bony lesions. No vertebral body compression fractures. IMPRESSION: 1.No acute abnormality is identified in the abdomen or pelvis. 2.Interval postsurgical changes from left lower quadrant colostomy. 3.Dilated rectum/rectal pouch again seen filled with a large amount of stool material, mildly decreas ed when compared to the CT from 10/31/2019. 4.Diffuse hepatic steatosis. Reviewed by: Ferny Wilson MD on 06/11/2021 12:12 AM PST Approved by: Ferny Wilson MD on 06/11/2021 12:12 AM PST Station ID: [id number]
[2021-06-11] MEDS ORDERED: diphenhydrAMINE INJ 50 MG/ML VIAL IVP STA (00:13)
[2021-06-11] MEDS ORDERED: MORPHINE 2 MG/ML CARPUJECT IVP STA (00:13)
[2021-06-11 00:28] VITALS: BP 120/84
[2021-06-11 00:41] LABS: BILIRUBIN,URINE NEGATIVE (NEGATIVE); GLUCOSE, URINE (UA) NEGATIVE (NEGATIVE); KETONES,URINE (UA) NEGATIVE (NEGATIVE); LEUKOCYTE ESTERASE, URINE SMALL (NEGATIVE); NITRITE,URINE POSITIVE (NEGATIVE); OCCULT BLOOD,URINE LARGE (NEGATIVE); PROTEIN,URINE 30 mg/dL (NEGATIVE); UROBILINOGEN,URINE 0.2 (NORMAL) E.U./dL (NORMAL)
[2021-06-11 00:43] LABS: CLARITY,URINE HAZY (CLEAR)
[2021-06-11 00:46] LABS: SQUAMOUS EPITHELIAL CELL,UR FEW Squamous (<= Few)
[2021-06-11 00:47] LABS: BACTERIA,URINE Many /HPF (None Seen)
[2021-06-11] MEDS ORDERED: NITROFURANTOIN MACRO 100 MG CAPSULE PO STA (00:49)
== END 2021-06-11 01:00 | disposition home or self-care (01) ==
LOC: ED 22:49
DX: N30.01 Acute cystitis with hematuria (principal); Z93.3 Colostomy status
CPT/HCPCS: 36415; 74176; 80053; 81001; 83690; 85025; 87077; 87086; 87181; 96374; 96375; 99283; 99284; A9270; J1200; 81003

== ENCOUNTER 2021-06-23 18:39 | Emergency (ER) | payer OTHER ==
--- OUTSIDE RECORDS SUMMARY | 2021-06-23 18:52 | EXTERNAL MEDICAL SUMMARY RPT | Continuity of Care Document ---
:2000 Author Organization [facility] Address [address] [place] [address] Phone Allergies No information. Encounters No information. Medications No information. Problems date description facility [id number] Abdominal Pain [facility] [id number] Noninfective gastroenteritis and [facility] colitis, unspecified Results No information.
[2021-06-23] MEDS ORDERED: ONDANSETRON 4 MG/2 ML VIAL IVP STA (19:31)
[2021-06-23] MEDS ORDERED: SODIUM CHLORIDE 0.9% 1,000 ML IV STA (19:31)
[2021-06-23] MEDS ORDERED: HYDROmorphone 1 MG/ML CARPUJECT IVP STA ×3 (19:31→22:01)
[2021-06-23 19:41] LABS: BILIRUBIN,URINE NEGATIVE (NEGATIVE); GLUCOSE, URINE (UA) NEGATIVE (NEGATIVE); KETONES,URINE (UA) NEGATIVE (NEGATIVE); LEUKOCYTE ESTERASE, URINE SMALL (NEGATIVE); NITRITE,URINE POSITIVE (NEGATIVE); OCCULT BLOOD,URINE NEGATIVE (NEGATIVE); PROTEIN,URINE NEGATIVE (NEGATIVE); UROBILINOGEN,URINE 0.2 (NORMAL) E.U./dL (NORMAL)
[2021-06-23 19:43] LABS: BASOPHILS # (AUTO) 0.1 10^3/uL (0.0-0.1); BASOPHILS % (AUTO) 0.6 %; EOSINOPHILS # (AUTO) 0.5 10^3/uL (0.0-0.7); EOSINOPHILS % (AUTO) 4.5 %; HCT - HEMATOCRIT 38.6 % (37.0-47.0); HGB - HEMOGLOBIN 12.3 g/dL (12.0-16.0); LYMPHOCYTES # (AUTO) 2.3 10^3/uL (1.5-3.5); LYMPHOCYTES % (AUTO) 23.1 %; MEAN CORPUSCULAR HEMOGLOBIN 25.5 pg (27.0-31.0); MEAN CORPUSCULAR HGB CONC 31.9 g/dL (32.0-36.0); MEAN CORPUSCULAR VOLUME 79.9 fL (81.0-99.0); MEAN PLATELET VOLUME 10.7 fL (7.9-10.8); MONOCYTES # (AUTO) 0.5 10^3/uL (0.0-1.0); MONOCYTES % (AUTO) 5.3 %; NEUTROPHILS # (AUTO) 6.7 10^3/uL (1.5-6.6); NEUTROPHILS % (AUTO) 66.3 %; PLT - PLATELET COUNT 363 10^3/uL (130-450); RED BLOOD COUNT 4.83 10^6/uL (4.20-5.40); RED CELL DISTRIBUTION WIDTH 13.5 % (12.0-15.0); WHITE BLOOD COUNT 10.1 x10^3/uL (4.8-10.8)
[2021-06-23 19:44] LABS: CLARITY,URINE CLOUDY (CLEAR); HCG UR QUAL NEGATIVE
[2021-06-23 19:47] LABS: ALBUMIN/GLOBULIN RATIO 1.1 (1.0-2.2); BILIRUBIN,TOTAL 0.6 mg/dL (0.2-1.0); CALCIUM 9.2 mg/dL (8.5-10.3); CREATININE 0.4 mg/dL (0.4-1.0); POTASSIUM 3.8 mmol/L (3.5-5.0); TOTAL PROTEIN 7.7 g/dL (6.7-8.2)
[2021-06-23 19:54] LABS: BACTERIA,URINE Many /HPF (None Seen); RBC,URINE 0-5 /HPF (0-5); SQUAMOUS EPITHELIAL CELL,UR MOD Squamous (<= Few)
--- NOTE | 2021-06-23 19:54 | ED Physician Documentation ---
History of Present Illness - Stated complaint Stated Complaint: DIARRHEA,DIZZY,BLOOD IN COLOST BAG - Chief complaint Chief Complaint: Abd Pain - Additonal information Additional information: 20-year-old female presents to the emergency department for evaluation of 3 days uncontrolled abdominal pain vomiting and diarrhea. She does have a colostomy on the left side. She denies fevers but endorses chills. No dysuria. Patient has been seen multiple times in the past for abdominal pain nausea and vomiting. She feels that her abdomen is more distended than previous. Pain is most predominant in the epigastrium though she does endorse generalized abdominal distention and discomfort. No melena or hematochezia through the colostomy. Review of Systems Constitutional: denies: Fever Nose: reports: Reviewed and negative Throat: reports: Reviewed and negative Cardiac: reports: Reviewed and negative Respiratory: reports: Reviewed and negative GI: reports: Abdominal Pain, Abdominal Swelling, Nausea, Vomiting, Diarrhea : reports: Reviewed and negative Skin: reports: Reviewed and negative Musculoskeletal: reports: Joint pain PD PAST MEDICAL HISTORY - Past Medical History Cardiovascular: None Respiratory: Pneumonia, Other Neuro: Migraines, Peripheral neuropathy, Tremors, Other Endocrine/Autoimmune: None, Other GI: GERD, Other THERAPEUTIC PROGRAM WORKER: None, Miscarriage(s), Other : Kidney stones, Other HEENT: None Psych: None Musculoskeletal: Fibromyalgia, Other Derm: None - Past Surgical History Past Surgical History: Yes General: Bowel surgery, Gastric surgery /THERAPEUTIC PROGRAM WORKER: section - Present Medications Home Medications: Ambulatory Orders Medication Instructions Recorded Confirmed clonazePAM [Clonazepam] 0.5 mg PO DAILY 04/15/20 04/15/20 Lurasidone HCl [Latuda] 20 mg PO DAILY 06/02/20 06/02/20 Mirtazapine [Remeron] 7.5 mg PO HS 06/02/20 06/02/20 Nystatin [Nystop] 1 applic TOP UD #1 bottle 06/02/20 Cefpodoxime Proxetil [Vantin] 200 mg PO Q12H #28 tablet 11/05/20 guaiFENesin/CODEINE [Robitussin AC] 5 - 10 ml PO Q6H PRN #120 ml 02/23/21 HYDROcod/ACETAM 5/325 [[place] 5/325] 1 - 2 tab PO Q6H PRN #15 tablet 03/03/21 Meloxicam [Mobic] 7.5 mg PO BID PRN #20 tablet 03/03/21 HYDROcod/ACETAM 5/325 [[place] 5/325] 1 tab PO BID #10 tablet 03/24/21 Nitrofurantoin [Macrobid] 100 mg PO BID #9 cap 06/11/21 Ondansetron Odt [Zofran] 4 mg TL Q6H PRN #10 tablet 06/23/21 Pantoprazole Sodium [Protonix] 40 mg PO DAILY #30 tab 06/23/21 Sucralfate [Carafate] 1 gm PO ACHS #60 tablet 06/23/21 oxyCODONE [Roxicodone] 5 mg PO BID PRN #10 tablet 06/23/21 - Allergies Allergies/Adverse Reactions: Allergies Allergy/AdvReac Type Severity Reaction Status Date / Time Iodinated Contrast Media Allergy Anaphylaxis Verified 06/23/21 18:56 cyclobenzaprine AdvReac Emesis Verified 06/23/21 18:56 morphine AdvReac Emesis Verified 06/23/21 18:56 - Social History Does the pt smoke?: No Smoking Status: Never smoker Does the pt drink ETOH?: No Does the pt have substance abuse?: No - Immunizations Immunizations are current?: No - POLST Patient has POLST: No POLST Status: Full Code PD ED PE EXPANDED - General General: Alert, In Pain - Cardiac Cardiac: Regular Rate, Radial strong equal, Pedal strong equal, Cap refill < 2 sec - Respiratory Respiratory: Clear to ausultation edita. No: Distress, Labored - Abdomen Abdomen: Normal Bowel sounds, Tender to palpation (Tenderness in the epigastrium without guarding or rebound. Left-sided diverting colostomy with brown liquid output. No melena medic easier. There are some generalized tenderness though nonfocal. Normal bowel sounds.), Epigastric - Back Back: Normal exam - Derm Derm: Normal color, Warm and dry. No: Rash Results - Vitals Vitals: Vital Signs - 24 hr 06/23/21 06/23/21 06/23/21 18:50 18:55 20:00 Temperature 36.2 C L 36.2 C L Heart Rate 111 H 111 H 87 Respiratory 24 24 17 Rate Blood Pressure 120/83 H 120/83 H 123/80 O2 Saturation 100 100 100 Oxygen O2 Source Room air - Labs Labs: Laboratory Tests 06/23/21 06/23/21 06/23/21 19:25 19:25 19:28 WBC 10.1 RBC 4.83 Hgb 12.3 Hct 38.6 MCV 79.9 L MCH 25.5 L MCHC 31.9 L RDW 13.5 Plt Count 363 MPV 10.7 Neut # (Auto) 6.7 H Lymph # (Auto) 2.3 [place] # (Auto) 0.5 Eos # (Auto) 0.5 Baso # (Auto) 0.1 Absolute Nucleated RBC 0.00 Nucleated RBC % 0.0 Sodium Potassium Chloride Carbon Dioxide Anion Gap BUN Creatinine Estimated GFR (MDRD) Glucose Calcium Total Bilirubin AST ALT Alkaline Phosphatase Total Protein Albumin Globulin Albumin/Globulin Ratio Lipase Urine Color YELLOW Urine Clarity CLOUDY Urine pH 7.0 Ur Specific [place] 1.020 Urine Protein NEGATIVE Urine Glucose (UA) NEGATIVE Urine Ketones NEGATIVE Urine Occult Blood NEGATIVE Urine Nitrite POSITIVE H Urine Bilirubin NEGATIVE Urine Urobilinogen 0.2 (NORMAL) Ur Leukocyte Esterase SMALL H Urine RBC 0-5 Urine WBC 6-10 H Ur Squamous Epith Cells MOD Squamous H Urine Bacteria Many H Ur Microscopic Review INDICATED Urine Culture Comments NOT INDICATED Urine HCG, Qual NEGATIVE Stl C. diff Tox B Gene NEGATIVE 06/23/21 19:28 WBC RBC Hgb Hct MCV MCH MCHC RDW Plt Count MPV Neut # (Auto) Lymph # (Auto) [place] # (Auto) Eos # (Auto) Baso # (Auto) Absolute Nucleated RBC Nucleated RBC % Sodium 137 Potassium 3.8 Chloride 104 Carbon Dioxide 25 Anion Gap 8.0 BUN 10 Creatinine 0.4 Estimated GFR (MDRD) 201 Glucose 116 H Calcium 9.2 Total Bilirubin 0.6 AST 54 H ALT 85 H Alkaline Phosphatase 47 Total Protein 7.7 Albumin 4.0 Globulin 3.7 Albumin/Globulin Ratio 1.1 Lipase 146 H Urine Color Urine Clarity Urine pH Ur Specific [place] Urine Protein Urine Glucose (UA) Urine Ketones Urine Occult Blood Urine Nitrite Urine Bilirubin Urine Urobilinogen Ur Leukocyte Esterase Urine RBC Urine WBC Ur Squamous Epith Cells Urine Bacteria Ur Microscopic Review Urine Culture Comments Urine HCG, Qual Stl C. diff Tox B Gene - Rads (name of study) CT abd Radiology: Final report received (No evidence of bowel obstruction. Postsurgical changes redemonstrated status post left lower quadrant diverting colostomy. A patulous dilated rectal stump and rectal pouch appears similar to the prior study. Hepatic steatosis.) PD MEDICAL DECISION MAKING - ED course Complexity details: reviewed results, re-evaluated patient, considered d ifferential, d/w patient ED course: 20-year-old female presents emergency department for evaluation of 3 days generalized abdominal pain, abdominal distention and vomiting and diarrhea. She does have a history of a diverting colostomy. She denies any fevers or dysuria. She states that she is extremely dehydrated and fatigued. Most of the tenderness for the patient is in the epigastrium. Screening labs showed no leukocytosis. She does have a very mild lipase elevation of 146. Previously known cholecystectomy. CT scan of the abdomen showed no bowel obstruction. We do note a functional left-sided colostomy. Given the mild lipase elevation the pancreas however is unrevealing without findings of inflammation. I have low suspicion for acute pancreatitis. C. difficile is negative Patient is given Zofran here in the emergency department with some improvement in nausea now tolerating sips of clear liquids. I do suspect however that she likely has a gastritis. She was given Carafate here in the emergency department as well as Protonix. Recommend clear liquids for next 24 to 48 hours. She will be advised Protonix at home during the day as well as Carafate at night. A limited prescription of oxycodone has been sent to the [facility] pharmacy. Emergent return precautions were discussed for worsening symptoms Departure - Departure Disposition: 01 Home, Self Care Clinical Impression: Vomiting and diarrhea, Elevated lipase Abdominal pain Qualifiers: Abdominal location: upper abdomen, unspecified Qualified Code(s): R10.10 - Upper abdominal pain, unspecified Condition: Stable Record reviewed to determine appropriate education?: Yes Instructions: ED Gastritis Prescriptions: Sucralfate [Carafate] 1 gm PO ACHS #60 tablet Pantoprazole Sodium [Protonix] 40 mg PO DAILY #30 tab oxyCODONE [Roxicodone] 5 mg PO BID PRN #10 tablet PRN Reason: Pain Ondansetron Odt [Zofran] 4 mg TL Q6H PRN #10 tablet PRN Reason: Nausea / Vomiting Comments: Vicenta alves are seen today in the emergency department for vomiting and diarrhea. Your screening labs did not show any worrisome findings. You do have a very mild lipase elevation which can sometimes be a sign of pancreatitis but your pancreas appears normal on CAT scan. I would like you to drink clear liquids for the next 24 to 48 hours I have sent a prescription for some Zofran to the pharmacy to help with your nausea and vomiting. You can also continue to use the Phenergan at home. I do suspect that you have some gastritis or stomach inflammation. Please fill the prescription for the Protonix and take once daily. At nighttime separate from your other medications I would like you to take the Carafate. This is a medication that will help coat your stomach and cool it. [place] Please discuss this ED visit with your primary care doctor. You likely should be reevaluated by a beader tender in which an EGD would be completed to look for stomach ulcers. If your symptoms worsen, you have uncontrolled vomiting black or bloody output then please return immediately to the ER for second evaluation I am prescribing a short course of narcotic pain medication for you. These are potentially dangerous and addictive medications that should be used carefully. These medications may constipate you. Take an pndx-eqw-ydmhrvv stool softener (docusate) twice daily with plenty of water while taking these medications. If you go 24 hours without a bowel movement, take yrtb-yjl-qzucxwu miralax, per package instructions. Do not drink or drive while taking these medications. If you received narcotic or sedating medications while in the emergency department, do not drive for 24 hours. Store this medication in a safe, secure place and out of reach of children. It is a violation of federal law to give or sell this medication to another person or to use in a manner other than prescribed. The ED will not refill narcotic prescriptions, including prescriptions lost or stolen. To dispose of unwanted medications: 1. [facility] at [address] in [place] has a medication drop box. They accept prescription medications (in pill form) Wednesday through Wednesday 9:00 a.m. to 5:00 p.m. 2. The [facility] Department accepts prescription medications (in pill form only) for disposal year round. Call for more information. 3. Contact the [facility] for the next [facility] sponsored prescription drug collection event. , [phone], or [phone]; Note that many narcotic pain relievers also contain Tylenol/acetaminophen. Please ensure that your total dose of acetaminophen from all sources does not exceed 3 g (3000 mg) per day.
[2021-06-23] MEDS ORDERED: IOVERSOL 320 100 ML VIAL IVP ONE ×2 (20:14→20:50)
[2021-06-23] MEDS ORDERED: diphenhydrAMINE INJ 50 MG/ML VIAL IVP STA (20:18)
--- NOTE | 2021-06-23 21:15 | CT Report ---
PROCEDURE: Abdomen/Pelvis W INDICATIONS: n/v/d CONTRAST: IV CONTRAST: Optiray 320 ml: 100 PO CONTRAST: *NO PO CONTRAST TECHNIQUE: After the administration of intravenous contrast, 5 mm thick sections acquired from the diaphragms to the symphysis. 5 mm thick coronal and sagittal reformats were acquired. For radiation dose reducti on, the following was used: automated exposure control, adjustment of mA and/or kV according to easton ent size. COMPARISON: CT abdomen pelvis 06/10/2021, 10/23/2019. FINDINGS: Image quality: Excellent. ABDOMEN: Lung bases: There is minimal dependent atelectasis. Heart size is normal. Solid organs: There is diffuse hypoattenuation of the liver consistent with fatty infiltration. Ther e are 4 hyperattenuating hepatic mass lesions identified. These include a mass medially in the right hepatic lobe involving segments 6 and 7 measuring approximately 2.8 x 2.5 cm in transverse dimension on series 3 image 17. An adjacent lesion posteriorly in segment 7 adjacent to the right hepatic vein measures approximately 1.5 x 1.3 cm on series 3 image 12. Within segment 3 of the left hepatic lobe, there is a lesion measuring 1.4 x 1.2 cm on series 2 image 20. A small lesion in segment 2 measuring up to 0.7 x 0.6 cm is demonstrated on series 2 image 15. Comparison to the prior studies is limited d ue to absence of intravenous contrast on the prior exams but the lesions are likely present previousl y. Gallbladder is surgically absent. Biliary system is non dilated. Pancreas enhances normally. No adrenal nodules. Kidneys demonstrate no hydronephrosis. Peritoneum and bowel: Small bowel loops demonstrate normal wall thickness and caliber. The appendix is normal in appearance. There is a diverting left lower quadrant colostomy redemonstrated. A patulou s dilated rectal stump and rectal pouch are redemonstrated with associated stool contents. Findings a re similar to the prior study. No free fluid or air. Nodes and vessels: No retroperitoneal or mesenteric adenopathy by size criteria. Aorta and inferior vena cava are normal in size. Miscellaneous: No ventral hernias. PELVIS: Genitourinary: Bladder wall thickness is normal. Miscellaneous: No inguinal hernias or adenopathy. Bones: No suspicious bony lesions. No vertebral body compression fractures. IMPRESSION: 1. No evidence of bowel obstruction. 2. Postsurgical changes redemonstrated status post left lower quadrant diverting colostomy. A patulou s dilated rectal stump and rectal pouch with partial stool distention appear similar to the prior damien dy. 3. Hepatic steatosis with 4 hyperattenuating mass lesions which may been present on the prior noncont rast studies. The findings may represent hemangiomas but are nonspecific. Further evaluation is recom mended with a liver protocol MRI or CT. Reviewed by: Pal Guerra MD on 06/23/2021 9:14 PM PDT Approved by: Pal Guerra MD on 06/23/2021 9:14 PM PDT Station ID: [id number]
[2021-06-23] MEDS ORDERED: PANTOPRAZOLE 40 MG VIAL IVP STA (21:31)
[2021-06-23] MEDS ORDERED: SUCRALFATE 1 GM/10 ML UDC PO STA (21:32)
[2021-06-23 22:05] VITALS: BP 125/79
== END 2021-06-23 22:07 | disposition home or self-care (01) ==
LOC: ED 18:39
DX: R11.2 Nausea with vomiting, unspecified (principal); Z93.3 Colostomy status; R10.10 Upper abdominal pain, unspecified; R79.89 Other specified abnormal findings of blood chemistry
CPT/HCPCS: 36415; 74177; 80053; 81001; 81025; 83690; 85025; 87493; 96374; 96375; 96376; 99283; 99285; A9270; J1170; J1200; Q9967; 81003; 87086

== ENCOUNTER 2021-07-14 09:37 | Emergency (ER) | payer OTHER ==
--- OUTSIDE RECORDS SUMMARY | 2021-07-14 09:46 | EXTERNAL MEDICAL SUMMARY RPT | Continuity of Care Document ---
:2000 Author Organization [place] Address [address] [phone] Phone Allergies No information. Encounters No information. Medications No information. Problems date description facility [id number] Abdominal Pain [facility] Results No information.
[2021-07-14] MEDS ORDERED: oxyCODONE 5 MG TABLET PO STA (10:00)
--- NOTE | 2021-07-14 10:02 | ED Physician Documentation ---
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 Chills but no fevers. Her son is also sick with sore throat Review of Systems Constitutional: reports: Chills, Sweats Ears: reports: Ear pain (itchy) Nose: reports: Rhinorrhea / runny nose Respiratory: reports: Cough. denies: Dyspnea GI: reports: Abdominal Pain PD PAST MEDICAL HISTORY - Past Medical History Cardiovascular: None Respiratory: Pneumonia, Other Neuro: Migraines, Peripheral neuropathy, Tremors, Other Endocrine/Autoimmune: None, Other GI: GERD, Other POOL NURSE: None, Miscarriage(s), Other : Kidney stones, Other HEENT: None Psych: None Musculoskeletal: Fibromyalgia, Other Derm: None - Past Surgical History Past Surgical History: Yes General: Bowel surgery, Gastric surgery /POOL NURSE: section - Present Medications Home Medications: Ambulatory Orders Medication Instructions Recorded Confirmed clonazePAM [Clonazepam] 0.5 mg PO DAILY 04/15/20 04/15/20 Lurasidone HCl [Latuda] 20 mg PO DAILY 06/02/20 06/02/20 Mirtazapine [Remeron] 7.5 mg PO HS 06/02/20 06/02/20 Nystatin [Nystop] 1 applic TOP UD #1 bottle 06/02/20 Cefpodoxime Proxetil [Vantin] 200 mg PO Q12H #28 tablet 11/05/20 guaiFENesin/CODEINE [Robitussin AC] 5 - 10 ml PO Q6H PRN #120 ml 02/23/21 HYDROcod/ACETAM 5/325 [[place] 5/325] 1 - 2 tab PO Q6H PRN #15 tablet 03/03/21 Meloxicam [Mobic] 7.5 mg PO BID PRN #20 tablet 03/03/21 HYDROcod/ACETAM 5/325 [[place] 5/325] 1 tab PO BID #10 tablet 03/24/21 Nitrofurantoin [Macrobid] 100 mg PO BID #9 cap 06/11/21 Ondansetron Odt [Zofran] 4 mg TL Q6H PRN #10 tablet 06/23/21 Pantoprazole Sodium [Protonix] 40 mg PO DAILY #30 tab 06/23/21 Sucralfate [Carafate] 1 gm PO ACHS #60 tablet 06/23/21 oxyCODONE [Roxicodone] 5 mg PO BID PRN #10 tablet 06/23/21 Benzonatate [Tessalon] 200 mg PO QID PRN #20 cap 07/14/21 Oxycodone HCl/Acetaminophen 1 - 2 each PO Q6H PRN #14 tablet 07/14/21 [Percocet 5-325 mg Tablet] - Allergies Allergies/Adverse Reactions: Allergies Allergy/AdvReac Type Severity Reaction Status Date / Time Iodinated Contrast Media Allergy Anaphylaxis Verified 07/14/21 09:49 cyclobenzaprine AdvReac Emesis Verified 07/14/21 09:49 morphine AdvReac Emesis Verified 07/14/21 09:49 - Social History Does the pt smoke?: No Smoking Status: Never smoker Does the pt drink ETOH?: No Does the pt have substance abuse?: No - Immunizations Immunizations are current?: No - POLST Patient has POLST: No POLST Status: Full Code PD ED PE NORMAL - Vitals Vital signs reviewed: Yes - General General: Alert and oriented X 3, No acute distress - HEENT HEENT: Ears normal, Other (Redness of the tonsillar pillars with small ulcers and sores, no exudates, no cervical adenopathy.) - Neck Neck: Supple, no meningeal sign, No bony TTP - Cardiac Cardiac: RRR, No murmur - Respiratory Respiratory: Other (Crackles at the right base) - Abdomen Abdomen: Non tender - Derm Derm: No rash - Neuro Neuro: Alert and oriented X 3, Normal speech Results - Vitals Vitals: Vital Signs - 24 hr 07/14/21 09:46 Temperature 36.1 C L Heart Rate 111 H Respiratory 16 Rate Blood Pressure 125/96 H O2 Saturation 95 Oxygen O2 Source Room air - Rads (name of study) CHest 2v Radiology: EMP read contemporaneously PD MEDICAL DECISION MAKING - ED course ED course: 20-year-old woman with viral syndrome, her son is sick with similar. She had some crackles on pulmonary exam but these cleared with coughing and her chest x- ray was negative. She has exacerbation of chronic upper abdominal pain and required something for that as well. Already did a Covid test and it was negative per her. Departure - Departure Disposition: 01 Home, Self Care Clinical Impression: Viral URI with cough Condition: Good Record reviewed to determine appropriate education?: Yes Instructions: ED Viral Syndrome Prescriptions: Oxycodone HCl/Acetaminophen [Percocet 5-325 mg Tablet] 1 - 2 each PO Q6H PRN #14 tablet PRN Reason: pain Benzonatate [Tessalon] 200 mg PO QID PRN #20 cap PRN Reason: Cough Comments: I sent your prescriptions electronically to [facility] in [place]. Return for new or worsening symptoms. Follow-up with your doctor at the end of the week if not better. I am prescribing a short course of narcotic pain medication for you. These are potentially dangerous and addictive medications that should be used carefully. These medications may constipate you. Take an bjfi-qbu-yolanwx stool softener (docusate) twice daily with plenty of water while taking these medications. If you go 24 hours without a bowel movement, take zlnc-tje-tzboodx miralax, per package instructions. Do not drink or drive while taking these medications. If you received narcotic or sedating medications while in the emergency department, do not drive for 24 hours. Store this medication in a safe, secure place and out of reach of children. It is a violation of federal law to give or sell this medication to another person or to use in a manner other than prescribed. The ED will not refill narcotic prescriptions, including prescriptions lost or stolen. To dispose of unwanted medications: 1. [facility] Department [facility] at [address] in [place] has a medication drop box. They accept prescription medications (in pill form) Wednesday through Wednesday 9:00 a.m. to 5:00 p.m. 2. The [facility] Police Department accepts prescription medications (in pill form only) for disposal year round. Call for more information. 3. Contact the [facility] for the next [facility] sponsored prescription drug collection event. , [phone], or [phone]; Note that many narcotic pain relievers also contain Tylenol/acetaminophen. Please ensure that your total dose of acetaminophen from all sources does not exceed 3 g (3000 mg) per day.
--- NOTE | 2021-07-14 10:21 | XRAY Report ---
PROCEDURE: Chest 2 View X-Ray INDICATIONS: cough TECHNIQUE: 2 view(s) of the chest. COMPARISON: None. FINDINGS: Surgical changes and devices: None. Lungs and pleura: No pleural effusions or pneumothorax. Lungs are clear. Mediastinum: Mediastinal contours are normal. Heart size is normal. Bones and chest wall: No suspicious bony abnormalities. Soft tissues appear unremarkable. IMPRESSION: No acute cardiopulmonary disease. Reviewed by: Gabi Riley MD on 07/14/2021 10:20 AM PDT Approved by: Gabi Riley MD on 07/14/2021 10:20 AM PDT Station ID: [id number]
[2021-07-14 11:06] VITALS: BP 124/67
== END 2021-07-14 11:04 | disposition home or self-care (01) ==
LOC: ED 09:37
DX: J06.9 Acute upper respiratory infection, unspecified (principal)
CPT/HCPCS: 71046; 99282; 99283; A9270

== ENCOUNTER 2021-07-16 02:56 | Emergency (ER) | payer OTHER ==
--- OUTSIDE RECORDS SUMMARY | 2021-07-16 03:34 | EXTERNAL MEDICAL SUMMARY RPT | Continuity of Care Document ---
:2000 Author Organization [place] Address [address] [phone] Phone Allergies No information. Encounters No information. Medications No information. Problems date description facility [id number] Abdominal Pain [facility] Results No information.
[2021-07-16 03:58] LABS: BASOPHILS # (AUTO) 0.1 10^3/uL (0.0-0.1); BASOPHILS % (AUTO) 0.4 %; EOSINOPHILS # (AUTO) 0.3 10^3/uL (0.0-0.7); HCT - HEMATOCRIT 39.1 % (37.0-47.0); HGB - HEMOGLOBIN 12.5 g/dL (12.0-16.0); LYMPHOCYTES # (AUTO) 3.1 10^3/uL (1.5-3.5); LYMPHOCYTES % (AUTO) 27.2 %; MEAN CORPUSCULAR HEMOGLOBIN 25.2 pg (27.0-31.0); MEAN CORPUSCULAR VOLUME 78.7 fL (81.0-99.0); MEAN PLATELET VOLUME 10.2 fL (7.9-10.8); MONOCYTES # (AUTO) 0.5 10^3/uL (0.0-1.0); MONOCYTES % (AUTO) 4.6 %; NEUTROPHILS # (AUTO) 7.3 10^3/uL (1.5-6.6); NEUTROPHILS % (AUTO) 64.5 %; PLT - PLATELET COUNT 434 10^3/uL (130-450); RED BLOOD COUNT 4.97 10^6/uL (4.20-5.40); RED CELL DISTRIBUTION WIDTH 13.8 % (12.0-15.0); WHITE BLOOD COUNT 11.4 x10^3/uL (4.8-10.8)
[2021-07-16 04:09] LABS: RAPID STREP SCREEN Negative (Negative)
[2021-07-16 04:10] LABS: ALBUMIN 4.7 g/dL (3.2-5.5); ALBUMIN/GLOBULIN RATIO 1.1 (1.0-2.2); BILIRUBIN,TOTAL 0.7 mg/dL (0.2-1.0); CALCIUM 9.7 mg/dL (8.5-10.3); CREATININE 0.6 mg/dL (0.4-1.0); POTASSIUM 3.7 mmol/L (3.5-5.0); TOTAL PROTEIN 8.9 g/dL (6.7-8.2)
[2021-07-16] MEDS ORDERED: IOVERSOL 320 100 ML VIAL IVP ONE (04:16)
--- NOTE | 2021-07-16 04:31 | ED Physician Documentation ---
PD HPI ABD PAIN - Stated complaint Stated Complaint: SOA - Chief complaint Chief Complaint: Abd Pain - History obtained from History obtained from: Patient - History of Present Illness Timing - onset: How many weeks ago (2) Timing - duration: Weeks (2) Timing - details: Gradual onset, Still present Quality: Cramping, Sharp, Pain Location: All over / everywhere Improved by: Laying still Associated symptoms: Nausea, Other (still has output from stoma but abdomen feels distended and painful.). 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 Despite using Tessalon Perles she has not had resolution of her cough. She has had symptoms for more than 10 days. She reports that her son was also sick with sore throat had a rapid strep which was negative and his culture came back positive he is placed on antibiotic. She is coming to the emergency department today with a feeling of increased abdominal girth and pain. She continues have a sore throat feels like it is on fire and she is not been able to get comfortable. Review of Systems Constitutional: denies: Fever Eyes: denies: Decreased vision Ears: denies: Ear pain Nose: reports: Rhinorrhea / runny nose, Congestion Throat: reports: Sore throat Cardiac: denies: Chest pain / pressure, Palpitations Respiratory: reports: Dyspnea, Cough GI: reports: Abdominal Pain, Abdominal Swelling, Nausea. denies: Vomiting : denies: Dysuria, Frequency Skin: denies: Rash Musculoskeletal: denies: Neck pain, Back pain, Extremity pain Neurologic: denies: Generalized weakness, Focal weakness, Numbness PD PAST MEDICAL HISTORY - Past Medical History Past Medical History: Yes Cardiovascular: None Respiratory: Pneumonia, Other Neuro: Migraines, Peripheral neuropathy, Tremors, Other Endocrine/Autoimmune: Other GI: GERD, Other IRON CUTTER: Miscarriage(s), Other : Kidney stones, Other HEENT: None Psych: None Musculoskeletal: Fibromyalgia, Other Derm: None - Past Surgical History Past Surgical History: Yes General: Bowel surgery, Gastric surgery /IRON CUTTER: section - Present Medications Home Medications: Ambulatory Orders Medication Instructions Recorded Confirmed clonazePAM [Clonazepam] 0.5 mg PO DAILY 04/15/20 04/15/20 Lurasidone HCl [Latuda] 20 mg PO DAILY 06/02/20 06/02/20 Mirtazapine [Remeron] 7.5 mg PO HS 06/02/20 06/02/20 Nystatin [Nystop] 1 applic TOP UD #1 bottle 06/02/20 Cefpodoxime Proxetil [Vantin] 200 mg PO Q12H #28 tablet 11/05/20 guaiFENesin/CODEINE [Robitussin AC] 5 - 10 ml PO Q6H PRN #120 ml 02/23/21 HYDROcod/ACETAM 5/325 [[place] 5/325] 1 - 2 tab PO Q6H PRN #15 tablet 03/03/21 Meloxicam [Mobic] 7.5 mg PO BID PRN #20 tablet 03/03/21 HYDROcod/ACETAM 5/325 [[place] 5/325] 1 tab PO BID #10 tablet 03/24/21 Nitrofurantoin [Macrobid] 100 mg PO BID #9 cap 06/11/21 Ondansetron Odt [Zofran] 4 mg TL Q6H PRN #10 tablet 06/23/21 Pantoprazole Sodium [Protonix] 40 mg PO DAILY #30 tab 06/23/21 Sucralfate [Carafate] 1 gm PO ACHS #60 tablet 06/23/21 oxyCODONE [Roxicodone] 5 mg PO BID PRN #10 tablet 06/23/21 Benzonatate [Tessalon] 200 mg PO QID PRN #20 cap 07/14/21 Oxycodone HCl/Acetaminophen 1 - 2 each PO Q6H PRN #14 tablet 07/14/21 [Percocet 5-325 mg Tablet] Amoxicillin 10 ml PO TID #300 ml 07/16/21 - Allergies Allergies/Adverse Reactions: Allergies Allergy/AdvReac Type Severity Reaction Status Date / Time Iodinated Contrast Media Allergy Anaphylaxis Verified 07/16/21 03:09 cyclobenzaprine AdvReac Emesis Verified 07/16/21 03:09 morphine AdvReac Emesis Verified 07/16/21 03:09 - Social History Does the pt smoke?: No Smoking Status: Never smoker Does the pt drink ETOH?: No Does the pt have substance abuse?: No - Immunizations Immunizations are current?: No - POLST Patient has POLST: No POLST Status: Full Code PD ED PE NORMAL - Vitals Vital signs reviewed: Yes (tachy ) - General General: Alert and oriented X 3, Well developed/nourished, Other (20 y/o female wearing a bunny hat talking rapidly unable to make sense of the chatter. ) - HEENT HEENT: Atraumatic, PERRL, EOMI, Other (The righ tTM is clear the left is erythematous with distortion of the landmarks. The pharynx is erythematous swollen and with exudate ) - Neck Neck: Supple, no meningeal sign, No bony TTP - Cardiac Cardiac: RRR, No murmur - Respiratory Respiratory: No respiratory distress, Clear bilaterally - Abdomen Abdomen: Normal bowel sounds, Other (The abdomen is distended there is general tenderness without gaurding. ) - Back Back: No CVA TTP, No spinal TTP - Derm Derm: Normal color, Warm and dry, No rash - Extremities Extremities: No deformity, No edema - Neuro Neuro: Alert and oriented X 3, bulk plant manager 2-12 intact, No motor deficit, No sensory deficit, Other (speech is pressured) Eye Opening: Spontaneous Motor: Obeys Commands Verbal: Oriented GCS Score: 15 - Psych Psych: Other (mood is labile and the affect is manic) Results - Vitals Vitals: Vital Signs - 24 hr 07/16/21 07/16/21 07/16/21 03:06 03:11 05:06 Temperature 36.2 C L Heart Rate 116 H Respiratory 18 20 16 Rate Blood Pressure 121/78 O2 Saturation 100 07/16/21 07/16/21 05:42 06:18 Temperature 36.7 C Heart Rate 80 Respiratory 17 16 Rate Blood Pressure 117/78 O2 Saturation 100 Oxygen O2 Source Room air - Labs Labs: Laboratory Tests 07/16/21 07/16/21 07/16/21 03:45 03:45 03:51 WBC 11.4 H RBC 4.97 Hgb 12.5 Hct 39.1 MCV 78.7 L MCH 25.2 L MCHC 32.0 RDW 13.8 Plt Count 434 MPV 10.2 Neut # (Auto) 7.3 H Lymph # (Auto) 3.1 [place] # (Auto) 0.5 Eos # (Auto) 0.3 Baso # (Auto) 0.1 Absolute Nucleated RBC 0.00 Nucleated RBC % 0.0 Sodium Potassium Chloride Carbon Dioxide Anion Gap BUN Creatinine Estimated GFR (MDRD) Glucose Calcium Total Bilirubin AST ALT Alkaline Phosphatase Total Protein Albumin Globulin Albumin/Globulin Ratio Lipase Nasal Adenovirus (PCR) NOT DETECTED Nasal B. parapertussis DNA (PCR) NOT DETECTED Nasal Coronavir 229E PCR NOT DETECTED Nasal Coronavir HKU1 PCR NOT DETECTED Nasal Coronavir NL63 PCR NOT DETECTED Nasal Coronavir OC43 PCR NOT DETECTED Nasal Enterovir/Rhinovir PCR NOT DETECTED Nasal Influenza B PCR NOT DETECTED Nasal Influenza A PCR NOT DETECTED Nasal Parainfluen 1 PCR NOT DETECTED Nasal Parainfluen 2 PCR NOT DETECTED Nasal Parainfluen 3 PCR NOT DETECTED Nasal Parainfluen 4 PCR NOT DETECTED Nasal RSV (PCR) NOT DETECTED Nasal B.pertussis DNA PCR NOT DETECTED Nasal C.pneumoniae (PCR) NOT DETECTED Jerald Human Metapneumo PCR NOT DETECTED Nasal M.pneumoniae (PCR) NOT DETECTED Nasal SARS-CoV-2 (PCR) NOT DETECTED Group A Strep Rapid Negative 07/16/21 03:51 WBC RBC Hgb Hct MCV MCH MCHC RDW Plt Count MPV Neut # (Auto) Lymph # (Auto) [place] # (Auto) Eos # (Auto) Baso # (Auto) Absolute Nucleated RBC Nucleated RBC % Sodium 139 Potassium 3.7 Chloride 102 Carbon Dioxide 24 Anion Gap 13.0 BUN 11 Creatinine 0.6 Estimated GFR (MDRD) 126 Glucose 95 Calcium 9.7 Total Bilirubin 0.7 AST 64 H ALT 105 H Alkaline Phosphatase 57 Total Protein 8.9 H Albumin 4.7 Globulin 4.2 Albumin/Globulin Ratio 1.1 Lipase 67 H Nasal Adenovirus (PCR) Nasal B. parapertussis DNA (PCR) Nasal Coronavir 229E PCR Nasal Coronavir HKU1 PCR Nasal Coronavir NL63 PCR Nasal Coronavir OC43 PCR Nasal Enterovir/Rhinovir PCR Nasal Influenza B PCR Nasal Influenza A PCR Nasal Parainfluen 1 PCR Nasal Parainfluen 2 PCR Nasal Parainfluen 3 PCR Nasal Parainfluen 4 PCR Nasal RSV (PCR) Nasal B.pertussis DNA PCR Nasal C.pneumoniae (PCR) Jerald Human Metapneumo PCR Nasal M.pneumoniae (PCR) Nasal SARS-CoV-2 (PCR) Group A Strep Rapid - Rads (name of study) CT ab/pel without Radiology: Prelim report reviewed (Impression: Negative for bowel obstruction similar moderate fecal contents and air within diverted sigmoid colon and rectum. Nonobstructing right nephrolithiasis. Hepatic steatosis and 2 similar sized nodules in the liver.), EMP read indepedently, See rad report PD MEDICAL DECISION MAKING - ED course Complexity details: reviewed old records, reviewed results, re-evaluated patient, considered differential, d/w patient, d/w family ED course: 20-year-old female with an ostomy in place presents to the emergency department this morning with abdominal pain bloating and a sore throat that is on fire. She has not had relief of her cough with use of Tessalon Perle she does not have relief of her pain with oxycodone. On examination she has pharyngeal erythema and swelling as well as otitis on the left side. She has exposure to a son who has a positive strep. We will treat her for strep today she is given a dose of dexamethasone with improvement in all of her symptoms. We will prescribe some amoxicillin for her. She will require liquid. Departure - Departure Disposition: 01 Home, Self Care Clinical Impression: Congenital anomaly of gastrointestinal tract, Strep throat exposure Otitis media Qualifiers: Otitis media type: suppurative Chronicity: acute Laterality: left Recurrence: not specified as recurrent Spontaneous tympanic membrane rupture: without spontaneous rupture Qualified Code(s): H66.002 - Acute suppurative otitis media without spontaneous rupture of ear drum, left ear Instructions: ED Otitis Media Acute Adult, ED Strep Pharyngitis Poss Follow-Up: REINA BLEDSOE DO [Physician No Access] - Prescriptions: Amoxicillin 10 ml PO TID #300 ml Comments: Vicenta, today it looks like the fire that you have had in the back your throat is likely related to strep. Despite the fact that the rapid strep was negative your exposure to your son who has a positive strep culture indicates that we should place you on antibiotic. There is also evidence of infection in the left middle ear and this is likely related to the same organism. I have E scribed liquid amoxicillin to [facility] in [place]. For your chronic abdominal pain a follow-up with your fruit culler is indicated.
[2021-07-16] MEDS ORDERED: DEXAMETHASONE 10 MG/ML VIAL IVP STA (04:33)
[2021-07-16] MEDS ORDERED: cefTRIAXone 1 GM in SODIUM CHLORIDE 0.9% MINIBAG 100 ML IV STA (04:34)
[2021-07-16] MEDS ORDERED: cefTRIAXone 1 GM VIAL ONE (04:48)
[2021-07-16] MEDS ORDERED: CHERRY SYRUP 10 ML UDC PO ONE (05:27)
[2021-07-16] MEDS ORDERED: DEXAMETHASONE 10 MG/ML VIAL PO STA (05:27)
[2021-07-16 05:30] LABS: B. PARAPERTUSSIS- RESP PCR PAN NOT DETECTED; B. PERTUSSIS- RESP PCR PANEL NOT DETECTED; C. PNEUMONIAE- RESP PCR PANEL NOT DETECTED; CORONAVIRUS 229E-RESP PCR NOT DETECTED; CORONAVIRUS HKU1-RESP PCR NOT DETECTED; CORONAVIRUS NL63-RESP PCR NOT DETECTED; CORONAVIRUS OC43-RESP PCR NOT DETECTED; HUMAN METAPNEUMOVIRUS NOT DETECTED; INFLUENZA A- RESP PCR PANEL NOT DETECTED; INFLUENZA B - RESP PCR PANEL NOT DETECTED; M. PNEUMONIAE- RESP PCR PANEL NOT DETECTED; PARAINFLUENZA VIRUS 1 NOT DETECTED; PARAINFLUENZA VIRUS 2 NOT DETECTED; PARAINFLUENZA VIRUS 3 NOT DETECTED; PARAINFLUENZA VIRUS 4 NOT DETECTED; RHINOVIRUS/ENTEROVIRUS NOT DETECTED; RSV- RESP PCR PANEL NOT DETECTED; SARS-CoV-2 -RESP PCR PANEL NOT DETECTED
[2021-07-16 06:19] VITALS: BP 117/78
--- NOTE | 2021-07-16 09:13 | CT Report ---
PROCEDURE: Abdomen/Pelvis WO INDICATIONS: ? obstruction TECHNIQUE: Noncontrast 5 mm thick sections acquired from the diaphragms to the symphysis. 5 mm coronal and sagi ttal reformats were then performed. For radiation dose reduction, the following was used: automated exposure control, adjustment of mA and/or kV according to patient size. COMPARISON: None. FINDINGS: Image quality: Excellent. ABDOMEN: Lung bases: Lung bases are clear. Heart size is normal. Solid organs: Liver and spleen are normal in size. Hepatic steatosis is present. All hepatic lesion s were previously identified. The remaining visible and slightly hyperdense although much less conspi cuous without contrast. They appear grossly unchanged. Gallbladder is not visualized. Pancreas is no rmal in contours. No adrenal nodules. Kidneys are normal in size, without hydronephrosis. Punctate inferior right renal pole calcification is present. Peritoneum and bowel: Unenhanced bowel loops are nonobstructive. There is a dilated rectal stump and pouch with stool contents consistent with postsurgical change and stable compared to prior exam. No free fluid or air. No bowel obstruction. Nodes and vessels: No retroperitoneal or mesenteric adenopathy by size criteria. Aorta and inferior vena cava are normal in caliber. Miscellaneous: Left lower quadrant ostomy with fat herniation. Appearance is unchanged. PELVIS: Genitourinary: Bladder wall thickness is normal. Miscellaneous: No inguinal hernias or adenopathy. Bones: No suspicious bony lesions. No vertebral body compression fractures. IMPRESSION: Left lower quadrant ostomy without obstruction. Exam is overall stable compared to 06/23/2021. The above findings are concordant with preliminary report. Reviewed by: Mercedes Rhodes MD on 07/16/2021 9:12 AM PDT Approved by: Mercedes Rhodes MD on 07/16/2021 9:12 AM PDT Station ID: [id number]
== END 2021-07-16 06:51 | disposition home or self-care (01) ==
LOC: ED 02:56
DX: H66.002 Acute suppurative otitis media without spontaneous rupture of ear drum, left ear (principal); Z93.3 Colostomy status; Q42.3 Congenital absence, atresia and stenosis of anus without fistula; Z20.822 Contact with and (suspected) exposure to COVID-19
CPT/HCPCS: 36415; 74176; 80053; 83690; 85025; 87040; 87070; 87430; 87633; 99284; A9270; 83605

== ENCOUNTER 2021-08-12 01:28 | Emergency (ER) | payer OTHER ==
--- OUTSIDE RECORDS SUMMARY | 2021-08-12 01:49 | EXTERNAL MEDICAL SUMMARY RPT | Continuity of Care Document ---
:2000 Author Organization [facility] Address [address] [phone] Phone Allergies No information. Encounters No information. Medications No information. Problems date description facility [id number] Urinary tract infection, site not [facility] specified [id number] Noninfective gastroenteritis and [facility] colitis, unspecified [id number] Nausea with vomiting, unspecified [facility] [id number] Generalized abdominal pain [facility] [id number] Diarrhea, unspecified [facility] Results No information.
[2021-08-12] MEDS ORDERED: SODIUM CHLORIDE 0.9% 1,000 ML IV STA (02:18)
[2021-08-12] MEDS ORDERED: HYDROmorphone 1 MG/ML CARPUJECT IM STA (02:54)
[2021-08-12 02:56] LABS: BASOPHILS # (AUTO) 0.1 10^3/uL (0.0-0.1); BASOPHILS % (AUTO) 0.5 %; EOSINOPHILS # (AUTO) 0.4 10^3/uL (0.0-0.7); EOSINOPHILS % (AUTO) 4.6 %; HCT - HEMATOCRIT 38.3 % (37.0-47.0); HGB - HEMOGLOBIN 12.4 g/dL (12.0-16.0); LYMPHOCYTES # (AUTO) 3.7 10^3/uL (1.5-3.5); LYMPHOCYTES % (AUTO) 39.5 %; MEAN CORPUSCULAR HEMOGLOBIN 25.2 pg (27.0-31.0); MEAN CORPUSCULAR HGB CONC 32.4 g/dL (32.0-36.0); MEAN CORPUSCULAR VOLUME 77.8 fL (81.0-99.0); MEAN PLATELET VOLUME 10.3 fL (7.9-10.8); MONOCYTES # (AUTO) 0.5 10^3/uL (0.0-1.0); MONOCYTES % (AUTO) 4.8 %; NEUTROPHILS # (AUTO) 4.7 10^3/uL (1.5-6.6); NEUTROPHILS % (AUTO) 50.1 %; PLT - PLATELET COUNT 424 10^3/uL (130-450); RED BLOOD COUNT 4.92 10^6/uL (4.20-5.40); RED CELL DISTRIBUTION WIDTH 13.9 % (12.0-15.0); WHITE BLOOD COUNT 9.4 x10^3/uL (4.8-10.8)
[2021-08-12 03:13] LABS: ALBUMIN 4.2 g/dL (3.2-5.5); BILIRUBIN,TOTAL 0.5 mg/dL (0.2-1.0); CALCIUM 10.2 mg/dL (8.5-10.3); CREATININE 0.7 mg/dL (0.4-1.0); POTASSIUM 2.8 mmol/L (3.5-5.0); TOTAL PROTEIN 8.5 g/dL (6.7-8.2)
[2021-08-12] MEDS ORDERED: POTASSIUM CHLORIDE 20 MEQ TABLET PO STA (03:59)
[2021-08-12] MEDS ORDERED: ONDANSETRON ODT 4 MG TABLET TL STA (03:59)
--- NOTE | 2021-08-12 04:35 | ED Physician Documentation ---
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 She reports having generalized abdominal painWhich does not radiate. Nothing makes it better or worse. She reports having associated nausea and abdominal bloating. Patient reports that her stoma has been well-appearing. She was admitted to [facility] Last week on August 07 and left [place] the following day as she did not want to have a colonoscopy that was recommended due to not feeling that she could tolerate the GoLytely prep.She had been given Rocephin during that admission for urinary tract infection and developed an allergy.She is scheduled to see her PCM tomorrow.She is awaiting another consult to a new GI doctor at [place]. [facility] Records 08/07 - Patient seen in the ER for 10-day history of watery diarrhea and generalized abdominal pain.CT scan without contrast showed no signs of bowel obstruction, minimal segmental wall thickening within the distal transverse and descending colon extending to the left lower quadrant colostomy suggestive of a mild colitis. Thought to have urinary tract infection and given dose of Rocephin. GI consulted with plans for colonoscopy.Admission diagnosis was generalized abdominal pain, colitis, intractable diarrhea, Nausea and vomiting and urinary tract infection. 08/08 - [place] discharge summary.Patient was admitted to the hospital for multiple bouts of watery diarrhea. GI was consulted and recommended colonoscopy to assess colon for any pathology.Patient was advised to take 2 gallons of GoLytely for bowel prep and to be scoped the following day but patient refused to drink second gallon of GoLytely and wanted to leave [place]. Patient was stopped on antibiotics asShe was asymptomatic for a urinary tract infection. 08/08 - Patient called 1 week prior to her scheduled colonoscopy on 08/15. Patient requested for procedure to be canceled as she was not going to be able to drink The requested amount for her colonoscopy prep. Review of Systems Constitutional: reports: Fever Nose: denies: Congestion Throat: denies: Sore throat Cardiac: denies: Chest pain / pressure, Palpitations Respiratory: denies: Dyspnea, Cough GI: reports: Abdominal Pain, Vomiting, Diarrhea. denies: Bloody / black stool : denies: Dysuria, Hematuria Skin: denies: Rash Musculoskeletal: denies: Back pain Neurologic: denies: Headache PD PAST MEDICAL HISTORY - Past Medical History Past Medical History: Yes Cardiovascular: None Respiratory: Pneumonia, Other Neuro: Migraines, Peripheral neuropathy, Tremors, Other Endocrine/Autoimmune: Other GI: GERD, Other WELD FITTER: Miscarriage(s), Other : Kidney stones, Other HEENT: None Psych: None Musculoskeletal: Fibromyalgia, Other Derm: None - Past Surgical History Past Surgical History: Yes General: Bowel surgery, Gastric surgery /WELD FITTER: section - Present Medications Home Medications: Ambulatory Orders Medication Instructions Recorded Confirmed clonazePAM [Clonazepam] 0.5 mg PO DAILY 04/15/20 04/15/20 Lurasidone HCl [Latuda] 20 mg PO DAILY 06/02/20 06/02/20 Mirtazapine [Remeron] 7.5 mg PO HS 06/02/20 06/02/20 Nystatin [Nystop] 1 applic TOP UD #1 bottle 06/02/20 Cefpodoxime Proxetil [Vantin] 200 mg PO Q12H #28 tablet 11/05/20 guaiFENesin/CODEINE [Robitussin AC] 5 - 10 ml PO Q6H PRN #120 ml 02/23/21 HYDROcod/ACETAM 5/325 [[place] 5/325] 1 - 2 tab PO Q6H PRN #15 tablet 03/03/21 Meloxicam [Mobic] 7.5 mg PO BID PRN #20 tablet 03/03/21 HYDROcod/ACETAM 5/325 [[place] 5/325] 1 tab PO BID #10 tablet 03/24/21 Nitrofurantoin [Macrobid] 100 mg PO BID #9 cap 06/11/21 Ondansetron Odt [Zofran] 4 mg TL Q6H PRN #10 tablet 06/23/21 Pantoprazole Sodium [Protonix] 40 mg PO DAILY #30 tab 06/23/21 Sucralfate [Carafate] 1 gm PO ACHS #60 tablet 06/23/21 oxyCODONE [Roxicodone] 5 mg PO BID PRN #10 tablet 06/23/21 Benzonatate [Tessalon] 200 mg PO QID PRN #20 cap 07/14/21 Oxycodone HCl/Acetaminophen 1 - 2 each PO Q6H PRN #14 tablet 07/14/21 [Percocet 5-325 mg Tablet] Amoxicillin 10 ml PO TID #300 ml 07/16/21 - Allergies Allergies/Adverse Reactions: Allergies Allergy/AdvReac Type Severity Reaction Status Date / Time Iodinated Contrast Media Allergy Anaphylaxis Verified 08/12/21 01:44 ceftriaxone [From Rocephin] AdvReac Hives Verified 08/12/21 05:52 cyclobenzaprine AdvReac Emesis Verified 08/12/21 01:44 morphine AdvReac Emesis Verified 08/12/21 01:44 - Social History Does the pt smoke?: No Smoking Status: Never smoker Does the pt drink ETOH?: No Does the pt have substance abuse?: No - Immunizations Immunizations are current?: No - POLST Patient has POLST: No POLST Status: Full Code PD ED PE NORMAL - General General: Alert and oriented X 3, No acute distress, Well developed/nourished - HEENT HEENT: Atraumatic, Moist mucous membranes - Neck Neck: Supple, no meningeal sign - Cardiac Cardiac: RRR, No murmur, Strong equal pulses - Respiratory Respiratory: No respiratory distress, Clear bilaterally - Abdomen Abdomen: Normal bowel sounds, Soft, Other (Ostomy left lower quadrant, Mild generalized abdominal tenderness, No rebound, no guarding). No: Non tender - Derm Derm: No rash - Extremities Extremities: No edema - Neuro Neuro: Normal speech - Psych Psych: Normal mood Results - Vitals Vitals: Vital Signs - 24 hr 08/12/21 08/12/21 08/12/21 01:41 02:02 05:35 Temperature 37.9 C 36.6 C Heart Rate 104 H 101 H 90 Respiratory 19 20 18 Rate Blood Pressure 130/93 H 120/86 H 114/79 O2 Saturation 96 100 99 Oxygen O2 Source Room air - Labs Labs: Laboratory Tests 08/12/21 08/12/21 08/12/21 02:54 02:54 02:54 WBC 9.4 RBC 4.92 Hgb 12.4 Hct 38.3 MCV 77.8 L MCH 25.2 L MCHC 32.4 RDW 13.9 Plt Count 424 MPV 10.3 Neut # (Auto) 4.7 Lymph # (Auto) 3.7 H [place] # (Auto) 0.5 Eos # (Auto) 0.4 Baso # (Auto) 0.1 Absolute Nucleated RBC 0.00 Nucleated RBC % 0.0 Sodium 139 Potassium 2.8 L Chloride 99 L Carbon Dioxide 26 Anion Gap 14.0 H BUN 11 Creatinine 0.7 Estimated GFR (MDRD) 105 Glucose 96 Lactic Acid 1.3 Calcium 10.2 Total Bilirubin 0.5 AST 28 ALT 56 Alkaline Phosphatase 50 Total Protein 8.5 H Albumin 4.2 Globulin 4.3 H Albumin/Globulin Ratio 1.0 Lipase 69 H Urine Color Urine Clarity Urine pH Ur Specific [place] Urine Protein Urine Glucose (UA) Urine Ketones Urine Occult Blood Urine Nitrite Urine Bilirubin Urine Urobilinogen Ur Leukocyte Esterase Urine RBC Urine WBC Ur Squamous Epith Cells Urine Bacteria Ur Microscopic Review Urine Culture Comments Urine HCG, Qual 08/12/21 04:40 WBC RBC Hgb Hct MCV MCH MCHC RDW Plt Count MPV Neut # (Auto) Lymph # (Auto) [place] # (Auto) Eos # (Auto) Baso # (Auto) Absolute Nucleated RBC Nucleated RBC % Sodium Potassium Chloride Carbon Dioxide Anion Gap BUN Creatinine Estimated GFR (MDRD) Glucose Lactic Acid Calcium Total Bilirubin AST ALT Alkaline Phosphatase Total Protein Albumin Globulin Albumin/Globulin Ratio Lipase Urine Color YELLOW Urine Clarity CLEAR Urine pH 6.0 Ur Specific [place] 1.025 Urine Protein NEGATIVE Urine Glucose (UA) NEGATIVE Urine Ketones NEGATIVE Urine Occult Blood TRACE-INTA Urine Nitrite NEGATIVE Urine Bilirubin NEGATIVE Urine Urobilinogen 0.2 (NORMAL) Ur Leukocyte Esterase TRACE H Urine RBC 0-5 Urine WBC 4-5 Ur Squamous Epith Cells MANY Squamous H Urine Bacteria Rare Ur Microscopic Review INDICATED Urine Culture Comments NOT INDICATED Urine HCG, Qual NEGATIVE PD MEDICAL DECISION MAKING - ED course Complexity details: reviewed results, re-evaluated patient, d/w patient ED course: Patient with complicated abdominal history presenting for evaluation of low- grade fevers, generalized abdominal pain and watery diarrhea for 2 weeks. Patient has low-grade fever on arrival of 37.9 and slightly tachycardic. Has mild generalized abdominal pain but does not have rebound or guarding to suggest peritoneal signs. Patient was difficult for IV access at baseline on top of her recent admission. Labs were obtained and overall reassuring other than a mild hypokalemia. Potassium was replaced orally. Patient had noncontrast CT scan done given her iodine allergy. No significant findings per preliminary report from overnight radiologist. Patient was able to give stool sample as well as urine sample. Urine analysis is not clear for an infection and patient denies symptoms of a UTI.Patient was able to tolerate p.o. intake.Her fever came down without intervention.At this time no clear source of a bacterial infection. As preliminary report did not suggest colitis on CT scan of the abdomen and pelvis, I do not want to start patient on empiric antibiotics given I do have concerns t hat she is at risk for developing C. difficile.Patient does not have UTI symptoms. No cough or congestion to suggest pneumonia. Patient is not wanting to undergo colonoscopy At this time. Patient has close follow-up planned today with her primary care doctor. She is advised on return precautions. 0400 - CT scan impression; 1. No nephrolithiasis or urinary tract obstruction demonstrated. #2 left lower quadrant colostomy. Increase stool burden Marie's pouch. 3 postcholecystectomy. Normal appendix. Departure - Departure Disposition: 01 Home, Self Care Clinical Impression: Low grade fever, Hypokalemia Abdominal pain Qualifiers: Abdominal location: generalized Qualified Code(s): R10.84 - Generalized abdominal pain Condition: Stable Instructions: ED Abdominal Pain Female Non-Specific Abdominal Pain, ED Potassium Deficiency Comments: Vicenta - The exact cause of your diarrhea and abdominal pain is unclear. You need very close follow-up with your primary care doctor as well as to establish care with a new director of field service. You likely still need a colonoscopy and may be even an upper endoscopy to determine the exact cause of your symptoms.We have sent your stool for studies but the results are not back yet. If there are any abnormalities we will give you a phone call. You had a low-grade fever today but your white count was normal and your preliminary CT read did not show signs of an infection. We did obtain a blood culture and we will notify you if there are any abnormalities.Your potassium was slightly low and you were given medicine to help with this.Please continue to stayHydrated at the best she can with drinking small amounts of fluids frequently through the day. If you feel your symptoms are worsening or not improving, you Should consider returning to the emergency department for another evaluation. Please call your primary care doctor today.
[2021-08-12 05:11] LABS: HCG UR QUAL NEGATIVE
[2021-08-12 05:13] LABS: BILIRUBIN,URINE NEGATIVE (NEGATIVE); GLUCOSE, URINE (UA) NEGATIVE (NEGATIVE); KETONES,URINE (UA) NEGATIVE (NEGATIVE); LEUKOCYTE ESTERASE, URINE TRACE (NEGATIVE); NITRITE,URINE NEGATIVE (NEGATIVE); OCCULT BLOOD,URINE TRACE-INTA (NEGATIVE); PROTEIN,URINE NEGATIVE (NEGATIVE); UROBILINOGEN,URINE 0.2 (NORMAL) E.U./dL (NORMAL)
[2021-08-12 05:15] LABS: CLARITY,URINE CLEAR (CLEAR)
[2021-08-12 05:22] LABS: BACTERIA,URINE Rare /HPF (None Seen); RBC,URINE 0-5 /HPF (0-5); SQUAMOUS EPITHELIAL CELL,UR MANY Squamous (<= Few)
[2021-08-12 05:54] VITALS: BP 114/78
--- NOTE | 2021-08-12 08:31 | CT Report ---
PROCEDURE: Abdomen/Pelvis WO INDICATIONS: abdominal pain/fever/ostomy TECHNIQUE: Noncontrast 5 mm thick sections acquired from the diaphragms to the symphysis. 5 mm coronal and sagi ttal reformats were then performed. For radiation dose reduction, the following was used: automated exposure control, adjustment of mA and/or kV according to patient size. COMPARISON: 06/23/2021 FINDINGS: Image quality: Excellent. ABDOMEN: Lung bases: Lung bases are clear. Heart size is normal. Solid organs: Liver is normal size with a smooth margin and diffusely hypodense. There are at least 2 visible rounded hyperdense lesions, the largest in segment VII measuring roughly 3.2 cm in the next most conspicuous in the left lobe measuring 1.7 cm. These were present previously. Spleen, adrenal g lands, pancreas, and left kidney appear normal. There is a nonobstructing punctate right mid pole int rarenal calculus. The gallbladder surgically absent. Peritoneum and bowel: Stomach is filled with ingested material. Small bowel is nonobstructing. Append ix and proximal colon are normal to the left lower quadrant ostomy. Proximal Morse's pouch is decom pressed and there is a moderate amount of rectal stool. No free fluid, free air, or peritoneal inflam mation. Nodes and vessels: No retroperitoneal or mesenteric adenopathy by size criteria. Aorta and inferior vena cava are normal in caliber. Miscellaneous: Tiny fat-containing parastomal hernia.. PELVIS: Genitourinary: Bladder wall thickness is normal. Uterus and right ovary are normal. Stable, mildly enlarged left ovary with a few coarse calcifications present. Miscellaneous: No inguinal hernias or adenopathy. Bones: No suspicious bony lesions. No vertebral body compression fractures. IMPRESSION: 1. No evidence of acute process in the abdomen or pelvis. 2. Nonobstructing punctate right midpole renal stone, unlikely to be symptomatic. 3. Hepatic steatosis with at least 2 hyperdense lesions, potentially hemangiomas. Further evaluation with liver protocol MRI is recommended if not previously performed. 4. Left lower quadrant colostomy and stable quantity of stool in the Marie's pouch. Reviewed by: Gabi Riley MD on 08/12/2021 8:30 AM PDT Approved by: Gabi Riley MD on 08/12/2021 8:30 AM PDT Station ID: [id number]
== END 2021-08-12 05:52 | disposition home or self-care (01) ==
LOC: ED 01:28
DX: E87.6 Hypokalemia (principal); R50.9 Fever, unspecified
CPT/HCPCS: 36415; 74176; 80053; 81001; 81025; 83605; 83690; 85025; 87040; 87045; 87046; 87427; 87493; 96372; 99284; A9270; J1170; Q0162; 81003; 87086

== ENCOUNTER 2021-09-23 18:57 | Emergency (ER) | payer OTHER ==
[2021-09-23] MEDS ORDERED: KETOROLAC 60 MG/2 ML VIAL IM STA (20:29)
--- NOTE | 2021-09-23 20:31 | ED Physician Documentation ---
History of Present Illness - Stated complaint Stated Complaint: GLF/BACK & HEAD PX - Chief complaint Chief Complaint: Trauma Ch/Bk - History obtained from History obtained from: Patient - History of Present Illness Timing: How many days ago (2) Pain level max: 8 Pain level now: 8 - Additonal information Additional information: Patient is a 21-year-old female who [place] to the emergency department [place] She states increasing pain in the left hip and lower back. Worse with movement, better with rest. Taking ibuprofen without relief. No loss of bowel or bladder control. No numbness or tingling. No head injury. No neck or back pain. 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), Other : Kidney stones, Other HEENT: None Psych: None Musculoskeletal: Fibromyalgia, Other Derm: None - Past Surgical History Past Surgical History: Yes General: Bowel surgery, 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 surgery /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 - Present Medications Home Medications: Ambulatory Orders Medication Instructions Recorded Confirmed clonazePAM [Clonazepam] 0.5 mg PO DAILY 04/15/20 04/15/20 Lurasidone HCl [Latuda] 20 mg PO DAILY 06/02/20 06/02/20 Mirtazapine [Remeron] 7.5 mg PO HS 06/02/20 06/02/20 Nystatin [Nystop] 1 applic TOP UD #1 bottle 06/02/20 Cefpodoxime Proxetil [Vantin] 200 mg PO Q12H #28 tablet 11/05/20 guaiFENesin/CODEINE [Robitussin AC] 5 - 10 ml PO Q6H PRN #120 ml 02/23/21 HYDROcod/ACETAM 5/325 [[place] 5/325] 1 - 2 tab PO Q6H PRN #15 tablet 03/03/21 Meloxicam [Mobic] 7.5 mg PO BID PRN #20 tablet 03/03/21 HYDROcod/ACETAM 5/325 [[place] 5/325] 1 tab PO BID #10 tablet 03/24/21 Nitrofurantoin [Macrobid] 100 mg PO BID #9 cap 06/11/21 Ondansetron Odt [Zofran] 4 mg TL Q6H PRN #10 tablet 06/23/21 Pantoprazole Sodium [Protonix] 40 mg PO DAILY #30 tab 06/23/21 Sucralfate [Carafate] 1 gm PO ACHS #60 tablet 06/23/21 oxyCODONE [Roxicodone] 5 mg PO BID PRN #10 tablet 06/23/21 Benzonatate [Tessalon] 200 mg PO QID PRN #20 cap 07/14/21 Oxycodone HCl/Acetaminophen 1 - 2 each PO Q6H PRN #14 tablet 07/14/21 [Percocet 5-325 mg Tablet] Amoxicillin 10 ml PO TID #300 ml 07/16/21 HYDROcod/ACETAM 5/325 [[place] 5/325] 1 - 2 ea PO Q6H PRN #10 tablet 09/23/21 - Allergies Allergies/Adverse Reactions: Allergies Allergy/AdvReac Type Severity Reaction Status Date / Time Iodinated Contrast Media Allergy Anaphylaxis Verified 09/23/21 19:12 ceftriaxone [From Rocephin] AdvReac Hives Verified 09/23/21 19:12 cyclobenzaprine AdvReac Emesis Verified 09/23/21 19:12 morphine AdvReac Emesis Verified 09/23/21 19:12 - Social History Does the pt smoke?: No Smoking Status: Never smoker Does the pt drink ETOH?: No Does the pt have substance abuse?: No - Immunizations Immunizations are current?: No - POLST Patient has POLST: No POLST Status: Full Code PD ED PE NORMAL - Vitals Vital signs reviewed: Yes - General General: Alert and oriented X 3, No acute distress - HEENT HEENT: Moist mucous membranes - Neck Neck: Supple, no meningeal sign - Cardiac Cardiac: RRR - Respiratory Respiratory: No respiratory distress, Clear bilaterally - Back Back: Other (Mild upper L-spine tenderness to palpation. No step-off or deformity. No paraspinal spasm.) - Derm Derm: Warm and dry - Extremities Extremities: Other (Mild tenderness over the left greater trochanter. Full range of motion. Neurovascular intact.) - Neuro Neuro: Alert and oriented X 3, Other (Normal bilateral lower extremity patellar and ankle jerk reflexes. Normal great toe extension bilaterally. no saddle anesthesia) - Psych Psych: Normal mood, Normal affect Results - Vitals Vitals: Vital Signs - 24 hr 09/23/21 09/23/21 09/23/21 19:08 19:32 20:38 Temperature 36.5 C Heart Rate 94 Respiratory 14 16 17 Rate Blood Pressure 122/84 H O2 Saturation 98 09/23/21 20:55 Temperature 36.8 C Heart Rate 84 Respiratory 18 Rate Blood Pressure 118/73 O2 Saturation 96 Oxygen O2 Source Room air - Rads (name of study) Lumbar spine x-ray Radiology: Final report received, EMP read contemporaneously, See rad report (no acute abnormalities) L hip xray Radiology: Final report received, EMP read contemporaneously, See rad report (no acute abnormalities) PD MEDICAL DECISION MAKING - ED course Complexity details: reviewed results, re-evaluated patient, considered differential (No cauda equina, no spinal epidural abscess, no fracture, no aortic dissection or evidence of aneursym rupture), d/w patient ED course: No acute findings on x-ray. Patient is ambulating without difficulty. No cauda equina, epidural abscess. Pain well controlled. Ambulating without difficulty. Patient counseled regarding signs and symptoms for which I believe and urgent re-evaluation would be necessary. Patient with good understanding of and agreement to plan and is comfortable going home at this time This document was made in part using voice recognition software. While efforts are made to proofread this document, sound alike and grammatical errors may occur. Departure - Departure Disposition: 01 Home, Self Care Clinical Impression: Fall from ground level, Hip pain Back pain Qualifiers: Back pain location: low back pain Chronicity: acute Back pain laterality: left Sciatica presence: without sciatica Qualified Code(s): M54.50 - Low back pain, unspecified Condition: Good Instructions: ED Neck Back Pain General Follow-Up: Your,doctor in 1 week [Other] Prescriptions: HYDROcod/ACETAM 5/325 [[place] 5/325] 1 - 2 ea PO Q6H PRN #10 tablet PRN Reason: Pain Comments: Your prescription was sent to [facility] in [place]. Please follow-up with your doctor for further care. Your x-rays do not show any acute abnormalities today. I am prescribing a short course of narcotic pain medication for you. These are potentially dangerous and addictive medications that should be used carefully. These medications may constipate you. Take an jryw-lcw-fuvtpbv stool softener (docusate) twice daily with plenty of water while taking these medications. If you go 24 hours without a bowel movement, take jpds-irm-cihemwe miralax, per package instructions. Do not drink or drive while taking these medications. If you received narcotic or sedating medications while in the emergency department, do not drive for 24 hours. Store this medication in a safe, secure place and out of reach of children. It is a violation of federal law to give or sell this medication to another person or to use in a manner other than prescribed. The ED will not refill narcotic prescriptions, including prescriptions lost or stolen. To dispose of unwanted medications: 1. [facility] [address] [facility] in [place] has a medication drop box. They accept prescription medications (in pill form) Wednesday through Wednesday 9:00 a.m. to 5:00 p.m. 2. The [facility] [employer] accepts prescription medications (in pill form only) for disposal year round. Call for more information. 3. Contact the [facility] for the next [facility] sponsored prescription drug collection event. , [phone], or [phone];
[2021-09-23] MEDS ORDERED: MELOXICAM 7.5 MG TABLET PO STA (20:36)
[2021-09-23 20:56] VITALS: BP 118/73
--- NOTE | 2021-09-23 21:53 | XRAY Report ---
PROCEDURE: Hip w/Pelvis 2-3V LT INDICATIONS: fall, hip pain TECHNIQUE: AP pelvis with lateral view of the left hip. COMPARISON: None. FINDINGS: Bones: No fractures or dislocations. Pelvic ring appears intact. No suspicious bony lesions. Soft tissues: The visualized bowel gas pattern is normal. No suspicious soft tissue calcifications. IMPRESSION: 1. No fracture or dislocation. Reviewed by: Pal Guerra MD on 09/23/2021 9:51 PM PDT Approved by: Pal Guerra MD on 09/23/2021 9:51 PM PDT Station ID: [id number]
--- NOTE | 2021-09-23 21:56 | XRAY Report ---
PROCEDURE: Lumbar Spine 2 View INDICATIONS: fall, back pain TECHNIQUE: 2 views of the lumbar spine were acquired. COMPARISON: None. FINDINGS: Bones: 5 [id number]-hrimhkd vertebrae are present. There is normal bony alignment. No vertebral body compression fractures. No suspicious bony lesions. Soft tissues: Overlying bowel gas pattern is normal. No suspicious soft tissue calcifications. IMPRESSION: 1. No fracture or subluxation. Reviewed by: Pal Guerra MD on 09/23/2021 9:54 PM PDT Approved by: Pal Guerra MD on 09/23/2021 9:54 PM PDT Station ID: [id number]
[2021-09-23] MEDS ORDERED: HYDROcod/ACETAM 5/325 MG TABLET PO STA (22:06)
== END 2021-09-23 22:22 | disposition home or self-care (01) ==
LOC: ED 18:57
DX: M25.552 Pain in left hip (principal); M54.50 Low back pain, unspecified
CPT/HCPCS: 72100; 73502; 99282; 99283; A9270

== ENCOUNTER 2021-09-27 02:18 | Emergency (ER) | payer OTHER ==
[2021-09-27 02:26] VITALS: BP 124/84
== END 2021-09-27 04:18 | disposition home or self-care (01) ==
LOC: ED 02:18
DX: Z53.21 Procedure and treatment not carried out due to patient leaving prior to being seen by health care provider (principal)

== ENCOUNTER 2022-03-30 17:51 | Emergency (ER) | payer OTHER ==
[2022-03-30 18:56] LABS: B. PARAPERTUSSIS- RESP PCR PAN NOT DETECTED; B. PERTUSSIS- RESP PCR PANEL NOT DETECTED; C. PNEUMONIAE- RESP PCR PANEL NOT DETECTED; CORONAVIRUS 229E-RESP PCR NOT DETECTED; CORONAVIRUS HKU1-RESP PCR NOT DETECTED; CORONAVIRUS NL63-RESP PCR NOT DETECTED; CORONAVIRUS OC43-RESP PCR NOT DETECTED; HUMAN METAPNEUMOVIRUS NOT DETECTED; INFLUENZA A- RESP PCR PANEL NOT DETECTED; INFLUENZA B - RESP PCR PANEL NOT DETECTED; M. PNEUMONIAE- RESP PCR PANEL NOT DETECTED; PARAINFLUENZA VIRUS 1 NOT DETECTED; PARAINFLUENZA VIRUS 2 NOT DETECTED; PARAINFLUENZA VIRUS 3 NOT DETECTED; PARAINFLUENZA VIRUS 4 NOT DETECTED; RHINOVIRUS/ENTEROVIRUS DETECTED; RSV- RESP PCR PANEL NOT DETECTED; SARS-CoV-2 -RESP PCR PANEL NOT DETECTED
--- NOTE | 2022-03-30 20:29 | ED Physician Documentation ---
History of Present Illness - Stated complaint Stated Complaint: THROAT/HEAD PX/COUGH - Chief complaint Chief Complaint: Resp - Additonal information Additional information: 21-year-old female presents the emergency department for evaluation of cough congestion sore throat runny nose. Patient feels like she has difficult time swallowing. Denies sick contacts at home. Subjective fevers. Symptoms have been ongoing for about 4 days. Not vaccinated for influenza but is vaccinated for COVID. She does have a known history of a diverting colostomy. Review of Systems Constitutional: reports: Chills, Myalgias, Fatigue. 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), Other : Kidney stones, Other HEENT: None Psych: None Musculoskeletal: Fibromyalgia, Other Derm: None - Past Surgical History Past Surgical History: Yes General: Bowel surgery, Gastric surgery /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 - Present Medications Home Medications: Ambulatory Orders Medication Instructions Recorded Confirmed clonazePAM [Clonazepam] 0.5 mg PO DAILY 04/15/20 04/15/20 Lurasidone HCl [Latuda] 20 mg PO DAILY 06/02/20 06/02/20 Mirtazapine [Remeron] 7.5 mg PO HS 06/02/20 06/02/20 Nystatin [Nystop] 1 applic TOP UD #1 bottle 06/02/20 Cefpodoxime Proxetil [Vantin] 200 mg PO Q12H #28 tablet 11/05/20 guaiFENesin/CODEINE [Robitussin AC] 5 - 10 ml PO Q6H PRN #120 ml 02/23/21 HYDROcod/ACETAM 5/325 [[place] 5/325] 1 - 2 tab PO Q6H PRN #15 tablet 03/03/21 Meloxicam [Mobic] 7.5 mg PO BID PRN #20 tablet 03/03/21 HYDROcod/ACETAM 5/325 [[place] 5/325] 1 tab PO BID #10 tablet 03/24/21 Nitrofurantoin [Macrobid] 100 mg PO BID #9 cap 06/11/21 Ondansetron Odt [Zofran] 4 mg TL Q6H PRN #10 tablet 06/23/21 Pantoprazole Sodium [Protonix] 40 mg PO DAILY #30 tab 06/23/21 Sucralfate [Carafate] 1 gm PO ACHS #60 tablet 06/23/21 oxyCODONE [Roxicodone] 5 mg PO BID PRN #10 tablet 06/23/21 Benzonatate [Tessalon] 200 mg PO QID PRN #20 cap 07/14/21 Oxycodone HCl/Acetaminophen 1 - 2 each PO Q6H PRN #14 tablet 07/14/21 [Percocet 5-325 mg Tablet] Amoxicillin 10 ml PO TID #300 ml 07/16/21 HYDROcod/ACETAM 5/325 [[place] 5/325] 1 - 2 ea PO Q6H PRN #10 tablet 09/23/21 - Allergies Allergies/Adverse Reactions: Allergies Allergy/AdvReac Type Severity Reaction Status Date / Time Iodinated Contrast Media Allergy Anaphylaxis Verified 03/30/22 18:01 vancomycin Allergy Emesis Verified 03/30/22 18:01 ceftriaxone [From Rocephin] AdvReac Hives Verified 03/30/22 18:01 cyclobenzaprine AdvReac Emesis Verified 03/30/22 18:01 morphine AdvReac Emesis Verified 03/30/22 18:01 - Social History Does the pt smoke?: No Smoking Status: Never smoker Does the pt drink ETOH?: No Does the pt have substance abuse?: No - Immunizations Immunizations are current?: No - POLST Patient has POLST: No POLST Status: Full Code PD ED PE NORMAL - General General: Alert and oriented X 3, No acute distress, Well developed/nourished - HEENT HEENT: Atraumatic, PERRL, Ears normal, Moist mucous membranes, Pharynx benign - Cardiac Cardiac: RRR, No murmur - Respiratory Respiratory: No respiratory distress, Clear bilaterally - Abdomen Abdomen: Normal bowel sounds, Soft, Non tender, Other (Diverting colostomy with soft stool) Results - Vitals Vitals: Vital Signs - 24 hr 03/30/22 17:56 Temperature 36.8 C Heart Rate 101 H Respiratory 16 Rate Blood Pressure 127/78 O2 Saturation 100 Oxygen O2 Source Room air - Labs Labs: Laboratory Tests 03/30/22 18:02 Nasal Adenovirus (PCR) DETECTED A Nasal B. parapertussis DNA (PCR) NOT DETECTED Nasal Coronavir 229E PCR NOT DETECTED Nasal Coronavir HKU1 PCR NOT DETECTED Nasal Coronavir NL63 PCR NOT DETECTED Nasal Coronavir OC43 PCR NOT DETECTED Nasal Enterovir/Rhinovir PCR DETECTED A Nasal Influenza B PCR NOT DETECTED Nasal Influenza A PCR NOT DETECTED Nasal Parainfluen 1 PCR NOT DETECTED Nasal Parainfluen 2 PCR NOT DETECTED Nasal Parainfluen 3 PCR NOT DETECTED Nasal Parainfluen 4 PCR NOT DETECTED Nasal RSV (PCR) NOT DETECTED Nasal B.pertussis DNA PCR NOT DETECTED Nasal C.pneumoniae (PCR) NOT DETECTED Jerald Human Metapneumo PCR NOT DETECTED Nasal M.pneumoniae (PCR) NOT DETECTED Nasal SARS-CoV-2 (PCR) NOT DETECTED PD Medical Decision Making - ED course Complexity details: reviewed results, re-evaluated patient, considered differential, d/w patient ED course: 21-year-old female presents to the emergency department for evaluation of cough cold congestion. She has had a sore throat. No fevers. Here in the emergency department she has tested positive for rhinovirus as well as adenovirus. Her cardiopulmonary auscultation was unremarkable. No hypoxia tachypnea or respiratory distress. Patient is taking appropriate zuyd-oxu-kgkrmco supplements to help with her symptoms. I deferred an x-ray today given the lack of fever, hypoxia or worrisome breath sounds. I discussed with patient the routine management of viral URI. Emergent return precautions discussed Departure - Departure Disposition: 01 Home, Self Care Clinical Impression: Viral URI with cough, Adenovirus infection, Rhinovirus infection Condition: Stable Record reviewed to determine appropriate education?: Yes Instructions: ED Viral Syndrome Comments: Vicenta you have 2 viruses causing cough cold congestion and sore throat. Unfortunately there is no medication that will quickly resolve your symptoms. You can continue your zsqo-llj-iwzqyby treatments that you have been using such as Sudafed, Tylenol and ibuprofen. You have tested positive for both rhinovirus and adenovirus. I expect that you will have the symptoms for the better part of 7 to 10 days. Important he stay well-hydrated. Reasons for you to return to the emergency department would be the development of any new fever after 7 to 10 days or severe shortness of air
[2022-03-30 20:39] VITALS: BP 118/83
== END 2022-03-30 20:39 | disposition home or self-care (01) ==
LOC: ED 17:51
DX: J06.9 Acute upper respiratory infection, unspecified (principal); B97.89 Other viral agents as the cause of diseases classified elsewhere; B97.0 Adenovirus as the cause of diseases classified elsewhere; Z20.822 Contact with and (suspected) exposure to COVID-19
CPT/HCPCS: 87633; 99282; 99283

== ENCOUNTER 2022-10-30 19:45 | Emergency (ER) | payer OTHER ==
[2022-10-30 20:01] VITALS: BP 120/81
--- NOTE | 2022-10-30 20:07 | ED Physician Documentation ---
PD HPI URI - Stated complaint Stated Complaint: ACEVEDO/THROAT PX - Chief complaint Chief Complaint: Resp - History obtained from History obtained from: Patient - Additional information Additional information: HPI from patient. Patient says that she had an upper endoscopy 2 weeks ago. She says that shortly thereafter, she experienced sore throat. She says she contacted one of her doctors "and they advised me to go to the ER" (per patient). Patient says she went to the [facility] ER at that time because "all my doctors are there". She says she was diagnosed with pneumonia and prescribed an antibiotic and completed the prescribed course; she does not recall which antibiotic it was. She presents to the emergency department this time complaining of ongoing sore throat, generalized headache, cough productive of discolored sputum. She says it hurts when she takes a deep breath She says the symptoms are the same for which she was seen in the [facility] ED 2 weeks ago. patient says she no longer has a PMD but contacted the office ([facility]) and was told by a nurse to go to the ER. 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 - Present Medications Home Medications: Ambulatory Orders Medication Instructions Recorded Confirmed clonazePAM [Clonazepam] 0.5 mg PO DAILY 04/15/20 04/15/20 Lurasidone HCl [Latuda] 20 mg PO DAILY 06/02/20 06/02/20 Mirtazapine [Remeron] 7.5 mg PO HS 06/02/20 06/02/20 Nystatin [Nystop] 1 applic TOP UD #1 bottle 06/02/20 Cefpodoxime Proxetil [Vantin] 200 mg PO Q12H #28 tablet 11/05/20 guaiFENesin/CODEINE [Robitussin AC] 5 - 10 ml PO Q6H PRN #120 ml 02/23/21 HYDROcod/ACETAM 5/325 [[place] 5/325] 1 - 2 tab PO Q6H PRN #15 tablet 03/03/21 Meloxicam [Mobic] 7.5 mg PO BID PRN #20 tablet 03/03/21 HYDROcod/ACETAM 5/325 [[place] 5/325] 1 tab PO BID #10 tablet 03/24/21 Nitrofurantoin [Macrobid] 100 mg PO BID #9 cap 06/11/21 Ondansetron Odt [Zofran] 4 mg TL Q6H PRN #10 tablet 06/23/21 Pantoprazole Sodium [Protonix] 40 mg PO DAILY #30 tab 06/23/21 Sucralfate [Carafate] 1 gm PO ACHS #60 tablet 06/23/21 oxyCODONE [Roxicodone] 5 mg PO BID PRN #10 tablet 06/23/21 Benzonatate [Tessalon] 200 mg PO QID PRN #20 cap 07/14/21 Oxycodone HCl/Acetaminophen 1 - 2 each PO Q6H PRN #14 tablet 07/14/21 [Percocet 5-325 mg Tablet] Amoxicillin 10 ml PO TID #300 ml 07/16/21 HYDROcod/ACETAM 5/325 [[place] 5/325] 1 - 2 ea PO Q6H PRN #10 tablet 09/23/21 - Allergies Allergies/Adverse Reactions: Allergies Allergy/AdvReac Type Severity Reaction Status Date / Time Iodinated Contrast Media Allergy Anaphylaxis Verified 10/30/22 19:53 vancomycin Allergy Emesis Verified 10/30/22 19:53 ceftriaxone [From Rocephin] AdvReac Hives Verified 10/30/22 19:53 cyclobenzaprine AdvReac Emesis Verified 10/30/22 19:53 morphine AdvReac Emesis Verified 10/30/22 19:53 - Social History Does the pt smoke?: No Smoking Status: Never smoker Does the pt drink ETOH?: No Does the pt have substance abuse?: No - Immunizations Immunizations are current?: No - POLST Patient has POLST: No POLST Status: Full Code PD ED PE NORMAL - Vitals Vital signs reviewed: Yes - General General: Alert and oriented X 3, No acute distress, Well developed/nourished, Other (speaks in full sentences with clear voice; NAD including no apparent respiratory distress) - HEENT HEENT: Pharynx benign - Neck Neck: Supple, no meningeal sign - Respiratory Respiratory: No respiratory distress, Clear bilaterally Results - Vitals Vitals: Oxygen O2 Source Room air PD Medical Decision Making - ED course Complexity details: considered differential, d/w patient ED course: This is patient's [address]th [facility] ED visit since 2019. This is her [facility]th [facility] ED visit over past 12 months to 3 different EDs. After HPI/ROS and brief exam as documented above, I explained to patient that I recommend ordering nasal swab for viral respiratory panel (I explained in layperson terms what this will test for), throat swab for strep test, and chest xray. In anticipation of need to follow-up in outpatient setting no matter the test results, I sought clarification from patient regarding whom she spoke with this evening that advised her to come to the ED if she does not have a PMD (as she indicated during initial HPI). [place] It was unclear to me as to why she would be given medical advice over the phone (such as directing her to go to ED) from a practice where she was no longer a patient, or, if she still had access to [employer] system, why she was indicating to me she no longer has a PMD; I also was not clear why she went to [facility] ED two weeks ago when given the same advice for the same symptoms. Patient rapidly became upset with me and abruptly said she wanted to leave and was going to go directly to [facility] ED. She left before any tests were performed and without opportunity to consider AMA vs d/c instructions with or without testing. Departure - Departure Disposition: ED [place] Clinical Impression: Upper respiratory infection Qualifiers: URI type: unspecified URI Qualified Code(s): J06.9 - Acute upper respiratory infection, unspecified Condition: Good Forms: PCP List Discharge Date/Time: 10/30/22 20:37
== END 2022-10-30 20:37 | disposition left against medical advice (07) ==
LOC: ED 19:45
DX: J06.9 Acute upper respiratory infection, unspecified (principal); Z79.899 Other long term (current) drug therapy
CPT/HCPCS: 99281; 99282